=== PATIENT | female | born 1955 | race Asian ===

== ENCOUNTER 2022-02-18 07:48 | Inpatient (IN) | payer MEDICAID, SELFPAY ==
[2022-02-18] VITALS (8 sets, daily range): BP systolic 108–161; BP diastolic 71–90; PULSE 90–109; RESP 16–18; TEMP 37.6–38.9; O2SAT 91–97; BMI 27.3; BMI 30.9
--- NOTE | ~2022-02-18 | CT_ITS ---
EXAMINATION: CT ABDOMEN AND PELVIS WITHOUT CONTRAST CLINICAL INFORMATION: Abdominal pain and tenderness. COMPARISON: None TECHNIQUE: Multidetector volumetric imaging was performed from the superior aspect of the liver through the pubic symphysis. Sagittal and coronal reformatted images were obtained on the technologist's workstation. Lack of intravenous and oral contrast limits visceral evaluation. This CT examination was performed using dose optimization techniques as appropriate, variously including the following: *Automated exposure control *Adjustment of mA and/or kV according to patient size (this includes techniques or standardized protocols for targeted exams where dose is matched to indication/reason for exam; i.e. extremities or head) *Use of iterative reconstruction technique DLP: 468 mGy-cm FINDINGS: LUNG BASES: The visualized lung bases are unremarkable. LIVER, GALLBLADDER, AND BILIARY TREE: Noncalcified, fluid attenuation cyst measuring up to 3.2 cm (image 36, series 7) at the anteroinferior tip of the liver in segment 6. A smaller cyst laterally adjacent to the
--- NOTE | 2022-02-18 08:42 | ED.GENADULT ---
HPI - General Adult General Chief complaint: Abdominal Pain Stated complaint: abd pain Time Seen by Provider: 02/18/22 08:39 Source: patient and family (patient's son-in-law and the patient's daughter) Mode of arrival: ambulatory Limitations: language barrier (mandarin) History of Present Illness HPI narrative: Patient is a 66 year old assigned female at with no reported medical history presenting to the emergency department today with abdominal pain. Patient states that over the last 3 months she has had intermittent right sided abdominal pain and over the last week, her pain has gotten significantly worse. Patient states that she is nauseous. Patient states that the last time she ate was last night (02/17/2022) at 6pm. Patient denies any dizziness, lightheadedness, vomiting, fever, chills, blurry vision, double vision, loss of vision, chest pain, difficulty breathing, shortness of breath, back pain, night sweats, increased urinary frequency, increased urinary urgency, blood in her urine or stool, syncope or a near syncopal episode, recent trauma or falls, bowel incontinence, bladder incontinence, bowel retention, bladder retention, or any other complaints at this time. Onset (ago): week(s) (1) Location: abdomen and right Radiation: non-radiation Severity: moderate Severity scale (1-10): 5 Quality: aching and dull Pain Consistency: constant Relieving factors: none Exacerbating factors: none Associated symptoms: loss of appetite and nausea/vomiting Treatments prior to arrival: none Related Data Home Medications Medication Instructions Recorded Confirmed calcium carbonate 500 mg calcium 500 mg PO TID PRN Indigestion 02/18/22 02/18/22 (1,250 mg) chewable tablet pancreatin 500 mg tablet 1,400 mg PO DAILY 02/18/22 02/18/22 Allergies Allergy/AdvReac Type Severity Reaction Status Date / Time No Known Allergies Allergy Verified 02/18/22 08:07 Review of Systems Constitutional: Constitutional: Reports no additional constitutional complaints, Denies chills, Denies fever(s) and Denies night sweats Eyes: Eyes: Reports no additional eye complaints, Denies blurry vision, Denies change in vision, Denies diplopia, Denies eye discharge, Denies loss of vision and Denies eye pain ENT: Denies dizziness Cardiovascular: Cardiovascular: Reports no additional cardiovascular complaints, Denies chest pain, Denies lightheadedness, Denies Loss of Consciousness and Denies dyspnea Respiratory: Respiratory: Reports no additional respiratory complaints and Denies dyspnea Gastrointestinal: Gastrointestinal: Reports no additional gastrointestinal complaints, Reports abdominal pain, Denies melena, Denies hematochezia, Denies change in bowel habits, Denies change in stool character and Reports nausea Genitourinary: Genitourinary: Denies hematuria, Denies urinary frequency, Reports dysuria, Denies urinary incontinence, Denies urinary hesitancy and Denies urinary urgency Musculoskeletal: Musculoskeletal: Reports no additional musculoskeletal complaints, Denies numbness and Denies tingling Neurologic: Denies dizziness, Denies loss of vision, Denies numbness and Denies tingling Psychiatric: Psychiatric: Reports no additional psychiatric complaints Endocrine: Endocrine: Reports no additional endocrine complaints Hematologic/Lymphatic: Hematologic/Lymphatic: Reports no additional hematologic/lymphatic complaints Allergic/Immunologic: Allergic/Immunologic: Reports no additional allergic/immunologic complaints PMFSH Past Medical History Attestation statement: The following information was validated with the patient. Source: old records reviewed, obtained from family (patient's son) and nursing notes reviewed Medical History (Updated 02/18/22 @ 15:18 by CHELSY Tyler) HTN (hypertension) Social History Social History Advance Directives: No Physical Exam ED Vital Signs: Vital Signs - 24 hr 02/18/22 08:04 02/18/22 10:21 02/18/22 10:25 Temperature 101.7 F H 100.4 F Pulse Rate 109 H 95 Respiratory Rate 16 16 Blood Pressure 161/90 H 119/74 Pulse Oximetry 95 91 L 96 Oxygen Delivery Method Room Air Room Air Nasal Cannula Oxygen Flow Rate 2 02/18/22 10:24 02/18/22 12:00 Temperature 100.4 F 99.7 F Pulse Rate 93 Respiratory Rate 16 Blood Pressure 108/71 Pulse Oximetry 97 Oxygen Delivery Method Nasal Cannula Oxygen Flow Rate 2 BMI result Body Mass Index 27.3 Const General: cooperative, no acute distress, alert and awake Nutritional Appearance: well nourished Orientation/consciousness: patient oriented x3 Limitations: no limitations HENMT Head: Yes normal to inspection and Yes atraumatic Ears: hearing grossly normal bilaterally and external ears normal General nose exam: Normal external nose present, no nasal discharge noted and no epistaxis Face and sinus: Yes normal facial exam, No abrasion and No laceration Mouth: Normal oral and palatal mucosa present, no drooling and no muffled voice Eyes General: appearance normal, both eyes and all related structures Periorbital: periorbital findings normal Eyelids: Yes eyelids normal Conjunctivae: conjunctivae normal Pupils: Equal, round and reactive pupils present EOM: EOMs intact bilaterally Neck Neck: Yes normal visual inspection, Yes full ROM and Yes no lymphadenopathy Chest Breast/axilla palpation: abnormal palpation of the breast left lower outer mass Resp Effort & Inspection: normal respiratory effort and able to speak in complete sentences Auscultation: clear to auscultation bilaterally Cardio Rate: tachycardic Rhythm: regular rhythm GI Inspection: Yes normal to inspection Palpation (GI): Soft to palpation, not firm, Tenderness to palpation present (GI) in the RLQ and with rebound tenderness, no guarding and not rigid Neuro General: patient oriented x3 and moves all extremities Cranial nerves: Yes Equal, round and reactive pupils present Cognition (Neuro): normal cognition Motor exam (neuro): 5/5 motor strength present throughout Sensory Exam: Normal double simultaneous stimulation for sensation Coordination: [id number] test normal Extrem General: Yes normal to inspection, Yes full ROM and Yes capillary refill normal Psych Appearance: grossly normal Mental Status: mental status grossly normal Affect: normal affect Attitude: cooperative Thought process: Normal thought process present Thought content: Normal thought content present Insight: Good insight present (Psych) Medications Administered Generic Name Dose Route Start Last Admin Trade Name Freq PRN Reason Stop Dose Admin Acetaminophen 650 mg 02/18/22 13:04 02/18/22 14:27 Acetaminophen 325 Mg Tablet PO 650 mg Q6H PRN Administration Pain, Mild (Pain Scale 1-3) Discontinued Medications Generic Name Dose Route Start Last Admin Trade Name Freq PRN Reason Stop Dose Admin Acetaminophen 650 mg 02/18/22 08:42 02/18/22 09:11 Acetaminophen 325 Mg Tablet PO 02/18/22 08:43 650 mg ONCE ONE Administration Sodium Chloride 1,000 mls @ 999 mls/hr 02/18/22 08:45 02/18/22 11:01 Ns IV 02/18/22 09:45 Infused .Q1H1M SAMANTHA Infusion Piperacillin Sod/Tazobactam 50 mls @ 100 mls/hr 02/18/22 09:13 02/18/22 11:01 Sod 3.375 gm/ Sodium Chloride IV 02/18/22 09:42 Infused ONCE ONE Infusion Morphine Sulfate 4 mg 02/18/22 08:45 02/18/22 09:11 Morphine Sulfate 4 Mg/Ml Cartridge IVPUSH 02/18/22 08:46 4 mg ONCE ONE Administration Protocol Ondansetron HCl 4 mg 02/18/22 08:45 02/18/22 09:11 Ondansetron Hcl 4 Mg/2 Ml Vial IVPUSH 02/18/22 08:46 4 mg ONCE ONE Administration Medical Decision Making Medical Decision Making MDM Narrative: Patient is a 66 year old assigned female at with no reported medical history presenting to the emergency department today with abdominal pain. Patient's physical exam showed tenderness to palpation of the right lower quadrant with rebound tenderness and a breast mass on the left breast at the 9 o'clock position. Patient tachycardic and febrile. Patient's blood work was unremarkable. Patient's urine showed probable urinary tract infection. Patient's chest x-ray showed no acute process. Patient's abdominal CT showed irregular mural thickening at the level of the terminal ileum extending into the ileocecal valve and cecum with adjacent infiltrative changes and enlarged ileocolic lymph nodes. The radiologist remarked that the findings are nonspecific but significantly abnormal and recommends surgical consultation. I spoke to the general surgeon who recommended getting GI involved as well. I consulted with GI on this patient as well. I spoke to the hospitalist who agreed to admission. Patient was given IV fluids and IV Zosyn. Patient's clinical presentation not consistent with sepsis. I explained my physical exam findings as well as all test results to the patient, the patient's son-in-law, and the patient's daughter. I answered all questions asked by the patient, the patient's son-in-law, and the patient's daughter.Patient, the patient's son-in-law, and the patient's daughter verbalized agreement and understanding with this treatment plan and admission. Differential Diagnosis Differential Diagnoses: The differential diagnosis associated with the presentation includes appendicitis, acute abdomen, cancer Consult Healthcare Provider Management of the patient was discussed with: Hospitalist (agreed to admission) and Tool And Cutter Grinder (consulted both surgery and GI who agreed to consult on this case) Lab Data [facility] Lab Attestation statement: I reviewed the patient's lab results. Result Diagrams: 02/18/22 08:55 02/18/22 08:55 Labs: Lab Results 02/18/22 02/18/22 02/18/22 Range/Units 08:55 08:55 08:55 WBC 9.8 (4.8-10.8) X10*3/uL RBC 4.57 (4.20-5.50) X10*6/uL Hgb 13.3 (12.0-16.0) g/dl Hct 39.0 (37.0-47.0) % MCV 85.3 (80.0-98.0) fL MCH 29.1 (27.0-33.0) pg MCHC 34.1 (31.0-35.0) g/dl RDW 12.2 (11.0-16.0) % Plt Count 259 (160-400) X10*3/uL MPV 8.6 L (9.4-12.3) fL Immature Gran % (Auto) 0.3 (0.0-0.4) % Neut % (Auto) 88.8 H (45-73) % Lymph % (Auto) 6.2 L (20-40) % Hawkins % (Auto) 4.6 (2-11) % Eos % (Auto) 0.0 (0-4) % Baso % (Auto) 0.1 (0-2) % Lymph # (Auto) 0.6 L (1.2-4.9) X10*3/uL Hawkins # (Auto) 0.5 (0.1-1.2) X10*3/uL Eos # (Auto) 0.0 (0.0-0.4) X10*3/uL Baso # (Auto) 0.0 (0.0-0.2) X10*3/uL Abs Immat Gran (auto) 0.03 (0.00-0.03) X10*3/uL Absolute Neuts (auto) 8.7 H (2.0-8.3) x10*3/uL Absolute Nucleated RBC 0.000 (0.0-0.012) X10*3/uL Nucleated RBC % (auto) 0.0 (0.0-0.2) /100WBC Sodium 137 (135-145) mmol/L Potassium 3.6 (3.3-5.1) mmol/L Chloride 101 (96-108) mmol/L Carbon Dioxide 23 (22-29) mmol/L Anion Gap 17 (12-20) BUN 8 L (9-16) mg/dL Creatinine 0.62 (0.5-1.4) mg/dL Estim Creat Clear Calc 72.3 Estimated GFR > 60 Random Glucose 154 H (60-115) mg/dL Estimat Average Glucose mg/dL Hemoglobin A1c % % Lactic Acid (0.5-2.0) mmol/L Calcium 9.2 (8.4-10.2) mg/dL Total Bilirubin 1.3 H (0.0-1.0) mg/dL Direct Bilirubin 0.4 (0.0-0.5) mg/dL AST 15 (5-31) U/L ALT 11 (0-31) U/L Alkaline Phosphatase 89 (39-117) U/L Lactate Dehydrogenase 246 H (122-220) U/L Total Protein 7.2 (6.5-8.0) g/dL Albumin 4.1 (3.5-5.0) g/dL Lipase 11 (8-78) U/L Influenza Type A (PCR) NEGATIVE (Negative) Influenza Type B (PCR) NEGATIVE (Negative) RSV RNA Qual (PCR) NEGATIVE (Negative) SARS-CoV-2 RNA (RT-PCR) NEGATIVE (Negative) 02/18/22 02/18/22 Range/Units 10:19 11:05 WBC (4.8-10.8) X10*3/uL RBC (4.20-5.50) X10*6/uL Hgb (12.0-16.0) g/dl Hct (37.0-47.0) % MCV (80.0-98.0) fL MCH (27.0-33.0) pg MCHC (31.0-35.0) g/dl RDW (11.0-16.0) % Plt Count (160-400) X10*3/uL MPV (9.4-12.3) fL Immature Gran % (Auto) (0.0-0.4) % Neut % (Auto) (45-73) % Lymph % (Auto) (20-40) % Hawkins % (Auto) (2-11) % Eos % (Auto) (0-4) % Baso % (Auto) (0-2) % Lymph # (Auto) (1.2-4.9) X10*3/uL Hawkins # (Auto) (0.1-1.2) X10*3/uL Eos # (Auto) (0.0-0.4) X10*3/uL Baso # (Auto) (0.0-0.2) X10*3/uL Abs Immat Gran (auto) (0.00-0.03) X10*3/uL Absolute Neuts (auto) (2.0-8.3) x10*3/uL Absolute Nucleated RBC (0.0-0.012) X10*3/uL Nucleated RBC % (auto) (0.0-0.2) /100WBC Sodium (135-145) mmol/L Potassium (3.3-5.1) mmol/L Chloride (96-108) mmol/L Carbon Dioxide (22-29) mmol/L Anion Gap (12-20) BUN (9-16) mg/dL Creatinine (0.5-1.4) mg/dL Estim Creat Clear Calc Estimated GFR Random Glucose (60-115) mg/dL Estimat Average Glucose 108 mg/dL Hemoglobin A1c % 5.4 % Lactic Acid 0.8 (0.5-2.0) mmol/L Calcium (8.4-10.2) mg/dL Total Bilirubin (0.0-1.0) mg/dL Direct Bilirubin (0.0-0.5) mg/dL AST (5-31) U/L ALT (0-31) U/L Alkaline Phosphatase (39-117) U/L Lactate Dehydrogenase (122-220) U/L Total Protein (6.5-8.0) g/dL Albumin (3.5-5.0) g/dL Lipase (8-78) U/L Influenza Type A (PCR) (Negative) Influenza Type B (PCR) (Negative) RSV RNA Qual (PCR) (Negative) SARS-CoV-2 RNA (RT-PCR) (Negative) Radiology Impression Discussion of test interpretation with radiology: I have reviewed the radiologist's reading. Radiologist Impression: EXAMINATION: XR CHEST CLINICAL INFORMATION: Fever. Preoperative. COMPARISON: None TECHNIQUE: Frontal view of the chest was obtained. FINDINGS: The lungs are well expanded. There is no focal consolidation, edema, or effusion. No pneumothorax. The cardiomediastinal silhouette is within normal limits. No acute osseous abnormality. XR/XR chest 1V IMPRESSION: No acute pulmonary disease. Dictated By: Humberto Ramirez MD Signed By: Electronically signed by Humberto Ramirez MD 02/18/22 1057 EXAMINATION: CT ABDOMEN AND PELVIS WITHOUT CONTRAST? CLINICAL INFORMATION: Abdominal pain and tenderness.? COMPARISON: None? TECHNIQUE: Multidetector volumetric imaging was performed from the superior aspect of the liver through the pubic symphysis. Sagittal and coronal reformatted images were obtained on the technologist's workstation. Lack of intravenous and oral contrast limits visceral evaluation. This CT examination was performed using dose optimization techniques as appropriate, variously including the following: *Automated exposure control *Adjustment of mA and/or kV according to patient size (this includes techniques or standardized protocols for targeted exams where dose is matched to indication/reason for exam; i.e. extremities or head) *Use of iterative reconstruction technique DLP: 468 mGy-cm FINDINGS: LUNG BASES: The visualized lung bases are unremarkable.? LIVER, GALLBLADDER, AND BILIARY TREE: Noncalcified, fluid attenuation cyst measuring up to 3.2 cm (image 36, series 7) at the anteroinferior tip of the liver in segment 6. A smaller cyst laterally adjacent to the gallbladder is seen measuring 0.8 cm (image 24, series 3). No other significant hepatobiliary abnormality. PANCREAS: Unremarkable.? SPLEEN: Unremarkable.? ADRENAL GLANDS: Unremarkable.? KIDNEYS AND URETERS: The kidneys are normal in size, shape, and attenuation. No hydronephrosis, hydroureter, or calculi seen. No perinephric stranding. ? BLADDER: Unremarkable.? GASTROINTESTINAL TRACT: The stomach and proximal small bowel unremarkable. A regular mural thickening is seen at the level the terminal ileum extending to the ileocecal valve and cecum. Adjacent infiltrative changes are seen along with enlarged ileocolic lymph nodes. One of the largest is seen measuring 2.0 cm (image 43, series 3). Equalization is seen in the adjacent distal ileum. The appendix is dilated with mild mural thickening and internal fluid. A transportation services representative diameter measurement is 1.2 cm (image 50, series 3). ABDOMINAL WALL: No significant hernia is appreciated.? LYMPH NODES: Enlarged ileocolic lymph nodes. The largest was measured above. An additional transportation services representative lymph node more medial measures 0.8 cm in short axis (image 36, series 7). VASCULAR: Unremarkable. PELVIC VISCERA: Unremarkable.? OSSEOUS STRUCTURES: Approximate 30% superior endplate compression deformity of L3 without acute features. Mild lumbar levoscoliosis with apex at L3. Mild multilevel degenerative changes without suspicious abnormality.? CT/CT abdomen pelvis wo IV con IMPRESSION: 1.? Irregular mural thickening at the level the terminal ileum extending to the ileocecal valve and cecum with adjacent infiltrative changes and enlarged ileocolic lymph nodes. These findings are nonspecific, but significantly abnormal. Considerations include chronic infectious/inflammatory terminal ileitis/colitis and chronic appendicitis with acute on chronic features. Malignancy is a consideration as well. Surgical consultation and biopsy are recommended. 2.? Hepatic cysts demonstrate benign features. 3.? L3 superior endplate compression deformity without acute features. Dictated By: Avery Lopez MD Signed By: Electronically signed by Avery Lopez MD 02/18/22 0955 Independent Historian Clinical information obtained from an independent historian. History obtained from or confirmed by: Other (patient's daughter and son-in-law) Critical Care Time Critical Care Time Critical Care Time: Yes Total Critical Care Time: 30 Attestation: I spent 30 minutes of Critical Care Time with this patient. This does not include time spent on separately reported billable procedures. Discharge Plan Discharge Clinical Impression: Abnormal CT of the abdomen, Breast mass Patient Disposition: Admitted As Inpatient
[2022-02-18 09:02] LABS: MANUAL DIFF FLAG NO
[2022-02-18 09:03] LABS: Basophils Percent Auto 0.1 % (0-2); Hemoglobin 13.3 g/dl (12.0-16.0); Imm Gran Abs Auto 0.03 X10*3/uL (0.00-0.03); Imm Gran Pct Auto 0.3 % (0.0-0.4); Lymphocytes Absolute Auto 0.6 X10*3/uL (1.2-4.9); Lymphocytes Percent Auto 6.2 % (20-40); Mean Corpuscular HGB Conc 34.1 g/dl (31.0-35.0); Mean Corpuscular Hemoglobin 29.1 pg (27.0-33.0); Mean Corpuscular Volume 85.3 fL (80.0-98.0); Mean Platelet Volume 8.6 fL (9.4-12.3); Monocytes Absolute Auto 0.5 X10*3/uL (0.1-1.2); Monocytes Percent Auto 4.6 % (2-11); Neutrophils Absolute Auto 8.7 x10*3/uL (2.0-8.3); Neutrophils Percent Auto 88.8 % (45-73); Platelet Count 259 X10*3/uL (160-400); Red Blood Count 4.57 X10*6/uL (4.20-5.50); Red Cell Distribution Width 12.2 % (11.0-16.0); White Blood Count 9.8 X10*3/uL (4.8-10.8)
[2022-02-18] MEDS: Morphine Sulfate 4 MG/ML CARTRIDGE IVPUSH (09:11)
[2022-02-18] MEDS: ondansetron HCL 4 MG/2 ML VIAL IVPUSH (09:11)
[2022-02-18] MEDS: Acetaminophen 325 MG TABLET 650 MG PO ×2 (09:11→14:27)
[2022-02-18] MEDS: 0.9 % Sodium Chloride 1,000 ML 999 ML IV (09:11)
[2022-02-18 09:42] LABS: Alanine Aminotransferase 11 U/L (0-31); Albumin Level 4.1 g/dL (3.5-5.0); Alkaline Phosphatase 89 U/L (39-117); Anion Gap 17 (12-20); Aspartate Amino Transferase 15 U/L (5-31); Bilirubin Direct 0.4 mg/dL (0.0-0.5); Bilirubin Total 1.3 mg/dL (0.0-1.0); Blood Urea Nitrogen 8 mg/dL (9-16); Calcium 9.2 mg/dL (8.4-10.2); Carbon Dioxide 23 mmol/L (22-29); Chloride 101 mmol/L (96-108); Creatinine Clr Calc Pharmacy 72.3; Estimated Glomerular Filt Rate > 60; Glucose Random 154 mg/dL (60-115); Lipase 11 U/L (8-78); Potassium 3.6 mmol/L (3.3-5.1); Sodium 137 mmol/L (135-145); Total Protein 7.2 g/dL (6.5-8.0)
[2022-02-18 09:57] LABS: Influenza A PCR NEGATIVE (Negative); Influenza B PCR NEGATIVE (Negative); Resp Syncy Virus RNA Qual PCR NEGATIVE (Negative); SARS COV2 PCR INHOUSE NEGATIVE (Negative)
[2022-02-18] MEDS: Piperacillin Sodium/Tazobactam 3.375 GM in 0.9 % Sodium Chloride 50 ML IV ×2 (10:00→16:02)
--- NOTE | 2022-02-18 10:29 | PC.NURSE ---
IV established, labs drawn and sent. Family at bedside assisting with interpreting. O2 found to be in low 90's, placed on 2L at 97%.
--- NOTE | 2022-02-18 10:43 | MHC.EDTECH ---
Labs collected and sent to lab. O2 was 90% on room air, let nurse know and placed on 2L NC brought O2 up to 96%.
[2022-02-18 10:47] LABS: Lactic Acid 0.8 mmol/L (0.5-2.0)
--- NOTE | 2022-02-18 10:51 | PM.CNGS ---
History of Present Illness Consult details Consult date: 02/18/22 Reason for consult: abdominal pain Narrative: The patient is a 66-year-old woman who is Mandarin speaking only. Her son-in-law served as band bias machine operator. The patient reports a 3 month history of abdominal symptoms that started as a vague low grade pain that started after falling 3 months ago. When she fell, she landed on her buttocks. The pain has persisted and continued to increase over time, worsening a few weeks ago and then a few days ago. She denies any rectal bleeding or watery bowel movements. When she came to the emergency department, she was noted to have a normal white count with a slight left shift. CT demonstrated findings concerning for possible appendicitis and ileitis so I was asked to evaluate the patient to help coordinate her care. Patient reports a history of hypertension but denies any personal history of inflammatory bowel disease or Crohn's disease. She has never had a colonoscopy in is unaware of any GI malignancy in the immediate family. In addition, there is concern over a LEFT breast mass. The patient is unable to provide any history regarding the mass. [facility] Past Medical History Medical History (Updated 02/18/22 @ 15:18 by CHELSY Tyler) HTN (hypertension) Social History Social History Household Members: Spouse Housing: House Do you presently have visiting nurse or other home services: No Patient Tobacco Use Status: Never used Tobacco Meds Allergies Allergy/AdvReac Type Severity Reaction Status Date / Time No Known Allergies Allergy Verified 02/18/22 08:07 Home Medications Medication Instructions Recorded Confirmed Last Taken Type calcium carbonate 500 mg calcium 500 mg PO TID PRN Indigestion 02/18/22 02/18/22 Unknown History (1,250 mg) chewable tablet pancreatin 500 mg tablet 1,400 mg PO DAILY 02/18/22 02/18/22 Unknown History Physical Exam Vital Signs: Vital Signs: Last Vital Signs Temp 100.4 F 02/18/22 10:24 Pulse 95 02/18/22 10:21 Resp 16 02/18/22 10:21 BP 119/74 02/18/22 10:21 Pulse Ox 96 02/18/22 10:25 O2 Del Method 02/18/22 10:25 O2 Flow Rate 2 02/18/22 10:25 BMI result Body Mass Index 27.3 The patient is non-toxic & in good spirits NC/AT, PERRLA, EOMI Mood, affect & judgment all appear appropriate Sclera anicteric conjunctiva pink and moist Oropharynx is clear with no aphthous ulcers, Mallampati class 4, mucous membranes moist Neck is supple with no masses, adenopathy or bruits Heart is regular, normal S1-S2 no rubs or murmurs In the left breast there is a palpable ridge approximately 2 x 4 cm in the inner breast Lungs are clear and equal anteriorly with no audible wheezing, rubs or dullness to percussion Abdomen is overweight with no demonstrable hernias. There is right lower quadrant tenderness to palpation but no peritoneal irritation to percussion. No HSM, rebound, rigidity, guarding, masses or bruits are present. Rectal exam is deferred Skin has good turgor and is free of rashes Extremities free of cyanosis clubbing edema Results Labs Result diagrams: 02/19/22 05:51 02/19/22 05:51 Labs: Abnormal lab results 02/18/22 02/18/22 Range/Units 08:55 08:55 MPV 8.6 L (9.4-12.3) fL Neut % (Auto) 88.8 H (45-73) % Lymph % (Auto) 6.2 L (20-40) % Lymph # (Auto) 0.6 L (1.2-4.9) X10*3/uL Absolute Neuts (auto) 8.7 H (2.0-8.3) x10*3/uL BUN 8 L (9-16) mg/dL Random Glucose 154 H (60-115) mg/dL Total Bilirubin 1.3 H (0.0-1.0) mg/dL Short CBC 02/18/22 Range/Units 08:55 WBC 9.8 (4.8-10.8) X10*3/uL Hgb 13.3 (12.0-16.0) g/dl Hct 39.0 (37.0-47.0) % Plt Count 259 (160-400) X10*3/uL BMP 02/18/22 08:55 Sodium 137 Potassium 3.6 Chloride 101 Carbon Dioxide 23 BUN 8 L Creatinine 0.62 Calcium 9.2 Liver Function 02/18/22 Range/Units 08:55 Total Bilirubin 1.3 H (0.0-1.0) mg/dL Direct Bilirubin 0.4 (0.0-0.5) mg/dL AST 15 (5-31) U/L ALT 11 (0-31) U/L Alkaline Phosphatase 89 (39-117) U/L Albumin 4.1 (3.5-5.0) g/dL All other labs normal. Imaging Chest x-ray: report reviewed Abdomen CT scan report/results: report reviewed and image reviewed CT scan - chest: report reviewed and image reviewed CT scan - pelvis: report reviewed and image reviewed Assessment and Plan (1) Ileitis: Status: Acute (2) Abnormal CT of the abdomen: Status: Acute (3) HTN (hypertension): Status: Acute Plan Who would be unusual for appendicitis to linger for 3 months. I asked the son-in-law who served as band bias machine operator multiple times to confirm that time frame, and in the patient has been having bandlike lower abdominal pain for 3 months which got worse a few weeks ago and then a few days ago. Given the normal white blood cell count and lack of peritoneal sign on today's exam, I have requested Dr. Ding/GI evaluate the patient since colonoscopy may be in order in planning a definitive surgical procedure, if [address] A/P with contrast pending. Would start Zosyn or other Abx & will follow. Will need one of the breast surgeon to assess left breast mass, but would image if mammo is open over the weekend. Time Spent With Patient Time: Total time managing care of this patient today ____ minutes. Procedures Date of Service Date of Service: 02/18/22
[2022-02-18 11:28] LABS: Estimated Average Glucose 108 mg/dL; Hemoglobin A1c % 5.4 %
--- NOTE | 2022-02-18 12:00 | PHA.MEDREC ---
Pharmacy Consult ? Medication Reconciliation Pharmacy has completed the medication reconciliation.
--- NOTE | 2022-02-18 12:08 | P.HPHOSP_ITS ---
History of Present Illness Date of Service: 02/18/22 Attending physician on admission: Buddy Orlando Chief Complaint: Abdominal Pain Patient is a 66-year-old female with a PMH significant for HTN who presents today with severe lower right-sided abdominal pain. Pt speaks Mandarian only, her son-in-law serves as chief quality officer. Pt states that her abdominal pain began 3 months ago after falling on her buttocks. Pain was diffusely in her lower abdomen, mild. About one week ago the pain increased significantly and became localized in her lower left side. Last night the pain became unbearable and she presented to the ED. Associated [place], but no vomiting. Denies hematochezia, melena. No diarrhea. Pt also complains of left breast pain, which has been ongoing for over 2 years. Pt has not had a mammogram during this time. In the ED labs were mostly unremarkable with no leukocytosis and a mildly elevated bilirubin of 1.3; all other hepatic labs WNL. Chest x-ray was clear. CT of abdomen and pelvis found nonspecific but significantly abnormal findings: irregular mural thickening of the terminal ileum extending to the ileocecal valve and cecum with adjacent infiltrative changes and enlarged ileocolic lymph nodes. Suggestive of either chronic infectious/inflammatory processes including chronic appendicitis, ileitis, or malignancy. Pt will be admitted for further treatment and workup for abdominal pain. Review of Systems Review of Systems: Right-sided lower abdominal pain Nausea Left breast pain No vomiting, diarrhea No hematachezia Yes all other systems are reviewed and are negative PMFSH Social History Advance Directives: No Meds Allergies Allergy/AdvReac Type Severity Reaction Status Date / Time No Known Allergies Allergy Verified 02/18/22 08:07 Active Medications: Current Medications Pharmacy Consult (Consult Rx Perform Med Rec) 1 each MISCELLANE ONCE PRN PRN Reason: patient will be admitted Home Medications Medication Instructions Recorded Confirmed Last Taken Type calcium carbonate 500 mg calcium 500 mg PO TID PRN Indigestion 02/18/22 02/18/22 Unknown History (1,250 mg) chewable tablet pancreatin 500 mg tablet 1,400 mg PO DAILY 02/18/22 02/18/22 Unknown History Physical Exam Vital Signs and Narrative: Vital Signs: Last Vital Signs Temp 100.4 F 02/18/22 10:24 Pulse 95 02/18/22 10:21 Resp 16 02/18/22 10:21 BP 119/74 02/18/22 10:21 Pulse Ox 96 02/18/22 10:25 O2 Del Method 02/18/22 10:25 O2 Flow Rate 2 02/18/22 10:25 BMI result Body Mass Index 27.3 Constitutional: Alert, in no acute distress. Mental Status: Oriented to person, place and time. Eyes: Pupils are equal, round, and reactive to light. Ear, Nose, and Throat: Oropharynx clear, mucous membranes moist. Ears and nose without deformities. Trachea midline. Respiratory: Clear to auscultation bilaterally. No wheezing, rales, or rhonchi. Cardiovascular: S1, S2 regular. No murmurs, rubs, or gallops. Breast: 3-4cm firm, tender, non-mobile breast mass found at the 9 o'clock position. No overlying erythema, induration, or fluctuance Gastrointestinal: Lower right quadrant abdomen tendeness. Non-distended. Normal bowel sounds. Neurologic: Cranial nerves II-XI are grossly intact. No focal neurological deficits. Moves all extremities spontaneously. Skin: No rashes of lesions. Musculoskeletal: No cyanosis or clubbing. Extremities: No edema. Psychiatric: Normal mood and affect. Results Labs CBC and Chem 7: 02/18/22 08:55 02/18/22 08:55 Labs: Laboratory Results - last 24 hr 02/18/22 02/18/22 02/18/22 08:55 08:55 08:55 MCV 85.3 MCH 29.1 MCHC 34.1 RDW 12.2 Plt Count 259 MPV 8.6 L Immature Gran % (Auto) 0.3 Neut % (Auto) 88.8 H Lymph % (Auto) 6.2 L [place] % (Auto) 4.6 Eos % (Auto) 0.0 Baso % (Auto) 0.1 Lymph # (Auto) 0.6 L [place] # (Auto) 0.5 Eos # (Auto) 0.0 Baso # (Auto) 0.0 Abs Immat Gran (auto) 0.03 Absolute Neuts (auto) 8.7 H Absolute Nucleated RBC 0.000 Nucleated RBC % (auto) 0.0 Anion Gap 17 Estim Creat Clear Calc 72.3 Estimated GFR > 60 Random Glucose 154 H Estimat Average Glucose Hemoglobin A1c % Lactic Acid Calcium 9.2 Total Bilirubin 1.3 H Direct Bilirubin 0.4 AST 15 ALT 11 Alkaline Phosphatase 89 Total Protein 7.2 Albumin 4.1 Lipase 11 Influenza Type A (PCR) NEGATIVE Influenza Type B (PCR) NEGATIVE RSV RNA Qual (PCR) NEGATIVE SARS-CoV-2 RNA (RT-PCR) NEGATIVE 02/18/22 02/18/22 10:19 11:05 MCV MCH MCHC RDW Plt Count MPV Immature Gran % (Auto) Neut % (Auto) Lymph % (Auto) [place] % (Auto) Eos % (Auto) Baso % (Auto) Lymph # (Auto) [place] # (Auto) Eos # (Auto) Baso # (Auto) Abs Immat Gran (auto) Absolute Neuts (auto) Absolute Nucleated RBC Nucleated RBC % (auto) Anion Gap Estim Creat Clear Calc Estimated GFR Random Glucose Estimat Average Glucose 108 Hemoglobin A1c % 5.4 Lactic Acid 0.8 Calcium Total Bilirubin Direct Bilirubin AST ALT Alkaline Phosphatase Total Protein Albumin Lipase Influenza Type A (PCR) Influenza Type B (PCR) RSV RNA Qual (PCR) SARS-CoV-2 RNA (RT-PCR) Imaging Radiologist's Impressions: Impressions Abdomen/Pelvis CT 02/18/22 09:20 IMPRESSION: 1. Irregular mural thickening at the level the terminal ileum extending to the ileocecal valve and cecum with adjacent infiltrative changes and enlarged ileocolic lymph nodes. These findings are nonspecific, but significantly abnormal. Considerations include chronic infectious/inflammatory terminal ileitis/colitis and chronic appendicitis with acute on chronic features. Malignancy is a consideration as well. Surgical consultation and biopsy are recommended. 2. Hepatic cysts demonstrate benign features. 3. L3 superior endplate compression deformity without acute features. Chest X-Ray 02/18/22 10:46 IMPRESSION: No acute pulmonary disease. Assessment and Plan (1) Abdominal pain: Status: Acute (2) HTN (hypertension): Status: Acute (3) Breast mass: Status: Acute Plan Patient is a 66-year-old Mandarin-speaking female with a PMH significant for HTN who presents today with severe lower right-sided abdominal pain. CT concerning for possible appendicitis, ileitis, or malignancy. Pt will be admitted for further workup for abdominal pain. # right-sided abdominal pain -- CT shows possible appendicitis, ileitis, or malignancy -- appendicitis unlikely d/t 3-month history of abdominal pain -- General surgery consult -- GI consult' -- morphine for pain -- empiric Zosyn for potential bacterial source -- clear liquid diet, NPO after midnight for possible colonoscopy tomorrow # breast mass -- large, 3-4cm mass in left breast at 9 o'clock -- CT of chest -- f/u outpatient for possible malignancy # HTN -- continue home meds Full code DVT prophylaxis: pneumatic boots given possibility for need for scope/surgical procedures Attending: Dr. Orlando Pt will need at least two nights of hospitalization for treatment and workup for severe abdominal pain. Time Spent With Patient Time: Total time managing care of this patient today ____ minutes. Quality Stroke Does the patient have a stroke diagnosis?: No VTE Prior VTE?: No VTE Risk Level:: Medical - moderate - high VTE Device Contraindication: N/A - Device Ordered VTE Drug Contraindication: Treatment Not Indicated
--- NOTE | 2022-02-18 12:26 | PC.NURSE ---
pt a&ox3, vss - pt afebrile, pt reporting abd pain, provider at bedside. pt pending admission orders.
[2022-02-18 12:34] LABS: Lactate Dehydrogenase 246 U/L (122-220)
--- NOTE | 2022-02-18 13:11 | MHC.EDTECH ---
Urine sent to lab.
[2022-02-18 13:19] LABS: Appearance Urine Cloudy; Color Urine Dark Yellow; Glucose Urine UA Negative (Negative); Leukocyte Esterase Urine Moderate (2+) (Negative); Nitrite Urine Negative (Negative); UMIC TRIGGER UACC YES; Urine Blood Negative (Negative); Urine Ketones 15 mg/dL (Negative); Urine Protein 30 (1+) mg/dL (Neg-Trace)
[2022-02-18 13:21] LABS: Bacteria Urine 3+ (None Seen); Hyaline Casts Urine 0-2 /LPF (0-2); Squamous Epithelial Cell Urine >20 /HPF (0-2); UACC Culture Trigger YES; WBC Urine >50 /HPF (0-5)
--- NOTE | 2022-02-18 13:51 | PM.GICN ---
History of Present Illness Data of Consult Service Date: 02/18/22 Requesting physician: Carolyn El Primary Care Provider: Unknown Physician HPI Reason for consult: Abnormal imaging This is a 66-year-old female with past medical history of hypertension, who presented to the hospital for worsening right lower quadrant pain. History was obtained with the help of her family members, who states that around a week ago, she developed right lower quadrant pain and discomfort, which got worse on lying down. She has been having bandlike abdominal pain which goes to her back for almost 3 months, but states that this right lower quadrant pain was significantly different in character and location. She initially tried to treat it with traditional medicine (cupping therapy). However, last evening, the pain became severe associated with nausea, dry heaving, fevers and chills. She denies any diarrhea, blood in stool. When she presented to the hospital, she was noted to be febrile to 101.7 and tachycardic. Labs were significant for normal white count with neutrophilic shift. Chem [address] abdomen pelvis without contrast was done that shows thickening of the terminal ileum extending up to the IC valve and cecum with enlarged surrounding lymph nodes. Appendix is dilated to 1.2 cm. Of note, she also was noted to have hepatic cyst which appear benign on review. She is also noted to have a non acute L3 compression fracture, that likely was causing her bandlike pain going to her back. Outside of this episode, she denies any baseline gastrointestinal complaints to include abdominal pain, nausea vomiting, changes in appetite, unintentional weight loss, changes in bowel habits. No family history of inflammatory bowel disease or colon cancer. Patient has never had a colonoscopy. Currently, reports significant improvement in pain after getting medicated. Nausea has improved too and in fact she reports return of appetite. Has been passing flatus. Review of Systems Review of Systems: Yes all other systems are reviewed and are negative [facility] Past Medical History Medical History (Updated 02/18/22 @ 13:53 by Faith Ding MD) HTN (hypertension) Social History Social History Advance Directives: No Meds Allergies Allergy/AdvReac Type Severity Reaction Status Date / Time No Known Allergies Allergy Verified 02/18/22 08:07 Active Medications: Current Medications Acetaminophen (Acetaminophen 325 Mg Tablet) 650 mg PO Q6H PRN PRN Reason: Pain, Mild (Pain Scale 1-3) Docusate Sodium (Docusate Sodium 100 Mg Capsule) 100 mg PO DAILY PRN PRN Reason: Constipation Piperacillin Sod/Tazobactam (Sod 3.375 gm/ Sodium Chloride) 50 mls @ 100 mls/hr IV Q8H [facility] Morphine Sulfate (Morphine Sulfate 2 Mg/Ml Cartridge) 2 mg IVPUSH Q4H PRN; Protocol PRN Reason: Pain, Severe (Pain Scale 7-10) Ondansetron HCl (Ondansetron Hcl 4 Mg/2 Ml Vial) 4 mg IVPUSH Q8H PRN PRN Reason: Nausea and Vomiting Pharmacy Consult (Consult Rx Perform Med Rec) 1 each MISCELLANE ONCE PRN PRN Reason: patient will be admitted Sodium Chloride (0.9 % Sodium Chloride Flush 3 Ml Syringe) [facility] Home Medications Medication Instructions Recorded Confirmed Last Taken Type calcium carbonate 500 mg calcium 500 mg PO TID PRN Indigestion 02/18/22 02/18/22 Unknown History (1,250 mg) chewable tablet pancreatin 500 mg tablet 1,400 mg PO DAILY 02/18/22 02/18/22 Unknown History Physical Exam Vital Signs: Vital Signs: Last Vital Signs Temp 99.7 F 02/18/22 12:00 Pulse 93 02/18/22 12:00 Resp 16 02/18/22 12:00 BP 108/71 02/18/22 12:00 Pulse Ox 97 02/18/22 12:00 O2 Del Method 02/18/22 12:00 O2 Flow Rate 2 02/18/22 12:00 BMI result Body Mass Index 27.3 Gen appear: No acute distress, well nourished HEENT: no icterus, no cervical lymphadenopathy Chest: No overt resp distress CVS: S1/S2, regular Abd: soft, tenderness in right lower quadrant, no rebound tenderness, no guarding, bowel sounds normoactive. Psych: Stable affect, answering questions appropriately Neuro: A/Ox3 noted to move all extremities spontaneously Ext: no peripheral edema Results Labs CBC & Chem 7: 02/18/22 08:55 02/18/22 08:55 Labs: Short CBC 02/18/22 Range/Units 08:55 WBC 9.8 (4.8-10.8) X10*3/uL Hgb 13.3 (12.0-16.0) g/dl Hct 39.0 (37.0-47.0) % Plt Count 259 (160-400) X10*3/uL BMP 02/18/22 08:55 Sodium 137 Potassium 3.6 Chloride 101 Carbon Dioxide 23 BUN 8 L Creatinine 0.62 Calcium 9.2 Liver Function 02/18/22 Range/Units 08:55 Total Bilirubin 1.3 H (0.0-1.0) mg/dL Direct Bilirubin 0.4 (0.0-0.5) mg/dL AST 15 (5-31) U/L ALT 11 (0-31) U/L Alkaline Phosphatase 89 (39-117) U/L Albumin 4.1 (3.5-5.0) g/dL Urine 02/18/22 Range/Units 13:09 Urine Color Dark Yellow Urine Appearance Cloudy Urine pH 6.0 (5.0-9.0) Ur Specific [place] 1.020 (1.005-1.025) Urine Protein 30 (1+) H (Neg-Trace) mg/dL Urine Glucose (UA) Negative (Negative) mg/dL Assessment and Plan (1) Abnormal CT of the abdomen: Status: Acute (2) Abdominal pain: Status: Acute Plan Differentials include subacute appendicitis, malignancy specially appendiceal cancer could also mimic appendicitis with atypical features, isolated R sided colon ischemia considered though pts typically much sicker, infectious enterocolitis also on DDx albeit patient does not have any diarrhea. Also does not have any background chronicity to her symptoms and therefore makes inflammatory bowel disease lower down on the differential. Recommendations: -management of sepsis as per primary team -consider interval imaging (contrasted) in 24-48 hours to guide further management surgical vs endoscopic eval This was reviewed with the surgical team as well. Thank you for allowing me to participate in the patient's care. Please do not hesitate to reach out for any questions or concerns. Time Spent With Patient Time: Total time managing care of this patient today ____ minutes. Procedures Date of Service Date of Service: 02/18/22
--- NOTE | 2022-02-18 14:33 | PC.NURSE ---
pt medicated w prn tylenol for fever with slight increase in RLQ pain. provider aware.
[2022-02-18] MEDS: iohexoL 350 MG/ML 100 ML INFUS..BTL 65 ML IV (15:54)
[2022-02-18] MEDS: 0.9 % Sodium Chloride Flush 3 ML SYRINGE IVFLUSH (16:02)
--- NOTE | 2022-02-18 20:42 | PC.NURSE ---
attempted to call RN-RN report, nurse to call back after giving meds.
[2022-02-19] MEDS: 0.9 % Sodium Chloride Flush 3 ML SYRINGE IVFLUSH ×4 (00:13→23:43)
[2022-02-19 00:16] VITALS: BP 133/68; PULSE 100; RESP 20; TEMP 38.8; O2SAT 96
[2022-02-19] MEDS: Acetaminophen 325 MG TABLET 650 MG PO (00:21)
[2022-02-19] MEDS: Piperacillin Sodium/Tazobactam 3.375 GM in 0.9 % Sodium Chloride 50 ML IV ×4 (00:27→23:43)
[2022-02-19 01:05] VITALS: TEMP 37.9
[2022-02-19] MEDS: Morphine Sulfate 2 MG/ML CARTRIDGE IVPUSH ×3 (01:30→15:29)
[2022-02-19] MEDS: ondansetron HCL 4 MG/2 ML VIAL IVPUSH (01:42)
[2022-02-19 03:29] VITALS: BP 105/66; PULSE 84; RESP 16; TEMP 37.1
[2022-02-19 06:53] LABS: Hematocrit 37.9 % (37.0-47.0); Hemoglobin 12.9 g/dl (12.0-16.0); Mean Corpuscular Volume 88.1 fL (80.0-98.0); Mean Platelet Volume 9.2 fL (9.4-12.3); Platelet Count 264 X10*3/uL (160-400); Red Cell Distribution Width 12.4 % (11.0-16.0); White Blood Count 6.4 X10*3/uL (4.8-10.8)
[2022-02-19 07:40] LABS: Anion Gap 15 (12-20); Blood Urea Nitrogen 9 mg/dL (9-16); Calcium 8.8 mg/dL (8.4-10.2); Carbon Dioxide 25 mmol/L (22-29); Chloride 101 mmol/L (96-108); Creatinine Clr Calc Pharmacy 75.5; Estimated Glomerular Filt Rate > 60; Glucose Random 138 mg/dL (60-115); Potassium 3.6 mmol/L (3.3-5.1); Sodium 137 mmol/L (135-145)
[2022-02-19 08:00] VITALS: BP 133/81; PULSE 100; RESP 17; TEMP 37.6; O2SAT 96
--- NOTE | 2022-02-19 09:21 | HO.PM.IMPN ---
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 CT abd/pelvis and chest results discussed with pt and her daughter/son-in-law. Per the patient and family, detailed results from imaging/procedures should not be discussed with patient, only family. She is still in significant right sided and periumbilical abd pain, improved since last night with pain meds. No nausea/vomiting. Febrile overnight, still with mild tachcyardia. Weaned from supplemental O2. Review of Systems General: No fevers, malaise, unintentional weight loss Cardiovascular: No chest pain, palpitations, or leg edema Respiratory: No shortness of breath, wheezing, cough GI: +abdominal pain. No nausea, vomiting, diarrhea : No dysuria, hematuria, increased urinary frequency MSK: No myalgia, back pain Neuro: No headaches, weakness, paresthesias Skin: No rashes or lesions Physical Exam Vital Signs: Vital Signs: Last Vital Signs Temp 99.6 F 02/19/22 08:00 Pulse 100 02/19/22 08:00 Resp 17 02/19/22 08:00 BP 133/81 02/19/22 08:00 Pulse Ox 96 02/19/22 08:00 O2 Del Method 02/19/22 08:00 O2 Flow Rate 2 02/19/22 00:16 BMI result Body Mass Index 30.9 Constitutional - Awake and Alert, No apparent distress Eyes - PERRLA, EOMI Cardiovascular - S1S2, RRR, No edema Respiratory - Normal lung expansion, Normal respiratory effort, No respiratory distress, CTA bilaterally Gastrointestinal - right-sided and periumbilical TTP with guarding, no rebound. ND; +BS Extremities - no calf tenderness bilaterally, no swelling Skin - Warm/Dry Neurological - Alert & oriented x3 Psychological - Appropriate affect Objective Data Active Medications Acetaminophen (Acetaminophen 325 Mg Tablet) 650 mg PO Q6H PRN PRN Reason: Pain, Mild (Pain Scale 1-3) Last Admin: 02/19/22 00:21 Dose: 650 mg Documented By: PABLO Docusate Sodium (Docusate Sodium 100 Mg Capsule) 100 mg PO DAILY PRN PRN Reason: Constipation Piperacillin Sod/Tazobactam (Sod 3.375 gm/ Sodium Chloride) 50 mls @ 100 mls/hr IV Q8H [facility] Last Infusion: 02/19/22 08:24 Dose: 0 mls/hr Documented By: SEBASTIÁN Morphine Sulfate (Morphine Sulfate 2 Mg/Ml Cartridge) 2 mg IVPUSH Q4H PRN; Protocol PRN Reason: Pain, Severe (Pain Scale 7-10) Last Admin: 02/19/22 07:44 Dose: 2 mg Documented By: SEBASTIÁN Non-Formulary Medication (Pancreatin) 1,400 mg PO DAILY [facility] Ondansetron HCl (Ondansetron Hcl 4 Mg/2 Ml Vial) 4 mg IVPUSH Q8H PRN PRN Reason: Nausea and Vomiting Last Admin: 02/19/22 01:42 Dose: 4 mg Documented By: PABLO Pharmacy Consult (Consult Rx Perform Med Rec) 1 each MISCELLANE ONCE PRN PRN Reason: patient will be admitted Sodium Chloride (0.9 % Sodium Chloride Flush 3 Ml Syringe) 3 ml IVFLUSH QSHIFT [facility] Last Admin: 02/19/22 07:45 Dose: 3 ml Documented By: SEBASTIÁN Labs CBC & Chem 7: 02/19/22 05:51 02/19/22 05:51 Labs: Laboratory Results - last 24 hr 02/18/22 02/18/22 02/18/22 08:55 08:55 10:19 MCV MCH MCHC RDW Plt Count MPV Absolute Nucleated RBC Nucleated RBC % (auto) Anion Gap 17 Estim Creat Clear Calc 72.3 Estimated GFR > 60 Random Glucose 154 H Estimat Average Glucose Hemoglobin A1c % Lactic Acid 0.8 Calcium 9.2 Total Bilirubin 1.3 H Direct Bilirubin 0.4 AST 15 ALT 11 Alkaline Phosphatase 89 Lactate Dehydrogenase 246 H Total Protein 7.2 Albumin 4.1 Lipase 11 Urine Color Urine Appearance Urine pH Ur Specific [place] Urine Protein Urine Glucose (UA) Urine Ketones Urine Blood Urine Nitrite Ur Leukocyte Esterase Urine RBC Urine WBC Ur Squamous Epith Cells Urine Bacteria Hyaline Casts Influenza Type A (PCR) NEGATIVE Influenza Type B (PCR) NEGATIVE RSV RNA Qual (PCR) NEGATIVE SARS-CoV-2 RNA (RT-PCR) NEGATIVE 02/18/22 02/18/22 02/19/22 11:05 13:09 05:51 MCV 88.1 MCH 30.0 MCHC 34.0 RDW 12.4 Plt Count 264 MPV 9.2 L Absolute Nucleated RBC 0.000 Nucleated RBC % (auto) 0.0 Anion Gap Estim Creat Clear Calc Estimated GFR Random Glucose Estimat Average Glucose 108 Hemoglobin A1c % 5.4 Lactic Acid Calcium Total Bilirubin Direct Bilirubin AST ALT Alkaline Phosphatase Lactate Dehydrogenase Total Protein Albumin Lipase Urine Color Dark Yellow Urine Appearance Cloudy Urine pH 6.0 Ur Specific [place] 1.020 Urine Protein 30 (1+) H Urine Glucose (UA) Negative Urine Ketones 15 Urine Blood Negative Urine Nitrite Negative Ur Leukocyte Esterase Moderate (2+) H Urine RBC 3-5 H Urine WBC >50 H Ur Squamous Epith Cells >20 Urine Bacteria 3+ Hyaline Casts 0-2 Influenza Type A (PCR) Influenza Type B (PCR) RSV RNA Qual (PCR) SARS-CoV-2 RNA (RT-PCR) 02/19/22 05:51 MCV MCH MCHC RDW Plt Count MPV Absolute Nucleated RBC Nucleated RBC % (auto) Anion Gap 15 Estim Creat Clear Calc 75.5 Estimated GFR > 60 Random Glucose 138 H Estimat Average Glucose Hemoglobin A1c % Lactic Acid Calcium 8.8 Total Bilirubin Direct Bilirubin AST ALT Alkaline Phosphatase Lactate Dehydrogenase Total Protein Albumin Lipase Urine Color Urine Appearance Urine pH Ur Specific [place] Urine Protein Urine Glucose (UA) Urine Ketones Urine Blood Urine Nitrite Ur Leukocyte Esterase Urine RBC Urine WBC Ur Squamous Epith Cells Urine Bacteria Hyaline Casts Influenza Type A (PCR) Influenza Type B (PCR) RSV RNA Qual (PCR) SARS-CoV-2 RNA (RT-PCR) Assessment and Plan (1) Abdominal pain: Status: Acute (2) Ileitis: Status: Acute Plan Patient is a 66-year-old Mandarin-speaking female with a PMH significant for HTN who presents today with severe lower right-sided abdominal pain. CT concerning for possible appendicitis, ileitis, or malignancy. Pt will be admitted for further workup for abdominal pain. # right-sided abdominal pain -- CT abd/pelvis wo contrast shows possible appendicitis, ileitis, or malignancy. Appendicitis less likely d/t 3-month history of abdominal pain -- Appreciate gen surgery and gastroenterology input -- Per surg and gastro, repeat abd/pelvis CT w contrast later today. Keep NPO for now -- morphine for pain -- empiric Zosyn for potential bacterial source -- Tylenol prn fevers # breast mass -- large, 3-4cm mass in left breast at 9 o'clock -- CT of chest -- f/u outpatient for possible malignancy # HTN -- continue home meds Full code DVT prophylaxis: pneumatic boots given possibility for need for scope/surgical procedures Pt requires ongoing inpt stay for treatment and workup for severe abdominal pain and treatment with IV abx for possible infectious source with IV abx and advancement of diet. Quality Stroke Does the patient have a stroke diagnosis?: No VTE Prior VTE?: No VTE Risk Level:: Medical - moderate - high VTE Device Contraindication: N/A - Device Ordered VTE Drug Contraindication: Treatment Not Indicated
--- NOTE | 2022-02-19 09:40 | PM.PNGS ---
Subjective Subjective Date of Service: 02/19/22 Patient reports: still having pain Interval history: The patient is seen with the son-in-law interpreting. She received some pain medicine earlier this morning reports some improvement in the pain since admission but is still having enough pain that she require narcotic pain medicine. She denies any chest pain, difficulty breathing and is unable to comment on the left breast mass. When asked, she is not sure how long it has been there. Physical Exam Vital Signs: Vital Signs: Last Vital Signs Temp 99.6 F 02/19/22 08:00 Pulse 100 02/19/22 08:00 Resp 17 02/19/22 08:00 BP 133/81 02/19/22 08:00 Pulse Ox 96 02/19/22 08:00 O2 Del Method 02/19/22 08:00 O2 Flow Rate 2 02/19/22 00:16 BMI result Body Mass Index 30.9 On exam, she is communicative and nontoxic Low-grade temp continues Right lower quadrant tenderness with mild peritoneal irritation to percussion persists, but it is localized to the right lower quadrant. Her remaining abdomen is soft with no peritoneal sign. Objective Data Active Medications Acetaminophen (Acetaminophen 325 Mg Tablet) 650 mg PO Q6H PRN PRN Reason: Pain, Mild (Pain Scale 1-3) Last Admin: 02/19/22 00:21 Dose: 650 mg Documented By: PABLO Docusate Sodium (Docusate Sodium 100 Mg Capsule) 100 mg PO DAILY PRN PRN Reason: Constipation Piperacillin Sod/Tazobactam (Sod 3.375 gm/ Sodium Chloride) 50 mls @ 100 mls/hr IV Q8H [facility] Last Infusion: 02/19/22 08:24 Dose: 0 mls/hr Documented By: SEBASTIÁN Morphine Sulfate (Morphine Sulfate 2 Mg/Ml Cartridge) 2 mg IVPUSH Q4H PRN; Protocol PRN Reason: Pain, Severe (Pain Scale 7-10) Last Admin: 02/19/22 07:44 Dose: 2 mg Documented By: SEBASTIÁN Non-Formulary Medication (Pancreatin) 1,400 mg PO DAILY [facility] Ondansetron HCl (Ondansetron Hcl 4 Mg/2 Ml Vial) 4 mg IVPUSH Q8H PRN PRN Reason: Nausea and Vomiting Last Admin: 02/19/22 01:42 Dose: 4 mg Documented By: PABLO Pharmacy Consult (Consult Rx Perform Med Rec) 1 each MISCELLANE ONCE PRN PRN Reason: patient will be admitted Sodium Chloride (0.9 % Sodium Chloride Flush 3 Ml Syringe) 3 ml IVFLUSH QSHIFT [facility] Last Admin: 02/19/22 07:45 Dose: 3 ml Documented By: SEBASTIÁN Labs CBC & Chem 7: 02/19/22 05:51 02/19/22 05:51 Labs: Laboratory Results - last 24 hr 02/18/22 02/18/22 02/18/22 08:55 08:55 10:19 MCV MCH MCHC RDW Plt Count MPV Absolute Nucleated RBC Nucleated RBC % (auto) Anion Gap 17 Estim Creat Clear Calc 72.3 Estimated GFR > 60 Random Glucose 154 H Estimat Average Glucose Hemoglobin A1c % Lactic Acid 0.8 Calcium 9.2 Total Bilirubin 1.3 H Direct Bilirubin 0.4 AST 15 ALT 11 Alkaline Phosphatase 89 Lactate Dehydrogenase 246 H Total Protein 7.2 Albumin 4.1 Lipase 11 Urine Color Urine Appearance Urine pH Ur Specific [place] Urine Protein Urine Glucose (UA) Urine Ketones Urine Blood Urine Nitrite Ur Leukocyte Esterase Urine RBC Urine WBC Ur Squamous Epith Cells Urine Bacteria Hyaline Casts Influenza Type A (PCR) NEGATIVE Influenza Type B (PCR) NEGATIVE RSV RNA Qual (PCR) NEGATIVE SARS-CoV-2 RNA (RT-PCR) NEGATIVE 02/18/22 02/18/22 02/19/22 11:05 13:09 05:51 MCV 88.1 MCH 30.0 MCHC 34.0 RDW 12.4 Plt Count 264 MPV 9.2 L Absolute Nucleated RBC 0.000 Nucleated RBC % (auto) 0.0 Anion Gap Estim Creat Clear Calc Estimated GFR Random Glucose Estimat Average Glucose 108 Hemoglobin A1c % 5.4 Lactic Acid Calcium Total Bilirubin Direct Bilirubin AST ALT Alkaline Phosphatase Lactate Dehydrogenase Total Protein Albumin Lipase Urine Color Dark Yellow Urine Appearance Cloudy Urine pH 6.0 Ur Specific [place] 1.020 Urine Protein 30 (1+) H Urine Glucose (UA) Negative Urine Ketones 15 Urine Blood Negative Urine Nitrite Negative Ur Leukocyte Esterase Moderate (2+) H Urine RBC 3-5 H Urine WBC >50 H Ur Squamous Epith Cells >20 Urine Bacteria 3+ Hyaline Casts 0-2 Influenza Type A (PCR) Influenza Type B (PCR) RSV RNA Qual (PCR) SARS-CoV-2 RNA (RT-PCR) 02/19/22 05:51 MCV MCH MCHC RDW Plt Count MPV Absolute Nucleated RBC Nucleated RBC % (auto) Anion Gap 15 Estim Creat Clear Calc 75.5 Estimated GFR > 60 Random Glucose 138 H Estimat Average Glucose Hemoglobin A1c % Lactic Acid Calcium 8.8 Total Bilirubin Direct Bilirubin AST ALT Alkaline Phosphatase Lactate Dehydrogenase Total Protein Albumin Lipase Urine Color Urine Appearance Urine pH Ur Specific [place] Urine Protein Urine Glucose (UA) Urine Ketones Urine Blood Urine Nitrite Ur Leukocyte Esterase Urine RBC Urine WBC Ur Squamous Epith Cells Urine Bacteria Hyaline Casts Influenza Type A (PCR) Influenza Type B (PCR) RSV RNA Qual (PCR) SARS-CoV-2 RNA (RT-PCR) Procedures Date of Service Date of Service: 02/19/22 Progress Note: A&P Assessment and plan (1) Abnormal CT of the abdomen: Status: Acute (2) Abdominal pain: Status: Acute (3) Breast mass: Status: Acute Plan Continue bowel rest, IV fluid and antibiotics. If no improvement in the patient's pain, will repeat CT with oral and IV contrast tomorrow to better delineate the abnormalities seen on the unenhanced study at admission. Time Spent With Patient Time: Total time managing care of this patient today ____ minutes. Quality Stroke Does the patient have a stroke diagnosis?: No VTE Prior VTE?: No VTE Risk Level:: Medical - moderate - high VTE Device Contraindication: N/A - Device Ordered VTE Drug Contraindication: Treatment Not Indicated
[2022-02-19 15:39] VITALS: BP 124/73; PULSE 103; RESP 18; TEMP 37.7; O2SAT 90
[2022-02-19 19:49] VITALS: BP 112/63; PULSE 102; RESP 17; TEMP 37.6; O2SAT 92
[2022-02-20] MEDS: ondansetron HCL 4 MG/2 ML VIAL IVPUSH (00:55)
[2022-02-20 07:52] VITALS: BP 132/89; PULSE 97; RESP 18; TEMP 37.6; O2SAT 92
[2022-02-20] MEDS: 0.9 % Sodium Chloride Flush 3 ML SYRINGE IVFLUSH ×2 (08:33→16:27)
[2022-02-20] MEDS: Piperacillin Sodium/Tazobactam 3.375 GM in 0.9 % Sodium Chloride 50 ML IV ×3 (08:33→23:55)
[2022-02-20 08:58] LABS: MANUAL DIFF FLAG NO
[2022-02-20 09:00] LABS: Basophils Percent Auto 0.1 % (0-2); Hematocrit 37.9 % (37.0-47.0); Hemoglobin 12.9 g/dl (12.0-16.0); Imm Gran Abs Auto 0.03 X10*3/uL (0.00-0.03); Imm Gran Pct Auto 0.3 % (0.0-0.4); Lymphocytes Absolute Auto 0.8 X10*3/uL (1.2-4.9); Lymphocytes Percent Auto 8.8 % (20-40); Mean Corpuscular Hemoglobin 29.3 pg (27.0-33.0); Mean Corpuscular Volume 85.9 fL (80.0-98.0); Monocytes Absolute Auto 0.3 X10*3/uL (0.1-1.2); Monocytes Percent Auto 3.2 % (2-11); Neutrophils Absolute Auto 8.2 x10*3/uL (2.0-8.3); Neutrophils Percent Auto 87.6 % (45-73); Platelet Count 288 X10*3/uL (160-400); Red Blood Count 4.41 X10*6/uL (4.20-5.50); Red Cell Distribution Width 12.3 % (11.0-16.0); White Blood Count 9.3 X10*3/uL (4.8-10.8)
[2022-02-20 11:17] LABS: Anion Gap 11 (12-20); Blood Urea Nitrogen 5 mg/dL (9-16); Calcium 8.7 mg/dL (8.4-10.2); Carbon Dioxide 27 mmol/L (22-29); Chloride 105 mmol/L (96-108); Creatinine Clr Calc Pharmacy 59.4; Estimated Glomerular Filt Rate > 60; Glucose Random 143 mg/dL (60-115); Potassium 3.7 mmol/L (3.3-5.1); Sodium 139 mmol/L (135-145)
--- NOTE | 2022-02-20 11:26 | PM.PNGS ---
Subjective Subjective Date of Service: 02/20/22 Patient reports: still having pain and bowel movement Interval history: The patient is seen with the help of customer service technician [id number] who helped facilitate the visit. The son-in-law and daughter requested that we meet in private before discussion of the most recent CT. Given culture all concerns, understood and spent 76 minutes with them and the patient in combination to review available information. Patient reports that since this morning's repeat CT, she has had 2 bowel movements and feels that the pain medicine is helping with the pain, however that things feel out of balance in her abdomen. She denies any bloating, nausea or vomiting and is understandably reluctant to have the nasogastric tube placed. She otherwise denies chest pain, difficulty breathing or shortness of breath. She reports she is maybe a little better than yesterday and certainly not worse. Physical Exam Vital Signs: Vital Signs: Last Vital Signs Temp 99.6 F 02/20/22 07:52 Pulse 97 02/20/22 07:52 Resp 18 02/20/22 07:52 BP 132/89 02/20/22 07:52 Pulse Ox 92 02/20/22 07:52 O2 Del Method 02/20/22 07:52 O2 Flow Rate 2 02/19/22 00:16 BMI result Body Mass Index 30.9 On exam, the patient is talkative and nontoxic She readily smiles and has anicteric sclera Her abdomen is at its baseline according to the patient and there is still right lower quadrant tenderness to palpation but no peritoneal sign diffusely through the abdomen. Objective Data Active Medications Acetaminophen (Acetaminophen 325 Mg Tablet) 650 mg PO Q6H PRN PRN Reason: Pain, Mild (Pain Scale 1-3) Last Admin: 02/19/22 00:21 Dose: 650 mg Documented By: PABLO Docusate Sodium (Docusate Sodium 100 Mg Capsule) 100 mg PO DAILY PRN PRN Reason: Constipation Piperacillin Sod/Tazobactam (Sod 3.375 gm/ Sodium Chloride) 50 mls @ 100 mls/hr IV Q8H [facility] Last Infusion: 02/20/22 10:39 Dose: 0 mls/hr Documented By: DARLIN Morphine Sulfate (Morphine Sulfate 2 Mg/Ml Cartridge) 2 mg IVPUSH Q4H PRN; Protocol PRN Reason: Pain, Severe (Pain Scale 7-10) Last Admin: 02/19/22 15:29 Dose: 2 mg Documented By: SEBASTIÁN Non-Formulary Medication (Pancreatin) 1,400 mg PO DAILY [facility] Ondansetron HCl (Ondansetron Hcl 4 Mg/2 Ml Vial) 4 mg IVPUSH Q8H PRN PRN Reason: Nausea and Vomiting Last Admin: 02/20/22 00:55 Dose: 4 mg Documented By: PABLO Pharmacy Consult (Consult Rx Perform Med Rec) 1 each MISCELLANE ONCE PRN PRN Reason: patient will be admitted Sodium Chloride (0.9 % Sodium Chloride Flush 3 Ml Syringe) 3 ml IVFLUSH QSHIFT [facility] Last Admin: 02/20/22 08:33 Dose: 3 ml Documented By: DARLIN Labs CBC & Chem 7: 02/20/22 08:44 02/20/22 08:44 Labs: Laboratory Results - last 24 hr 02/20/22 02/20/22 02/20/22 08:44 08:44 10:12 MCV 85.9 MCH 29.3 MCHC 34.0 RDW 12.3 Plt Count 288 MPV 9.0 L Immature Gran % (Auto) 0.3 Neut % (Auto) 87.6 H Lymph % (Auto) 8.8 L [place] % (Auto) 3.2 Eos % (Auto) 0.0 Baso % (Auto) 0.1 Lymph # (Auto) 0.8 L [place] # (Auto) 0.3 Eos # (Auto) 0.0 Baso # (Auto) 0.0 Abs Immat Gran (auto) 0.03 Absolute Neuts (auto) 8.2 Absolute Nucleated RBC 0.000 Nucleated RBC % (auto) 0.0 Anion Gap 11 L Estim Creat Clear Calc 59.4 Estimated GFR > 60 Random Glucose 143 H Calcium 8.7 Prealbumin 7.0 L Carcinoembryonic Ag 2.50 Blood Type Antibody Screen 02/20/22 10:12 MCV MCH MCHC RDW Plt Count MPV Immature Gran % (Auto) Neut % (Auto) Lymph % (Auto) [place] % (Auto) Eos % (Auto) Baso % (Auto) Lymph # (Auto) [place] # (Auto) Eos # (Auto) Baso # (Auto) Abs Immat Gran (auto) Absolute Neuts (auto) Absolute Nucleated RBC Nucleated RBC % (auto) Anion Gap Estim Creat Clear Calc Estimated GFR Random Glucose Calcium Prealbumin Carcinoembryonic Ag Blood Type B Positive Antibody Screen NEGATIVE Microbiology Microbiology Results: Microbiology 02/18/22 10:19 Blood Culture - Preliminary Blood - Venous No growth after 24 hours. 02/18/22 10:19 Blood Culture - Preliminary Blood - Venous No growth after 24 hours. 02/18/22 00:00 Urine Culture - Final Urine clean catch - Urine dennis top No growth. Procedures Date of Service Date of Service: 02/20/22 Progress Note: A&P Assessment and plan (1) Abnormal CT of the abdomen: Status: Acute (2) Breast mass: Status: Acute (3) Abdominal mass, RLQ (right lower quadrant): Status: Acute Plan With customer service technician Tori,#[id number] and using and [facility] and a colonoscopy brochure, I explained the following: The patient has a mass in her proximal colon/ileocecal valve area. This is known is a tumor and any tumor can have cancer. While the son-in-law and daughter were informed of this, they recommended not advising the patient since this may overwhelm her and make her withdrawn in her care. 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 Using the [employer] [place], explained that we will likely need to discuss a right hemicolectomy so that we can remove the tumor and tested for cancer as well as the lymph nodes. I explained in the majority of cases, a primary anastomosis occurs, however due to anatomic or nutritional issues, an ileostomy may be required. I also explained there is a chance that this tumor is from another area of her body, possibly her breast mass, but the treatment would still be the same since it is causing a partial blockage. The inherent risks of a right hemicolectomy including bleeding, infection, anastomotic complications that could require reoperation or an ostomy, the possibility of unexpected complications that could cause pneumonia or were also discussed. The daughter and son-in-law via customer service technician requested allowing them time to process and ask questions and have discussions with the patient and that we would revisit a plan tomorrow. Their questions seemed to be satisfactorily answered. Would recommend holding off on the nasogastric tube since the patient is having diarrhea. While the CT does show no contrast distal to the mass, the patient is obviously moving her bowels. Eight via customer service technician explained to the patient and her family that if she starts to become more bloated and has vomiting, a nasogastric tube will be required for her own safety to try to minimize the risk of aspiration pneumonia and also decompress her intestines. Time Spent With Patient Time: Total time managing care of this patient today ___76_ minutes. Quality Stroke Does the patient have a stroke diagnosis?: No VTE Prior VTE?: No VTE Risk Level:: Medical - moderate - high VTE Device Contraindication: N/A - Device Ordered VTE Drug Contraindication: Treatment Not Indicated
--- NOTE | 2022-02-20 11:45 | PM.GIPN ---
Subjective Subjective Date of Service: 02/20/22 Interval History: CT abdomen and pelvis from last evening reviewed. Documentation noted that family does not want patient to know about the CT findings of cecal mass. Patient was seen and evaluated at bedside. Family not present at this time. Encounter carried out with the help of phone interpretation Patient does not report any abdominal pain, nausea. Passing flatus. Critical Care Time (minutes): 0 Physical Exam Vital Signs: Vital Signs: Last Vital Signs Temp 99.6 F 02/20/22 07:52 Pulse 97 02/20/22 07:52 Resp 18 02/20/22 07:52 BP 132/89 02/20/22 07:52 Pulse Ox 92 02/20/22 07:52 O2 Del Method 02/20/22 07:52 O2 Flow Rate 2 02/19/22 00:16 BMI result Body Mass Index 30.9 general appearance: No acute distress, nontoxic appearing Abdomen: Soft, interval distention noted, nontender Objective Data Labs CBC & Chem 7: 02/20/22 08:44 02/20/22 08:44 Labs: Laboratory Results - last 24 hr 02/20/22 02/20/22 02/20/22 08:44 08:44 10:12 WBC 9.3 RBC 4.41 Hgb 12.9 Hct 37.9 MCV 85.9 MCH 29.3 MCHC 34.0 RDW 12.3 Plt Count 288 MPV 9.0 L Immature Gran % (Auto) 0.3 Neut % (Auto) 87.6 H Lymph % (Auto) 8.8 L [place] % (Auto) 3.2 Eos % (Auto) 0.0 Baso % (Auto) 0.1 Lymph # (Auto) 0.8 L [place] # (Auto) 0.3 Eos # (Auto) 0.0 Baso # (Auto) 0.0 Abs Immat Gran (auto) 0.03 Absolute Neuts (auto) 8.2 Absolute Nucleated RBC 0.000 Nucleated RBC % (auto) 0.0 Sodium 139 Potassium 3.7 Chloride 105 Carbon Dioxide 27 Anion Gap 11 L BUN 5 L Creatinine 0.80 Estim Creat Clear Calc 59.4 Estimated GFR > 60 Random Glucose 143 H Calcium 8.7 Prealbumin 7.0 L Carcinoembryonic Ag 2.50 Blood Type Antibody Screen 02/20/22 10:12 WBC RBC Hgb Hct MCV MCH MCHC RDW Plt Count MPV Immature Gran % (Auto) Neut % (Auto) Lymph % (Auto) [place] % (Auto) Eos % (Auto) Baso % (Auto) Lymph # (Auto) [place] # (Auto) Eos # (Auto) Baso # (Auto) Abs Immat Gran (auto) Absolute Neuts (auto) Absolute Nucleated RBC Nucleated RBC % (auto) Sodium Potassium Chloride Carbon Dioxide Anion Gap BUN Creatinine Estim Creat Clear Calc Estimated GFR Random Glucose Calcium Prealbumin Carcinoembryonic Ag Blood Type B Positive Antibody Screen NEGATIVE Microbiology Microbiology Results: Microbiology 02/18/22 10:19 Blood - Venous Blood Culture - Preliminary No growth after 24 hours. 02/18/22 10:19 Blood - Venous Blood Culture - Preliminary No growth after 24 hours. 02/18/22 00:00 Urine clean catch - Urine dennis top Urine Culture - Final No growth. Procedures Date of Service Date of Service: 02/20/22 Progress Note: A&P Assessment and plan (1) Abdominal mass, RLQ (right lower quadrant): Status: Acute Assessment and Plan: Patient with new finding of cecal mass ? appendiceal involvement/microperforation with likely vijay spread; that has led to bowel obstruction (although clinically does not appear to be complete obstruction). Given location and associated SBO, will not be amenable to endoscopic eval. Surgery team is already on board, and plan is for right-sided hemicolectomy. Cont zosyn. Pt also has finding of L breast mass which will also need evaluation pending overall clinical course. Will sign off. Please do not hesitate to contact for any questions or concerns. Time Spent With Patient Time: Total time managing care of this patient today ____ minutes. Quality Stroke Does the patient have a stroke diagnosis?: No VTE Prior VTE?: No VTE Risk Level:: Medical - moderate - high VTE Device Contraindication: N/A - Device Ordered VTE Drug Contraindication: Treatment Not Indicated
--- NOTE | 2022-02-20 12:59 | HO.PM.IMPN ---
Subjective Subjective Date of Service: 02/20/22 Interval History: Seen in follow up for abdominal pain Interval History: Seen with son and DIL at bedside who assist with translation. Still with right-sided lower abd pain, nausea. No vomiting. BM last night with loose stool, no diarrhea. Now febrile, still with mild tachycardia. Review of Systems General: No fevers, malaise, unintentional weight loss Cardiovascular: No chest pain, palpitations, or leg edema Respiratory: No shortness of breath, wheezing, cough GI: +abdominal pain, +nausea. No vomiting, diarrhea : No dysuria, hematuria, increased urinary frequency MSK: No myalgia, back pain Neuro: No headaches, weakness, paresthesias Skin: No rashes or lesions Physical Exam Vital Signs: Vital Signs: Last Vital Signs Temp 99.6 F 02/20/22 07:52 Pulse 97 02/20/22 07:52 Resp 18 02/20/22 07:52 BP 132/89 02/20/22 07:52 Pulse Ox 92 02/20/22 07:52 O2 Del Method 02/20/22 07:52 O2 Flow Rate 2 02/19/22 00:16 BMI result Body Mass Index 30.9 Constitutional - Awake and Alert, No apparent distress Eyes - PERRLA, EOMI Cardiovascular - S1S2, RRR, No edema Respiratory - Normal lung expansion, Normal respiratory effort, No respiratory distress, CTA bilaterally Gastrointestinal - right-sided and periumbilical TTP with guarding, no rebound. ND; +BS Extremities - no calf tenderness bilaterally, no swelling Skin - Warm/Dry Neurological - Alert & oriented x3 Psychological - Appropriate affect Objective Data Active Medications Acetaminophen (Acetaminophen 325 Mg Tablet) 650 mg PO Q6H PRN PRN Reason: Pain, Mild (Pain Scale 1-3) Last Admin: 02/19/22 00:21 Dose: 650 mg Documented By: PABLO Docusate Sodium (Docusate Sodium 100 Mg Capsule) 100 mg PO DAILY PRN PRN Reason: Constipation Piperacillin Sod/Tazobactam (Sod 3.375 gm/ Sodium Chloride) 50 mls @ 100 mls/hr IV Q[facility]H [facility] Last Infusion: 02/20/22 10:39 Dose: 0 mls/hr Documented By: DARLIN Morphine Sulfate (Morphine Sulfate 2 Mg/Ml Cartridge) 2 mg IVPUSH Q4H PRN; Protocol PRN Reason: Pain, Severe (Pain Scale 7-10) Last Admin: 02/19/22 15:29 Dose: 2 mg Documented By: SEBASTIÁN Non-Formulary Medication (Pancreatin) 1,400 mg PO DAILY [facility] Ondansetron HCl (Ondansetron Hcl 4 Mg/2 Ml Vial) 4 mg IVPUSH Q8H PRN PRN Reason: Nausea and Vomiting Last Admin: 02/20/22 00:55 Dose: 4 mg Documented By: PABLO Pharmacy Consult (Consult Rx Perform Med Rec) 1 each MISCELLANE ONCE PRN PRN Reason: patient will be admitted Sodium Chloride (0.9 % Sodium Chloride Flush 3 Ml Syringe) 3 ml IVFLUSH QSHIFT [facility] Last Admin: 02/20/22 08:33 Dose: 3 ml Documented By: DARLIN Labs CBC & Chem 7: 02/20/22 08:44 02/20/22 08:44 Labs: Laboratory Results - last 24 hr 02/20/22 02/20/22 02/20/22 08:44 08:44 10:12 MCV 85.9 MCH 29.3 MCHC 34.0 RDW 12.3 Plt Count 288 MPV 9.0 L Immature Gran % (Auto) 0.3 Neut % (Auto) 87.6 H Lymph % (Auto) 8.8 L [place] % (Auto) 3.2 Eos % (Auto) 0.0 Baso % (Auto) 0.1 Lymph # (Auto) 0.8 L [place] # (Auto) 0.3 Eos # (Auto) 0.0 Baso # (Auto) 0.0 Abs Immat Gran (auto) 0.03 Absolute Neuts (auto) 8.2 Absolute Nucleated RBC 0.000 Nucleated RBC % (auto) 0.0 Anion Gap 11 L Estim Creat Clear Calc 59.4 Estimated GFR > 60 Random Glucose 143 H Calcium 8.7 Prealbumin 7.0 L Carcinoembryonic Ag 2.50 Blood Type Antibody Screen 02/20/22 10:12 MCV MCH MCHC RDW Plt Count MPV Immature Gran % (Auto) Neut % (Auto) Lymph % (Auto) [place] % (Auto) Eos % (Auto) Baso % (Auto) Lymph # (Auto) [place] # (Auto) Eos # (Auto) Baso # (Auto) Abs Immat Gran (auto) Absolute Neuts (auto) Absolute Nucleated RBC Nucleated RBC % (auto) Anion Gap Estim Creat Clear Calc Estimated GFR Random Glucose Calcium Prealbumin Carcinoembryonic Ag Blood Type B Positive Antibody Screen NEGATIVE Microbiology Microbiology Results: Microbiology 02/18/22 10:19 Blood Culture - Preliminary Blood - Venous No growth after 48 hours. 02/18/22 10:19 Blood Culture - Preliminary Blood - Venous No growth after 48 hours. 02/18/22 00:00 Urine Culture - Final Urine clean catch - Urine dennis top No growth. Assessment and Plan (1) Abdominal pain: Status: Acute (2) Ileitis: Status: Acute Plan Patient is a 66-year-old Mandarin-speaking female with a PMH significant for HTN who presents today with severe lower right-sided abdominal pain. CT concerning for possible appendicitis, ileitis, or malignancy. Pt will be admitted for further workup for abdominal pain. # Cecal mass with malignant SBO -- CT abd/pelvis wo contrast shows possible appendicitis, ileitis, or malignancy. 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 Also with 1cm appendix dilitation with 2.5cm locule fluid tip of appendix -- morphine for pain -- empiric Zosyn for potential bacterial source -- Appreciate gen surgery and gastroenterology input -- Hold on NG tube for now as patient has refused. She is passing BM. Per Gen Surg/GI, NG tube if she starts vomiting -- Plan for righit hemicolectomy per gen surg -- Keep NPO -- Tylenol prn fevers # breast mass -- large, 3-4cm mass in left breast at 9 o'clock -- CT of chest showing 4cm irregularly heterogenous mass left breast -- f/u outpatient for possible malignancy # HTN -- continue home meds Full code DVT prophylaxis: pneumatic boots given possibility for need for scope/surgical procedures Pt requires ongoing inpt stay for treatment and workup for severe abdominal pain and treatment with IV abx for possible infectious source with IV abx and need for right hemicolectomy Quality Stroke Does the patient have a stroke diagnosis?: No VTE Prior VTE?: No VTE Risk Level:: Medical - moderate - high VTE Device Contraindication: N/A - Device Ordered VTE Drug Contraindication: Treatment Not Indicated
--- NOTE | 2022-02-20 14:12 | MHC.CM.PN ---
CM MET WITH PT WHO WAS SLEEPING AND SPEAKS MANDARIN. CALL MADE TO SON AMANDA WHO WAS ABLE TO PROVIDE SOME INFORMATION. PT LIVES ALONE IN A SINGLE FAMILY HOME. NO SERVICES OR DME PRIOR TO THIS. HE IS UNSURE IF SHE HAS A HCP BUT WILL INQUIRE AND LET CM KNOW WHEN RETURNS LATER TODAY TO [facility] [place]. +COVID VAX X4. UNSURE IF PT HAS A PCP BUT WILL ALSO INQUIRE AND LET CM KNOW. DP: HOME, NO SERVICES ANTICIPATED. FAMILY/SON WILL TRANSPORT.
[2022-02-20 15:33] VITALS: BP 141/85; PULSE 99; RESP 16; TEMP 37.1; O2SAT 97
[2022-02-20 20:00] VITALS: BP 151/86; PULSE 86; RESP 18; TEMP 36.7; O2SAT 93
[2022-02-21] MEDS: 0.9 % Sodium Chloride Flush 3 ML SYRINGE IVFLUSH ×2 (00:10→09:00)
[2022-02-21 04:00] VITALS: BP 122/79; PULSE 93; RESP 18; TEMP 36.1; O2SAT 92
[2022-02-21 06:02] LABS: MANUAL DIFF FLAG NO
[2022-02-21 06:29] LABS: Basophils Percent Auto 0.1 % (0-2); Eosinophils Percent Auto 0.1 % (0-4); Imm Gran Abs Auto 0.02 X10*3/uL (0.00-0.03); Imm Gran Pct Auto 0.3 % (0.0-0.4); Lymphocytes Absolute Auto 0.9 X10*3/uL (1.2-4.9); Lymphocytes Percent Auto 10.8 % (20-40); Mean Corpuscular HGB Conc 34.3 g/dl (31.0-35.0); Mean Corpuscular Hemoglobin 29.4 pg (27.0-33.0); Mean Corpuscular Volume 85.8 fL (80.0-98.0); Monocytes Absolute Auto 0.4 X10*3/uL (0.1-1.2); Monocytes Percent Auto 4.9 % (2-11); Neutrophils Absolute Auto 6.6 x10*3/uL (2.0-8.3); Neutrophils Percent Auto 83.8 % (45-73); Platelet Count 301 X10*3/uL (160-400); Red Blood Count 4.08 X10*6/uL (4.20-5.50); Red Cell Distribution Width 12.3 % (11.0-16.0); White Blood Count 7.9 X10*3/uL (4.8-10.8)
[2022-02-21 06:52] LABS: Anion Gap 12 (12-20); Blood Urea Nitrogen 20 mg/dL (9-16); Calcium 8.8 mg/dL (8.4-10.2); Carbon Dioxide 28 mmol/L (22-29); Chloride 98 mmol/L (96-108); Creatinine Clr Calc Pharmacy 76.7; Estimated Glomerular Filt Rate > 60; Glucose Random 116 mg/dL (60-115); Potassium 3.2 mmol/L (3.3-5.1); Sodium 135 mmol/L (135-145)
[2022-02-21 08:00] VITALS: BP 127/85; PULSE 93; RESP 19; TEMP 37.3; O2SAT 91
--- NOTE | 2022-02-21 08:43 | MHC.CM.PN ---
T/W MET WITH PATIENT AND FAMILY (IN ROOM) WITH PERMISSION. SON IS [employer] EXP[employer]. PATIENT HAS NO INSURANCE AND SON STATES THAT SHE IS NOT A RESIDENT SON DOES STATE THAT HE MET WITH [facility] [employer] ON MONDAY OR MONDAY OR LAST WEEK, AND PLANS TO COME BACK IN ON MONDAY.
[2022-02-21] MEDS: Piperacillin Sodium/Tazobactam 3.375 GM in 0.9 % Sodium Chloride 50 ML IV ×3 (08:59→23:56)
--- NOTE | 2022-02-21 10:37 | P.PNGS_ITS ---
Subjective Subjective Date of Service: 02/21/22 Patient reports: no new complaints and still having pain Interval history: The patient is seen with the help of crepe sole wire brusher Ximena [id number]. The patient reports she still is right lower quadrant pain but has no nausea or vomiting. She is still having some bowel movements and passing gas. She is accompanied by her son-in-law, Jeffery and daughter Eliana mariee and has requested I communicate in front of them. We also discussed the idea of whether not a healthcare proxy would be appropriate and she agreed that 1 is in his ask if we can help facilitated with both gerardo and Eliana Mariee being her proxy for healthcare issues. Physical Exam Vital Signs: Vital Signs: Last Vital Signs Temp 99.1 F 02/21/22 08:00 Pulse 93 02/21/22 08:00 Resp 19 02/21/22 08:00 BP 127/85 02/21/22 08:00 Pulse Ox 91 L 02/21/22 08:00 O2 Del Method 02/21/22 08:00 O2 Flow Rate 2 02/19/22 00:16 BMI result Body Mass Index 30.9 The patient is nontoxic and seems in surprisingly good spirits. She is speaking in Mandarin with her son-in-law and daughter and they are joking and smiling. The patient's abdomen is unchanged and has mild right lower quadrant discomfort to exam with no peritoneal sign. Objective Data Active Medications Acetaminophen (Acetaminophen 325 Mg Tablet) 650 mg PO Q6H PRN PRN Reason: Pain, Mild (Pain Scale 1-3) Last Admin: 02/19/22 00:21 Dose: 650 mg Documented By: PABLO Docusate Sodium (Docusate Sodium 100 Mg Capsule) 100 mg PO DAILY PRN PRN Reason: Constipation Piperacillin Sod/Tazobactam (Sod 3.375 gm/ Sodium Chloride) 50 mls @ 100 mls/hr IV Q8H SAMANTHA Last Infusion: 02/21/22 09:35 Dose: 0 mls/hr Documented By: COTEMA Lactated Ringer's (Lr) 1,000 mls @ 100 mls/hr IVCONT .Q10H SAMANTHA Morphine Sulfate (Morphine Sulfate 2 Mg/Ml Cartridge) 2 mg IVPUSH Q4H PRN; Protocol PRN Reason: Pain, Severe (Pain Scale 7-10) Last Admin: 02/19/22 15:29 Dose: 2 mg Documented By: SEBASTIÁN Non-Formulary Medication (Pancreatin) 1,400 mg PO DAILY [facility] Ondansetron HCl (Ondansetron Hcl 4 Mg/2 Ml Vial) 4 mg IVPUSH Q8H PRN PRN Reason: Nausea and Vomiting Last Admin: 02/20/22 00:55 Dose: 4 mg Documented By: PABLO Pharmacy Consult (Consult Rx Perform Med Rec) 1 each MISCELLANE ONCE PRN PRN Reason: patient will be admitted Sodium Chloride (0.9 % Sodium Chloride Flush 3 Ml Syringe) 3 ml IVFLUSH QSHIFT [facility] Last Admin: 02/21/22 09:00 Dose: 3 ml Documented By: NOELLE Labs CBC & Chem 7: 02/21/22 05:24 02/21/22 05:24 Labs: Laboratory Results - last 24 hr 02/20/22 02/20/22 02/20/22 08:44 10:12 10:12 MCV MCH MCHC RDW Plt Count MPV Immature Gran % (Auto) Neut % (Auto) Lymph % (Auto) Wirt % (Auto) Eos % (Auto) Baso % (Auto) Lymph # (Auto) Wirt # (Auto) Eos # (Auto) Baso # (Auto) Abs Immat Gran (auto) Absolute Neuts (auto) Absolute Nucleated RBC Nucleated RBC % (auto) Anion Gap 11 L Estim Creat Clear Calc 59.4 Estimated GFR > 60 Random Glucose 143 H Calcium 8.7 Prealbumin 7.0 L Carcinoembryonic Ag 2.50 Blood Type B Positive Antibody Screen NEGATIVE 02/21/22 02/21/22 05:24 05:24 MCV 85.8 MCH 29.4 MCHC 34.3 RDW 12.3 Plt Count 301 MPV 9.0 L Immature Gran % (Auto) 0.3 Neut % (Auto) 83.8 H Lymph % (Auto) 10.8 L Wirt % (Auto) 4.9 Eos % (Auto) 0.1 Baso % (Auto) 0.1 Lymph # (Auto) 0.9 L Wirt # (Auto) 0.4 Eos # (Auto) 0.0 Baso # (Auto) 0.0 Abs Immat Gran (auto) 0.02 Absolute Neuts (auto) 6.6 Absolute Nucleated RBC 0.000 Nucleated RBC % (auto) 0.0 Anion Gap 12 Estim Creat Clear Calc 76.7 Estimated GFR > 60 Random Glucose 116 H Calcium 8.8 Prealbumin Carcinoembryonic Ag Blood Type Antibody Screen Microbiology Microbiology Results: Microbiology 02/18/22 10:19 Blood Culture - Preliminary Blood - Venous No growth after 48 hours. 02/18/22 10:19 Blood Culture - Preliminary Blood - Venous No growth after 48 hours. Procedures Date of Service Date of Service: 02/21/22 Progress Note: A&P Assessment and plan (1) Abdominal mass, RLQ (right lower quadrant): Status: Acute (2) Breast mass: Status: Acute (3) Abnormal CT of the abdomen: Status: Acute (4) HTN (hypertension): Status: Acute Plan Via crepe sole wire brusher Ximena [id number] I explained to the patient that there is a blockage at the start of her large in test where the small intestine joints to the large intestine. The patient's son-in-law and daughter had previously requested that I not use the word tumor because in [place] interpretation, this always means cancer. They are very worried about her response and given cultural concerns, I have followed their guidance. The patient is also been offered that [facility] [place] [place] help appoint her daughter, Eliana mariee & Jeffery ESTEVES as healthcare proxy. I have recommended that we proceed with a laparoscopic assisted right hemicolectomy, possible ileostomy because of the cecal obstruction and explained the inherent risks of bleeding, infection, the possible need for an ileostomy given her malnutrition. I also explained the inherent risks of bleeding that could require reoperation or blood transfusion, need for another procedure in the event of a complication, the possible need for nasogastric tube, the risks of pneumonia and , the need for a Dexter catheter and I reviewed typical postoperative course. The patient and her family's questions seemed to be satisfactorily answered. The patient has consented and will sign for a laparoscopic-assisted right hemicolectomy and possible ileostomy. I have ordered IV fluid, SCDs, incentive spirometry teaching. Patient can have ice chips and sips of water for comfort. Time Spent With Patient Time: Total time managing care of this patient today 48 minutes. Quality Stroke Does the patient have a stroke diagnosis?: No VTE Prior VTE?: No VTE Risk Level:: Medical - moderate - high VTE Device Contraindication: N/A - Device Ordered VTE Drug Contraindication: Treatment Not Indicated
[2022-02-21] MEDS: KCl 20 mEq in 0.45% Sod 20 MEQ/1,000 ML IV.SOLN 100 MEQ IVCONT ×2 (11:33→21:22)
--- NOTE | 2022-02-21 13:11 | HO.PM.IMPN ---
Subjective Subjective Date of Service: 02/21/22 Interval History: Seen in follow up for abdominal pain Interval History: Seen with LINN and daughter at bedside who assist with translation. Still with right-sided lower abd pain, nausea. No vomiting. Continues with normal BMs. Afbrile. Transient intermittent hypoxia to 91%. No sob, cp. Review of Systems General: No fevers, malaise, unintentional weight loss Cardiovascular: No chest pain, palpitations, or leg edema Respiratory: No shortness of breath, wheezing, cough GI: +abdominal pain, +nausea. No vomiting, diarrhea : No dysuria, hematuria, increased urinary frequency MSK: No myalgia, back pain Neuro: No headaches, weakness, paresthesias Skin: No rashes or lesions Physical Exam Vital Signs: Vital Signs: Last Vital Signs Temp 99.1 F 02/21/22 08:00 Pulse 93 02/21/22 08:00 Resp 19 02/21/22 08:00 BP 127/85 02/21/22 08:00 Pulse Ox 91 L 02/21/22 08:00 O2 Del Method 02/21/22 08:00 O2 Flow Rate 2 02/19/22 00:16 BMI result Body Mass Index 30.9 Constitutional - Awake and Alert, No apparent distress Eyes - PERRLA, EOMI Cardiovascular - S1S2, RRR, No edema Respiratory - Normal lung expansion, Normal respiratory effort, No respiratory distress, CTA bilaterally Gastrointestinal - right-sided TTP with guarding, no rebound. ND; +BS Extremities - no calf tenderness bilaterally, no swelling Skin - Warm/Dry Neurological - Alert & oriented x3 Psychological - Appropriate affect Objective Data Active Medications Acetaminophen (Acetaminophen 325 Mg Tablet) 650 mg PO Q6H PRN PRN Reason: Pain, Mild (Pain Scale 1-3) Last Admin: 02/19/22 00:21 Dose: 650 mg Documented By: PABLO Docusate Sodium (Docusate Sodium 100 Mg Capsule) 100 mg PO DAILY PRN PRN Reason: Constipation Piperacillin Sod/Tazobactam (Sod 3.375 gm/ Sodium Chloride) 50 mls @ 100 mls/hr IV Q8H SAMANTHA Last Infusion: 02/21/22 09:35 Dose: 0 mls/hr Documented By: COTEMA Potassium Chloride/Sodium Chloride (Kcl 20 Meq In 0.45% Sod) 20 meq in 1,000 mls @ 100 mls/hr IVCONT .Q10H [facility] Last Admin: 02/21/22 11:33 Dose: 100 mls/hr Documented By: NOELLE Morphine Sulfate (Morphine Sulfate 2 Mg/Ml Cartridge) 2 mg IVPUSH Q4H PRN; Protocol PRN Reason: Pain, Severe (Pain Scale 7-10) Last Admin: 02/19/22 15:29 Dose: 2 mg Documented By: SEBASTIÁN Non-Formulary Medication (Pancreatin) 1,400 mg PO DAILY [facility] Ondansetron HCl (Ondansetron Hcl 4 Mg/2 Ml Vial) 4 mg IVPUSH Q8H PRN PRN Reason: Nausea and Vomiting Last Admin: 02/20/22 00:55 Dose: 4 mg Documented By: PABLO Pharmacy Consult (Consult Rx Perform Med Rec) 1 each MISCELLANE ONCE PRN PRN Reason: patient will be admitted Sodium Chloride (0.9 % Sodium Chloride Flush 3 Ml Syringe) 3 ml IVFLUSH QSHIFT [facility] Last Admin: 02/21/22 09:00 Dose: 3 ml Documented By: NOELLE Labs CBC & Chem 7: 02/21/22 05:24 02/21/22 05:24 Labs: Laboratory Results - last 24 hr 02/21/22 02/21/22 05:24 05:24 MCV 85.8 MCH 29.4 MCHC 34.3 RDW 12.3 Plt Count 301 MPV 9.0 L Immature Gran % (Auto) 0.3 Neut % (Auto) 83.8 H Lymph % (Auto) 10.8 L [place] % (Auto) 4.9 Eos % (Auto) 0.1 Baso % (Auto) 0.1 Lymph # (Auto) 0.9 L [place] # (Auto) 0.4 Eos # (Auto) 0.0 Baso # (Auto) 0.0 Abs Immat Gran (auto) 0.02 Absolute Neuts (auto) 6.6 Absolute Nucleated RBC 0.000 Nucleated RBC % (auto) 0.0 Anion Gap 12 Estim Creat Clear Calc 76.7 Estimated GFR > 60 Random Glucose 116 H Calcium 8.8 Microbiology Microbiology Results: Microbiology 02/18/22 10:19 Blood Culture - Preliminary Blood - Venous No growth after 48 hours. 02/18/22 10:19 Blood Culture - Preliminary Blood - Venous No growth after 48 hours. Assessment and Plan (1) Abdominal pain: Status: Acute (2) Ileitis: Status: Acute Plan Patient is a 66-year-old Mandarin-speaking female with a PMH significant for HTN who presents today with severe lower right-sided abdominal pain. CT concerning for possible appendicitis, ileitis, or malignancy. Pt will be admitted for further workup for abdominal pain. # Cecal mass with malignant SBO -- CT abd/pelvis wo contrast shows possible appendicitis, ileitis, or malignancy. 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 Also with 1cm appendix dilitation with 2.5cm locule fluid tip of appendix -- morphine for pain -- empiric Zosyn for potential bacterial source -- Appreciate gen surgery and gastroenterology input -- Hold on NG tube for now as patient has refused. She is passing BM. Per Gen Surg/GI, NG tube if she starts vomiting -- Plan for righit hemicolectomy tomorrow am per gen surg. Consent signed -- Keep NPO -- Tylenol prn fevers # breast mass -- large, 3-4cm mass in left breast at 9 o'clock -- CT of chest showing 4cm irregularly heterogenous mass left breast -- f/u outpatient for possible malignancy # HTN -- continue home meds Full code DVT prophylaxis: pneumatic boots given possibility for need for scope/surgical procedures Case management consult for HCP: Per pt and LINN/daughter, decisions and discussion should be held with LINN and daughter. Do not use words like tumor , mass , cancer in front of patient Pt requires ongoing inpt stay for treatment and workup for severe abdominal pain and treatment with IV abx for possible infectious source with IV abx and need for right hemicolectomy Time Spent With Patient Time: Total time managing care of this patient today ____ minutes. Quality Stroke Does the patient have a stroke diagnosis?: No VTE Prior VTE?: No VTE Risk Level:: Medical - moderate - high VTE Device Contraindication: N/A - Device Ordered VTE Drug Contraindication: Treatment Not Indicated
--- NOTE | 2022-02-21 15:49 | MHC.CM.PN ---
HCP COMPLETED AND UPLOADED INTO [employer]. COPY PLACED IN CHART. DAUGHTER PARTH PRADHAN [phone] SON-IN-LAW AMANDA [phone]
[2022-02-21 15:56] VITALS: RESP 19
[2022-02-21] MEDS: ondansetron HCL 4 MG/2 ML VIAL IVPUSH (15:56)
[2022-02-21] MEDS: Morphine Sulfate 2 MG/ML CARTRIDGE IVPUSH ×2 (15:56→20:13)
[2022-02-21 16:19] VITALS: BP 141/89; PULSE 87; RESP 18; TEMP 37.1; O2SAT 93
[2022-02-21 19:51] VITALS: BP 138/92; PULSE 75; RESP 18; TEMP 37.1; O2SAT 92
[2022-02-22] VITALS (12 sets, daily range): BP systolic 119–154; BP diastolic 72–88; PULSE 88–98; RESP 12–18; TEMP 36–37.9; O2SAT 93–99
[2022-02-22 06:05] LABS: MANUAL DIFF FLAG NO
[2022-02-22 06:34] LABS: Basophils Percent Auto 0.2 % (0-2); Hemoglobin 11.6 g/dl (12.0-16.0); Imm Gran Abs Auto 0.02 X10*3/uL (0.00-0.03); Imm Gran Pct Auto 0.3 % (0.0-0.4); Lymphocytes Absolute Auto 0.9 X10*3/uL (1.2-4.9); Lymphocytes Percent Auto 13.2 % (20-40); Mean Corpuscular HGB Conc 33.1 g/dl (31.0-35.0); Mean Corpuscular Hemoglobin 29.2 pg (27.0-33.0); Mean Corpuscular Volume 88.2 fL (80.0-98.0); Mean Platelet Volume 9.1 fL (9.4-12.3); Monocytes Absolute Auto 0.4 X10*3/uL (0.1-1.2); Monocytes Percent Auto 6.5 % (2-11); Neutrophils Absolute Auto 5.1 x10*3/uL (2.0-8.3); Neutrophils Percent Auto 79.8 % (45-73); Platelet Count 307 X10*3/uL (160-400); Red Blood Count 3.97 X10*6/uL (4.20-5.50); Red Cell Distribution Width 12.2 % (11.0-16.0); White Blood Count 6.4 X10*3/uL (4.8-10.8)
[2022-02-22 06:48] LABS: Anion Gap 19 (12-20); Blood Urea Nitrogen 13 mg/dL (9-16); Calcium 8.2 mg/dL (8.4-10.2); Carbon Dioxide 21 mmol/L (22-29); Chloride 100 mmol/L (96-108); Estimated Glomerular Filt Rate > 60; Glucose Random 78 mg/dL (60-115); Potassium 3.5 mmol/L (3.3-5.1); Sodium 136 mmol/L (135-145)
[2022-02-22] MEDS: KCl 20 mEq in 0.45% Sod 20 MEQ/1,000 ML IV.SOLN 100 MEQ IVCONT (07:07)
--- NOTE | 2022-02-22 07:17 | MHC.SHP ---
Pre-Procedural Eval Section A Date of Service: 02/22/22 The patient is an INPATIENT: Yes The History & Physical has been completed within 30 days and I have reviewed it.: Yes Section B Chief Complaint: Abdominal pain Allergies: Allergies Allergy/AdvReac Type Severity Reaction Status Date / Time No Known Allergies Allergy Verified 02/18/22 08:07 Plan I have reviewed the history and physical and performed a pertinent physical examination on my patient. No changes have occurred unless specified. Time Spent With Patient Time: Total time managing care of this patient today ____ minutes.
--- NOTE | 2022-02-22 07:19 | P.OP_ITS ---
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, due to perforated cecal cancer with contained abscess] Procedure: [Right hemicolectomy] Surgeon: Keyon Curz MD Assist: [Erika Hung PA-C] Anesthesia: [GET, Marcaine, 0.5% w/ epi] Estimated blood loss: [150cc] Drain: BREONNA in right pericolic gutter Specimen: [1) intraperitoneal abscess; 2) right hemicolon with mass] Intraoperative findings: [1) perforated right colon mass phlegmon distorting the anatomy and adherent to the anterolateral abdominal wall; 2) perforated cecal cancer in per frozen section, final path pending ] Indications: [The patient is a 66-year-old Khmer woman who has never had a colonoscopy and denies any personalhistory of cancer, but who notes that her father from liver cancer. She denies known family history of GI malignancy. The patient denies any antecedent diarrhea or rectal bleeding. She also has a left breast mass of unclear duration. She presented with 3 months of bandlike lower abdominal pain and on initial CT was noted to have ileitis and an abnormal cecum/appendix. She was admitted, hydrated and placed on Zosyn and when no interval improvement occurred, repeat CT with oral and IV contrast demonstrated a partially obstructing cecal mass noting that the patient was having bowel movements of oral contrast. The option of colonoscopy was limited due to the possibility of a contained colonic micro perforation and, consequently, I recommended a laparoscopic assisted right hemicolectomy with a possible ileostomy. I reviewed the inherent risks of bleeding, infection, need for open surgery, the possible risks of respiratory or infectious complications that could be fatal, the possibility of needing IV nutrition, the possibility of malignancy was discussed with the patient's son-in-law, Jeffery and daughter Eliana Mariee, who requested that I would not disclose the information of possible cancer to the patient. The patient accepted the diagnosis of an intestinal blockage that required an operation. The risk of anastomotic complications was also discussed which would require potential reoperation. The patient and her family seem to understand the options and wanted to proceed. Questions seemed to be satisfactorily answered. ] Procedure: [The patient was identified by myself in the preoperative holding area and again in the operating suite, placed supine on the table. She was induced in general endotracheal anesthesia administered with excellent effect. A Dexter catheter was placed, sequential compression stockings were in place and she has been on Zosyn. Her abdomen was then widely prepped and draped using ChloraPrep. An appropriate time-out was performed with a begin at the supraumbilical midline a in raising a skin wheal with local, making a vertical 5 mm skin incision with in place the Veress needle without incident. An appropriate drop test was performed and a pneumoperitoneum was obtained using carbon dioxide to 15 mmHg. The abdomen was then entered with a 5 mm, 30 degree laparoscoped and Optiview trocar technique. Two additional midline trocars were placed without incident under direct laparoscopic vision in the patient was positioned in Trendelenburg and banked to her left. There is a large phlegmon involving the cecum in the mid ascending colon to the anterior abdominal wall that was taken out carefully using the suction wire drawing machine operator and purulent material that was encountered was sent for Gram stain and culture. The distortion of normal anatomic planes due to the mass made progress slow I given the inability to safely identify tissue planes I opted to open via midline incision. A midline laparotomy incision was carefully made to avoid injury to the bowel. Palpation of the stomach confirmed the nasogastric tube was in position. A Bookwalter was utilized I began at the hepatic flexure and mobilized the hepatic prep flexure since the cecum was curled medially onto the mid ascending colon due to the mass and the phlegmon. The retroperitoneum and mesentery were carefully reflected to midline taking care to avoid the duodenum and the ureter. Once the right colon was mobilized to midline, the terminal ileum and transverse colon were divided using linear VICKY stapler blue loads proximally and distally. At this point it became apparent that a loop of sigmoid was surprisingly densely adherent into the mesentery of the terminal ileum and this was carefully dissected and return to the left lower quadrant. No obvious diverticula were seen but the longitudinal tinea were clearly identified. The LigaSure was used to divide the mesentery of the right colon to the middle transverse colon and after palpating and ensuring good blood supply, a functional end-to-end stapled anastomosis was performed with blue load VICKY stapler and TA 60. The mesenteric defect was carefully closed with a running 2 0 Polysorb suture and the anastomosis reinforced with a crutch suture and inspected for patency and hemostasis, both of which were present. Several liters of sterile saline were used to irrigate the operative field until the irrigant ran clear. A BREONNA was placed so that it laid in the area of the phlegmon and perforation and right pericolic gutter that was brought through the right lower quadrant and secured to the skin with a 2-0 silk suture. A patch of omentum was placed over the ileocolic anastomosis and the posterior sheath/peritoneum closed with a running 0 Maxon suture. The anterior fascia was closed with interrupted 0 Maxon sutures and the skin closed with thad. The abdomen was then washed and dried, sterile dressings applied. Patient tolerated the procedure well was sent to the PACU in stable condition, all sponge instrument counts were correct. The patient previously indicated via translator and interpreter that she wished that I speak with both Jeffery, her son-in-law and her daughter, Eliana Mariee, who was not present. I did speak with Jeffery and he, on behalf of the patient's and daughter requested that the findings of cancer not be discussed with the patient at this time. Jeffery appropriately asked how this impacts the patient's daughter, Eliana Mariee, who is his and their child. Since she is age 42, I have recommended that she disclosed to her PCP that her mother was diagnosed with colorectal cancer that is advanced and she should likely have a colonoscopy within the next 6 months. Recommendations regarding their child pending genetic testing of the patient.]
[2022-02-22] MEDS: Piperacillin Sodium/Tazobactam 3.375 GM in 0.9 % Sodium Chloride 50 ML IV ×3 (07:32→23:52)
--- NOTE | 2022-02-22 07:41 | HO.ANESPROP2 ---
[facility] Active Problems Active Problems: All Active Problems (Updated 02/20/22 @ 11:30 by Keyon Cruz MD) Abdominal mass, RLQ (right lower quadrant) (Acute) Abdominal pain (Acute) Ileitis (Acute) HTN (hypertension) (Acute) Breast mass (Acute) Abnormal CT of the abdomen (Acute) Past Medical History Medical History (Updated 02/20/22 @ 11:30 by Keyon Cruz MD) HTN (hypertension) Family History Family history of problems with anesthesia: No Surgical History History of Problems with Anesthesia: No Social History Social History Household Members: Spouse Housing: House Do you presently have visiting nurse or other home services: No Patient Tobacco Use Status: Never used Tobacco service: No Meds Allergies Allergy/AdvReac Type Severity Reaction Status Date / Time No Known Allergies Allergy Verified 02/18/22 08:07 Active Medications: Current Medications Acetaminophen (Acetaminophen 325 Mg Tablet) 650 mg PO Q6H PRN PRN Reason: Pain, Mild (Pain Scale 1-3) Last Admin: 02/19/22 00:21 Dose: 650 mg Docusate Sodium (Docusate Sodium 100 Mg Capsule) 100 mg PO DAILY PRN PRN Reason: Constipation Piperacillin Sod/Tazobactam (Sod 3.375 gm/ Sodium Chloride) 50 mls @ 100 mls/hr IV Q8H [facility] Last Admin: 02/22/22 07:32 Dose: 100 mls/hr Potassium Chloride/Sodium Chloride (Kcl 20 Meq In 0.45% Sod) 20 meq in 1,000 mls @ 100 mls/hr IVCONT .Q10H [facility] Last Infusion: 02/22/22 07:33 Dose: 0 mls/hr Morphine Sulfate (Morphine Sulfate 2 Mg/Ml Cartridge) 2 mg IVPUSH Q4H PRN; Protocol PRN Reason: Pain, Severe (Pain Scale 7-10) Last Admin: 02/21/22 20:13 Dose: 2 mg Non-Formulary Medication (Pancreatin) 1,400 mg PO DAILY [facility] Ondansetron HCl (Ondansetron Hcl 4 Mg/2 Ml Vial) 4 mg IVPUSH Q8H PRN PRN Reason: Nausea and Vomiting Last Admin: 02/21/22 15:56 Dose: 4 mg Pharmacy Consult (Consult Rx Perform Med Rec) 1 each MISCELLANE ONCE PRN PRN Reason: patient will be admitted Sodium Chloride (0.9 % Sodium Chloride Flush 3 Ml Syringe) 3 ml IVFLUSH QSHIFT [facility] Last Admin: 02/22/22 07:00 Dose: Not Given Home Medications Medication Instructions Recorded Confirmed Last Taken Type calcium carbonate 500 mg calcium 500 mg PO TID PRN Indigestion 02/18/22 02/18/22 Unknown History (1,250 mg) chewable tablet pancreatin 500 mg tablet 1,400 mg PO DAILY 02/18/22 02/18/22 Unknown History Exam Exam Date and Time: February 22, 2022 0741 Height,Weight and Vital Signs: Height 5 ft Weight 71.7 kg Last Vital Signs Temp 98.9 F 02/22/22 07:29 Pulse 89 02/22/22 07:29 Resp 18 02/22/22 07:29 BP 139/88 02/22/22 07:29 Pulse Ox 93 02/22/22 07:29 O2 Del Method 02/22/22 07:29 O2 Flow Rate 2 02/19/22 00:16 Pertinent Lab Results Pertinent Lab Results: Laboratory Tests 02/18/22 02/18/22 02/18/22 08:55 08:55 08:55 WBC 9.8 RBC 4.57 Hgb 13.3 Hct 39.0 MCV 85.3 MCH 29.1 MCHC 34.1 RDW 12.2 Plt Count 259 MPV 8.6 L Immature Gran % (Auto) 0.3 Neut % (Auto) 88.8 H Lymph % (Auto) 6.2 L [place] % (Auto) 4.6 Eos % (Auto) 0.0 Baso % (Auto) 0.1 Lymph # (Auto) 0.6 L [place] # (Auto) 0.5 Eos # (Auto) 0.0 Baso # (Auto) 0.0 Abs Immat Gran (auto) 0.03 Absolute Neuts (auto) 8.7 H Absolute Nucleated RBC 0.000 Nucleated RBC % (auto) 0.0 Sodium 137 Potassium 3.6 Chloride 101 Carbon Dioxide 23 Anion Gap 17 BUN 8 L Creatinine 0.62 Estim Creat Clear Calc 72.3 Estimated GFR > 60 Random Glucose 154 H Estimat Average Glucose Hemoglobin A1c % Lactic Acid Calcium 9.2 Total Bilirubin 1.3 H Direct Bilirubin 0.4 AST 15 ALT 11 Alkaline Phosphatase 89 Lactate Dehydrogenase 246 H Total Protein 7.2 Albumin 4.1 Prealbumin Lipase 11 Carcinoembryonic Ag Urine Color Urine Appearance Urine pH Ur Specific [place] Urine Protein Urine Glucose (UA) Urine Ketones Urine Blood Urine Nitrite Ur Leukocyte Esterase Urine RBC Urine WBC Ur Squamous Epith Cells Urine Bacteria Hyaline Casts Influenza Type A (PCR) NEGATIVE Influenza Type B (PCR) NEGATIVE RSV RNA Qual (PCR) NEGATIVE SARS-CoV-2 RNA (RT-PCR) NEGATIVE Blood Type Antibody Screen 02/18/22 02/18/22 02/18/22 10:19 11:05 13:09 WBC RBC Hgb Hct MCV MCH MCHC RDW Plt Count MPV Immature Gran % (Auto) Neut % (Auto) Lymph % (Auto) [place] % (Auto) Eos % (Auto) Baso % (Auto) Lymph # (Auto) [place] # (Auto) Eos # (Auto) Baso # (Auto) Abs Immat Gran (auto) Absolute Neuts (auto) Absolute Nucleated RBC Nucleated RBC % (auto) Sodium Potassium Chloride Carbon Dioxide Anion Gap BUN Creatinine Estim Creat Clear Calc Estimated GFR Random Glucose Estimat Average Glucose 108 Hemoglobin A1c % 5.4 Lactic Acid 0.8 Calcium Total Bilirubin Direct Bilirubin AST ALT Alkaline Phosphatase Lactate Dehydrogenase Total Protein Albumin Prealbumin Lipase Carcinoembryonic Ag Urine Color Dark Yellow Urine Appearance Cloudy Urine pH 6.0 Ur Specific [place] 1.020 Urine Protein 30 (1+) H Urine Glucose (UA) Negative Urine Ketones 15 Urine Blood Negative Urine Nitrite Negative Ur Leukocyte Esterase Moderate (2+) H Urine RBC 3-5 H Urine WBC >50 H Ur Squamous Epith Cells >20 Urine Bacteria 3+ Hyaline Casts 0-2 Influenza Type A (PCR) Influenza Type B (PCR) RSV RNA Qual (PCR) SARS-CoV-2 RNA (RT-PCR) Blood Type Antibody Screen 02/19/22 02/19/22 02/20/22 05:51 05:51 08:44 WBC 6.4 9.3 RBC 4.30 4.41 Hgb 12.9 12.9 Hct 37.9 37.9 MCV 88.1 85.9 MCH 30.0 29.3 MCHC 34.0 34.0 RDW 12.4 12.3 Plt Count 264 288 MPV 9.2 L 9.0 L Immature Gran % (Auto) 0.3 Neut % (Auto) 87.6 H Lymph % (Auto) 8.8 L [place] % (Auto) 3.2 Eos % (Auto) 0.0 Baso % (Auto) 0.1 Lymph # (Auto) 0.8 L [place] # (Auto) 0.3 Eos # (Auto) 0.0 Baso # (Auto) 0.0 Abs Immat Gran (auto) 0.03 Absolute Neuts (auto) 8.2 Absolute Nucleated RBC 0.000 0.000 Nucleated RBC % (auto) 0.0 0.0 Sodium 137 Potassium 3.6 Chloride 101 Carbon Dioxide 25 Anion Gap 15 BUN 9 Creatinine 0.63 Estim Creat Clear Calc 75.5 Estimated GFR > 60 Random Glucose 138 H Estimat Average Glucose Hemoglobin A1c % Lactic Acid Calcium 8.8 Total Bilirubin Direct Bilirubin AST ALT Alkaline Phosphatase Lactate Dehydrogenase Total Protein Albumin Prealbumin Lipase Carcinoembryonic Ag Urine Color Urine Appearance Urine pH Ur Specific [place] Urine Protein Urine Glucose (UA) Urine Ketones Urine Blood Urine Nitrite Ur Leukocyte Esterase Urine RBC Urine WBC Ur Squamous Epith Cells Urine Bacteria Hyaline Casts Influenza Type A (PCR) Influenza Type B (PCR) RSV RNA Qual (PCR) SARS-CoV-2 RNA (RT-PCR) Blood Type Antibody Screen 02/20/22 02/20/22 02/20/22 08:44 10:12 10:12 WBC RBC Hgb Hct MCV MCH MCHC RDW Plt Count MPV Immature Gran % (Auto) Neut % (Auto) Lymph % (Auto) [place] % (Auto) Eos % (Auto) Baso % (Auto) Lymph # (Auto) [place] # (Auto) Eos # (Auto) Baso # (Auto) Abs Immat Gran (auto) Absolute Neuts (auto) Absolute Nucleated RBC Nucleated RBC % (auto) Sodium 139 Potassium 3.7 Chloride 105 Carbon Dioxide 27 Anion Gap 11 L BUN 5 L Creatinine 0.80 Estim Creat Clear Calc 59.4 Estimated GFR > 60 Random Glucose 143 H Estimat Average Glucose Hemoglobin A1c % Lactic Acid Calcium 8.7 Total Bilirubin Direct Bilirubin AST ALT Alkaline Phosphatase Lactate Dehydrogenase Total Protein Albumin Prealbumin 7.0 L Lipase Carcinoembryonic Ag 2.50 Urine Color Urine Appearance Urine pH Ur Specific [place] Urine Protein Urine Glucose (UA) Urine Ketones Urine Blood Urine Nitrite Ur Leukocyte Esterase Urine RBC Urine WBC Ur Squamous Epith Cells Urine Bacteria Hyaline Casts Influenza Type A (PCR) Influenza Type B (PCR) RSV RNA Qual (PCR) SARS-CoV-2 RNA (RT-PCR) Blood Type B Positive Antibody Screen NEGATIVE 02/21/22 02/21/22 02/22/22 05:24 05:24 05:07 WBC 7.9 6.4 RBC 4.08 L 3.97 L Hgb 12.0 11.6 L Hct 35.0 L 35.0 L MCV 85.8 88.2 MCH 29.4 29.2 MCHC 34.3 33.1 RDW 12.3 12.2 Plt Count 301 307 MPV 9.0 L 9.1 L Immature Gran % (Auto) 0.3 0.3 Neut % (Auto) 83.8 H 79.8 H Lymph % (Auto) 10.8 L 13.2 L [place] % (Auto) 4.9 6.5 Eos % (Auto) 0.1 0.0 Baso % (Auto) 0.1 0.2 Lymph # (Auto) 0.9 L 0.9 L [place] # (Auto) 0.4 0.4 Eos # (Auto) 0.0 0.0 Baso # (Auto) 0.0 0.0 Abs Immat Gran (auto) 0.02 0.02 Absolute Neuts (auto) 6.6 5.1 Absolute Nucleated RBC 0.000 0.000 Nucleated RBC % (auto) 0.0 0.0 Sodium 135 Potassium 3.2 L Chloride 98 Carbon Dioxide 28 Anion Gap 12 BUN 20 H Creatinine 0.62 Estim Creat Clear Calc 76.7 Estimated GFR > 60 Random Glucose 116 H Estimat Average Glucose Hemoglobin A1c % Lactic Acid Calcium 8.8 Total Bilirubin Direct Bilirubin AST ALT Alkaline Phosphatase Lactate Dehydrogenase Total Protein Albumin Prealbumin Lipase Carcinoembryonic Ag Urine Color Urine Appearance Urine pH Ur Specific [place] Urine Protein Urine Glucose (UA) Urine Ketones Urine Blood Urine Nitrite Ur Leukocyte Esterase Urine RBC Urine WBC Ur Squamous Epith Cells Urine Bacteria Hyaline Casts Influenza Type A (PCR) Influenza Type B (PCR) RSV RNA Qual (PCR) SARS-CoV-2 RNA (RT-PCR) Blood Type Antibody Screen 02/22/22 05:07 WBC RBC Hgb Hct MCV MCH MCHC RDW Plt Count MPV Immature Gran % (Auto) Neut % (Auto) Lymph % (Auto) [place] % (Auto) Eos % (Auto) Baso % (Auto) Lymph # (Auto) [place] # (Auto) Eos # (Auto) Baso # (Auto) Abs Immat Gran (auto) Absolute Neuts (auto) Absolute Nucleated RBC Nucleated RBC % (auto) Sodium 136 Potassium 3.5 Chloride 100 Carbon Dioxide 21 L Anion Gap 19 BUN 13 Creatinine 0.58 Estim Creat Clear Calc 82.0 Estimated GFR > 60 Random Glucose 78 Estimat Average Glucose Hemoglobin A1c % Lactic Acid Calcium 8.2 L D Total Bilirubin Direct Bilirubin AST ALT Alkaline Phosphatase Lactate Dehydrogenase Total Protein Albumin Prealbumin Lipase Carcinoembryonic Ag Urine Color Urine Appearance Urine pH Ur Specific [place] Urine Protein Urine Glucose (UA) Urine Ketones Urine Blood Urine Nitrite Ur Leukocyte Esterase Urine RBC Urine WBC Ur Squamous Epith Cells Urine Bacteria Hyaline Casts Influenza Type A (PCR) Influenza Type B (PCR) RSV RNA Qual (PCR) SARS-CoV-2 RNA (RT-PCR) Blood Type Antibody Screen Airway Mallampati Class: II TM Dist: >3cm Neck ROM: Full Assessment and Plan Assessment Anesthesia Assessment: Anesthesia Plan Discussed and Chart Reviewed Final Anesthetic Review Family History of Problems with Anesthesia: No History of Problems with Anesthesia: No NPO: Yes ASA Class: III and Emergency Final Preanesthetic Review: No Changes in Pt Med Stat, Meds/Allgs Chart Reviewed, Consent Obtained/Reviewed and Anes Risks/Benef Reviewed Patient Risk: Intermediate Procedure Risk: Intermediate Anesthetic Plan Anesthetic Plan: GA Disposition: Standard PACU
[2022-02-22] MEDS: Acetaminophen 1,000 MG/100 ML PIGGYBACK 400 MG IV ×2 (14:03→20:32)
[2022-02-22] MEDS: Morphine Sulfate 4 MG/ML CARTRIDGE IVPUSH (14:04)
[2022-02-22] MEDS: ondansetron HCL 4 MG/2 ML VIAL IVPUSH (14:04)
--- NOTE | 2022-02-22 15:12 | HO.PM.IMPN ---
Subjective Subjective Date of Service: 02/22/22 Interval History: Seen in follow up for abdominal pain Interval History: Return from OR s/p right hemicolectomy. She is in significant pain. Now on Tylenol IV and has just received 4 mg IV morphine. NG tube in place draining bilious fluid with specks of black. Seen at bedside with this son-in-law and daughter. Review of Systems General: No fevers, malaise, unintentional weight loss Cardiovascular: No chest pain, palpitations, or leg edema Respiratory: No shortness of breath, wheezing, cough GI: +abdominal pain. No vomiting, diarrhea : No dysuria, hematuria, increased urinary frequency MSK: No myalgia, back pain Neuro: No headaches, weakness, paresthesias Skin: No rashes or lesions Physical Exam Vital Signs: Vital Signs: Last Vital Signs Temp 97.2 F 02/22/22 13:15 Pulse 93 02/22/22 13:15 Resp 18 02/22/22 14:04 BP 125/84 02/22/22 13:15 Pulse Ox 99 02/22/22 13:15 O2 Del Method 02/22/22 13:15 O2 Flow Rate 2 02/22/22 13:15 BMI result Body Mass Index 30.9 Constitutional - Awake and Alert, uncomfortable appearing Eyes - PERRLA, EOMI Cardiovascular - S1S2, RRR, No edema Respiratory - Normal lung expansion, Normal respiratory effort, No respiratory distress, CTA bilaterally Gastrointestinal - NT / ND; +BS; No rebound or guarding. J drain in place with scant serosanguineous fluid. NG tube in place Extremities - no calf tenderness bilaterally, no swelling Skin - Warm/Dry Neurological - Alert & oriented x3 Psychological - Appropriate affect Objective Data Active Medications Heparin Sodium (Porcine) (Heparin Sodium,Porcine 5,000 Unit/Ml Vial) 5,000 unit SUBCUT Q12H [facility] Piperacillin Sod/Tazobactam (Sod 3.375 gm/ Sodium Chloride) 50 mls @ 100 mls/hr IV Q8H [facility] Last Infusion: 02/22/22 08:02 Dose: 0 mls/hr Documented By: COTEMA Potassium Chloride/Sodium Chloride (Kcl 20 Meq In 0.45% Sod) 20 meq in 1,000 mls @ 125 mls/hr IVCONT .Q8H [facility] Last Infusion: 02/22/22 14:16 Dose: 125 mls/hr Documented By: COTEMA Acetaminophen (Ofirmev) 1,000 mg in 100 mls @ 400 mls/hr IV Q6H [facility] Last Infusion: 02/22/22 14:29 Dose: 0 mls/hr Documented By: NOELLE Morphine Sulfate (Morphine Sulfate 4 Mg/Ml Cartridge) 4 mg IVPUSH Q4H PRN; Protocol PRN Reason: Pain, Severe (Pain Scale 7-10) Last Admin: 02/22/22 14:04 Dose: 4 mg Documented By: NOELLE Multi-Ingred Medicated Throat [place] (Throat [place], Medicated 177 Ml Bottle) 1 spray MUCOUS MEM Q2H PRN PRN Reason: Sore Throat Non-Formulary Medication (Pancreatin) 1,400 mg PO DAILY [facility] Ondansetron HCl (Ondansetron Hcl 4 Mg/2 Ml Vial) 4 mg IVPUSH Q8H PRN PRN Reason: Nausea and Vomiting Last Admin: 02/22/22 14:04 Dose: 4 mg Documented By: NOELLE Pharmacy Consult (Consult Rx Perform Med Rec) 1 each MISCELLANE ONCE PRN PRN Reason: patient will be admitted Sodium Chloride (0.9 % Sodium Chloride Flush 3 Ml Syringe) 3 ml IVFLUSH QSHIFT [facility] Last Admin: 02/22/22 14:14 Dose: Not Given Documented By: NOELLE Non-Admin Reason: IV Running Labs CBC & Chem 7: 02/22/22 05:07 02/22/22 05:07 Labs: Laboratory Results - last 24 hr 02/22/22 02/22/22 05:07 05:07 MCV 88.2 MCH 29.2 MCHC 33.1 RDW 12.2 Plt Count 307 MPV 9.1 L Immature Gran % (Auto) 0.3 Neut % (Auto) 79.8 H Lymph % (Auto) 13.2 L [place] % (Auto) 6.5 Eos % (Auto) 0.0 Baso % (Auto) 0.2 Lymph # (Auto) 0.9 L [place] # (Auto) 0.4 Eos # (Auto) 0.0 Baso # (Auto) 0.0 Abs Immat Gran (auto) 0.02 Absolute Neuts (auto) 5.1 Absolute Nucleated RBC 0.000 Nucleated RBC % (auto) 0.0 Anion Gap 19 Estim Creat Clear Calc 82.0 Estimated GFR > 60 Random Glucose 78 Calcium 8.2 L D Microbiology Microbiology Results: Microbiology 02/22/22 Unknown Gram Stain - Final Abscess Intra-abdominal Assessment and Plan (1) Abdominal pain: Status: Acute (2) Ileitis: Status: Acute Plan Patient is a 66-year-old Mandarin-speaking female with a PMH significant for HTN who presents today with severe lower right-sided abdominal pain. CT concerning for possible appendicitis, ileitis, or malignancy. Pt will be admitted for further workup for abdominal pain. 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 Also with 1cm appendix dilitation with 2.5cm locule fluid tip of appendix -- continue morphine for surgery -- continue Zosyn per surgery -- continue NG tube per surgery. Keep NPO # breast mass -- large, 3-4cm mass in left breast at 9 o'clock -- CT of chest showing 4cm irregularly heterogenous mass left breast -- f/u outpatient for possible malignancy # HTN- reasonably controlled -- not on meds Full code DVT prophylaxis: pneumatic boots, heparin Case management consult for HCP: Per pt and LINN/daughter, decisions and discussion should be held with LINN and daughter. Do not use words like tumor , mass , cancer in front of patient Pt requires ongoing inpt stay for treatment and workup for severe abdominal pain and treatment with IV abx for possible infectious source with IV abx and need for right hemicolectomy Quality Stroke Does the patient have a stroke diagnosis?: No VTE Prior VTE?: No VTE Risk Level:: Medical - moderate - high VTE Device Contraindication: N/A - Device Ordered VTE Drug Contraindication: Treatment Not Indicated
--- NOTE | 2022-02-22 17:06 | P.PNGS_ITS ---
Subjective Subjective Date of Service: 02/22/22 Interval history: The patient is resting comfortably Physical Exam Vital Signs: Vital Signs: Last Vital Signs Temp 96.8 F 02/22/22 16:00 Pulse 94 02/22/22 16:00 Resp 18 02/22/22 16:00 BP 130/79 02/22/22 16:00 Pulse Ox 96 02/22/22 16:00 O2 Del Method 02/22/22 16:00 O2 Flow Rate 2.0 02/22/22 16:00 BMI result Body Mass Index 30.9 The patient is rousable but somnolent Objective Data Active Medications Heparin Sodium (Porcine) (Heparin Sodium,Porcine 5,000 Unit/Ml Vial) 5,000 unit SUBCUT Q12H [facility] Piperacillin Sod/Tazobactam (Sod 3.375 gm/ Sodium Chloride) 50 mls @ 100 mls/hr IV Q8H [facility] Last Infusion: 02/22/22 16:48 Dose: 0 mls/hr Documented By: COTEMA Potassium Chloride/Sodium Chloride (Kcl 20 Meq In 0.45% Sod) 20 meq in 1,000 mls @ 125 mls/hr IVCONT .Q8H [facility] Last Admin: 02/22/22 15:18 Dose: Not Given Documented By: COTEMA Non-Admin Reason: IV Running Acetaminophen (Ofirmev) 1,000 mg in 100 mls @ 400 mls/hr IV Q6H [facility] Last Infusion: 02/22/22 14:29 Dose: 0 mls/hr Documented By: COTROBERT Morphine Sulfate (Morphine Sulfate 4 Mg/Ml Cartridge) 4 mg IVPUSH Q2H PRN; Protocol PRN Reason: Pain, Severe (Pain Scale 7-10) Multi-Ingred Medicated Throat [place] (Throat [place], Medicated 177 Ml Bottle) 1 spray MUCOUS MEM Q2H PRN PRN Reason: Sore Throat Non-Formulary Medication (Pancreatin) 1,400 mg PO DAILY [facility] Ondansetron HCl (Ondansetron Hcl 4 Mg/2 Ml Vial) 4 mg IVPUSH Q8H PRN PRN Reason: Nausea and Vomiting Last Admin: 02/22/22 14:04 Dose: 4 mg Documented By: COTEMA Pharmacy Consult (Consult Rx Perform Med Rec) 1 each MISCELLANE ONCE PRN PRN Reason: patient will be admitted Sodium Chloride (0.9 % Sodium Chloride Flush 3 Ml Syringe) 3 ml IVFLUSH QSHIFT [facility] Last Admin: 02/22/22 14:14 Dose: Not Given Documented By: COTEMA Non-Admin Reason: IV Running Labs CBC & Chem 7: 02/22/22 05:07 02/22/22 05:07 Labs: Laboratory Results - last 24 hr 02/22/22 02/22/22 02/22/22 05:07 05:07 15:52 MCV 88.2 MCH 29.2 MCHC 33.1 RDW 12.2 Plt Count 307 MPV 9.1 L Immature Gran % (Auto) 0.3 Neut % (Auto) 79.8 H Lymph % (Auto) 13.2 L [place] % (Auto) 6.5 Eos % (Auto) 0.0 Baso % (Auto) 0.2 Lymph # (Auto) 0.9 L [place] # (Auto) 0.4 Eos # (Auto) 0.0 Baso # (Auto) 0.0 Abs Immat Gran (auto) 0.02 Absolute Neuts (auto) 5.1 Absolute Nucleated RBC 0.000 Nucleated RBC % (auto) 0.0 Anion Gap 19 Estim Creat Clear Calc 82.0 Estimated GFR > 60 Random Glucose 78 Calcium 8.2 L D Carcinoembryonic Ag 2.30 Microbiology Microbiology Results: Microbiology 02/22/22 Unknown Gram Stain - Final Abscess Intra-abdominal Procedures Date of Service Date of Service: 02/22/22 Progress Note: A&P Assessment and plan (1) Abdominal mass, RLQ (right lower quadrant): Status: Acute (2) HTN (hypertension): Status: Acute (3) Cecum mass: Status: Acute Plan I spoke with the son-in-law, Jeffery & and daughter Chester Mariee. Continue pain management, bowel rest, NG and Dexter. Trend labs. Continue Zosyn. Time Spent With Patient Time: Total time managing care of this patient today ____ minutes. Quality Stroke Does the patient have a stroke diagnosis?: No VTE Prior VTE?: No VTE Risk Level:: Medical - moderate - high VTE Device Contraindication: N/A - Device Ordered VTE Drug Contraindication: Treatment Not Indicated
[2022-02-22] MEDS: 0.9 % Sodium Chloride Flush 3 ML SYRINGE IVFLUSH (20:38)
[2022-02-22] MEDS: KCl 20 mEq in 0.45% Sod 20 MEQ/1,000 ML IV.SOLN 125 MEQ IVCONT (21:59)
[2022-02-23] MEDS: Acetaminophen 1,000 MG/100 ML PIGGYBACK 400 MG IV ×4 (01:29→20:51)
[2022-02-23] MEDS: ondansetron HCL 4 MG/2 ML VIAL IVPUSH ×2 (03:36→11:10)
[2022-02-23 04:00] VITALS: BP 158/81; PULSE 86; RESP 17; TEMP 36.5; O2SAT 96
[2022-02-23] MEDS: KCl 20 mEq in 0.45% Sod 20 MEQ/1,000 ML IV.SOLN 125 MEQ IVCONT ×3 (06:17→22:47)
[2022-02-23 08:00] VITALS: BP 167/93; PULSE 90; RESP 19; TEMP 37.1; O2SAT 97
--- NOTE | 2022-02-23 08:15 | PM.PNGS ---
Subjective Subjective Date of Service: 02/23/22 Patient reports: still having pain and no flatus Interval history: The patient is seen with her son-in-law, Jeffery, interpreting. The patient reports 3/10 abdominal pain, states the nurse work with her to use the incentive spirometer and she has not been out of bed yet. We discussed the fact there was a complete blockage and infection and I removed the blockage and reattached continuity of her intestines. I also explained about the need for the nasogastric tube since her small intestines were dilated and tired and will likely need 1-2 or even 3 days to recover. She is not passing any gas nor had any bowel movement. She otherwise denies pain in her chest, trouble breathing or other new complaints. Physical Exam Vital Signs: Vital Signs: Last Vital Signs Temp 98.7 F 02/23/22 08:00 Pulse 90 02/23/22 08:00 Resp 19 02/23/22 08:00 BP 167/93 H 02/23/22 08:00 Pulse Ox 97 02/23/22 08:00 O2 Del Method 02/23/22 08:00 O2 Flow Rate 2 02/23/22 04:00 BMI result Body Mass Index 30.9 On exam, she is comfortable and nontoxic NG has healthy green bile Abdominal dressing is intact with appropriate incisional tenderness in the abdomen BREONNA has bloody/purulence drainage from the abscess/phlegmon Dexter catheter his dark yellow urine Objective Data Active Medications Heparin Sodium (Porcine) (Heparin Sodium,Porcine 5,000 Unit/Ml Vial) 5,000 unit SUBCUT Q12H [facility] Piperacillin Sod/Tazobactam (Sod 3.375 gm/ Sodium Chloride) 50 mls @ 100 mls/hr IV Q8H [facility] Last Infusion: 02/23/22 00:22 Dose: 0 mls/hr Documented By: PABLO Potassium Chloride/Sodium Chloride (Kcl 20 Meq In 0.45% Sod) 20 meq in 1,000 mls @ 125 mls/hr IVCONT .Q8H [facility] Last Admin: 02/23/22 06:17 Dose: 125 mls/hr Documented By: PABLO Acetaminophen (Ofirmev) 1,000 mg in 100 mls @ 400 mls/hr IV Q6H [facility] Last Infusion: 02/23/22 01:56 Dose: 0 mls/hr Documented By: PABLO Morphine Sulfate (Morphine Sulfate 4 Mg/Ml Cartridge) 4 mg IVPUSH Q2H PRN; Protocol PRN Reason: Pain, Severe (Pain Scale 7-10) Multi-Ingred Medicated Throat [place] (Throat [place], Medicated 177 Ml Bottle) 1 spray MUCOUS MEM Q2H PRN PRN Reason: Sore Throat Non-Formulary Medication (Pancreatin) 1,400 mg PO DAILY [facility] Ondansetron HCl (Ondansetron Hcl 4 Mg/2 Ml Vial) 4 mg IVPUSH Q8H PRN PRN Reason: Nausea and Vomiting Last Admin: 02/23/22 03:36 Dose: 4 mg Documented By: PABLO Pharmacy Consult (Consult Rx Perform Med Rec) 1 each MISCELLANE ONCE PRN PRN Reason: patient will be admitted Sodium Chloride (0.9 % Sodium Chloride Flush 3 Ml Syringe) 3 ml IVFLUSH QSHIFT [facility] Last Admin: 02/22/22 20:38 Dose: 3 ml Documented By: PABLO Labs CBC & Chem 7: 02/23/22 10:07 02/23/22 10:07 Labs: Laboratory Results - last 24 hr 02/22/22 15:52 Carcinoembryonic Ag 2.30 Microbiology Microbiology Results: Microbiology 02/22/22 Unknown Gram Stain - Final Abscess Intra-abdominal Routine Culture - Preliminary Gram negative omaira Anaerobic Culture - Preliminary Culture in progress. Procedures Date of Service Date of Service: 02/23/22 Progress Note: A&P Assessment and plan (1) Cecum mass: Status: Acute (2) Abdominal mass, RLQ (right lower quadrant): Status: Acute (3) Abdominal pain: Status: Acute (4) Ileitis: Status: Acute (5) HTN (hypertension): Status: Acute (6) Breast mass: Status: Acute Plan Patient states that were not drawn, so I have reordered them. If hemoglobin stable, will start subQ heparin The importance of out of bed to chair and possible removal of Dexter was discussed via bead forming machine set up operator I also explained that if she is not back to a regular diet and 3 days, I will ask the covering surgeon to order IV TPN which I explained was IV nutrition. Time Spent With Patient Time: Total time managing care of this patient today ____ minutes. Quality Stroke Does the patient have a stroke diagnosis?: No VTE Prior VTE?: No VTE Risk Level:: Medical - moderate - high VTE Device Contraindication: N/A - Device Ordered VTE Drug Contraindication: Treatment Not Indicated
[2022-02-23] MEDS: 0.9 % Sodium Chloride Flush 3 ML SYRINGE IVFLUSH ×3 (08:30→22:48)
[2022-02-23] MEDS: Famotidine/PF 20 MG/2 ML VIAL IVPUSH ×2 (08:30→20:52)
[2022-02-23] MEDS: Piperacillin Sodium/Tazobactam 3.375 GM in 0.9 % Sodium Chloride 50 ML IV ×2 (08:32→15:54)
[2022-02-23 08:58] LABS: MANUAL DIFF FLAG NO
[2022-02-23 09:01] LABS: Basophils Percent Auto 0.1 % (0-2); Imm Gran Abs Auto 0.03 X10*3/uL (0.00-0.03); Imm Gran Pct Auto 0.4 % (0.0-0.4); Lymphocytes Absolute Auto 0.9 X10*3/uL (1.2-4.9); Lymphocytes Percent Auto 12.8 % (20-40); Mean Corpuscular HGB Conc 33.3 g/dl (31.0-35.0); Mean Corpuscular Hemoglobin 29.2 pg (27.0-33.0); Mean Corpuscular Volume 87.5 fL (80.0-98.0); Mean Platelet Volume 9.4 fL (9.4-12.3); Monocytes Absolute Auto 0.4 X10*3/uL (0.1-1.2); Monocytes Percent Auto 5.5 % (2-11); Neutrophils Absolute Auto 5.9 x10*3/uL (2.0-8.3); Neutrophils Percent Auto 81.2 % (45-73); Platelet Count 312 X10*3/uL (160-400); Red Blood Count 3.77 X10*6/uL (4.20-5.50); Red Cell Distribution Width 12.4 % (11.0-16.0); White Blood Count 7.3 X10*3/uL (4.8-10.8)
[2022-02-23 10:17] LABS: MANUAL DIFF FLAG NO
[2022-02-23 10:19] LABS: Basophils Percent Auto 0.1 % (0-2); Hematocrit 33.9 % (37.0-47.0); Hemoglobin 11.5 g/dl (12.0-16.0); Imm Gran Abs Auto 0.04 X10*3/uL (0.00-0.03); Imm Gran Pct Auto 0.5 % (0.0-0.4); Lymphocytes Absolute Auto 1.1 X10*3/uL (1.2-4.9); Lymphocytes Percent Auto 13.8 % (20-40); Mean Corpuscular HGB Conc 33.9 g/dl (31.0-35.0); Mean Corpuscular Hemoglobin 29.5 pg (27.0-33.0); Mean Corpuscular Volume 86.9 fL (80.0-98.0); Mean Platelet Volume 8.8 fL (9.4-12.3); Monocytes Absolute Auto 0.5 X10*3/uL (0.1-1.2); Monocytes Percent Auto 5.5 % (2-11); Neutrophils Absolute Auto 6.6 x10*3/uL (2.0-8.3); Neutrophils Percent Auto 80.1 % (45-73); Platelet Count 341 X10*3/uL (160-400); Red Cell Distribution Width 12.3 % (11.0-16.0); White Blood Count 8.2 X10*3/uL (4.8-10.8)
[2022-02-23 10:42] LABS: Anion Gap 15 (12-20); Blood Urea Nitrogen 8 mg/dL (9-16); Calcium 8.1 mg/dL (8.4-10.2); Carbon Dioxide 22 mmol/L (22-29); Chloride 99 mmol/L (96-108); Creatinine Clr Calc Pharmacy 84.9; Estimated Glomerular Filt Rate > 60; Glucose Random 115 mg/dL (60-115); Potassium 4.1 mmol/L (3.3-5.1); Sodium 132 mmol/L (135-145)
--- NOTE | 2022-02-23 11:08 | HO.POSTANES ---
Post Anesthesia Evaluation Post Anesthesia Evaluation Vital Signs: Vital Signs Temp Pulse Resp BP Pulse Ox O2 Del Method O2 Flow Rate 02/23/22 08:00 98.7 F 90 19 167/93 H 97 Room Air 02/23/22 04:00 97.7 F 86 17 158/81 H 96 Nasal Cannula 2 Anesthesia: General Endotracheal-GETA Mental Status: Awake Pain Control: Satisfactory Nausea/Vomiting: None Hydration: Adequate Anesthesia-Related Issues: No Anes. Related Issues
--- NOTE | 2022-02-23 13:10 | PM.EVENT ---
Event Note Date of Service: 02/23/22 Event Note: Pt with history of hypertension not on antihypertensives at home now admitted to surgical service for cecal mass, ileitis s/p right hemicolectomy POD2 with consult placed to medicine for HTN and medical management. Since admission blood pressures have been largely controlled with SBP <140 and DBP<90. However has had intermittent episodes of hypertension with BP 158/81 and 167/92 today. Pain could also be contributory. Ordered hydralazine 5mg prn for SBP >160. Will follow blood pressures and recommend scheduled therapy if indicated.
[2022-02-23] MEDS: ondansetron HCL 4 MG/2 ML VIAL 8 MG IVPUSH ×2 (13:35→20:51)
[2022-02-23] MEDS: Heparin Sodium,Porcine 5,000 UNIT/ML VIAL 5000 UNIT SUBCUT (13:36)
[2022-02-23] MEDS: Throat Spray, Medicated 177 ML BOTTLE 1 SPRAY MUCOUS MEM (13:36)
[2022-02-23 15:21] VITALS: BP 163/96; PULSE 90; RESP 18; TEMP 36.8; O2SAT 94
[2022-02-23 20:00] VITALS: BP 156/89; PULSE 92; RESP 18; TEMP 37; O2SAT 95
[2022-02-24] MEDS: Piperacillin Sodium/Tazobactam 3.375 GM in 0.9 % Sodium Chloride 50 ML IV ×2 (00:13→08:13)
[2022-02-24] MEDS: Heparin Sodium,Porcine 5,000 UNIT/ML VIAL 5000 UNIT SUBCUT ×2 (00:20→11:35)
[2022-02-24] MEDS: Acetaminophen 1,000 MG/100 ML PIGGYBACK 400 MG IV ×4 (02:10→19:39)
[2022-02-24 03:45] VITALS: BP 152/88; PULSE 90; RESP 18; TEMP 37.1; O2SAT 94
[2022-02-24 05:49] LABS: MANUAL DIFF FLAG NO
[2022-02-24 05:53] LABS: Basophils Percent Auto 0.3 % (0-2); Eosinophils Percent Auto 0.1 % (0-4); Hematocrit 30.5 % (37.0-47.0); Hemoglobin 10.3 g/dl (12.0-16.0); Imm Gran Abs Auto 0.04 X10*3/uL (0.00-0.03); Imm Gran Pct Auto 0.5 % (0.0-0.4); Lymphocytes Absolute Auto 1.3 X10*3/uL (1.2-4.9); Lymphocytes Percent Auto 16.2 % (20-40); Mean Corpuscular HGB Conc 33.8 g/dl (31.0-35.0); Mean Corpuscular Hemoglobin 29.6 pg (27.0-33.0); Mean Corpuscular Volume 87.6 fL (80.0-98.0); Mean Platelet Volume 8.9 fL (9.4-12.3); Monocytes Absolute Auto 0.3 X10*3/uL (0.1-1.2); Monocytes Percent Auto 4.1 % (2-11); Neutrophils Absolute Auto 6.2 x10*3/uL (2.0-8.3); Neutrophils Percent Auto 78.8 % (45-73); Platelet Count 310 X10*3/uL (160-400); Red Blood Count 3.48 X10*6/uL (4.20-5.50); Red Cell Distribution Width 12.4 % (11.0-16.0); White Blood Count 7.9 X10*3/uL (4.8-10.8)
[2022-02-24 06:28] LABS: Anion Gap 15 (12-20); Blood Urea Nitrogen 5 mg/dL (9-16); Carbon Dioxide 23 mmol/L (22-29); Chloride 101 mmol/L (96-108); Creatinine Clr Calc Pharmacy 95.1; Estimated Glomerular Filt Rate > 60; Glucose Random 77 mg/dL (60-115); Potassium 3.9 mmol/L (3.3-5.1); Sodium 135 mmol/L (135-145)
[2022-02-24] MEDS: KCl 20 mEq in 0.45% Sod 20 MEQ/1,000 ML IV.SOLN 125 MEQ IVCONT ×2 (06:34→17:05)
[2022-02-24 07:45] VITALS: BP 140/87; PULSE 89; RESP 19; TEMP 37.1; O2SAT 94
[2022-02-24] MEDS: Famotidine/PF 20 MG/2 ML VIAL IVPUSH ×2 (08:14→19:39)
[2022-02-24] MEDS: 0.9 % Sodium Chloride Flush 3 ML SYRINGE IVFLUSH ×2 (08:14→19:48)
--- NOTE | 2022-02-24 08:57 | P.PNGS_ITS ---
Subjective Subjective Date of Service: 02/24/22 <Kalani Hung PA-C - Last Filed: 02/24/22 11:16> 02/24/22 <Erasmo Greer MD - Last Filed: 02/24/22 16:10> Interval history: Seen with FRANSISCA angular developer in [facility], [place] [id number]. Feeling a little better today, pain is there but she is comfortable and its controlled. She was OOB yesterday and felt dizzy. She got OOB after this and ambulated a little in the room and denied further dizziness. Reports rumbling but denies flatus. Denies nausea. <Kalani Hung PA-C - Last Filed: 02/24/22 11:16> Physical Exam Vital Signs: Vital Signs: Last Vital Signs Temp 98.7 F 02/24/22 07:45 Pulse 89 02/24/22 07:45 Resp 19 02/24/22 07:45 BP 140/87 H 02/24/22 07:45 Pulse Ox 94 02/24/22 07:45 O2 Del Method 02/24/22 07:45 O2 Flow Rate 2 02/23/22 04:00 BMI result Body Mass Index 30.9 <Kalani Hung PA-C - Last Filed: 02/24/22 11:16> Const: General: comfortable, no acute distress and alert <Kalani Hung PA-C - Last Filed: 02/24/22 11:16> Orientation/consciousness: patient oriented x3 <Kalani Hung PA-C - Last Filed: 02/24/22 11:16> HEENT: Other: NGT in place <Kalani Hung PA-C - Last Filed: 02/24/22 11:16> Neck: Other: No palpable cervical or supraclavicular lymphadenopathy. <Erasmo Greer MD - Last Filed: 02/24/22 16:10> Chest: Other: Left breast with a palpable mass measuring approximately 4 cm in diameter in the 8 to 9 o'clock position. Mass is mobile within the breast tissue and nontender. There are no overlying skin changes appreciated. No nipple retraction is appreciated. No nipple discharge in no definite palpable enlarged lymph nodes although some lymphedema is apparent in the left arm. Right breast reveals no skin change, no nipple discharge, no palpable mass, and no enlarged lymph nodes. <Erasmo Greer MD - Last Filed: 02/24/22 16:10> Chest/axillae images: 1. Palpable mass in the left breast at the lower inner quadrant <Kalani Hung PA-C - Last Filed: 02/24/22 11:16> Chest/axillae images: 1. Palpable mass in the left breast at the lower inner quadrant <Erasmo Greer MD - Last Filed: 02/24/22 16:10> Resp: Effort & Inspection: normal respiratory effort <Kalani Hung PA-C - Last Filed: 02/24/22 11:16> Cardio: Rate: regular rate <Kalani Hung PA-C - Last Filed: 02/24/22 11:16> GI: Other: BREONNA drain with serosanguineous drainage <Kalani Hung PA-C Last Filed: 02/24/22 11:16> Inspection: Yes distended and Yes incision (clean) <Kalani Hung PA-C Last Filed: 02/24/22 11:16> Palpation (GI): Soft to palpation, Tenderness to palpation present (GI) (mild, incisional), no guarding and not rigid <Kalani Hung PA-C Last Filed: 02/24/22 11:16> Percussion: Yes tympanic to percussion <Kalani Hung PA-C Last Filed: 02/24/22 11:16> Skin: General skin exam: no rashes or lesions noted <Kalani Hung PA-C Last Filed: 02/24/22 11:16> Neuro: General: patient oriented x3 and moves all extremities <Kalani Hung PA-C - Last Filed: 02/24/22 11:16> Extrem: General: Yes no clubbing, cyanosis or edema <SANDY Lay Last Filed: 02/24/22 11:16> Objective Data Active Medications Famotidine (Famotidine/Pf 20 Mg/2 Ml Vial) 20 mg IVPUSH BID ON LICENSE OF [facility] Last Admin: 02/24/22 08:14 Dose: 20 mg Documented By: MITRA Heparin Sodium (Porcine) (Heparin Sodium,Porcine 5,000 Unit/Ml Vial) 5,000 unit SUBCUT Q12H ON LICENSE OF [facility] Last Admin: 02/24/22 00:20 Dose: 5,000 unit Documented By: NIK Hydralazine HCl (Hydralazine Hcl 20 Mg/Ml Vial) 5 mg IVPUSH Q6H PRN; Protocol PRN Reason: Sbp > 180 Piperacillin Sod/Tazobactam (Sod 3.375 gm/ Sodium Chloride) 50 mls @ 100 mls/hr IV Q8H ON LICENSE OF [facility] Last Infusion: 02/24/22 08:47 Dose: 0 mls/hr Documented By: MITRA Potassium Chloride/Sodium Chloride (Kcl 20 Meq In 0.45% Sod) 20 meq in 1,000 mls @ 125 mls/hr IVCONT .Q8H ON LICENSE OF [facility] Last Admin: 02/24/22 06:34 Dose: 125 mls/hr Documented By: NIK Acetaminophen (Ofirmev) 1,000 mg in 100 mls @ 400 mls/hr IV Q6H ON LICENSE OF [facility] Last Infusion: 02/24/22 08:29 Dose: 0 mls/hr Documented By: MITRA Morphine Sulfate (Morphine Sulfate 4 Mg/Ml Cartridge) 4 mg IVPUSH Q2H PRN; Protocol PRN Reason: Pain, Severe (Pain Scale 7-10) Multi-Ingred Medicated Throat [place] (Throat [place], Medicated 177 Ml Bottle) 1 spray MUCOUS MEM Q2H PRN PRN Reason: Sore Throat Last Admin: 02/23/22 13:36 Dose: 1 spray Documented By: AWILDA Non-Formulary Medication (Pancreatin) 1,400 mg PO DAILY ON LICENSE OF [facility] Ondansetron HCl (Ondansetron Hcl 4 Mg/2 Ml Vial) 8 mg IVPUSH Q6H PRN PRN Reason: Nausea and Vomiting Last Admin: 02/23/22 20:51 Dose: 8 mg Documented By: AWILDA Pharmacy Consult (Consult Rx Perform Med Rec) 1 each MISCELLANE ONCE PRN PRN Reason: patient will be admitted Sodium Chloride (0.9 % Sodium Chloride Flush 3 Ml Syringe) 3 ml IVFLUSH QSHIFT ON LICENSE OF [facility] Last Admin: 02/24/22 08:14 Dose: 3 ml Documented By: MITRA <Kalani Hung PA-C - Last Filed: 02/24/22 11:16> Labs CBC & Chem 7: : 02/24/22 05:13 02/24/22 05:13 <Kalani Hung PA-C - Last Filed: 02/24/22 11:16> Labs: Laboratory Results - last 24 hr 02/23/22 02/23/22 02/23/22 08:36 10:07 10:07 MCV 87.5 86.9 MCH 29.2 29.5 MCHC 33.3 33.9 RDW 12.4 12.3 Plt Count 312 341 MPV 9.4 8.8 L Immature Gran % (Auto) 0.4 0.5 H Neut % (Auto) 81.2 H 80.1 H Lymph % (Auto) 12.8 L 13.8 L [place] % (Auto) 5.5 5.5 Eos % (Auto) 0.0 0.0 Baso % (Auto) 0.1 0.1 Lymph # (Auto) 0.9 L 1.1 L [place] # (Auto) 0.4 0.5 Eos # (Auto) 0.0 0.0 Baso # (Auto) 0.0 0.0 Abs Immat Gran (auto) 0.03 0.04 H Absolute Neuts (auto) 5.9 6.6 Absolute Nucleated RBC 0.000 0.000 Nucleated RBC % (auto) 0.0 0.0 Anion Gap 15 Estim Creat Clear Calc 84.9 Estimated GFR > 60 Random Glucose 115 Calcium 8.1 L 02/24/22 02/24/22 05:13 05:13 MCV 87.6 MCH 29.6 MCHC 33.8 RDW 12.4 Plt Count 310 MPV 8.9 L Immature Gran % (Auto) 0.5 H Neut % (Auto) 78.8 H Lymph % (Auto) 16.2 L [place] % (Auto) 4.1 Eos % (Auto) 0.1 Baso % (Auto) 0.3 Lymph # (Auto) 1.3 [place] # (Auto) 0.3 Eos # (Auto) 0.0 Baso # (Auto) 0.0 Abs Immat Gran (auto) 0.04 H Absolute Neuts (auto) 6.2 Absolute Nucleated RBC 0.000 Nucleated RBC % (auto) 0.0 Anion Gap 15 Estim Creat Clear Calc 95.1 Estimated GFR > 60 Random Glucose 77 Calcium 8.0 L <Kalani Hung PA-C - Last Filed: 02/24/22 11:16> Microbiology Microbiology Results: Microbiology 02/22/22 Unknown Gram Stain - Final Abscess Intra-abdominal Routine Culture - Final Escherichia coli Anaerobic Culture - Preliminary Culture in progress. 02/18/22 10:19 Blood Culture - Final Blood - Venous No growth after 5 days. 02/18/22 10:19 Blood Culture - Final Blood - Venous No growth after 5 days. <Kalani Hung PA-C - Last Filed: 02/24/22 11:16> Procedures Date of Service Date of Service: 02/24/22 <Kalani Hung PA-C - Last Filed: 02/24/22 11:16> Progress Note: A&P Assessment and plan (1) Cecum mass: Status: Acute <Kalani Hung PA-C - Last Filed: 02/24/22 11:16> (2) S/P right hemicolectomy: Status: Acute <Kalani Hung PA-C - Last Filed: 02/24/22 11:16> (3) Breast mass: Status: Acute <Kalani Hung PA-C - Last Filed: 02/24/22 11:16> Assessment and Plan: Patient with a palpable left breast mass noted on examination measuring approximately 4 cm in diameter at the 8-9 o'clock location. She is uncertain how long this is been present and denies any symptoms associated with this. She denies any previous history of breast problems or breast surgery. She is uncertain about family history of breast cancer. Review of the CT abdomen and pelvis performed on admission. This includes several cuts through the breast. A mass is noted in this 8-9 o'clock location corresponding to the palpable lesion measuring approximately 4 x 2 cm. Patient will need further imaging of the breast including mammogram and ultrasound as well as a probable ultrasound- guided core biopsy. This workup can be performed as an outpatient once she has recovered from her current surgery. She will follow-up in my office upon disc harge for further workup. 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 She continues to do fairly well post op but continues without bowel function. VSS. Abd is with appropriate post op tenderness but she is distended and tympanitic. NGT output is minimal. Her incision is clean. BREONNA output is nonpurulent. AM labs reviewed. Intraabdominal abscess growing E coli sensitive to ceftriaxone. Will d/c zosyn and begin. She has had no significant PO intake in about a week and remains without bowel function. Will order midline and nutrition consult for TPN recommendations. Cont NPO status and NGT for now. Strongly encouraged OOB and ambulation a few times a day to promote bowel function. Will keep BREONNA drain in place for now. D/c greco. Patient and family comfortable with plan. 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 She continues to do fairly well post op but continues without bowel function. VSS. Abd is with appropriate post op tenderness but she is distended and tympanitic. NGT output is minimal. Her incision is clean. BREONNA output is nonpurulent. AM labs reviewed. Intraabdominal abscess growing E coli sensitive to ceftriaxone. Will d/c zosyn and begin. She has had no significant PO intake in about a week and remains without bowel function. Will order midline and nutrition consult for TPN recommendations. Cont NPO status and NGT for now. Strongly encouraged OOB and ambulation a few times a day to promote bowel function. Will keep BREONNA drain in place for now. D/c greco. Patient and family comfortable with plan. Agree with the above assessment and plan. She is awaiting a return of bowel function following right colectomy. She is up and ambulating but denies passing any flatus or stool. Agree with PICC line and TPN. <Erasmo Greer MD - Last Filed: 02/24/22 16:10> Time Spent With Patient Time: Total time managing care of this patient today ____ minutes. <Kalani Hung PA-C - Last Filed: 02/24/22 11:16> Quality Stroke Does the patient have a stroke diagnosis?: No <Kalani Hung PA-C - Last Filed: 02/24/22 11:16> VTE Prior VTE?: No <Kalani Hung PA-C - Last Filed: 02/24/22 11:16> VTE Risk Level:: Medical - moderate - high <Kalani Hung PA-C - Last Filed: 02/24/22 11:16> VTE Device Contraindication: N/A - Device Ordered <Kalani Hung PA-C - Last Filed: 02/24/22 11:16> VTE Drug Contraindication: Treatment Not Indicated <Kalani Hung PA-C - Last Filed: 02/24/22 11:16>
[2022-02-24] MEDS: cefTRIAXone sodium 2 GM in 0.9 % Sodium Chloride 50 ML IV (11:35)
[2022-02-24 12:02] LABS: Albumin Level 2.7 g/dL (3.5-5.0); Magnesium 1.9 mg/dL (1.6-2.6); Phosphorus 2.1 mg/dL (2.7-4.5)
[2022-02-24 12:14] VITALS: BMI 30.9
--- NOTE | 2022-02-24 12:17 | MHC.CLN ---
RE: CONSULT PT REQUIRES PPN FOR NUTRITION SUPPORT R/T RECENT SURGERY AND PROLONGED NPO STATUS PT TO HAVE MIDLINE PLACED TODAY PER PA RECOMMEND DAY 1 D10AA4.25 AT 30ML/HR TO PROVIDE 367KCALS, 31G PROTEIN DISCUSSED WITH PHARM AND PA OBTAIN TRIG LEVEL AND REPLETE LYTES NEEDED SEE ALSO FULL CLINICAL NUTRITION ASSESSMENT
--- NOTE | 2022-02-24 13:00 | HO.PM.IMPN ---
Subjective Subjective Date of Service: 02/24/22 Interval History: Seen in follow-up for cecal mass with malignant SBO s/p right hemicolectomy Interval history: Patient reports feeling better with improvement in abdominal pain. She states she can feel her bowels moving but has not passed gas. She is hungry. Review of Systems Review of Systems: Yes all other systems are reviewed and are negative Physical Exam Vital Signs: Vital Signs: Last Vital Signs Temp 98.7 F 02/24/22 07:45 Pulse 89 02/24/22 07:45 Resp 19 02/24/22 07:45 BP 140/87 H 02/24/22 07:45 Pulse Ox 94 02/24/22 07:45 O2 Del Method 02/24/22 07:45 O2 Flow Rate 2 02/23/22 04:00 BMI result Body Mass Index 30.9 Constitutional - Awake and Alert, No apparent distress Eyes - PERRLA, EOMI Cardiovascular - S1S2, RRR, No edema Respiratory - Normal lung expansion, Normal respiratory effort, No respiratory distress, CTA bilaterally Gastrointestinal - NT / ND; +BS; No rebound or guarding. BREONNA drain with scant serosanguinous output Extremities - no calf tenderness bilaterally, no swelling Skin - Warm/Dry Neurological - Alert & oriented x3 Psychological - Appropriate affect Objective Data Active Medications Famotidine (Famotidine/Pf 20 Mg/2 Ml Vial) 20 mg IVPUSH BID [facility] Last Admin: 02/24/22 08:14 Dose: 20 mg Documented By: MITRA Heparin Sodium (Porcine) (Heparin Sodium,Porcine 5,000 Unit/Ml Vial) 5,000 unit SUBCUT Q12H [facility] Last Admin: 02/24/22 11:35 Dose: 5,000 unit Documented By: MITRA Hydralazine HCl (Hydralazine Hcl 20 Mg/Ml Vial) 5 mg IVPUSH Q6H PRN; Protocol PRN Reason: Sbp > 180 Potassium Chloride/Sodium Chloride (Kcl 20 Meq In 0.45% Sod) 20 meq in 1,000 mls @ 125 mls/hr IVCONT .Q8H [facility] Last Infusion: 02/24/22 12:07 Dose: 125 mls/hr Documented By: MITRA Acetaminophen (Ofirmev) 1,000 mg in 100 mls @ 400 mls/hr IV Q6H [facility] Last Infusion: 02/24/22 08:29 Dose: 0 mls/hr Documented By: MITRA Ceftriaxone Sodium 2 gm/ (Sodium Chloride) 50 mls @ 100 mls/hr IV Q24H [facility] Last Infusion: 02/24/22 12:07 Dose: 0 mls/hr Documented By: MITRA Multivitamins 27.7 ml/ Trace Metals 2.7 ml/ Amino Acids/Electrolytes/Dextrose 720 mls @ 30 mls/hr IV DAILY@1800 [facility] Stop: 02/25/22 17:59 Morphine Sulfate (Morphine Sulfate 4 Mg/Ml Cartridge) 4 mg IVPUSH Q2H PRN; Protocol PRN Reason: Pain, Severe (Pain Scale 7-10) Multi-Ingred Medicated Throat [place] (Throat [place], Medicated 177 Ml Bottle) 1 spray MUCOUS MEM Q2H PRN PRN Reason: Sore Throat Last Admin: 02/23/22 13:36 Dose: 1 spray Documented By: AWILDA Non-Formulary Medication (Pancreatin) 1,400 mg PO DAILY [facility] Ondansetron HCl (Ondansetron Hcl 4 Mg/2 Ml Vial) 8 mg IVPUSH Q6H PRN PRN Reason: Nausea and Vomiting Last Admin: 02/23/22 20:51 Dose: 8 mg Documented By: AWILDA Pharmacy Consult (Consult Rx Perform Med Rec) 1 each MISCELLANE ONCE PRN PRN Reason: patient will be admitted Sodium Chloride (0.9 % Sodium Chloride Flush 3 Ml Syringe) 3 ml IVFLUSH QSHIFT [facility] Last Admin: 02/24/22 08:14 Dose: 3 ml Documented By: MITRA Labs CBC & Chem 7: 02/24/22 05:13 02/24/22 05:13 Labs: Laboratory Results - last 24 hr 02/24/22 02/24/22 05:13 05:13 MCV 87.6 MCH 29.6 MCHC 33.8 RDW 12.4 Plt Count 310 MPV 8.9 L Immature Gran % (Auto) 0.5 H Neut % (Auto) 78.8 H Lymph % (Auto) 16.2 L [place] % (Auto) 4.1 Eos % (Auto) 0.1 Baso % (Auto) 0.3 Lymph # (Auto) 1.3 [place] # (Auto) 0.3 Eos # (Auto) 0.0 Baso # (Auto) 0.0 Abs Immat Gran (auto) 0.04 H Absolute Neuts (auto) 6.2 Absolute Nucleated RBC 0.000 Nucleated RBC % (auto) 0.0 Anion Gap 15 Estim Creat Clear Calc 95.1 Estimated GFR > 60 Random Glucose 77 Calcium 8.0 L Phosphorus 2.1 L Magnesium 1.9 Albumin 2.7 L Microbiology Microbiology Results: Microbiology 02/22/22 Unknown Gram Stain - Final Abscess Intra-abdominal Routine Culture - Final Escherichia coli Anaerobic Culture - Preliminary Culture in progress. 02/18/22 10:19 Blood Culture - Final Blood - Venous No growth after 5 days. 02/18/22 10:19 Blood Culture - Final Blood - Venous No growth after 5 days. Assessment and Plan (1) S/P right hemicolectomy: Status: Acute (2) Cecum mass: Status: Acute (3) Abdominal mass, RLQ (right lower quadrant): Status: Acute Plan 66-year-old female with a PMH significant for HTN not on antihypertensives at home admitted to general surgery for cecal mass with malignant SBO with consult placed to medicine for medical management. #Cecal mass with malignant SBO -Plan per general surgery #Hypertension- BPs reasonably controlled -Can consider PO med if needed once NG tube removed -For now hydralazine 5mg prn sbp >180 Quality Stroke Does the patient have a stroke diagnosis?: No VTE Prior VTE?: No VTE Risk Level:: Medical - moderate - high VTE Device Contraindication: N/A - Device Ordered VTE Drug Contraindication: Treatment Not Indicated
[2022-02-24 15:41] VITALS: BP 161/97; PULSE 99; RESP 18; TEMP 36.7; O2SAT 95
[2022-02-24 19:21] VITALS: BP 128/74; PULSE 93; RESP 19; TEMP 36.7; O2SAT 94
[2022-02-24 20:05] VITALS: BP 138/80; PULSE 88; RESP 18; TEMP 36.8; O2SAT 95
[2022-02-25] MEDS: Heparin Sodium,Porcine 5,000 UNIT/ML VIAL 5000 UNIT SUBCUT ×2 (00:44→11:12)
[2022-02-25] MEDS: KCl 20 mEq in 0.45% Sod 20 MEQ/1,000 ML IV.SOLN 125 MEQ IVCONT (00:47)
[2022-02-25] MEDS: Acetaminophen 1,000 MG/100 ML PIGGYBACK 400 MG IV ×4 (02:19→20:10)
[2022-02-25 03:54] VITALS: BP 154/84; PULSE 18; RESP 18; TEMP 37.2; O2SAT 93
[2022-02-25 06:49] LABS: Anion Gap 15 (12-20); Blood Urea Nitrogen 5 mg/dL (9-16); Calcium 8.1 mg/dL (8.4-10.2); Carbon Dioxide 26 mmol/L (22-29); Chloride 99 mmol/L (96-108); Creatinine Clr Calc Pharmacy 91.5; Estimated Glomerular Filt Rate > 60; Glucose Random 131 mg/dL (60-115); Magnesium 1.8 mg/dL (1.6-2.6); Phosphorus 2.4 mg/dL (2.7-4.5); Potassium 3.7 mmol/L (3.3-5.1); Sodium 136 mmol/L (135-145); Triglycerides 198 mg/dL
[2022-02-25] MEDS: Famotidine/PF 20 MG/2 ML VIAL IVPUSH ×2 (08:06→20:10)
--- NOTE | 2022-02-25 08:51 | P.PNGS_ITS ---
Subjective Subjective Date of Service: 02/25/22 <Kalani Hung PA-C - Last Filed: 02/25/22 09:02> 02/25/22 <Erasmo Greer MD - Last Filed: 02/25/22 12:37> Interval history: Complains of discomfort from NGT. Says the throat spray made her dizzy the other day. Was OOB yesterday and walked in the room multiple times. She reports some crampy gas pains but denies flatus. <Kalani Hung PA-C - Last Filed: 02/25/22 09:02> Physical Exam Vital Signs: Vital Signs: Last Vital Signs Temp 98.9 F 02/25/22 03:54 Pulse 18 L 02/25/22 03:54 Resp 18 02/25/22 03:54 BP 154/84 H 02/25/22 03:54 Pulse Ox 93 02/25/22 03:54 O2 Del Method 02/25/22 03:54 O2 Flow Rate 2 02/23/22 04:00 BMI result Body Mass Index 30.9 <Kalani Hung PA-C - Last Filed: 02/25/22 09:02> Const: General: comfortable, no acute distress and alert <SANDY Lay Last Filed: 02/25/22 09:02> Orientation/consciousness: patient oriented x3 <Kalani Hung PA-C - Last Filed: 02/25/22 09:02> HEENT: Other: NGT in place, scanty dark drainage in cannister <Kalani Hung PA-C - Last Filed: 02/25/22 09:02> Resp: Effort & Inspection: normal respiratory effort <Kalani Hung PA-C - Last Filed: 02/25/22 09:02> GI: Other: BREONNA with scanty serous output <SANDY Lay Last Filed: 02/25/22 09:02> Inspection: Yes distended and Yes incision (clean) <SANDY Lay Last Filed: 02/25/22 09:02> Palpation (GI): Soft to palpation, Tenderness to palpation present (GI) (mild, incisional and at drain site), no guarding and not rigid <Kalani carrillo PA-C - Last Filed: 02/25/22 09:02> Percussion: Yes tympanic to percussion <Kalani Hung PA-C - Last Filed: 02/25/22 09:02> Skin: General skin exam: no rashes or lesions noted <SANDY Lay Last Filed: 02/25/22 09:02> Neuro: General: patient oriented x3 <SANDY Lay Last Filed: 02/25/22 09:02> Extrem: General: Yes no clubbing, cyanosis or edema <SANDY Lay Last Filed: 02/25/22 09:02> Objective Data Active Medications Famotidine (Famotidine/Pf 20 Mg/2 Ml Vial) 20 mg IVPUSH BID [facility] Last Admin: 02/25/22 08:06 Dose: 20 mg Documented By: MITRA Heparin Sodium (Porcine) (Heparin Sodium,Porcine 5,000 Unit/Ml Vial) 5,000 unit SUBCUT Q12H [facility] Last Admin: 02/25/22 00:44 Dose: 5,000 unit Documented By: MORRINL Hydralazine HCl (Hydralazine Hcl 20 Mg/Ml Vial) 5 mg IVPUSH Q6H PRN; Protocol PRN Reason: Sbp > 180 Potassium Chloride/Sodium Chloride (Kcl 20 Meq In 0.45% Sod) 20 meq in 1,000 mls @ 125 mls/hr IVCONT .Q8H [facility] Last Admin: 02/25/22 08:27 Dose: Not Given Documented By: MITRA Non-Admin Reason: IV Running Acetaminophen (Ofirmev) 1,000 mg in 100 mls @ 400 mls/hr IV Q6H [facility] Last Infusion: 02/25/22 08:27 Dose: 0 mls/hr Documented By: MITRA Ceftriaxone Sodium 2 gm/ (Sodium Chloride) 50 mls @ 100 mls/hr IV Q24H [facility] Last Infusion: 02/24/22 12:07 Dose: 0 mls/hr Documented By: MITRA Multivitamins 27.7 ml/ Trace Metals 2.7 ml/ Amino Acids/Electrolytes/Dextrose 7 20 mls @ 30 mls/hr IV DAILY@1800 [facility] Stop: 02/25/22 17:59 Last Admin: 02/24/22 17:49 Dose: 30 mls/hr Documented By: MITRA Morphine Sulfate (Morphine Sulfate 4 Mg/Ml Cartridge) 4 mg IVPUSH Q2H PRN; Protocol PRN Reason: Pain, Severe (Pain Scale 7-10) Multi-Ingred Medicated Throat [place] (Throat [place], Medicated 177 Ml Bottle) 1 spray MUCOUS MEM Q2H PRN PRN Reason: Sore Throat Last Admin: 02/23/22 13:36 Dose: 1 spray Documented By: AWILDA Non-Formulary Medication (Pancreatin) 1,400 mg PO DAILY [facility] Ondansetron HCl (Ondansetron Hcl 4 Mg/2 Ml Vial) 8 mg IVPUSH Q6H PRN PRN Reason: Nausea and Vomiting Last Admin: 02/23/22 20:51 Dose: 8 mg Documented By: AWILDA Pharmacy Consult (Consult Rx Perform Med Rec) 1 each MISCELLANE ONCE PRN PRN Reason: patient will be admitted Sodium Chloride (0.9 % Sodium Chloride Flush 3 Ml Syringe) 3 ml IVFLUSH QSHIFT [facility] Last Admin: 02/25/22 08:13 Dose: Not Given Documented By: MITRA Non-Admin Reason: IV Running <Kalani Hung PA-C - Last Filed: 02/25/22 09:02> Labs CBC & Chem 7: : 02/25/22 08:28 02/25/22 08:28 <Kalani Hung PA-C - Last Filed: 02/25/22 09:02> Labs: Laboratory Results - last 24 hr 02/24/22 02/25/22 05:13 05:35 Anion Gap 15 Estim Creat Clear Calc 91.5 Estimated GFR > 60 Random Glucose 131 H Calcium 8.1 L Phosphorus 2.1 L 2.4 L Magnesium 1.9 1.8 Albumin 2.7 L 3.0 L Triglycerides 198 <Kalani Hung PA-C - Last Filed: 02/25/22 09:02> Microbiology Microbiology Results: Microbiology 02/22/22 Unknown Gram Stain - Final Abscess Intra-abdominal Routine Culture - Final Escherichia coli Anaerobic Culture - Preliminary Culture in progress. 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 Doing well post op but continues without bowel function. Her NGT output has had minimal output the last few days. Will clamp NGT and remove after 4 hrs if residual is low and remains asymptomatic. Will keep NPO and on parenteral nutrition until some evidence of bowel function returns. PICC line today, TPN. AM labs drawn. Strongly encouraged OOB/ambulation to promote bowel function. C ont IV rocephin. Pathology pending. Dexter removed yesterday. Daughter & RN report frequent urination of small volumes. Bladder scan, straight cath every 6h PRN if > 350cc. Hospitalists following, SBP remains elevated. On IV hydralazine PRN. 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 Doing well post op but continues without bowel function. Her NGT output has had minimal output the last few days. Will clamp NGT and remove after 4 hrs if residual is low and remains asymptomatic. Will keep NPO and on parenteral nutrition until some evidence of bowel function returns. PICC line today, TPN. AM labs drawn. Strongly encouraged OOB/ambulation to promote bowel function. Cont IV rocephin. Pathology pending. Dexter removed yesterday. Daughter & RN report frequent urination of small volumes. Bladder scan, straight cath every 6h PRN if > 350cc. Hospitalists following, SBP remains elevated. On IV hydralazine PRN. Agree with the above assessment and plan. Start TPN once PICC line in place. Await return of bowel function. <Erasmo Greer MD - Last Filed: 02/25/22 12:37> Time Spent With Patient Time: Total time managing care of this patient today 45 minutes. <Kalani Hung PA-C - Last Filed: 02/25/22 09:02> Quality Stroke Does the patient have a stroke diagnosis?: No <Kalani Hung PA-C - Last Filed: 02/25/22 09:02> VTE Prior VTE?: No <Kalani Hung PA-C - Last Filed: 02/25/22 09:02> VTE Risk Level:: Medical - moderate - high <Kalani Hung PA-C - Last Filed: 02/25/22 09:02> VTE Device Contraindication: N/A - Device Ordered <Kalani Hung PA-C - Last Filed: 02/25/22 09:02> VTE Drug Contraindication: Treatment Not Indicated <Kalani Hung PA-C - Last Filed: 02/25/22 09:02>
[2022-02-25 09:02] LABS: MANUAL DIFF FLAG NO
[2022-02-25 09:06] LABS: Basophils Percent Auto 0.2 % (0-2); Eosinophils Percent Auto 0.2 % (0-4); Hematocrit 34.2 % (37.0-47.0); Hemoglobin 11.6 g/dl (12.0-16.0); Imm Gran Abs Auto 0.02 X10*3/uL (0.00-0.03); Imm Gran Pct Auto 0.3 % (0.0-0.4); Lymphocytes Absolute Auto 1.5 X10*3/uL (1.2-4.9); Lymphocytes Percent Auto 24.4 % (20-40); Mean Corpuscular HGB Conc 33.9 g/dl (31.0-35.0); Mean Corpuscular Hemoglobin 29.6 pg (27.0-33.0); Mean Corpuscular Volume 87.2 fL (80.0-98.0); Mean Platelet Volume 8.9 fL (9.4-12.3); Monocytes Absolute Auto 0.3 X10*3/uL (0.1-1.2); Neutrophils Absolute Auto 4.4 x10*3/uL (2.0-8.3); Neutrophils Percent Auto 69.9 % (45-73); Platelet Count 419 X10*3/uL (160-400); Red Blood Count 3.92 X10*6/uL (4.20-5.50); Red Cell Distribution Width 12.7 % (11.0-16.0); White Blood Count 6.3 X10*3/uL (4.8-10.8)
[2022-02-25 09:11] LABS: INTERNATIONAL NORM RATIO 1.1 (0.9-1.1); Prothrombin Time 12.1 SEC (10.0-13.1)
[2022-02-25 09:23] LABS: Anion Gap 16 (12-20); Blood Urea Nitrogen 5 mg/dL (9-16); Calcium 8.5 mg/dL (8.4-10.2); Carbon Dioxide 26 mmol/L (22-29); Chloride 98 mmol/L (96-108); Creatinine Clr Calc Pharmacy 91.5; Estimated Glomerular Filt Rate > 60; Magnesium 1.9 mg/dL (1.6-2.6); Phosphorus 2.3 mg/dL (2.7-4.5); Potassium 3.9 mmol/L (3.3-5.1); Sodium 136 mmol/L (135-145); Triglycerides 235 mg/dL
--- NOTE | 2022-02-25 10:26 | MHC.CLN ---
F/U PPN FOR NUTRITION SUPPORT MIDLINE PLACED 02/24 PT RECEIVED D10AA4.25 AT 30ML/HR PROVIDED 367KCALS, 31G PROTEIN REVIEWED LABS; TRIGS 235 DISCUSSED WITH PHARM AND PA RECOMMEND DAY 2 (02/25/22) INCREASE D10AA4.25 AT 50ML/HR TO PROVIDE 612KCALS, 51G PROTEIN (.9G/KG) REPLETE LYTES NEEDED DAY 3 (02/26/22) RECOMMEND INCREASING FORMULA D10AA4.25 TO 70ML/HR TO PROVIDE 857KCALS, 71G PROTEIN (1.3G/KG) REPLETE LYTES NEEDED; HOLD LIPIDS PHARMACY AWARE RD CAN BE REACHED VIA TIGER TEXT DURING OFF HOURS IF NEEDED
--- NOTE | 2022-02-25 10:41 | HO.PICC ---
PICC Line Insertion NPICC Diagnosis: POST-OP Indication: TPN needed Pertinent Labs: reviewed Technique: Following informed consent including risks, benefits and alternatives and using sterile technique including cap and mask, sterile gown, glove and drape, the right arm was prepped and draped in the usual sterile fashion of full barrier technique with G. Following completion of [place] Protocol the skin and soft tissues were anesthetized with 1% Lidocaine plain. Using ultrasound guidance, right basilic vein access was obtained on first attempt, but unable to pass guidewire. Right brachial vein access was then obtained on first attempt. Over an 0.018 wire through peel-away sheath, a 5FR triple lumen PASV PICC line was positioned. Catheter length is 40 CM internal length, at 0 CM external length, for a total trimmed length of 40 CM. The procedure was performed in S272. Tip verification was performed by Any Loco with Sherlock 3CG. Tip located in SVC. Ultrasound was used to document vein patency and for needle entry. A formal ultrasound picture and cardiac rhythm strip was recorded. [facility] [employer]rap[employer] has released the line for use and it is currently dressed with a StatLock, Tegaderm, and CHG disc. Verification has been performed for blood return and line patency. Arm Circumference: 31 CM Equipment: [employer] Power PICC Solo Catheter Type: 5FR triple lumen PASV PICC Lot #: [id number]
[2022-02-25] MEDS: cefTRIAXone sodium 2 GM in 0.9 % Sodium Chloride 50 ML IV (11:12)
[2022-02-25] MEDS: Throat Spray, Medicated 177 ML BOTTLE 1 SPRAY MUCOUS MEM (11:13)
[2022-02-25] MEDS: KCl 20 mEq in 0.45% Sod 20 MEQ/1,000 ML IV.SOLN 50 MEQ IVCONT (11:16)
--- NOTE | 2022-02-25 12:57 | PC.NURSE ---
NGT clamped at 0730, reassessed at 1230, no drainage ,nausea or vomiting. Tube dc'd at 1230 per CHELSY Uriarte.
[2022-02-25 13:28] LABS: Glucose, Whole Blood 136 mg/dL (60-115)
--- NOTE | 2022-02-25 13:48 | MHC.CM.PN ---
PER REVIEW OF NOTES, PLAN IS AWAITING RETURN OF BOWEL FUNCTION. PICC IS NOW PLACED FOR TPN
[2022-02-25 14:52] VITALS: BP 155/82; RESP 18; TEMP 36.4; O2SAT 93
[2022-02-25 15:58] VITALS: BP 133/83; PULSE 89; RESP 16; TEMP 36.3; O2SAT 95
[2022-02-25 16:44] LABS: Glucose, Whole Blood 131 mg/dL (60-115)
[2022-02-25 20:00] VITALS: BP 149/83; PULSE 82; RESP 17; TEMP 36.8; O2SAT 94
[2022-02-25] MEDS: 0.9 % Sodium Chloride Flush 10 ML SYRINGE 5 ML IVFLUSH (20:11)
[2022-02-25 21:22] LABS: Glucose, Whole Blood 144 mg/dL (60-115)
[2022-02-26] MEDS: Heparin Sodium,Porcine 5,000 UNIT/ML VIAL 5000 UNIT SUBCUT ×2 (01:32→11:58)
[2022-02-26] MEDS: Acetaminophen 1,000 MG/100 ML PIGGYBACK 400 MG IV ×4 (01:34→19:21)
[2022-02-26 03:42] VITALS: BP 135/74; PULSE 74; RESP 16; TEMP 36.5; O2SAT 94
[2022-02-26 06:18] LABS: Anion Gap 14 (12-20); Blood Urea Nitrogen 6 mg/dL (9-16); Calcium 8.9 mg/dL (8.4-10.2); Carbon Dioxide 29 mmol/L (22-29); Chloride 99 mmol/L (96-108); Creatinine Clr Calc Pharmacy 83.5; Estimated Glomerular Filt Rate > 60; Magnesium 2.1 mg/dL (1.6-2.6); Potassium 3.9 mmol/L (3.3-5.1); Sodium 138 mmol/L (135-145)
[2022-02-26 07:30] VITALS: BP 130/79; PULSE 84; RESP 16; TEMP 36.1; O2SAT 95
[2022-02-26] MEDS: 0.9 % Sodium Chloride Flush 10 ML SYRINGE 5 ML IVFLUSH ×3 (07:36→19:21)
[2022-02-26 07:57] LABS: Glucose, Whole Blood 155 mg/dL (60-115)
[2022-02-26 08:00] VITALS: BMI 32.4
[2022-02-26] MEDS: Famotidine/PF 20 MG/2 ML VIAL IVPUSH ×2 (08:23→19:21)
[2022-02-26 11:30] LABS: Glucose, Whole Blood 154 mg/dL (60-115)
[2022-02-26] MEDS: cefTRIAXone sodium 2 GM in 0.9 % Sodium Chloride 50 ML IV (11:59)
--- NOTE | 2022-02-26 12:38 | HO.PM.IMPN ---
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 Feels much better today Reports feeling hungry, tolerating clear liquids Passing gas but no bowel movement yet Review of Systems Review of Systems: Yes all other systems are reviewed and are negative Physical Exam Vital Signs: Vital Signs: Last Vital Signs Temp 97.0 F 02/26/22 07:30 Pulse 84 02/26/22 07:30 Resp 16 02/26/22 07:30 BP 130/79 02/26/22 07:30 Pulse Ox 95 02/26/22 07:30 O2 Del Method 02/26/22 07:30 O2 Flow Rate 2 02/23/22 04:00 BMI result Body Mass Index 32.4 Const: Other: Constitutional : Awake, interactive, not in distress Neck : Normal inspection, Supple Cardiovascular : RRR, no JVP, no lower extremity edema Respiratory : good bilateral air entry, no crackles, wheezes or rhonchi Gastrointestinal: soft, lax, decreased bowel sounds, Non tender Skin : Warm, Dry Neurological : Alert & oriented x3, No focal deficit Objective Data Active Medications Famotidine (Famotidine/Pf 20 Mg/2 Ml Vial) 20 mg IVPUSH BID [facility] Last Admin: 02/26/22 08:23 Dose: 20 mg Documented By: LAMAR Heparin Sodium (Porcine) (Heparin Sodium,Porcine 5,000 Unit/Ml Vial) 5,000 unit SUBCUT Q12H [facility] Last Admin: 02/26/22 11:58 Dose: 5,000 unit Documented By: LAMAR Hydralazine HCl (Hydralazine Hcl 20 Mg/Ml Vial) 5 mg IVPUSH Q6H PRN; Protocol PRN Reason: Sbp > 180 Acetaminophen (Ofirmev) 1,000 mg in 100 mls @ 400 mls/hr IV Q6H [facility] Last Infusion: 02/26/22 08:45 Dose: 0 mls/hr Documented By: LAMAR Ceftriaxone Sodium 2 gm/ (Sodium Chloride) 50 mls @ 100 mls/hr IV Q24H [facility] Last Admin: 02/26/22 11:59 Dose: 100 mls/hr Documented By: LAMAR Multivitamins 10 ml/ Trace Metals 1.7 ml/ Amino Acids/Electrolytes/Dextrose 1,200 mls @ 50 mls/hr IV DAILY@1800 [facility] Stop: 02/26/22 17:59 Last Admin: 02/25/22 18:31 Dose: 50 mls/hr Documented By: MITRA Amino Acids/Electrolytes/Dextrose (Clinimix E 4.25%-10%) 1,680 mls @ 70 mls/hr IV DAILY@1800 [facility] Stop: 02/27/22 17:59 Morphine Sulfate (Morphine Sulfate 4 Mg/Ml Cartridge) 4 mg IVPUSH Q3H PRN; Protocol PRN Reason: Pain, Severe (Pain Scale 7-10) Multi-Ingred Medicated Throat [place] (Throat [place], Medicated 177 Ml Bottle) 1 spray MUCOUS MEM Q2H PRN PRN Reason: Sore Throat Last Admin: 02/25/22 11:13 Dose: 1 spray Documented By: MITRA Non-Formulary Medication (Pancreatin) 1,400 mg PO DAILY [facility] Ondansetron HCl (Ondansetron Hcl 4 Mg/2 Ml Vial) 8 mg IVPUSH Q6H PRN PRN Reason: Nausea and Vomiting Last Admin: 02/23/22 20:51 Dose: 8 mg Documented By: AWILDA Pharmacy Consult (Consult Rx Perform Med Rec) 1 each MISCELLANE ONCE PRN PRN Reason: patient will be admitted Sodium Chloride (0.9 % Sodium Chloride Flush 3 Ml Syringe) 3 ml IVFLUSH QSHIFT [facility] Last Admin: 02/26/22 07:36 Dose: Not Given Documented By: LAMAR Non-Admin Reason: PICC Sodium Chloride (0.9 % Sodium Chloride Flush 10 Ml Syringe) 5 ml IVFLUSH TID [facility] Last Admin: 02/26/22 07:36 Dose: 5 ml Documented By: LAMAR Labs CBC & Chem 7: 02/25/22 08:28 02/26/22 05:27 Labs: Laboratory Results - last 24 hr 02/25/22 02/25/22 02/25/22 13:24 16:40 21:18 Anion Gap Estim Creat Clear Calc Estimated GFR POC Glucose 136 H 131 H 144 H Calcium Phosphorus Magnesium 02/26/22 02/26/22 02/26/22 05:27 07:34 11:25 Anion Gap 14 Estim Creat Clear Calc 83.5 Estimated GFR > 60 POC Glucose 155 H 154 H Calcium 8.9 Phosphorus 3.0 Magnesium 2.1 Microbiology Microbiology Results: Microbiology 02/22/22 Unknown Gram Stain - Final Abscess Intra-abdominal Routine Culture - Final Escherichia coli Anaerobic Culture - Preliminary Culture in progress. Assessment and Plan (1) S/P right hemicolectomy: Status: Acute (2) HTN (hypertension): Status: Acute Plan 66-year-old female with a PMH significant for HTN not on antihypertensives at home admitted to general surgery for cecal mass with malignant SBO with consult placed to medicine for medical management. #Cecal mass with malignant SBO Doing well postop D4 Passing gas, tolerating liquids Plan per general surgery #Hypertension Fairly controlled consider PO med if needed once NG tube removed Continue hydralazine 5mg prn sbp >180 Thank you for the consult, will continue to monitor the patient with you Time Spent With Patient Time: Total time managing care of this patient today ____ minutes. Quality Stroke Does the patient have a stroke diagnosis?: No VTE Prior VTE?: No VTE Risk Level:: Medical - moderate - high VTE Device Contraindication: N/A - Device Ordered VTE Drug Contraindication: Treatment Not Indicated
[2022-02-26 15:42] VITALS: BP 141/87; PULSE 80; RESP 16; TEMP 37.1; O2SAT 92
--- NOTE | 2022-02-26 15:46 | P.PNGS_ITS ---
Subjective Subjective Date of Service: 02/26/22 Interval history: pt is doing well, hungry wants to eat. passed lots of flatus this morning Physical Exam Vital Signs: Vital Signs: Last Vital Signs Temp 97.0 F 02/26/22 07:30 Pulse 84 02/26/22 07:30 Resp 16 02/26/22 07:30 BP 130/79 02/26/22 07:30 Pulse Ox 95 02/26/22 07:30 O2 Del Method 02/26/22 07:30 O2 Flow Rate 2 02/23/22 04:00 BMI result Body Mass Index 32.4 Const: General: cooperative, healthy appearing, comfortable and no acute distress Orientation/consciousness: oriented to person, oriented to place and oriented to time Resp: Effort & Inspection: normal respiratory effort and able to speak in complete sentences Auscultation: clear to auscultation bilaterally Cardio: Rate: regular rate Rhythm: regular rhythm GI: Other: soft nondistended mild tenerness good active bowel sounds incision looks good Neuro: General: oriented to person, oriented to place and oriented to time Psych: Appearance: grossly normal Objective Data Active Medications Famotidine (Famotidine/Pf 20 Mg/2 Ml Vial) 20 mg IVPUSH BID [facility] Last Admin: 02/26/22 08:23 Dose: 20 mg Documented By: LAMAR Heparin Sodium (Porcine) (Heparin Sodium,Porcine 5,000 Unit/Ml Vial) 5,000 unit SUBCUT Q12H [facility] Last Admin: 02/26/22 11:58 Dose: 5,000 unit Documented By: LAMAR Hydralazine HCl (Hydralazine Hcl 20 Mg/Ml Vial) 5 mg IVPUSH Q6H PRN; Protocol PRN Reason: Sbp > 180 Acetaminophen (Ofirmev) 1,000 mg in 100 mls @ 400 mls/hr IV Q6H [facility] Last Infusion: 02/26/22 13:28 Dose: 0 mls/hr Documented By: LAMAR Ceftriaxone Sodium 2 gm/ (Sodium Chloride) 50 mls @ 100 mls/hr IV Q24H [facility] Last Infusion: 02/26/22 12:29 Dose: 0 mls/hr Documented By: LAMAR Multivitamins 10 ml/ Trace Metals 1.7 ml/ Amino Acids/Electrolytes/Dextrose 1,200 mls @ 50 mls/hr IV DAILY@1800 [facility] Stop: 02/26/22 17:59 Last Admin: 02/25/22 18:31 Dose: 50 mls/hr Documented By: MITRA Amino Acids/Electrolytes/Dextrose (Clinimix E 4.25%-10%) 1,680 mls @ 70 mls/hr IV DAILY@1800 [facility] Stop: 02/27/22 17:59 Morphine Sulfate (Morphine Sulfate 4 Mg/Ml Cartridge) 4 mg IVPUSH Q3H PRN; Protocol PRN Reason: Pain, Severe (Pain Scale 7-10) Multi-Ingred Medicated Throat [place] (Throat [place], Medicated 177 Ml Bottle) 1 spray MUCOUS MEM Q2H PRN PRN Reason: Sore Throat Last Admin: 02/25/22 11:13 Dose: 1 spray Documented By: MITRA Non-Formulary Medication (Pancreatin) 1,400 mg PO DAILY [facility] Ondansetron HCl (Ondansetron Hcl 4 Mg/2 Ml Vial) 8 mg IVPUSH Q6H PRN PRN Reason: Nausea and Vomiting Last Admin: 02/23/22 20:51 Dose: 8 mg Documented By: AWILDA Pharmacy Consult (Consult Rx Perform Med Rec) 1 each MISCELLANE ONCE PRN PRN Reason: patient will be admitted Sodium Chloride (0.9 % Sodium Chloride Flush 3 Ml Syringe) 3 ml IVFLUSH QSHIFT [facility] Last Admin: 02/26/22 07:36 Dose: Not Given Documented By: LAMAR Non-Admin Reason: PICC Sodium Chloride (0.9 % Sodium Chloride Flush 10 Ml Syringe) 5 ml IVFLUSH TID [facility] Last Admin: 02/26/22 13:27 Dose: 5 ml Documented By: LAMAR Labs CBC & Chem 7: 02/25/22 08:28 02/26/22 05:27 Labs: Laboratory Results - last 24 hr 02/25/22 02/25/22 02/26/22 16:40 21:18 05:27 Anion Gap 14 Estim Creat Clear Calc 83.5 Estimated GFR > 60 POC Glucose 131 H 144 H Calcium 8.9 Phosphorus 3.0 Magnesium 2.1 02/26/22 02/26/22 07:34 11:25 Anion Gap Estim Creat Clear Calc Estimated GFR POC Glucose 155 H 154 H Calcium Phosphorus Magnesium Microbiology Microbiology Results: Microbiology 02/22/22 Unknown Gram Stain - Final Abscess Intra-abdominal Routine Culture - Final Escherichia coli Anaerobic Culture - Preliminary Culture in progress. Procedures Date of Service Date of Service: 02/26/22 Progress Note: A&P Assessment and plan (1) S/P right hemicolectomy: Status: Acute Assessment and Plan: pt is 66 year old female 4 days s/p right hemicolectomy doing well - passing gas - plan to trial of clear liquids and advance as tolerated tomorrow. cont with antibx, ambulate, finish tpn for now consider dont renew tomorrow appreciate med team following Time Spent With Patient Time: Total time managing care of this patient today ____ minutes. Quality Stroke Does the patient have a stroke diagnosis?: No VTE Prior VTE?: No VTE Risk Level:: Medical - moderate - high VTE Device Contraindication: N/A - Device Ordered VTE Drug Contraindication: Treatment Not Indicated
[2022-02-26 15:59] LABS: Glucose, Whole Blood 144 mg/dL (60-115)
[2022-02-26] MEDS: 0.9 % Sodium Chloride Flush 3 ML SYRINGE IVFLUSH (19:27)
[2022-02-26 20:40] VITALS: BP 138/84; PULSE 83; RESP 16; TEMP 36.2; O2SAT 93
[2022-02-26 20:52] LABS: Glucose, Whole Blood 149 mg/dL (60-115)
[2022-02-27] MEDS: Acetaminophen 1,000 MG/100 ML PIGGYBACK 400 MG IV ×3 (01:53→19:58)
[2022-02-27] MEDS: Heparin Sodium,Porcine 5,000 UNIT/ML VIAL 5000 UNIT SUBCUT ×2 (01:54→12:16)
[2022-02-27 04:00] VITALS: BP 127/81; PULSE 84; RESP 18; TEMP 36.8; O2SAT 94
[2022-02-27 07:46] VITALS: BP 142/87; PULSE 89; RESP 18; TEMP 36.4; O2SAT 94
[2022-02-27] MEDS: Famotidine/PF 20 MG/2 ML VIAL IVPUSH ×2 (07:53→19:58)
[2022-02-27] MEDS: 0.9 % Sodium Chloride Flush 3 ML SYRINGE IVFLUSH (07:54)
[2022-02-27] MEDS: 0.9 % Sodium Chloride Flush 10 ML SYRINGE 5 ML IVFLUSH ×2 (07:54→19:58)
[2022-02-27 08:09] LABS: Glucose, Whole Blood 158 mg/dL (60-115)
[2022-02-27 08:50] LABS: Anion Gap 15 (12-20); Blood Urea Nitrogen 9 mg/dL (9-16); Calcium 8.6 mg/dL (8.4-10.2); Carbon Dioxide 26 mmol/L (22-29); Chloride 100 mmol/L (96-108); Creatinine Clr Calc Pharmacy 90.4; Estimated Glomerular Filt Rate > 60; Glucose Random 150 mg/dL (60-115); Magnesium 2.1 mg/dL (1.6-2.6); Phosphorus 3.8 mg/dL (2.7-4.5); Potassium 3.7 mmol/L (3.3-5.1); Sodium 137 mmol/L (135-145)
[2022-02-27] MEDS: cefTRIAXone sodium 2 GM in 0.9 % Sodium Chloride 50 ML IV (12:16)
--- NOTE | 2022-02-27 14:05 | P.PNGS_ITS ---
Subjective Subjective Date of Service: 02/27/22 Interval history: feeling well, not much pain hungry tolerating po liquids well. passing gas no stool Physical Exam Vital Signs: Vital Signs: Last Vital Signs Temp 97.6 F 02/27/22 07:46 Pulse 89 02/27/22 07:46 Resp 18 02/27/22 07:46 BP 142/87 H 02/27/22 07:46 Pulse Ox 94 02/27/22 07:46 O2 Del Method 02/27/22 07:46 O2 Flow Rate 2 02/23/22 04:00 BMI result Body Mass Index 32.4 Const: General: cooperative, healthy appearing, comfortable and no acute distress HEENT: Head: Yes normal to inspection Resp: Effort & Inspection: normal respiratory effort Auscultation: clear to auscultation bilaterally Cardio: Rate: regular rate Rhythm: regular rhythm GI: Other: soft nontender nondistended - good bowel sounds incision looks great, serous drainage from radha Extrem: General: Yes normal to inspection Objective Data Active Medications Famotidine (Famotidine/Pf 20 Mg/2 Ml Vial) 20 mg IVPUSH BID [facility] Last Admin: 02/27/22 07:53 Dose: 20 mg Documented By: MITRA Heparin Sodium (Porcine) (Heparin Sodium,Porcine 5,000 Unit/Ml Vial) 5,000 unit SUBCUT Q12H [facility] Last Admin: 02/27/22 12:16 Dose: 5,000 unit Documented By: MITRA Hydralazine HCl (Hydralazine Hcl 20 Mg/Ml Vial) 5 mg IVPUSH Q6H PRN; Protocol PRN Reason: Sbp > 180 Acetaminophen (Ofirmev) 1,000 mg in 100 mls @ 400 mls/hr IV Q6H [facility] Last Infusion: 02/27/22 08:08 Dose: 0 mls/hr Documented By: MITRA Ceftriaxone Sodium 2 gm/ (Sodium Chloride) 50 mls @ 100 mls/hr IV Q24H [facility] Last Infusion: 02/27/22 12:59 Dose: 100 mls/hr Documented By: VIOLET Amino Acids/Electrolytes/Dextrose (Clinimix E 4.25%-10%) 1,680 mls @ 70 mls/hr IV DAILY@1800 [facility] Stop: 02/27/22 17:59 Last Admin: 02/26/22 19:20 Dose: 70 mls/hr Documented By: ROBERTH Morphine Sulfate (Morphine Sulfate 4 Mg/Ml Cartridge) 4 mg IVPUSH Q3H PRN; Protocol PRN Reason: Pain, Severe (Pain Scale 7-10) Multi-Ingred Medicated Throat [place] (Throat [place], Medicated 177 Ml Bottle) 1 spray MUCOUS MEM Q2H PRN PRN Reason: Sore Throat Last Admin: 02/25/22 11:13 Dose: 1 spray Documented By: MITRA Non-Formulary Medication (Pancreatin) 1,400 mg PO DAILY [facility] Ondansetron HCl (Ondansetron Hcl 4 Mg/2 Ml Vial) 8 mg IVPUSH Q6H PRN PRN Reason: Nausea and Vomiting Last Admin: 02/23/22 20:51 Dose: 8 mg Documented By: LOVE-CORINNA Pharmacy Consult (Consult Rx Perform Med Rec) 1 each MISCELLANE ONCE PRN PRN Reason: patient will be admitted Sodium Chloride (0.9 % Sodium Chloride Flush 3 Ml Syringe) 3 ml IVFLUSH QSHIFT [facility] Last Admin: 02/27/22 07:54 Dose: 3 ml Documented By: MITRA Sodium Chloride (0.9 % Sodium Chloride Flush 10 Ml Syringe) 5 ml IVFLUSH TID [facility] Last Admin: 02/27/22 07:54 Dose: 5 ml Documented By: MITRA Labs CBC & Chem 7: 02/25/22 08:28 02/27/22 08:28 Labs: Laboratory Results - last 24 hr 02/26/22 02/26/22 02/27/22 15:45 20:44 07:45 Anion Gap Estim Creat Clear Calc Estimated GFR POC Glucose 144 H 149 H 158 H Random Glucose Calcium Phosphorus Magnesium 02/27/22 08:28 Anion Gap 15 Estim Creat Clear Calc 90.4 Estimated GFR > 60 POC Glucose Random Glucose 150 H Calcium 8.6 Phosphorus 3.8 Magnesium 2.1 Microbiology Microbiology Results: Microbiology 02/22/22 Unknown Gram Stain - Final Abscess Intra-abdominal Routine Culture - Final Escherichia coli Anaerobic Culture - Preliminary Culture in progress. Procedures Date of Service Date of Service: 02/27/22 Progress Note: A&P Assessment and plan (1) S/P right hemicolectomy: Status: Acute Assessment and Plan: pod#5 sp right hemicolectomy doing well- vitals good, tolerating po liquids lytes good and walking no bowel movement yet but passing gas plan - advance diet slowly ambulate dc tpn cont with radha drain for now - po pain meds etc. Time Spent With Patient Time: Total time managing care of this patient today ____ minutes. Quality Stroke Does the patient have a stroke diagnosis?: No VTE Prior VTE?: No VTE Risk Level:: Medical - moderate - high VTE Device Contraindication: N/A - Device Ordered VTE Drug Contraindication: Treatment Not Indicated
[2022-02-27 15:57] VITALS: BP 139/89; PULSE 83; RESP 18; TEMP 36.4; O2SAT 94
[2022-02-27 16:03] LABS: Glucose, Whole Blood 130 mg/dL (60-115)
[2022-02-27 20:00] VITALS: BP 160/88; PULSE 78; RESP 18; TEMP 37; O2SAT 95
[2022-02-27 20:33] LABS: Glucose, Whole Blood 125 mg/dL (60-115)
[2022-02-28] MEDS: Acetaminophen 1,000 MG/100 ML PIGGYBACK 400 MG IV (01:52)
[2022-02-28] MEDS: Heparin Sodium,Porcine 5,000 UNIT/ML VIAL 5000 UNIT SUBCUT ×2 (01:52→11:24)
[2022-02-28 03:26] VITALS: BP 116/66; PULSE 62; RESP 18; TEMP 36.8; O2SAT 94
[2022-02-28 06:58] LABS: Anion Gap 12 (12-20); Blood Urea Nitrogen 8 mg/dL (9-16); Calcium 8.5 mg/dL (8.4-10.2); Carbon Dioxide 27 mmol/L (22-29); Chloride 103 mmol/L (96-108); Creatinine Clr Calc Pharmacy 93.8; Estimated Glomerular Filt Rate > 60; Glucose Random 108 mg/dL (60-115); Magnesium 2.1 mg/dL (1.6-2.6); Phosphorus 3.8 mg/dL (2.7-4.5); Potassium 3.9 mmol/L (3.3-5.1); Sodium 138 mmol/L (135-145)
[2022-02-28 07:32] LABS: Glucose, Whole Blood 117 mg/dL (60-115)
[2022-02-28 08:00] VITALS: BP 128/87; PULSE 85; RESP 18; TEMP 36.4; O2SAT 92
[2022-02-28] MEDS: Famotidine/PF 20 MG/2 ML VIAL IVPUSH ×2 (08:16→20:18)
[2022-02-28] MEDS: 0.9 % Sodium Chloride Flush 10 ML SYRINGE 5 ML IVFLUSH ×3 (08:16→20:19)
[2022-02-28] MEDS: cefTRIAXone sodium 2 GM in 0.9 % Sodium Chloride 50 ML IV (11:24)
[2022-02-28 11:31] LABS: Glucose, Whole Blood 127 mg/dL (60-115)
--- NOTE | 2022-02-28 11:46 | P.PNIM_ITS ---
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 Feels much better today Reports feeling hungry, tolerating clear liquids Passing gas but no bowel movement yet Review of Systems Review of Systems: Yes all other systems are reviewed and are negative Physical Exam Vital Signs: Vital Signs: Last Vital Signs Temp 97.6 F 02/28/22 08:00 Pulse 85 02/28/22 08:00 Resp 18 02/28/22 08:00 BP 128/87 02/28/22 08:00 Pulse Ox 92 02/28/22 08:00 O2 Del Method 02/28/22 08:00 O2 Flow Rate 2 02/23/22 04:00 BMI result Body Mass Index 32.4 Const: Other: Constitutional : Awake, interactive, not in distress Neck : Normal inspection, Supple Cardiovascular : RRR, no JVP, no lower extremity edema Respiratory : good bilateral air entry, no crackles, wheezes or rhonchi Gastrointestinal: soft, lax, decreased bowel sounds, Non tender Skin : Warm, Dry Neurological : Alert & oriented x3, No focal deficit Objective Data Active Medications Famotidine (Famotidine/Pf 20 Mg/2 Ml Vial) 20 mg IVPUSH BID [facility] Last Admin: 02/28/22 08:16 Dose: 20 mg Documented By: MITRA Heparin Sodium (Porcine) (Heparin Sodium,Porcine 5,000 Unit/Ml Vial) 5,000 unit SUBCUT Q12H [facility] Last Admin: 02/28/22 11:24 Dose: 5,000 unit Documented By: MITRA Hydralazine HCl (Hydralazine Hcl 20 Mg/Ml Vial) 5 mg IVPUSH Q6H PRN; Protocol PRN Reason: Sbp > 180 Ceftriaxone Sodium 2 gm/ (Sodium Chloride) 50 mls @ 100 mls/hr IV Q24H [facility] Last Admin: 02/28/22 11:24 Dose: 100 mls/hr Documented By: MITRA Morphine Sulfate (Morphine Sulfate 4 Mg/Ml Cartridge) 4 mg IVPUSH Q3H PRN; Protocol PRN Reason: Pain, Severe (Pain Scale 7-10) Multi-Ingred Medicated Throat [place] (Throat [place], Medicated 177 Ml Bottle) 1 spray MUCOUS MEM Q2H PRN PRN Reason: Sore Throat Last Admin: 02/25/22 11:13 Dose: 1 spray Documented By: MITRA Ondansetron HCl (Ondansetron Hcl 4 Mg/2 Ml Vial) 8 mg IVPUSH Q6H PRN PRN Reason: Nausea and Vomiting Last Admin: 02/23/22 20:51 Dose: 8 mg Documented By: LOVE-RIVLA Oxycodone HCl (Oxycodone Hcl Immed Release 5 Mg Tablet) 5 mg PO Q4H PRN PRN Reason: Pain, Severe (Pain Scale 7-10) Pharmacy Consult (Consult Rx Perform Med Rec) 1 each MISCELLANE ONCE PRN PRN Reason: patient will be admitted Sodium Chloride (0.9 % Sodium Chloride Flush 3 Ml Syringe) 3 ml IVFLUSH QSHIFT [facility] Last Admin: 02/28/22 08:12 Dose: Not Given Documented By: MITRA Non-Admin Reason: flushed picc line with 5 ml Sodium Chloride (0.9 % Sodium Chloride Flush 10 Ml Syringe) 5 ml IVFLUSH TID [facility] Last Admin: 02/28/22 08:16 Dose: 5 ml Documented By: MITRA Labs CBC & Chem 7: 02/25/22 08:28 02/28/22 05:57 Labs: Laboratory Results - last 24 hr 02/27/22 02/27/22 02/28/22 15:59 20:29 05:57 Anion Gap 12 Estim Creat Clear Calc 93.8 Estimated GFR > 60 POC Glucose 130 H 125 H Random Glucose 108 Calcium 8.5 Phosphorus 3.8 Magnesium 2.1 02/28/22 02/28/22 07:24 11:17 Anion Gap Estim Creat Clear Calc Estimated GFR POC Glucose 117 H 127 H Random Glucose Calcium Phosphorus Magnesium Microbiology Microbiology Results: Microbiology 02/22/22 Unknown Gram Stain - Final Abscess Intra-abdominal Routine Culture - Final Escherichia coli Anaerobic Culture - Preliminary Culture in progress. Assessment and Plan (1) S/P right hemicolectomy: Status: Acute (2) HTN (hypertension): Status: Acute Plan 66-year-old female with a PMH significant for HTN not on antihypertensives at home admitted to general surgery for cecal mass with malignant SBO with consult placed to medicine for medical management. #Cecal mass with malignant SBO Doing well postop D4 Passing gas, tolerating liquids to try toast today Plan per general surgery #Hypertension Fairly controlled I do not think the patient needs any BP meds at this stage, she can be disc harged home and monitor BP readings for 1 week and report it to PCP to decide if meds needed explained to her son who agrees Thank you for the consult, plz contact hospitalist team for any further qu estions Time Spent With Patient Time: Total time managing care of this patient today ____ minutes. Quality Stroke Does the patient have a stroke diagnosis?: No VTE Prior VTE?: No VTE Risk Level:: Medical - moderate - high VTE Device Contraindication: N/A - Device Ordered VTE Drug Contraindication: Treatment Not Indicated
--- NOTE | 2022-02-28 11:58 | P.PNGS_ITS ---
Subjective Subjective Date of Service: 02/28/22 Interval history: feeling hungry wants to eat , no bowel movement but passing gas and tolerated po liquid and toast well, no nausea has been walking in [place] Physical Exam Vital Signs: Vital Signs: Last Vital Signs Temp 97.6 F 02/28/22 08:00 Pulse 85 02/28/22 08:00 Resp 18 02/28/22 08:00 BP 128/87 02/28/22 08:00 Pulse Ox 92 02/28/22 08:00 O2 Del Method 02/28/22 08:00 O2 Flow Rate 2 02/23/22 04:00 BMI result Body Mass Index 32.4 Const: General: cooperative, healthy appearing, comfortable, no acute distress, alert, awake and Physically active Resp: Effort & Inspection: normal respiratory effort Auscultation: clear to auscultation bilaterally Cardio: Rate: regular rate Rhythm: regular rhythm GI: Other: soft nondistended mild tenderness rlq no guarding bowel sounds active but with some slower high pitch sounds radha -serous min drainage Psych: Appearance: grossly normal and well kempt Mental Status: mental status grossly normal Objective Data Active Medications Famotidine (Famotidine/Pf 20 Mg/2 Ml Vial) 20 mg IVPUSH BID [facility] Last Admin: 02/28/22 08:16 Dose: 20 mg Documented By: MITRA Heparin Sodium (Porcine) (Heparin Sodium,Porcine 5,000 Unit/Ml Vial) 5,000 unit SUBCUT Q12H [facility] Last Admin: 02/28/22 11:24 Dose: 5,000 unit Documented By: MITRA Ceftriaxone Sodium 2 gm/ (Sodium Chloride) 50 mls @ 100 mls/hr IV Q24H [facility] Last Infusion: 02/28/22 11:56 Dose: 0 mls/hr Documented By: MITRA Morphine Sulfate (Morphine Sulfate 4 Mg/Ml Cartridge) 4 mg IVPUSH Q3H PRN; Protocol PRN Reason: Pain, Severe (Pain Scale 7-10) Multi-Ingred Medicated Throat [place] (Throat [place], Medicated 177 Ml Bottle) 1 spray MUCOUS MEM Q2H PRN PRN Reason: Sore Throat Last Admin: 02/25/22 11:13 Dose: 1 spray Documented By: MITRA Ondansetron HCl (Ondansetron Hcl 4 Mg/2 Ml Vial) 8 mg IVPUSH Q6H PRN PRN Reason: Nausea and Vomiting Last Admin: 02/23/22 20:51 Dose: 8 mg Documented By: AWILDA Oxycodone HCl (Oxycodone Hcl Immed Release 5 Mg Tablet) 5 mg PO Q4H PRN PRN Reason: Pain, Severe (Pain Scale 7-10) Pharmacy Consult (Consult Rx Perform Med Rec) 1 each MISCELLANE ONCE PRN PRN Reason: patient will be admitted Sodium Chloride (0.9 % Sodium Chloride Flush 3 Ml Syringe) 3 ml IVFLUSH QSHIFT [facility] Last Admin: 02/28/22 08:12 Dose: Not Given Documented By: MITRA Non-Admin Reason: flushed picc line with 5 ml Sodium Chloride (0.9 % Sodium Chloride Flush 10 Ml Syringe) 5 ml IVFLUSH TID [facility] Last Admin: 02/28/22 08:16 Dose: 5 ml Documented By: MITRA Labs CBC & Chem 7: 02/25/22 08:28 02/28/22 05:57 Labs: Laboratory Results - last 24 hr 02/27/22 02/27/22 02/28/22 15:59 20:29 05:57 Anion Gap 12 Estim Creat Clear Calc 93.8 Estimated GFR > 60 POC Glucose 130 H 125 H Random Glucose 108 Calcium 8.5 Phosphorus 3.8 Magnesium 2.1 02/28/22 02/28/22 07:24 11:17 Anion Gap Estim Creat Clear Calc Estimated GFR POC Glucose 117 H 127 H Random Glucose Calcium Phosphorus Magnesium Microbiology Microbiology Results: Microbiology 02/22/22 Unknown Gram Stain - Final Abscess Intra-abdominal Routine Culture - Final Escherichia coli Anaerobic Culture - Preliminary Culture in progress. Procedures Date of Service Date of Service: 02/28/22 Progress Note: A&P Assessment and plan (1) S/P right hemicolectomy: Status: Acute Assessment and Plan: pt pod#6 overall doing well - tolerating po liquids not much pain meds and ambulating but no bowel movement yet, passing gas - consider suppository and once some bowel movement advance to regular diet cont with antibx cont with drain extensive discussion with son and he explains to mother. they are in agreement with plan and happy will ambulate in [place] a lot to try to improve bowel motility Time Spent With Patient Time: Total time managing care of this patient today ____ minutes. Quality Stroke Does the patient have a stroke diagnosis?: No VTE Prior VTE?: No VTE Risk Level:: Medical - moderate - high VTE Device Contraindication: N/A - Device Ordered VTE Drug Contraindication: Treatment Not Indicated
[2022-02-28 15:23] VITALS: BP 132/84; PULSE 106; RESP 17; TEMP 36.4; O2SAT 96
--- NOTE | 2022-02-28 15:29 | MHC.CLN ---
F/U PT'S DIET ADVANCED TO C/L 100% X 2 MEALS MD TO ADVANCE TO REGULAR RECOMMEND ADDING ENSURE SUPPLEMENT T INCREASE KCALS CONTINUE TO MONITOR PO INTAKE CLOSELY
[2022-02-28 16:22] LABS: Glucose, Whole Blood 130 mg/dL (60-115)
[2022-02-28 19:12] VITALS: BP 130/71; PULSE 82; RESP 17; TEMP 36.4; O2SAT 95
[2022-02-28 19:32] LABS: Glucose, Whole Blood 109 mg/dL (60-115)
[2022-02-28] MEDS: 0.9 % Sodium Chloride Flush 3 ML SYRINGE IVFLUSH (23:21)
[2022-03-01] MEDS: Heparin Sodium,Porcine 5,000 UNIT/ML VIAL 5000 UNIT SUBCUT ×2 (00:54→12:06)
[2022-03-01 03:49] VITALS: BP 133/84; PULSE 86; RESP 18; TEMP 36.4; O2SAT 94
[2022-03-01 06:52] LABS: Anion Gap 13 (12-20); Blood Urea Nitrogen 6 mg/dL (9-16); Calcium 8.8 mg/dL (8.4-10.2); Carbon Dioxide 27 mmol/L (22-29); Chloride 104 mmol/L (96-108); Creatinine Clr Calc Pharmacy 95.6; Estimated Glomerular Filt Rate > 60; Glucose Random 108 mg/dL (60-115); Magnesium 2.2 mg/dL (1.6-2.6); Phosphorus 3.5 mg/dL (2.7-4.5); Potassium 4.1 mmol/L (3.3-5.1); Sodium 140 mmol/L (135-145)
[2022-03-01 07:37] VITALS: BP 124/84; PULSE 77; RESP 18; TEMP 36.4; O2SAT 96
--- NOTE | 2022-03-01 08:22 | PM.PNGS ---
Subjective Subjective Date of Service: 03/01/22 Patient reports: no new complaints, feels better, tolerating liquids well and flatus Interval history: Patient is seen in follow-up from a right hemicolectomy for obstructing cecal mass. The patient's chart is reviewed. NG has been removed and the patient is on a clear liquid diet. She reports continued flatus but no bowel movement yet. She denies any bloating, nausea, vomiting, chest pain, difficulty breathing or shortness of breath. She otherwise denies any new complaints. Jeffery, her LINN, is serving as asl interpreter at her request. Physical Exam Vital Signs: Vital Signs: Last Vital Signs Temp 97.5 F 03/01/22 07:37 Pulse 77 03/01/22 07:37 Resp 18 03/01/22 07:37 BP 124/84 03/01/22 07:37 Pulse Ox 96 03/01/22 07:37 O2 Del Method 03/01/22 07:37 O2 Flow Rate 2 02/23/22 04:00 BMI result Body Mass Index 32.4 On exam, the patient is nontoxic, readily smiling and in good spirits Sclera are anicteric, conjunctiva pink and moist Abdomen is overweight with a well-healed midline incision Serosanguineous drainage is present in the BREONNA No lower extremity cord, tenderness or swelling is noted Objective Data Active Medications Famotidine (Famotidine/Pf 20 Mg/2 Ml Vial) 20 mg IVPUSH BID [facility] Last Admin: 02/28/22 20:18 Dose: 20 mg Documented By: CELENA Heparin Sodium (Porcine) (Heparin Sodium,Porcine 5,000 Unit/Ml Vial) 5,000 unit SUBCUT Q12H [facility] Last Admin: 03/01/22 00:54 Dose: 5,000 unit Documented By: CELENA Ceftriaxone Sodium 2 gm/ (Sodium Chloride) 50 mls @ 100 mls/hr IV Q24H [facility] Last Infusion: 02/28/22 11:56 Dose: 0 mls/hr Documented By: MITRA Morphine Sulfate (Morphine Sulfate 4 Mg/Ml Cartridge) 4 mg IVPUSH Q3H PRN; Protocol PRN Reason: Pain, Severe (Pain Scale 7-10) Multi-Ingred Medicated Throat [place] (Throat [place], Medicated 177 Ml Bottle) 1 spray MUCOUS MEM Q2H PRN PRN Reason: Sore Throat Last Admin: 02/25/22 11:13 Dose: 1 spray Documented By: MITRA Ondansetron HCl (Ondansetron Hcl 4 Mg/2 Ml Vial) 8 mg IVPUSH Q6H PRN PRN Reason: Nausea and Vomiting Last Admin: 02/23/22 20:51 Dose: 8 mg Documented By: LOVE-RIVLA Oxycodone HCl (Oxycodone Hcl Immed Release 5 Mg Tablet) 5 mg PO Q4H PRN PRN Reason: Pain, Severe (Pain Scale 7-10) Pharmacy Consult (Consult Rx Perform Med Rec) 1 each MISCELLANE ONCE PRN PRN Reason: patient will be admitted Sodium Chloride (0.9 % Sodium Chloride Flush 3 Ml Syringe) 3 ml IVFLUSH QSHIFT [facility] Last Admin: 02/28/22 23:21 Dose: 3 ml Documented By: CELENA Sodium Chloride (0.9 % Sodium Chloride Flush 10 Ml Syringe) 5 ml IVFLUSH TID [facility] Last Admin: 02/28/22 20:19 Dose: 5 ml Documented By: CELENA Labs CBC & Chem 7: 02/25/22 08:28 03/01/22 05:44 Labs: Laboratory Results - last 24 hr 02/28/22 02/28/22 02/28/22 11:17 16:18 19:28 Anion Gap Estim Creat Clear Calc Estimated GFR POC Glucose 127 H 130 H 109 Random Glucose Calcium Phosphorus Magnesium 03/01/22 05:44 Anion Gap 13 Estim Creat Clear Calc 95.6 Estimated GFR > 60 POC Glucose Random Glucose 108 Calcium 8.8 Phosphorus 3.5 Magnesium 2.2 Microbiology Microbiology Results: Microbiology 02/22/22 Unknown Gram Stain - Final Abscess Intra-abdominal Routine Culture - Final Escherichia coli Anaerobic Culture - Final Prevotella species Streptococcus viridans group Procedures Date of Service Date of Service: 03/01/22 Progress Note: A&P Assessment and plan (1) S/P right hemicolectomy: Status: Acute (2) Cecum mass: Status: Acute (3) HTN (hypertension): Status: Acute (4) Breast mass: Status: Acute Plan Via her son-in-law, I explained that we will advance her to a regular diet. I will return to assess BREONNA output and likely will premedicate prior to removing the drain later today. Nutrition consult to advise the patient on a high-protein diet is ordered. Await path. Daughter and son-in-law still do not wish the patient to be advised of cancer diagnosis. Time Spent With Patient Time: Total time managing care of this patient today ____ minutes. Quality Stroke Does the patient have a stroke diagnosis?: No VTE Prior VTE?: No VTE Risk Level:: Medical - moderate - high VTE Device Contraindication: N/A - Device Ordered VTE Drug Contraindication: Treatment Not Indicated
[2022-03-01] MEDS: 0.9 % Sodium Chloride Flush 10 ML SYRINGE 5 ML IVFLUSH ×3 (08:34→19:52)
[2022-03-01] MEDS: Famotidine/PF 20 MG/2 ML VIAL IVPUSH ×2 (08:34→19:48)
[2022-03-01] MEDS: Docusate Sodium 100 MG CAPSULE 200 MG PO ×2 (08:40→19:48)
[2022-03-01] MEDS: 0.9 % Sodium Chloride Flush 3 ML SYRINGE IVFLUSH ×3 (08:41→19:48)
[2022-03-01 09:03] LABS: Glucose, Whole Blood 127 mg/dL (60-115)
[2022-03-01] MEDS: Morphine Sulfate 4 MG/ML CARTRIDGE 3 MG IVPUSH (11:00)
[2022-03-01] MEDS: cefTRIAXone sodium 2 GM in 0.9 % Sodium Chloride 50 ML IV (12:05)
--- NOTE | 2022-03-01 12:20 | MHC.CLN ---
RE: CONSULT DIET ADVANCED TO REGULAR HIGH PROTEIN DISCUSSED WITH [employer] HIGH IN PROTEIN KITCHEN AWARE RECOMMEND ADDING ENSURE MAX BID TO INCREASE PO PROTEIN SUPP TO PROVIDE 300KCALS, 60G PROTEIN WITH 100% ACCEPTANCE MONITOR PO INTAKE CLOSELY
[2022-03-01] MEDS: bisacodyL 10 MG SUPP.RECT PR (13:00)
[2022-03-01 15:50] VITALS: BP 129/81; PULSE 91; RESP 20; TEMP 36.6; O2SAT 95
[2022-03-01 19:30] VITALS: BP 121/79; PULSE 80; RESP 20; TEMP 36.6; O2SAT 95
[2022-03-01 20:00] VITALS: RESP 18
[2022-03-01 20:18] LABS: Glucose, Whole Blood 146 mg/dL (60-115)
[2022-03-02] MEDS: Heparin Sodium,Porcine 5,000 UNIT/ML VIAL 5000 UNIT SUBCUT (00:10)
[2022-03-02 03:12] VITALS: BP 112/64; PULSE 86; RESP 18; TEMP 36.1; O2SAT 94
[2022-03-02 05:53] LABS: MANUAL DIFF FLAG NO
[2022-03-02 05:57] LABS: Basophils Percent Auto 0.4 % (0-2); Eosinophils Percent Auto 0.7 % (0-4); Hemoglobin 9.1 g/dl (12.0-16.0); Imm Gran Abs Auto 0.05 X10*3/uL (0.00-0.03); Imm Gran Pct Auto 0.9 % (0.0-0.4); Lymphocytes Absolute Auto 1.7 X10*3/uL (1.2-4.9); Lymphocytes Percent Auto 32.1 % (20-40); Mean Corpuscular HGB Conc 32.5 g/dl (31.0-35.0); Mean Corpuscular Hemoglobin 29.3 pg (27.0-33.0); Monocytes Absolute Auto 0.3 X10*3/uL (0.1-1.2); Monocytes Percent Auto 5.4 % (2-11); Neutrophils Absolute Auto 3.2 x10*3/uL (2.0-8.3); Neutrophils Percent Auto 60.5 % (45-73); Platelet Count 371 X10*3/uL (160-400); Red Blood Count 3.11 X10*6/uL (4.20-5.50); Red Cell Distribution Width 13.6 % (11.0-16.0); White Blood Count 5.4 X10*3/uL (4.8-10.8)
[2022-03-02 06:18] LABS: Alanine Aminotransferase 49 U/L (0-31); Albumin Level 3.1 g/dL (3.5-5.0); Alkaline Phosphatase 105 U/L (39-117); Anion Gap 12 (12-20); Aspartate Amino Transferase 47 U/L (5-31); Bilirubin Total 0.3 mg/dL (0.0-1.0); Blood Urea Nitrogen 8 mg/dL (9-16); Calcium 8.7 mg/dL (8.4-10.2); Carbon Dioxide 27 mmol/L (22-29); Chloride 103 mmol/L (96-108); Creatinine Clr Calc Pharmacy 90.4; Estimated Glomerular Filt Rate > 60; Glucose Random 109 mg/dL (60-115); Magnesium 2.2 mg/dL (1.6-2.6); Phosphorus 4.1 mg/dL (2.7-4.5); Potassium 4.2 mmol/L (3.3-5.1); Sodium 138 mmol/L (135-145); Total Protein 5.7 g/dL (6.5-8.0)
[2022-03-02 07:39] VITALS: BP 123/75; PULSE 83; RESP 18; TEMP 36.4; O2SAT 96
--- NOTE | 2022-03-02 08:43 | PM.PNGS ---
Subjective Subjective Date of Service: 03/02/22 Patient reports: no new complaints, feels better, flatus and bowel movement Interval history: The patient's son-in-law, Jeffery, helped facilitate today's visit. The patient's daughter is also present. Patient reports that she has been passing gas and having a bowel movement. She is unhappy with the feeling from morphine and is avoiding any pain medicine or narcotics and reports she is not having significant pain. She otherwise denies difficulty breathing, pain in her chest or other complaints. She is tolerating her diet and hopeful to be discharged. Physical Exam Vital Signs: Vital Signs: Last Vital Signs Temp 97.5 F 03/02/22 07:39 Pulse 83 03/02/22 07:39 Resp 18 03/02/22 07:39 BP 123/75 03/02/22 07:39 Pulse Ox 96 03/02/22 07:39 O2 Del Method 03/02/22 07:39 O2 Flow Rate 2 02/23/22 04:00 BMI result Body Mass Index 32.4 On exam, she is smiling and in good spirits Abdomen is soft with no peritoneal sign Her abdominal incision is well healed with no erythema Objective Data Active Medications Docusate Sodium (Docusate Sodium 100 Mg Capsule) 200 mg PO BID [facility] Last Admin: 03/01/22 19:48 Dose: 200 mg Documented By: CELENA Famotidine (Famotidine/Pf 20 Mg/2 Ml Vial) 20 mg IVPUSH BID [facility] Last Admin: 03/01/22 19:48 Dose: 20 mg Documented By: CELENA Heparin Sodium (Porcine) (Heparin Sodium,Porcine 5,000 Unit/Ml Vial) 5,000 unit SUBCUT Q12H [facility] Last Admin: 03/02/22 00:10 Dose: 5,000 unit Documented By: CELENA Ceftriaxone Sodium 2 gm/ (Sodium Chloride) 50 mls @ 100 mls/hr IV Q24H [facility] Last Infusion: 03/01/22 12:52 Dose: 100 mls/hr Documented By: LINSEY Morphine Sulfate (Morphine Sulfate 4 Mg/Ml Cartridge) 4 mg IVPUSH Q3H PRN; Protocol PRN Reason: Pain, Severe (Pain Scale 7-10) Multi-Ingred Medicated Throat [place] (Throat [place], Medicated 177 Ml Bottle) 1 spray MUCOUS MEM Q2H PRN PRN Reason: Sore Throat Last Admin: 02/25/22 11:13 Dose: 1 spray Documented By: MITRA Ondansetron HCl (Ondansetron Hcl 4 Mg/2 Ml Vial) 8 mg IVPUSH Q6H PRN PRN Reason: Nausea and Vomiting Last Admin: 02/23/22 20:51 Dose: 8 mg Documented By: LOVE-RIVLAURO Oxycodone HCl (Oxycodone Hcl Immed Release 5 Mg Tablet) 5 mg PO Q4H PRN PRN Reason: Pain, Severe (Pain Scale 7-10) Pharmacy Consult (Consult Rx Perform Med Rec) 1 each MISCELLANE ONCE PRN PRN Reason: patient will be admitted Sodium Chloride (0.9 % Sodium Chloride Flush 3 Ml Syringe) 3 ml IVFLUSH QSHIFT [facility]PLACED [facility] Last Admin: 03/01/22 19:48 Dose: 3 ml Documented By: CELENA Sodium Chloride (0.9 % Sodium Chloride Flush 10 Ml Syringe) 5 ml IVFLUSH TID [facility] Last Admin: 03/01/22 19:52 Dose: 5 ml Documented By: CELENA Labs CBC & Chem 7: 03/02/22 05:14 03/02/22 05:14 Labs: Laboratory Results - last 24 hr 03/01/22 03/01/22 03/02/22 07:35 20:15 05:14 MCV MCH MCHC RDW Plt Count MPV Immature Gran % (Auto) Neut % (Auto) Lymph % (Auto) [place] % (Auto) Eos % (Auto) Baso % (Auto) Lymph # (Auto) [place] # (Auto) Eos # (Auto) Baso # (Auto) Abs Immat Gran (auto) Absolute Neuts (auto) Absolute Nucleated RBC Nucleated RBC % (auto) Anion Gap 12 Estim Creat Clear Calc 90.4 Estimated GFR > 60 POC Glucose 127 H 146 H Random Glucose 109 Calcium 8.7 Phosphorus 4.1 Magnesium 2.2 Total Bilirubin 0.3 AST 47 H ALT 49 H Alkaline Phosphatase 105 Total Protein 5.7 L Albumin 3.1 L 03/02/22 05:14 MCV 90.0 MCH 29.3 MCHC 32.5 RDW 13.6 Plt Count 371 MPV 9.0 L Immature Gran % (Auto) 0.9 H Neut % (Auto) 60.5 Lymph % (Auto) 32.1 [place] % (Auto) 5.4 Eos % (Auto) 0.7 Baso % (Auto) 0.4 Lymph # (Auto) 1.7 [place] # (Auto) 0.3 Eos # (Auto) 0.0 Baso # (Auto) 0.0 Abs Immat Gran (auto) 0.05 H Absolute Neuts (auto) 3.2 Absolute Nucleated RBC 0.000 Nucleated RBC % (auto) 0.0 Anion Gap Estim Creat Clear Calc Estimated GFR POC Glucose Random Glucose Calcium Phosphorus Magnesium Total Bilirubin AST ALT Alkaline Phosphatase Total Protein Albumin Procedures Date of Service Date of Service: 03/02/22 Progress Note: A&P Assessment and plan (1) S/P right hemicolectomy: Status: Acute (2) Cecum mass: Status: Acute (3) HTN (hypertension): Status: Acute (4) Breast mass: Status: Acute Plan Instructions regarding diet and activity reviewed and apparently understood. D/C PICC (ordered) and plan for discharge home Dietary information and protein supplements apples were provided to the patient along with additional information regarding protein and iron supplements. Time Spent With Patient Time: Total time managing care of this patient today ____ minutes. Quality Stroke Does the patient have a stroke diagnosis?: No VTE Prior VTE?: No VTE Risk Level:: Medical - moderate - high VTE Device Contraindication: N/A - Device Ordered VTE Drug Contraindication: Treatment Not Indicated
[2022-03-02] MEDS: 0.9 % Sodium Chloride Flush 10 ML SYRINGE 5 ML IVFLUSH (08:55)
[2022-03-02] MEDS: 0.9 % Sodium Chloride Flush 3 ML SYRINGE IVFLUSH (08:55)
[2022-03-02] MEDS: Famotidine/PF 20 MG/2 ML VIAL IVPUSH (08:58)
[2022-03-02] MEDS: Docusate Sodium 100 MG CAPSULE 200 MG PO (08:58)
--- NOTE | 2022-03-02 11:02 | P.DS_ITS ---
DS: Providers Provider Date of Service: 03/02/22 Date of admission: 02/18/22 13:05 Primary care physician: Unknown Physician Consults: 02/18/22 10:13 Consult to General Surgery Stat Consulting Provider: Keyon Cruz Reason for consultation: poss appendicitis 02/18/22 10:47 Consult to Gastroenterology Stat Consulting Provider: Faith Ding Reason for consultation: abd pain, abnormal CT 02/18/22 19:28 Consult to Hematology / Oncology Routine Consulting Provider: Mayuri Allan Reason for consultation: Left breast mass Has provider been notified: No 02/23/22 12:46 Consult to Hospitalist Routine Consulting Provider: Hospitalist Reason For Exam: HTN & medical management DS: Diagnosis Discharge Diagnosis (1) S/P right hemicolectomy: Status: Acute (2) Cecum mass: Status: Acute (3) HTN (hypertension): Status: Acute (4) Breast mass: Status: Acute DS: Summary Hospital Course Hospital Course: See general surgery consultation from admission for full details. Briefly, this 66-year-old [place] woman presented acutely to the emergency department with 3 months of right lower quadrant abdominal pain and had a CT demonstrating ileitis, cecal anomaly and possible appendicitis. The patient normally resides in [place] and was here visiting family. The patient is also noted to have a possible left breast mass. She was admitted by the hospitalist service and GI was consulted. Medical management with IV antibiotics and bowel rest was begun and after no interval improvement in 48 hours, repeat CT with oral and IV contrast demonstrating a near obstructing cecal mass was found. The patient was consented for laparoscopic assisted right hemicolectomy in underwent surgery on 02/22/2022 with a primary ileocolic anastomosis. An intraoperative perforation and cultures demonstrated E coli, Viridin strep and provotella. The patient was kept on IV Zosyn postoperatively. Long discussion with the patient's daughter and son-in-law via [employer] per diem registered nurse is documented. Due to concerns with cultural and patient behavior/mental status concerns, they requested that I do not disclose the possibility of malignancy. Their request was followed. Postoperatively, the patient had gradual return of bowel function, tolerated a clear liquid diet and then regular diet. Her labs demonstrated expected anemia to hemoglobin of 9.1, her white blood cell count was normal as was her platelet count. Electrolytes were within normal parameters. CEA is 2.3. At the time of discharge, the patient was advised to follow up with me next week for staple removal. The need for interval colonoscopy and breast exam/mammographies was reviewed. Overall condition at the time of discharge is improved. Given the anemia and protein malnutrition, dietary supplements were provided to the patient along with Education on the importance of healthy diet/supplementation. Time spent discussing smoking cessation with patient: more than 10 minutes Time Spent with Patient Time attestation: Total time managing care of this patient today ____ minutes. Discharge coordination time: Greater than 30 minutes Quality: Safe Use of Opioids Does Pt have an Active Cancer Diagnosis on the Problem List?: Yes Opioid Measure Date for [facility] Report: 01/31/22 Opioid Measure Time for [facility] Report: 11:11 Quality: Stroke Does the patient have a stroke diagnosis?: No Reason for No Anti-thrombotic at DC: Not indicated Physical Exam Vital Signs: Vital Signs: Last Vital Signs Temp 97.5 F 03/02/22 07:39 Pulse 83 03/02/22 07:39 Resp 18 03/02/22 07:39 BP 123/75 03/02/22 07:39 Pulse Ox 96 03/02/22 07:39 O2 Del Method 03/02/22 07:39 O2 Flow Rate 2 02/23/22 04:00 BMI result Body Mass Index 32.4 DS: Data Data Completed and Pending Pending studies at discharge: Pending at discharge 02/22/22 11:12 Surgical [PTH] Routine Labs on day of discharge: Laboratory Results - last 24 hr 03/01/22 03/02/22 03/02/22 20:15 05:14 05:14 WBC 5.4 RBC 3.11 L D Hgb 9.1 L D Hct 28.0 L MCV 90.0 MCH 29.3 MCHC 32.5 RDW 13.6 Plt Count 371 MPV 9.0 L Immature Gran % (Auto) 0.9 H Neut % (Auto) 60.5 Lymph % (Auto) 32.1 [place] % (Auto) 5.4 Eos % (Auto) 0.7 Baso % (Auto) 0.4 Lymph # (Auto) 1.7 [place] # (Auto) 0.3 Eos # (Auto) 0.0 Baso # (Auto) 0.0 Abs Immat Gran (auto) 0.05 H Absolute Neuts (auto) 3.2 Absolute Nucleated RBC 0.000 Nucleated RBC % (auto) 0.0 Sodium 138 Potassium 4.2 Chloride 103 Carbon Dioxide 27 Anion Gap 12 BUN 8 L Creatinine 0.54 Estim Creat Clear Calc 90.4 Estimated GFR > 60 POC Glucose 146 H Random Glucose 109 Calcium 8.7 Phosphorus 4.1 Magnesium 2.2 Total Bilirubin 0.3 AST 47 H ALT 49 H Alkaline Phosphatase 105 Total Protein 5.7 L Albumin 3.1 L Discharge Plan Discharge Anticipated Discharge Date/Time: 03/02/22 09:58 Patient Disposition: Home, Self-Care Discharge Diagnosis: Colon obstruction, status post right hemicolectomy Referrals: Physician,Omar Beasley [Primary Care Provider] - 1 Week Keyon Cruz MD [Physician] - 1 Week Discharge Medications: Continued calcium carbonate 500 mg calcium (1,250 mg) Tablet,Chewable 500 mg PO TID PRN (Reason: Indigestion) pancreatin 500 mg Tablet 1,400 mg PO DAILY Discharge Orders: Discharge Order (Routine); Ordered 03/02/22 Ordered By: Keyon Cruz Diet: Regular diet Activity on Discharge: No heavy lifting Stand Alone Forms: Patient Portal Discharge page Activity Restrictions/Additional Instructions: You had a right hemicolectomy for a colon blockage by Dr. Cruz at [facility] on February 22, 2022. You have a follow-up appointment with Dr. Cruz scheduled for March 09, 2022 at 10:00am. If you cannot make this appointment or need to change it, please call [phone]. In order for your body to heal properly, you must eat protein with every meal and must take a multivitamin with iron every day. Good protein sources typically come from fish, poultry, meats, eggs and other dairy products. If you do not routinely protein with every meal, you should purchase a protein supplement, . It is important that you not lift more than 20 lb for the next 6 weeks to minimize a hernia occurring in your abdominal incision. You should also eat foods that are high in iron such as beef, pork and spinach. If you do not care for these foods, you can take an dbmc-fsz-stodgda iron supplement, however these tend to be very constipating it may require you to continue the iytu-lpd-xwwzgen stool softener, docusate, 100 mg, 2 tablets daily. It is okay to shower, walk up and down stairs, walk around the house or be driven in a car. Do not soak in a tub. Do not drive until you see Dr. Cruz in the office next week. Your thad will be removed at the office visit next week. If you develop severe abdominal pain, chest pain, difficulty breathing, shortness of breath, call 911 or report to the nearest emergency department. If you start to develop abdominal pain, abdominal bloating and vomiting or have other questions, please contact Dr. Cruz's office at [phone] with any questions. If you develop leg pain or leg swelling, please contact Dr. Cruz. Unless otherwise directed, you should resume taking any regular medications. You can take Tylenol/acetaminophen, 650mg-1,000 mg every 6 hours as needed for pain. This dose is 2 bugd-kcc-uorggto tablets. If you are having constipation, purchase prdi-whs-nlwlzrs Colace/docusate, 100 mg and take 2 tablets daily until your bowels returned to normal. It is advisable to obtain a local, primary care provider, to help direct your long-term care. Because of your age, you need to have a mammogram which is a special x-ray to look for breast masses. In addition, you should have a colonoscopy to assess the remaining colon in the next 3-6 months. Care Plan Goals: Healthy, proper nutrition and adequate postoperative healing Health Concerns: Healthy, proper nutrition and adequate postoperative healing Plan of Treatment: Allow adequate postoperative healing and follow nutrition guidelines Assessment: Colon obstruction, status post right hemicolectomy
--- NOTE | 2022-03-02 12:12 | MHC.CM.PN ---
HOME - SELF CARE FAMILY TO TRANSPORT PATIENT HOME
--- NOTE | 2022-03-02 12:21 | HO.REMOVAL ---
Removal of PICC/Midline Removal of PICC/Midline: Removal of PICC 1. Date: [03/02/22 ] 2. Reason removed: [no longer needed] 3. Inserted length: [40cm triple lumen picc line ] 4. Removed length: [40cm triple lumen picc line intact ] 5. A dressing was placed over the site upon removal. No edema or bleeding at the site. Pt simon procedure well. Removal was done by Denisa DE LA GARZA
== END 2022-03-02 12:44 | disposition home or self-care (01) | DRG 329 ==
LOC: HO.ED 12:25 → HO.EDOVER 13:24 → HO.S3 20:08
PROVIDERS: Physician Assistant; Physician Assistant Medical; Physician Assistant Surgical; Admitting Provider Student in an Organized Health Care Education/Training Program; Emergency Provider Student in an Organized Health Care Education/Training Program; Visit Provider Surgery
PROC: 0DTF0ZZ Resection of Right Large Intestine, Open Approach (ICD-10-PCS; principal; 2022-02-22 09:00)
PROC: 02HV33Z Insertion of Infusion Device into Superior Vena Cava, Percutaneous Approach (ICD-10-PCS; principal; 2022-02-25 09:00)
DX: C18.0 Malignant neoplasm of cecum (principal); K63.1 Perforation of intestine (nontraumatic); K65.1 Peritoneal abscess; N39.0 Urinary tract infection, site not specified; I10 Essential (primary) hypertension; N63.21 Unspecified lump in the left breast, upper outer quadrant; Z20.822 Contact with and (suspected) exposure to COVID-19; Z79.899 Other long term (current) drug therapy
CPT/HCPCS: 0241U; 36415; 36573; 71045; 71260; 74176; 74177; 80048; 80051; 80053; 80076; 81001; 82040; 82310; 82378; 82565; 82947; 83036; 83605; 83615; 83690; 83735; 84100; 84134; 84478; 84520; 85025; 85027; 85610; 86850; 86900; 86901; 87040; 87070; 87073; 87076; 87077; 87086; 87185; 87186; 87205; 88309; 88329; 88341; 88342; 96361; 96374; 96375; 99285; C1751; C1758; J0131; J0696; J1100; J1170; J2250; J2270; J2405; J2543; J2795; J3010; Q9967

== ENCOUNTER → 2022-03-03 14:18 | Outpatient (BNVA) | payer MEDICAID, SELFPAY | PROVIDERS: Visit Provider Surgery | DX: D3A.8 Other benign neuroendocrine tumors (principal); I10 Essential (primary) hypertension; N63.20 Unspecified lump in the left breast, unspecified quadrant; Z90.49 Acquired absence of other specified parts of digestive tract | CPT/HCPCS: 99212 ==

== ENCOUNTER → 2022-03-09 09:41 | Outpatient (BNVA) | payer MEDICAID, SELFPAY | PROVIDERS: Visit Provider Surgery | DX: Z13.89 Encounter for screening for other disorder (principal) ==

== ENCOUNTER 2022-03-10 14:15 | Outpatient (REF) | payer MEDICAID, SELFPAY ==
--- NOTE | ~2022-03-10 | MM_ITS ---
EXAMINATION: MM DIAGNOSTIC DIGITAL BREAST TOMOSYNTHESIS, BILATERAL US DIAGNOSTIC ULTRASOUND BREAST, LEFT CLINICAL INFORMATION: 66-year-old with heterogeneous mass medial left breast on CT chest. No prior breast imaging. No known family history breast cancer. The lifetime risk of breast cancer based on the Tyrer-Cuzick Model is 5%. COMPARISON: CT chest 02/18/2022. TECHNIQUE: Digital breast tomosynthesis is performed in both the craniocaudal and mediolateral oblique views along with computer-aided detection (CAD). Synthesized 2D images are generated from the tomosynthesis. Additional left MLO, S left spot CC, left spot MLO views are obtained. Ultrasound left breast is targeted to the medial breast using grayscale imaging and color Doppler without and with harmonics. FINDINGS: There are scattered areas of fibroglandular density (ACR BI-RADS breast composition Category b). The right breast is unremarkable and shows no mass or architectural abnormality or abnormal calcifications. The bilateral axilla are unremarkable. The left breast has grouped nodularity mid 8:00 position, largest focus 1.4 cm with some increased stromal markings and some scattered punctate round regional calcification. Overall area of involvement measures approximately 3 cm from posterior to anterior and 2 cm from superior to inferior. Ultrasound demonstrates grouped complicated fibrocystic changes with cysts with some geographic internal echogenicity mid 9:00 position 4 cm from nipple. Overall size is approximately 2.8 cm posterior to anterior and 1.5 cm in depth. There is increased color flow in the stroma between the cysts and some color flow extending into the cysts. There is no isolated solid mass or focal shadowing. Results are discussed with the patient and family at time of visit. The findings may represent fibrocystic changes with apocrine metaplasia or possibly PASH. Given the absence of prior imaging and the increased vascularity on color Doppler, ultrasound-guided core biopsy is recommended to further characterize. Results and recommendation called to certified medical technician assistant (Adrienne) for Dr. Curz on 03/10/2022. MM/MM tomosynthesis diagnostic BI IMPRESSION: Left: -Grouped complicated cystic lesions medial left breast with associated increased stromal and some internal vascularity. Right: -No mammographic evidence of malignancy. ASSESSMENT: BI-RADS 4: Suspicious RECOMMENDATION: Ultrasound-guided core biopsy left breast. This patient's information was entered into a reminder system with a target due date for their next mammogram.
== END 2022-03-10 14:16 | disposition home or self-care (01) ==
LOC: HO.MAMMO 14:15
PROVIDERS: Visit Provider Surgery
DX: N63.22 Unspecified lump in the left breast, upper inner quadrant (principal)
CPT/HCPCS: 76642; 77062; 77066

== ENCOUNTER 2022-03-14 09:55 | Outpatient (REF) | payer MEDICAID, SELFPAY ==
--- NOTE | ~2022-03-14 | MM_ITS ---
EXAMINATION: ULTRASOUND GUIDED CORE BIOPSY BREAST, LEFT POST PROCEDURE DIGITAL MAMMOGRAM, LEFT CLINICAL INFORMATION: Grouped complicated cystic lesions medial left breast with increased stromal vascularity for tissue sampling. TC score 5%. COMPARISON: Mammography and left breast ultrasound 03/10/2022. FINDINGS: Proper informed consent is obtained from the patient after discussion of the procedure, potential risks and complications, and alternatives. Patient was given an opportunity for questions. The patient appeared to understand. The patient consented to the procedure and signed the consent form. GUIDANCE: Ultrasound-guided; aseptic technique. LESION: Grouped complicated fibrocystic changes with some geographic internal echogenicity mid medial left breast. Differential considerations include fibrocystic changes, apocrine metaplasia, PASH, other. APPROACH: Oblique mediolateral. ANESTHESIA: 10 mL carbonated 1% lidocaine. DERMATOTOMY: Single skin ginette dermatotomy performed. NEEDLE: 14-gauge Achieve core biopsy device with 13.5-gauge co-axial guide needle. CORES: 5. CLIP: HydroMARK; shape: open coil. POST PROCEDURE UNILATERAL DIGITAL MAMMOGRAM: The post biopsy mammogram is performed in separate room using separate digital mammography equipment from the biopsy procedure. CC and MLO views are obtained. There is increased attenuation medial breast corresponding to the recent mammography. The background fibrocystic oval and round foci are decreased in size and number. The clip marker is in position. No gross hematoma. The patient tolerated the procedure well. No immediate complications. Home instructions reviewed with the patient. Final pathology results are pending. MM/MM diagnostic mammo unilat LT IMPRESSION: 1. Status post ultrasound-guided core biopsy left breast. 2. Clip placed: HydroMARK; shape: open coil. 3. Pathology pending. An addendum report will be issued.
== END 2022-03-14 09:56 | disposition home or self-care (01) ==
LOC: HO.MAMMO 09:55
PROVIDERS: Visit Provider Surgery
DX: C50.812 Malignant neoplasm of overlapping sites of left female breast (principal); D3A.8 Other benign neuroendocrine tumors
CPT/HCPCS: 19083; 77062; 77065; 88305; 88341; 88342; 88360; A4648

== ENCOUNTER → 2022-03-21 09:10 | Outpatient (BNV) | payer MEDICAID, SELFPAY | PROVIDERS: Visit Provider Internal Medicine | DX: C7A.029 Malignant carcinoid tumor of the large intestine, unspecified portion (principal); C7B.02 Secondary carcinoid tumors of liver; Z90.49 Acquired absence of other specified parts of digestive tract; C50.912 Malignant neoplasm of unspecified site of left female breast | CPT/HCPCS: 99205; 99213; 99214; 99215 ==

== ENCOUNTER → 2022-03-21 09:55 | Outpatient (BNVA) | payer MEDICAID, SELFPAY | PROVIDERS: Visit Provider Surgery | DX: D3A.8 Other benign neuroendocrine tumors (principal); C50.912 Malignant neoplasm of unspecified site of left female breast; I10 Essential (primary) hypertension; Z90.49 Acquired absence of other specified parts of digestive tract | CPT/HCPCS: 99212 ==

== ENCOUNTER → 2022-03-25 08:32 | Outpatient (BNVA) | payer MEDICAID, SELFPAY | PROVIDERS: Referring Provider Surgery; Visit Provider Surgery | DX: C50.312 Malignant neoplasm of lower-inner quadrant of left female breast (principal) | CPT/HCPCS: 99202 ==

== ENCOUNTER 2022-03-28 08:11 | Day surgery (SDC) | payer MEDICAID, SELFPAY ==
[2022-03-28] VITALS (10 sets, daily range): BP systolic 133–164; BP diastolic 61–88; PULSE 72–87; RESP 10–22; TEMP 36.5–37.1; O2SAT 92–99; BMI 29.7
--- NOTE | ~2022-03-28 | NM_ITS ---
EXAMINATION: NM LYMPH SCINTIGRAPHY CLINICAL INFORMATION: Left breast cancer. COMPARISON: None TECHNIQUE: Following explaining left breast lymphoscintigraphy procedure, benefits and risks by surgeon Erasmo Del Castillo, the 4% lidocaine applied around the left breast areola was removed. The area was cleaned in aseptic manner with alcohol. 0.125 uCi of 99-Technetium Lymphoseek each was injected in 4 quadrants around the left breast areola and imaging obtained 30 minutes later. Patient tolerated procedure extremely well. FINDINGS: There is isotope activity in 4 quadrants around the left breast areola. There is a solitary left anterior axillary sentinel node seen. NM/NM sentinel node w imaging IMPRESSION: Left breast lymphoscintigraphy with a solitary sentinel node in left anterior axilla.
--- NOTE | ~2022-03-28 | MM_ITS ---
EXAMINATION: MM SPECIMEN X-RAY BREAST, LEFT BREAST CLINICAL INDICATION: Recent diagnosis IDC and DCIS left breast. COMPARISON: Mammography 03/10/2022, 03/14/2022, ultrasound left breast 03/10/2022, ultrasound guided biopsy 03/14/2022. TECHNIQUE: Single radiograph of the excised breast tissue is performed using digital mammography. FINDINGS: The HydroMARK open coil biopsy clip marker is identified in the specimen. There was no previous localization procedure, and therefore, no localization needle wire is in the specimen. Results were called to Dr. Erasmo Greer in the operating room at the time of imaging.
--- NOTE | 2022-03-28 11:19 | MHC.SHP ---
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 No changes have occurred unless specified. Time Spent With Patient Time: Total time managing care of this patient today ____ minutes.
--- NOTE | 2022-03-28 11:46 | HO.ANESPROP2 ---
Documented by User: Shaista Brar MD 03/28/22 11:58 HPI - Anesthesia Eval Consult details Narrative: 66 yo female patient for Left breast lumpectomy and Left axillary sentinel node biopsy PMFSH Active Problems Active Problems: All Active Problems (Updated 03/25/22 @ 10:46 by Erasmo Greer MD) Ductal carcinoma in situ of left breast (Acute) Invasive ductal carcinoma of left breast (Acute) Left breast mass (Acute) Neuroendocrine neoplasm of colon (Acute) S/P right hemicolectomy (Acute) HTN (hypertension) (Acute) Breast mass (Acute) Past Medical History Medical History HTN (hypertension) Invasive ductal carcinoma of left breast Family History Family History Father Liver cancer Family history of problems with anesthesia: No Surgical History History of Problems with Anesthesia: No Social History Social History Household Members: Spouse Housing: House Do you presently have visiting nurse or other home services: No Patient Tobacco Use Status: Never used Tobacco Second Hand Smoke Exposure: No Use of substances other than those prescribed or required for medical reasons: No Advance Directives: No Advance Directives Information Provided: Yes service: No Current occupational status: unemployed Meds Allergies Allergy/AdvReac Type Severity Reaction Status Date / Time No Known Allergies Allergy Verified 03/25/22 08:51 Active Medications: Current Medications Lactated Ringer's (Lr) 1,000 mls @ 100 mls/hr IVCONT .Q10H [facility] Home Medications Medication Instructions Recorded Confirmed Last Taken Type calcium carbonate 500 mg calcium 500 mg PO TID PRN Indigestion 02/18/22 03/25/22 Unknown History (1,250 mg) chewable tablet pancreatin 500 mg tablet 1,400 mg PO DAILY 02/18/22 03/25/22 Unknown History Exam Exam Date and Time: March 28, 2022 1146 Height,Weight and Vital Signs: Height 4 ft 11.06 in Weight 67 kg Last Vital Signs Temp 97.7 F 03/28/22 09:26 Pulse 72 03/28/22 09:26 Resp 16 03/28/22 09:26 BP 133/84 03/28/22 09:26 Pulse Ox 96 03/28/22 09:26 O2 Del Method 03/28/22 09:26 Assessment and Plan Final Anesthetic Review Family History of Problems with Anesthesia: No History of Problems with Anesthesia: No Documented by User: Janie Wood MD 03/28/22 12:50 PMFSH Past Medical History Medical History HTN (hypertension) Invasive ductal carcinoma of left breast Family History Family History Father Liver cancer Social History Social History Household Members: Spouse Housing: House Do you presently have visiting nurse or other home services: No Patient Tobacco Use Status: Never used Tobacco Second Hand Smoke Exposure: No Use of substances other than those prescribed or required for medical reasons: No Advance Directives: No Advance Directives Information Provided: Yes service: No Current occupational status: unemployed Meds Allergies Allergy/AdvReac Type Severity Reaction Status Date / Time No Known Allergies Allergy Verified 03/25/22 08:51 Home Medications Medication Instructions Recorded Confirmed Last Taken Type calcium carbonate 500 mg calcium 500 mg PO TID PRN Indigestion 02/18/22 03/25/22 Unknown History (1,250 mg) chewable tablet pancreatin 500 mg tablet 1,400 mg PO DAILY 02/18/22 03/25/22 Unknown History Exam Airway Mallampati Class: II TM Dist: >3cm Loose/Missing/Broken Teeth: No Heart: RRR Lungs: CTA Assessment and Plan Assessment Anesthesia Assessment: Anesthesia Plan Discussed and Chart Reviewed Final Anesthetic Review NPO: Yes ASA Class: II Final Preanesthetic Review: Meds/Allgs Chart Reviewed, Consent Obtained/Reviewed and Anes Risks/Benef Reviewed Patient Risk: Low Procedure Risk: Low Anesthetic Plan Anesthetic Plan: GA Disposition: Standard PACU
--- NOTE | 2022-03-28 14:05 | W.PM.OPN ---
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 She presents today for definitive lumpectomy with sentinel node biopsy. Operative findings: Palpable mass located lower inner quadrant approximately 3 cm diameter. Specimen x-ray confirms marking clip within the specimen. [place] node excise, single node. No other palpable nodes or hot nodes noted Specimen: 1. left breast lumpectomy, 2. left axillary sentinel node ( 660 ), 3. margin from the medial/ inferior and posterior margin Estimated blood loss: 10 mL Complications: none Procedure details: patient was brought to the OR placed in a supine position. After administering general anesthesia the patient's left breast was prepped with ChloraPrep and draped in a sterile fashion. A surgical time-out was called the consent confirmed. Patient received preoperative antibiotics and Venodyne boots were in place. Local anesthesia consisting of 0.5% Sensorcaine with epinephrine was then infiltrated in the left breast at approximately the 9 o'clock position transversely. Incision was then made and carried out through subcutaneous tissue. Superior inferior skin flaps were then created using electrocautery. A core tissue surrounding the palpable mass was then obtained essentially performing a quadrantectomy involving the medial left breast from the 7 to 9 o'clock position. Specimen was sent to x-ray for specimen x-ray followed by gross pathology. Margins along the medial inferior and posterior margins appeared close therefore additional tissue was taken from these margins and sent as a separate specimen. Attention was then directed to the axilla. The gamma probe was used to find the area increased Radioactivity. Incision was made along the inferior hairline of the left axilla. Incision was carried out through subcutaneous tissue past clavipectoral fascia into the axillary compartment. Guided by the gamma probe a area of increased activity was identified grasped with an Allis clamp. Blunt dissection was used identified the hot node. This was then removed using electrocautery. A total of 660 Was noted on the specimen. This was sent as sentinel node 1. Additional examination revealed no additional palpable nodes or hot nodes in the axilla. Wounds were irrigated with saline solution and suctioned dry. Deep clavipectoral fascia was then closed using interrupted 3-0 Polysorb sutures. Superficial tissue and dermis reapproximated using interrupted 3-0 Polysorb sutures. Skin was closed using a subcuticular 4-0 Polysorb suture. In a similar fashion deep breast tissue was closed using interrupted 3-0 Polysorb sutures. Superficial breast tissue and dermis reapproximated using interrupted 3-0 Polysorb sutures. Skin was then closed using a running subcuticular 4-0 Polysorb suture. Steri-Strips, 2 x 2 gauze and Tegaderm were then applied. The patient tolerated the procedure well. Sponge, instrument, needle counts reported as correct. Patient was transferred to PACU in stable condition. Breast [place] Node Biopsy Substrate(s) used for sentinel node biopsy in the non-neoadjuvant setting: Radiotracer Substrate(s) used for sentinel node biopsy in the neoadjuvant setting: N/A All colored nodes or non-colored nodes present at the end of a dye filled lymphatic channel were removed, if dye was used as the substrate for localization: N/A All significantly radioactive nodes were removed, if radionuclide was used as the substrate for localization: Yes All palpably suspicious nodes were removed, if present: Yes If clips were placed in pathology-involved nodes, those nodes were identified and removed: N/A General Surg. - Synoptic Notes Breast [place] Node Biopsy Substrate(s) used for sentinel node biopsy in the non-neoadjuvant setting: Radiotracer Substrate(s) used for sentinel node biopsy in the neoadjuvant setting: N/A All colored nodes or non-colored nodes present at the end of a dye filled lymphatic channel were removed, if dye was used as the substrate for localization: N/A All significantly radioactive nodes were removed, if radionuclide was used as the substrate for localization: Yes All palpably suspicious nodes were removed, if present: Yes If clips were placed in pathology-involved nodes, those nodes were identified and removed: N/A
[2022-03-28] MEDS: Acetaminophen 325 MG TABLET 650 MG PO (14:50)
[2022-03-28] MEDS: oxyCODONE HCl Immed Release 5 MG TABLET PO (15:03)
[2022-03-28] MEDS: fentaNYL citrate/PF 100 MCG/2 ML VIAL 25 MCG IVPUSH (15:08)
== END 2022-03-28 16:58 | disposition home or self-care (01) ==
PROVIDERS: Visit Provider Surgery
PROC: (CPT 19301; principal; 2022-03-28 12:00)
PROC: (CPT 19301; 2022-03-28 12:00)
DX: C50.912 Malignant neoplasm of unspecified site of left female breast (principal); D05.12 Intraductal carcinoma in situ of left breast
CPT/HCPCS: 19301; 38505; 78195; 88307; 88329; 88341; 88342; A9520; J0690; J3010

== ENCOUNTER → 2022-04-05 14:33 | Outpatient (BNVA) | payer MEDICAID, SELFPAY | PROVIDERS: Visit Provider Surgery | DX: Z13.89 Encounter for screening for other disorder (principal) ==

== ENCOUNTER 2022-04-12 13:53 | Outpatient (REF) | payer MEDICAID, SELFPAY ==
--- NOTE | ~2022-04-12 | PE_ITS ---
EXAMINATION: Fluorine-18 FDG PET/CT Scan CLINICAL INDICATION: Initial treatment management. Advanced colorectal cancer and left breast ca. PROCEDURE: 63 minutes following the intravenous administration of 15.8 mCi of fluorine 18 FDG, images from the base of the skull to the mid thighs were obtained using a combined PET/CT scanner with CT scan based attenuation correction. No oral contrast was administered. No intravenous contrast was administered. Transverse, coronal, sagittal, and volume reconstruction projections were obtained. The patient's blood glucose as determined by a finger stick, was 94 mg/dl immediately prior to injection. Total CT exam dose-length product 391.42 mGy-cm * These CT images were obtained using dose optimization techniques as appropriate, variously including the following: Automated exposure control * Adjustment of mA and/or kV according to patient size (this includes techniques or standardized protocols for targeted exams where dose is matched to indication/reason for exam; i.e. extremities or head) * Use of iterative reconstruction technique COMPARISON: No previous PET/CT scan is available for comparison. CT scans of the abdomen and pelvis dated 02/19/2022 and of the chest dated 02/18/2022 are available for comparison. FINDINGS: (Slice numbers described in this report are numbered superiorly to inferiorly with slice #1 in the head) NECK AND VISUALIZED HEAD: No foci of abnormal FDG activity are noted. The distribution of FDG activity is physiological. There is no cervical lymphadenopathy. THORAX: There are no foci of abnormal FDG activity. No pulmonary nodules are visualized. There is no pleural or pericardial fluid or pneumothorax. There is no mediastinal, supraclavicular, or axillary lymphadenopathy. There is mildly increased FDG activity associated with soft tissue density in the medial aspect of the left breast. There are multiple metallic surgical clips in this region and there is also now some associated skin thickening which is FDG avid. This shows SUVmax 2.9, slice 91/223. As previously noted there is no left axillary lymphadenopathy. ABDOMEN AND PELVIS: Multiple moderately to markedly intense foci of abnormal FDG activity are present throughout the liver. The most intense of these is in the medial aspect of liver Couinaud segment 7 showing SUVmax 14.0, slice 102/233 an corresponding to a hypodensity on the CT images measuring 2.8 x 1.6 cm in largest transverse dimensions, and approximately 2.9 cm cephalocaudad. Although multiple FDG avid lesions are present throughout the remainder the liver, the next most intensely FDG avid focus is in liver Couinaud segment a showing SUVmax 9.0, slice 112/223. There is only a subtle hypodensity visible at this site on these nondiagnostic CT images and this is not well enough delineated to measure. Innumerable additional FDG avid foci throughout both lobes of the liver are present and most of these are associated with subtle hypodensities on these nondiagnostic CT images performed without intravenous contrast. None of these lesions were present, even on retrospective review on the diagnostic IV contrast enhanced CT scan of the abdomen and pelvis dated 02/19/2022. There are multiple metallic suture lines in the right colon with no associated suspicious FDG activity. There is also a metallic suture abutting the posterior wall of the gallbladder, and the gallbladder appears much smaller in size than on the 02/19/2022 CT scan. No gallbladder abnormalities are present. This also shows no abnormal FDG activity. These sutures are all new since the 02/19/2022 CT scan. There is mild FDG activity present throughout the remainder the gastrointestinal tract that is likely physiological, but a discrete focus of more prominently increased FDG activity is present in the right lower quadrant, probably in a loop of distal ileum that shows SUVmax 5.7, slice 165/223 and may be associated with some soft tissue density on the CT images at this site. The spleen, kidneys, adrenal glands and pancreas are unremarkable.. There is no retroperitoneal, mesenteric, pelvic or inguinal lymphadenopathy. Postsurgical changes in the midline periumbilical anterior abdominal wall including several metallic surgical clips or sutures with mild associated FDG activity are noted. The FDG activity likely represents mild postsurgical inflammatory changes. The pelvic organs are unremarkable. MUSCULOSKELETAL: There are no foci of abnormal FDG activity in the osseous structures. There is a mild thoracolumbar scoliosis with lumbar convexity to the left. An L3 compression deformity is unchanged from the 02/19/2022 study and shows no abnormal FDG activity and is likely chronic. There are degenerative changes in the spine. There are no suspicious sclerotic or lytic lesions present. VASCULAR: Vascular calcifications including coronary are noted. PET/PET CT fusion skull to thigh IMPRESSION: 1. Extensive FDG avid metastases to the liver are present as described above. Even in retrospect, none of these were present on the 02/19/2022 CT scan. On the current study performed without intravenous contrast almost all of these are associated with CT hypodensities, and even in retrospect none were present on the prior diagnostic 02/19/2022 CT scan performed with intravenous contrast. 2. Mild FDG activity in the left breast is noted as described above. While active malignancy cannot be ruled out, this mild diffuse activity may represent postsurgical inflammatory changes. 3. A discrete focus of FDG activity possibly associated with soft tissue density in the right lower quadrant, probably in the distal ileum, is noted as described above. This may represent an additional malignant focus at this site. 4. No additional abnormalities strongly suspicious for other metastatic or malignant lesions are noted. 5. Vascular calcifications including coronary.
== END 2022-04-12 13:54 | disposition home or self-care (01) ==
LOC: HO.PET 13:53
PROVIDERS: Visit Provider Internal Medicine
DX: Z13.89 Encounter for screening for other disorder (principal)

== ENCOUNTER 2022-04-26 11:43 | Day surgery (SDC) | payer MEDICAID, SELFPAY ==
[2022-04-26] VITALS (7 sets, daily range): BP systolic 122–143; BP diastolic 76–93; PULSE 72–81; RESP 16–18; TEMP 36.3–36.5; O2SAT 94–97; BMI 29.7
--- NOTE | ~2022-04-26 | CT_ITS ---
PROCEDURE: CT GUIDED BIOPSY, LIVER CLINICAL INFORMATION: Breast cancer. Multiple liver lesions, question metastatic. COMPARISON: PET/CT 04/12/2022. TECHNIQUE: Following explaining ultrasound-guided CT fluoroscopy-guided right hepatic lobe core biopsy procedure, benefits and risks, a written consent was obtained through a [employer] beef lugger system. Patient was then placed supine on CT fluoroscopy table and preliminary CT imaging was obtained through the upper abdomen. An optimal site was selected along the right lateral abdomen and marked. The marked site was cleaned and draped in usual sterile manner. 1% lidocaine was injected at puncture site. Through a small skin incision an 18-gauge guide needle was advanced approximately 6 cm deep in the right hepatic lobe. Coaxially a 2 pass core biopsy was performed. Postprocedure there was no bleeding observed. The guide needle was removed and complete hemostasis achieved at puncture site. Patient tolerated procedure extremely well. Simple Band-Aid applied at puncture site. Conscious sedation was utilized during the exam and patient monitored for [address] examination was performed using dose optimization techniques as appropriate, variously including the following: *Automated exposure control *Adjustment of mA and/or kV according to patient size (this includes techniques or standardized protocols for targeted exams where dose is matched to indication/reason for exam; i.e. extremities or head) *Use of iterative reconstruction technique DLP: 234 mGy-cm FINDINGS: On non-contrast preliminary CT imaging there are multiple hypodense liver lesions throughout right and left hepatic lobe. An optimal lesion along the right hepatic lobe was selected and marked on the skin, followed by 2 core biopsies. Patient had no complaints postbiopsy. CT/CT biopsy liver IMPRESSION: Successful CT fluoroscopy-guided right hepatic lobe mass core biopsy performed with 18-gauge needle. Preliminary CT revealed multiple hypodense liver lesions seen corresponding to earlier CT/PET study from 04/12/2022.
[2022-04-26 12:53] LABS: COVID-19 Test Negative (Negative); IDNOW Serial# 16C4AD1C
== END 2022-04-26 16:55 | disposition home or self-care (01) ==
PROVIDERS: Anesthesiology; Radiology Diagnostic Radiology; Visit Provider Internal Medicine
DX: C50.912 Malignant neoplasm of unspecified site of left female breast (principal); Z17.0 Estrogen receptor positive status [ER+]; C7A.1 Malignant poorly differentiated neuroendocrine tumors; C77.9 Secondary and unspecified malignant neoplasm of lymph node, unspecified; Z80.0 Family history of malignant neoplasm of digestive organs; I10 Essential (primary) hypertension; Z90.49 Acquired absence of other specified parts of digestive tract; Z20.822 Contact with and (suspected) exposure to COVID-19
CPT/HCPCS: 47000; 77012; 87635; 88307; 88333; 88341; 88342; 88360; 99152; J2250; J3010

== ENCOUNTER → 2022-04-29 13:10 | Outpatient (BNVA) | payer MEDICAID, SELFPAY | PROVIDERS: Visit Provider Surgery | DX: Z13.89 Encounter for screening for other disorder (principal) ==

== ENCOUNTER 2022-05-10 13:26 | Outpatient (REF) | payer MEDICAID, SELFPAY ==
[2022-05-11 04:21] LABS: HBS Num1 239.39 mIU/mL (0-7.99); HBsAGNum1 0.29 S/CO (0.00-0.99); HIV AB/AG Nonreactive (Nonreactive); HIV Num 1 0.06 S/CO (0.00-0.99); Hepatitis B Surface Antigen Negative (Negative); ~Hepatitis B Surface Antibody REACTIVE (Nonreactive)
[2022-05-11 04:59] LABS: HBc Num2 6.59 S/CO; HBc Num3 6.45 S/CO; Hepatitis B Core Antibody Reactive (Nonreactive)
[2022-05-12 11:48] LABS: Hepatitis B Viral DNA Qn - cp <1.00 NOT DETECTED Log IU/mL (NOT DETECTED); Hepatitis B Viral DNA Qn-IU/mL <10 NOT DETECTED IU/mL (NOT DETECTED)
[2022-05-12 22:03] LABS: Hepatitis BE Antibody NON-REACTIVE (NON-REACTIVE)
[2022-05-12 22:39] LABS: Hepatitis BE Antigen NON-REACTIVE (NON-REACTIVE)
[2022-05-22 10:54] LABS: Hepatitis Delta Antibody NEGATIVE
== END 2022-05-10 13:27 | disposition home or self-care (01) ==
LOC: HO.LAB 13:26
PROVIDERS: Visit Provider Internal Medicine
DX: R76.8 Other specified abnormal immunological findings in serum (principal); R79.89 Other specified abnormal findings of blood chemistry; C7A.1 Malignant poorly differentiated neuroendocrine tumors; C50.912 Malignant neoplasm of unspecified site of left female breast; C78.7 Secondary malignant neoplasm of liver and intrahepatic bile duct
CPT/HCPCS: 36415; 86692; 86704; 86706; 86707; 87340; 87350; 87389; 87517; 99212

== ENCOUNTER 2022-05-12 07:00 | Day surgery (SDC) | payer MEDICAID, SELFPAY ==
--- NOTE | ~2022-05-12 | IR_ITS ---
PROCEDURE: IR INSERTION OF TUNNEL CATHETER CLINICAL INFORMATION: Patient needs venous access for chemotherapy. COMPARISON: None available. TECHNIQUE: Port catheter placement with fluoroscopic and ultrasound guidance. All elements of maximal sterile barrier technique followed including use of cap, mask, sterile gown, sterile gloves, a sterile full body drape and hand hygiene. Also followed skin preparation with 2% chlorhexidine for cutaneous antisepsis, and sterile ultrasound preparation with sterile gel and probe cover when applicable. FINDINGS: Informed consent was obtained from the patient prior to the procedure. During this process, the procedure and potential alternatives were explained, along with the intended outcome and benefits. The risks of the procedure, as well as the risk of not doing the procedure, were discussed. The patient was given the opportunity to ask questions regarding the procedure and appeared competent to make medical decisions. A signed consent form which documents this discussion was placed in the medical record. The patient was brought to the interventional radiology suite and a final Timeout procedure was performed. IV moderate sedation was induced under my direction and supervision. The patient was continuously monitored by a registered nurse. At no time was there evidence of instability. Sedation time was 65 minutes. A sonographic survey was performed of the right neck for determination of venous access. The right internal jugular vein was confirmed to be patent. A sonographic image was sent to PACS for documentation. Using sterile technique and ultrasound guidance the right internal jugular vein was punctured with guidewire and catheter directed into the superior vena cava. The inner portion of the catheter was then removed and a 0.035 guidewire was placed with its tip in the inferior vena cava. Attention was now turned to creating a port pocket in the anterior chest wall. After lidocaine administration a scalpel incision was made and the port pocket blunt dissected out. The 6.6 Arabic port catheter was then tunneled from the port pocket to the internal jugular access site and placed through a peel-away sheath with its tip lying within the superior right atrium. The catheter was then cut to size and attached to the port reservoir which was then sutured into the port pocket with 2-0 Prolene sutures. The port reservoir was then accessed and flushed and then heparinized with Hep-Lock solution. The port pocket was closed with a running 4-0 subcuticular stitch with absorbable suture. The internal jugular puncture site and port site were then closed with tissue adhesive. The patient tolerated the procedure without difficulty. IR/IR cvc insert tunnel w prt/rn mental health IMPRESSION: Placement of right internal jugular port catheter as described. Catheter length is 23 cm. FLUOROSCOPY TIME: 0.9 minutes DAP: 245 cGy-cm2
[2022-05-12 07:30] LABS: MANUAL DIFF FLAG NO
[2022-05-12 07:33] LABS: Basophils Percent Auto 0.6 % (0-2); Eosinophils Absolute Auto 0.1 X10*3/uL (0.0-0.4); Eosinophils Percent Auto 0.8 % (0-4); Hematocrit 37.1 % (37.0-47.0); Hemoglobin 12.1 g/dl (12.0-16.0); Imm Gran Abs Auto 0.05 X10*3/uL (0.00-0.03); Imm Gran Pct Auto 0.7 % (0.0-0.4); Lymphocytes Percent Auto 28.2 % (20-40); Mean Corpuscular HGB Conc 32.6 g/dl (31.0-35.0); Mean Corpuscular Hemoglobin 27.9 pg (27.0-33.0); Mean Corpuscular Volume 85.5 fL (80.0-98.0); Mean Platelet Volume 8.7 fL (9.4-12.3); Monocytes Absolute Auto 0.4 X10*3/uL (0.1-1.2); Monocytes Percent Auto 5.9 % (2-11); Neutrophils Absolute Auto 4.5 x10*3/uL (2.0-8.3); Neutrophils Percent Auto 63.8 % (45-73); Platelet Count 181 X10*3/uL (160-400); Red Blood Count 4.34 X10*6/uL (4.20-5.50); Red Cell Distribution Width 13.9 % (11.0-16.0); White Blood Count 7.1 X10*3/uL (4.8-10.8)
[2022-05-12 07:41] LABS: INTERNATIONAL NORM RATIO 0.9 (0.9-1.1); Prothrombin Time 10.2 SEC (10.0-13.1)
[2022-05-12 07:43] LABS: Partial Thromboplastin Time 29.7 SEC (26.0-36.4)
[2022-05-12 07:44] VITALS: BMI 29.7
[2022-05-12 07:45] VITALS: BP 120/78; PULSE 84; RESP 18; TEMP 36.1; O2SAT 97
[2022-05-12 07:49] LABS: Anion Gap 16 (12-20); Blood Urea Nitrogen 15 mg/dL (9-16); Carbon Dioxide 23 mmol/L (22-29); Chloride 106 mmol/L (96-108); Creatinine Clr Calc Pharmacy 71.8; Estimated Glomerular Filt Rate > 60; Potassium 3.9 mmol/L (3.3-5.1); Sodium 141 mmol/L (135-145)
[2022-05-12 10:55] VITALS: BP 128/79; PULSE 85; RESP 16; TEMP 36.9; O2SAT 95
[2022-05-12 11:10] VITALS: BP 111/79; PULSE 86; RESP 16; O2SAT 95
[2022-05-12 11:25] VITALS: BP 118/70; PULSE 83; RESP 16; O2SAT 96
[2022-05-12 11:40] VITALS: BP 115/64; PULSE 88; RESP 16; O2SAT 95
[2022-05-12 11:55] VITALS: BP 121/69; PULSE 87; RESP 16; TEMP 37.3; O2SAT 96
== END 2022-05-12 12:12 | disposition home or self-care (01) ==
PROVIDERS: Radiology Diagnostic Radiology; Visit Provider Internal Medicine
DX: Z45.2 Encounter for adjustment and management of vascular access device (principal); C50.912 Malignant neoplasm of unspecified site of left female breast; Z17.0 Estrogen receptor positive status [ER+]; Z80.0 Family history of malignant neoplasm of digestive organs; I10 Essential (primary) hypertension; Z90.49 Acquired absence of other specified parts of digestive tract
CPT/HCPCS: 36415; 36561; 80051; 82565; 84520; 85025; 85610; 85730; 99152; 99153; C1769; C1788; J0690; J1642; J2250; J3010

== ENCOUNTER 2022-05-17 09:33 | Outpatient (REF) | payer MEDICAID, SELFPAY ==
--- NOTE | ~2022-05-17 | XR_ITS ---
EXAMINATION: XR HAND, LEFT CLINICAL INFORMATION: Pain COMPARISON: None available at the time of this dictation. TECHNIQUE: 4 views of the hand were obtained. FINDINGS: There is no fracture or dislocation. Mild degenerative osteoarthritic changes involving interphalangeal joints of all fingers. Radiocarpal, intercarpal, carpometacarpal, metacarpophalangeal and interphalangeal joints are intact. There are no osteolytic or osteoblastic lesions. There are no bone erosions. Surrounding soft tissue unremarkable. XR/XR hand LT min 3V IMPRESSION: * Mild degenerative osteoarthritis. * No radiographic evidence of bone erosions.
== END 2022-05-17 09:34 | disposition home or self-care (01) ==
LOC: HO.HOSX 09:33
PROVIDERS: Visit Provider Orthopaedic Surgery
DX: M79.642 Pain in left hand (principal); M79.89 Other specified soft tissue disorders
CPT/HCPCS: 73130; 99202

== ENCOUNTER 2022-06-07 16:54 | Outpatient (REF) | payer MEDICAID, SELFPAY ==
--- NOTE | ~2022-06-07 | MR_ITS ---
EXAMINATION: MR HAND WITHOUT AND WITH CONTRAST, LEFT CLINICAL INFORMATION: Left thumb soft tissue mass. Slowly enlarging over time. COMPARISON: Left hand radiographs dated 05/17/2022. TECHNIQUE: Multisequence MR imaging of the left hand was obtained before and after the IV administration of 7.5 mL Gadavist contrast on a high-field strength scanner. FINDINGS: BONE: No abnormal marrow signal. No acute fracture or dislocation. Intact articular cartilage. No concerning lytic or blastic osseous lesion. No postcontrast marrow enhancement. MUSCLES/TENDONS: No muscle or tendon tear. Trace fluid within the 2nd, 3rd, and 4th flexor digitorum tendon sheaths, which may represent normal variation versus minimal tenosynovitis. LIGAMENTS: Intact collateral ligaments. SOFT TISSUES: Along the medial aspect of the 1st proximal phalanx, there is an encapsulated fat signal focus measuring up to 2.9 x 2.1 x 2.6 cm (AP by ML by CC). This appears superficial to the flexor tendon and within the subcutaneous tissues. There is no soft tissue component or septation. No significant postcontrast enhancement. 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 MR/MR hand LT wo/w con IMPRESSION: 1. Encapsulated fat signal focus along the medial aspect of the first proximal phalanx measuring up to 2.9 cm. No soft tissue component, septation, or postcontrast enhancement. 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 2. Trace fluid within the 2nd, 3rd and 4th flexor digitorum tendon sheaths, which may represent normal variation versus minimal tenosynovitis.
== END 2022-06-07 16:55 | disposition home or self-care (01) ==
LOC: HO.MRI 16:54
PROVIDERS: Visit Provider Orthopaedic Surgery
DX: M79.89 Other specified soft tissue disorders (principal)
CPT/HCPCS: 73220; A9585

== ENCOUNTER 2022-06-21 10:23 | Outpatient (REF) | payer MEDICAID, SELFPAY ==
--- NOTE | ~2022-06-21 | PE_ITS ---
EXAMINATION: Fluorine-18 FDG PET/CT Scan CLINICAL INDICATION: Subsequent treatment management. Advanced colorectal cancer with left breast cancer, evaluate response to therapy. PROCEDURE: 60 minutes following the intravenous administration of 16 mCi of fluorine 18 FDG, images from the base of the skull to the mid thighs were obtained using a combined PET/CT scanner with CT scan based attenuation correction. No oral contrast was administered. No intravenous contrast was administered. Transverse, coronal, sagittal, and volume reconstruction projections were obtained. The patient's blood glucose as determined by a finger stick, was 107 mg/dl immediately prior to injection. Total CT exam dose-length product 391.42 mGy-cm * These CT images were obtained using dose optimization techniques as appropriate, variously including the following: Automated exposure control * Adjustment of mA and/or kV according to patient size (this includes techniques or standardized protocols for targeted exams where dose is matched to indication/reason for exam; i.e. extremities or head) * Use of iterative reconstruction technique COMPARISON: The previous PET CT scan dated 04/12/2022 is available for comparison. MRI of the left hand dated 06/07/2022 is available for comparison. FINDINGS: (Slice numbers described in this report are numbered superiorly to inferiorly with slice #1 in the head) NECK AND VISUALIZED HEAD: There are few bilateral subcentimeter weakly FDG avid cervical lymph nodes now present in this weak FDG activity is new since 04/12/2022. [employer] is a right cervical level 5B (supraclavicular lymph node showing SUV Max 2.3, slice 52/267 corresponding to a lymph node that measures 1.1 x 0.[address]. A few additional subcentimeter cervical level IIa and IIb lymph nodes are not enlarged and are too small to be characterized on the FDG PET images. THORAX: New FDG avid foci are present at several sites, the largest and most intensely FDG avid is a cluster of right lower paratracheal lymph nodes the most intense showing SUVmax 4.8, slice 71/267 and the confluent soft tissue densities at this site measuring approximately 2.8 x 1.5 cm in largest transverse dimensions. There is a right subclavian lymph node that shows SUVmax 3.8, slice 83/267 measuring approximately 1.4 x 0.7 cm in largest transverse dimensions. An additional subcentimeter FDG avid lymph node is present in the AP window showing SUVmax 3.4, slice 70/267. None of these were present on the prior 04/12/[address] scan. There is weak FDG activity in the region of multiple surgical clips in the medial aspect of the left breast showing SUVmax 2.0, slice 99/267. This is less intense than on the previous study when this showed SUVmax 2.9. There are no foci of abnormal FDG activity in the lung parenchyma. No suspicious pulmonary nodules are visualized. There is no pleural or pericardial fluid, or pneumothorax. A right-sided chest port with internal jugular catheter terminating in the superior vena cava is noted and this is new since the prior 04/12/[address] scan. ABDOMEN AND PELVIS: Multiple FDG avid hypodensities are present in the liver with a changing pattern since 04/12/2022. Many of the previously FDG avid lesions have markedly diminished an FDG avidity or resolved. [employer] of improvement is a focus in liver Couinaud segment 5 which shows SUVmax 4.1, slice 127/267, previously showing SUVmax 9.0, and a focus in liver Couinaud segment 6 now showing SUVmax 3.0 versus SUVmax 7.7 previously. While multiple additional FDG avid foci previously present have also improved, the most intense focus present on the previous study, in the medial aspect of liver Couinaud segment 7 has enlarged with stable FDG intensity, now showing SUVmax 13.9, versus SUVmax 14.0 previously. This now measures 4.8 x 2.4 cm in largest transverse dimensions and approximately 4.1 cm cephalocaudad versus 2.8 x 1.6 cm transverse and 2.9 cm cephalocaudad. There is an additional more intensely FDG avid focus in liver Couinaud segment 3 no showing SUVmax 7.1 versus SUVmax 2.5, measured in retrospect on the prior study. In the right lower quadrant there are FDG avid foci associated with the distal ileum just proximal to the ileocecal valve and inferior to a suture line in the cecal region which are more intense than FDG activity present in this region on the prior study, now showing SUVmax 8.3, slice 169/267 versus SUVmax 5.7 in this region previously. There is no definite abnormal FDG activity associated with the cecal suture line, with mild FDG activity in this region similar to diffuse FDG activity throughout the gastrointestinal tract which is probably physiological. There is a new FDG avid subcentimeter retroperitoneal lymph node at the L2 level showing SUVmax 3.5 an additional new FDG avid left para-aortic retroperitoneal lymph node shows SUVmax 3.9, slice 137/267 at the level of the L1-L2 disc space.. There is a mildly FDG avid soft tissue density abutting the posterior aspect of the uterus, slice 189/267, not previously present. No additional retroperitoneal, mesenteric, pelvic or inguinal lymphadenopathy is present. The gallbladder, spleen, kidneys, adrenal glands and pancreas appear unremarkable. Metallic periumbilical clips in the anterior muscular abdominal wall show no associated abnormal FDG activity and weak FDG activity associated with the adjacent subcutaneous surgical incision is no longer present. MUSCULOSKELETAL: There are no foci of abnormal FDG activity in the osseous structures. There is a minimal thoracolumbar scoliosis with lumbar convexity to the left. L3 compression deformity is unchanged from the prior study and shows no abnormal FDG activity. There are degenerative changes diffusely in the spine but no suspicious sclerotic or lytic lesions are present. A lipoma in the first digit of the left hand visualized on the recent 06/07/2022 MRI is visualized as a hypodensity on the CT images and shows no abnormal FDG activity. VASCULAR: Scattered vascular calcifications including some coronary are noted. PET/PET CT fusion skull to thigh IMPRESSION: 1. There is a changing pattern of FDG avid hepatic metastases, with many showing significant improvement since the prior 04/12/[address] scan, but with a few showing enlargement or increasing FDG avidity. The findings are consistent with a mixed response to therapy. 2. New FDG avid mediastinal lymphadenopathy is present and is likely evidence of progressive metastatic disease. 3. A few subcentimeter FDG avid cervical lymph nodes and several retroperitoneal and pelvic FDG avid lymph nodes are present, all new since the prior study and additional evidence suggesting progressive metastatic disease. 4. There has been a significant increase in the intensity of FDG avid foci in the distal ileum, with minimal CT findings but which also are suspicious for progressive malignant disease. 5. There has been an improvement in FDG avidity of previously described FDG avid uptake in the left breast most consistent with a partial metabolic response to therapy of these foci. 6. Scattered vascular calcifications including coronary.
== END 2022-06-21 10:24 | disposition home or self-care (01) ==
LOC: HO.PET 10:23
PROVIDERS: Visit Provider Internal Medicine
DX: Z13.89 Encounter for screening for other disorder (principal)

== ENCOUNTER → 2022-07-12 14:09 | Outpatient (BNVA) | payer MEDICAID, SELFPAY | PROVIDERS: Visit Provider Orthopaedic Surgery | DX: M79.89 Other specified soft tissue disorders (principal) | CPT/HCPCS: 99212 ==

== ENCOUNTER 2022-08-02 09:24 | Emergency (ER) | payer MEDICAID, SELFPAY ==
--- NOTE | ~2022-08-02 | US_ITS ---
EXAMINATION: US VENOUS ULTRASOUND WITH DOPPLER LOWER EXTREMITY, LEFT CLINICAL INFORMATION: Left lower extremity pain and swelling. COMPARISON: None available. TECHNIQUE: Ultrasound of the deep veins is performed from the hip to the calf with compression sonography and color and pulse Doppler assessment. Spectral analysis with color-flow imaging is performed. FINDINGS: Positive deep venous thrombosis is seen in the left common femoral, profunda femoral, femoral and popliteal veins. The left posterior tibial vein was partially visualized and appears patent. The left peroneal vein was suboptimally evaluated. Positive superficial thrombus is seen in the left greater saphenous vein. No left popliteal cyst. The subcutaneous soft tissues are unremarkable. US/US venous duplex LE IMPRESSION: 1. Positive deep venous thrombosis in the left lower extremity as detailed above. 2. Positive superficial thrombus in the left greater saphenous vein.
--- NOTE | ~2022-08-02 | CT_ITS ---
EXAMINATION: CT HEAD WITHOUT CONTRAST CLINICAL INFORMATION: Syncope, possible metastases to brain. History of advanced colorectal and left breast cancer. COMPARISON: None available. TECHNIQUE: Contiguous axial imaging was performed from the skull base to vertex without intravenous administration of contrast. This CT examination was performed using dose optimization techniques as appropriate, variously including the following: *Automated exposure control *Adjustment of mA and/or kV according to patient size (this includes techniques or standardized protocols for targeted exams where dose is matched to indication/reason for exam; i.e. extremities or head) *Use of iterative reconstruction technique DLP: 674.22 mGy-cm FINDINGS: The cortical sulci are normal. The lateral ventricles are symmetrical. The third and fourth ventricles are in their normal midline position. The basilar and prepontine cisterns are unremarkable. There is no acute intra or extracerebral abnormality. There is no mass effect or midline shift. Sections through the bony calvarium are unremarkable. The paranasal sinuses are clear. The bony orbits and orbital contents are unremarkable. Incidental asymmetric hypoaeration of the right mastoid process without abnormality. CT/CT head/brain wo IV con IMPRESSION: No acute intracranial pathology. No overt evidence for metastatic disease.
--- NOTE | ~2022-08-02 | CT_ITS ---
EXAMINATION: CT ANGIOGRAM OF THE CHEST WITH AND WITHOUT CONTRAST (CT PULMONARY ANGIOGRAM FOR PE) CLINICAL INFORMATION: Syncope, concern for VTE -history of advanced colorectal cancer and left breast cancer. COMPARISON: PET/CT scan dated 06/21/2022. TECHNIQUE: Prior to contrast administration, noncontrast localization images were obtained. Subsequently, multidetector volumetric imaging was performed from the thoracic inlet to below the diaphragms following the administration of 65 mL Omnipaque 350 intravenous contrast. No contrast reaction reported Sagittal, coronal, and MIP oblique sagittal reformatted images were obtained on the CT workstation, uploaded to PACS, and reviewed. This CT examination was performed using dose optimization techniques as appropriate, variously including the following: *Automated exposure control *Adjustment of mA and/or kV according to patient size (this includes techniques or standardized protocols for targeted exams where dose is matched to indication/reason for exam; i.e. extremities or head) *Use of iterative reconstruction technique Total exam dose-length product 328 mGy-cm FINDINGS: QUALITY OF STUDY/CONTRAST BOLUS: Satisfactory. Mild motion artifact limits evaluation. PULMONARY ARTERIES: No pulmonary emboli. THORACIC AORTA: No aneurysm. LUNGS/PLEURA/AIRWAYS: No focal consolidation, nodules or masses. MEDIASTINUM: Normal heart size. No pericardial effusion. No evidence of septal bowing or right heart strain. Mildly enlarged right hilar and mediastinal lymph nodes are seen. A branch customer service representative right precarinal lymph node measures 1.4 cm in short axis (image 18, series 16). A branch customer service representative right hilar lymph node measures 1.0 cm in short axis (image 11, series 18). CORONARY ARTERY CALCIFICATION: Mild. CHEST WALL/AXILLA: No axillary or internal mammary lymphadenopathy. Left breast with surgical changes. OSSEOUS STRUCTURES: No acute or suspicious osseous abnormality. UPPER ABDOMEN: Multiple low-attenuation areas most pronounced medially in the right lobe. No reflux of contrast into the hepatic veins to suggest elevated right heart pressures. CT/CT angio chest PE protocol IMPRESSION: 1. No evidence for pulmonary embolism. 2. No acute cardiopulmonary process. No significant/suspicious pulmonary nodules. 3. Known mediastinal/hilar lymph nodes and hepatic lesions better characterized on the previous PET CT scan. VTE: Negative.
[2022-08-02 09:28] VITALS: BP 111/78; PULSE 88; RESP 18; TEMP 37; O2SAT 95; BMI 34.9
--- NOTE | 2022-08-02 09:28 | ECG_ITS ---
Test Reason : syncope Blood Pressure : / mmHG Vent. Rate : 082 BPM Atrial Rate : 082 BPM P-R Int : 144 ms QRS Dur : 074 ms QT Int : 374 ms P-R-T Axes : 035 012 022 degrees QTc Int : 436 ms Normal sinus rhythm Normal ECG When compared with ECG of 13-APR-2022 13:34, No significant change was found Referred By: Chrissy Allison Electronically Signed By:Ishaan Rich
--- NOTE | 2022-08-02 09:33 | ED.SYNCOPE ---
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 Currently still undergoing treatment looks like last session was 07/27. her daughter notes L leg swelling and pain starting Monday that has gotten worse she is not on thinners and then on the way to her oncology appointment today had syncopal event with bout of n/v after that woke up and patient returned to baseline, no seizure activity and the patient denies CP/SOB. MD complaint: loss of consciousness Onset (ago): minute(s) (prior to arrival ) -: second(s) Description of event: incontinence Prodromal symptoms: nausea/vomiting Witnessed: Yes - by Bystander (daughter) Context: at rest Injuries sustained associated with event: none Current symptoms: back to baseline History: other (recent L leg swelling and pain starting this ) Treatments prior to arrival: none Related Data Home Medications Medication Instructions Recorded Confirmed oxycodone 5 mg tablet 5 mg PO Q6H PRN pain 04/21/22 07/27/22 ondansetron 8 mg disintegrating 8 mg PO Q8H PRN nausea 07/27/22 07/27/22 tablet Previous Rx's Medication Instructions Recorded amlodipine 5 mg tablet 5 mg PO DAILY #60 tabs 04/28/22 tenofovir alafenamide 25 mg tablet 25 mg PO DAILY #90 tabs 05/10/22 letrozole 2.5 mg tablet 2.5 mg PO DAILY #30 tabs 05/20/22 sennosides 8.6 mg-docusate sodium 1 tab-cap PO BEDTIME #30 tabs 06/10/22 50 mg tablet (Senna with Docusate Sodium) apixaban 5 mg (74 tabs) tablets in 5 mg PO BID #74 ea 08/02/22 a dose pack (Eliquis DVT-PE Treat 30D Start) Allergies Allergy/AdvReac Type Severity Reaction Status Date / Time No Known Allergies Allergy Verified 07/12/22 14:49 Review of Systems Review of Systems: Constitutional : No Fever, No Chills, No Fatigue ENT/Mouth : No sore throat, No Rhinorrhea Eyes: No Eye Pain, No Swelling, No Redness Cardiovascular : No Chest Pain, No SOB, No Dyspnea on Exertion, pos leg pain pos edema Respiratory : No Cough, No Sputum Gastrointestinal : No Nausea, No Vomiting, No Diarrhea, No abdominal Pain Genitourinary : No Dysuria, No Urinary Frequency, No Hematuria, Musculoskeletal : No joint pain, No Myalgias, No Joint Swelling Skin : No Skin Lesions, No rash Neuro : No Weakness, No Numbness, No Dizziness, no Headache Psych : No Anxiety/Panic, No Depression Heme/Lymph: No Bruising, No Bleeding,No Lymphadenopathy Endocrine : No Polyuria, No Polydipsia All other systems reviewed and are negative PMFSH Past Medical History Attestation statement: The following information was validated with the patient. Source: old records reviewed Medical History (Updated 08/02/22 @ 15:04 by Chrissy Allison DO) HTN (hypertension) Invasive ductal carcinoma of left breast Liver metastases Neuroendocrine neoplasm of colon Surgical History (Updated 08/02/22 @ 09:41 by Chrissy Allison DO) History of lumpectomy of left breast (03/28/22) History of right hemicolectomy S/P right hemicolectomy Family History Family History Father Liver cancer Social History Social History Household Members: Spouse Household Members Other:: Friend Housing: House Are you a primary medicare nurse to a significant other at home: No Do you presently have visiting nurse or other home services: No Alcohol intake: never Patient Tobacco Use Status: Never used Tobacco Smoked in Last 30 Days: No Second Hand Smoke Exposure: No Use of substances other than those prescribed or required for medical reasons: No Advance Directives: Yes Advance Directives on File: Yes Advance Directives Date on File: 03/03/22 service: No Current occupational status: unemployed Current occupation: right handed Physical Exam Vital Signs: Vital Signs: Last Vital Signs Temp 98.6 F 08/02/22 09:28 Pulse 94 08/02/22 14:39 Resp 19 08/02/22 14:39 BP 131/86 08/02/22 14:39 Pulse Ox 95 08/02/22 14:39 O2 Del Method Room Air 08/02/22 14:39 BMI result Body Mass Index 34.9 Appearance: Alert. Oriented X3. No acute distress. Eyes: Pupils equal, round and reactive to light. ENT: Pharynx normal. Neck: Normal inspection. Neck supple. CVS: Normal heart rate and rhythm. Pulses normal. Respiratory: No respiratory distress. Breath sounds normal. Abdomen: Soft and nontender. Skin: Skin warm and dry. Normal skin color. Normal skin turgor. Extremities: L leg no pitting edema but 2x larger than R with normal pulse has calf pain and pos homans sign no redness warmth to suggest edema - swelling goes from ankle to thigh Neuro: Oriented X 3. No motor deficit. No sensory deficit. Course Course Course Narrative: lactic acid due to dehydration and not infection or severe sepsis. I do not see saddle embolus I do not see CT ICH or lesions lovenox ordered I have asked that radiology read CT head 1215pm no PE reported, no signs of limb ischemia at this time. no contraindications to anticoagulation will start on eliquis I do not believe based off exam she needs catheter directed thrombus therapy lactic decreased no signs of infection, wants to eat, no seizure reported, has not been eating well possibly cause, no PE, trop flat x 2, no CP/SOB to suggest ACS. will ambulate and reassess. up and walking feels better normal VS, does have pain in leg but no severe pain, pulses inact sensation intact Medications Administered Discontinued Medications Generic Name Dose Route Start Last Admin Trade Name Freq PRN Reason Stop Dose Admin Apixaban 10 mg 08/02/22 13:04 08/02/22 13:36 Apixaban 5 Mg Tablet PO 08/02/22 13:05 10 mg ONCE ONE Administration Sodium Chloride 500 mls @ 500 mls/hr 08/02/22 11:00 08/02/22 13:00 Ns IV 08/02/22 11:59 Infused .Q1H SAMANTHA Infusion Ondansetron HCl 4 mg 08/02/22 13:15 08/02/22 13:36 Ondansetron Hcl 4 Mg/2 Ml Vial IVPUSH 08/02/22 13:16 4 mg ONCE ONE Administration Medical Decision Making Medical Decision Making [facility] Narrative: 66 yo female with PMH of 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 Currently still undergoing treatment looks like last session was 07/27 now here with L leg edema and swelling with syncopal episode concerning for PE. Daughter denies any issues with anticoagulation but both patient and daughter are terrible historians. I have ordered EKG, left leg US, PE study and CT head for mets - anticipate admission for anticoagulation in setting of VTE with syncope Differential Diagnosis Differential Diagnoses: The differential diagnosis associated with the presentation includes PE, ACS, DVT, dehydration, brain mets Admission/Observation Consideration of admission/observation: Escalation of care including admission/observation considered Consult Healthcare Provider Management of the patient was discussed with: Cath Lab Tech (discussed with oncology prior to arrival ) Lab Data [facility] Lab Attestation statement: I reviewed the patient's lab results. 08/02/22 10:24 08/02/22 10:24 Labs: Lab Results 08/02/22 08/02/22 08/02/22 Range/Units 10:24 10:24 10:24 WBC 3.3 L (4.8-10.8) X10*3/uL RBC 3.58 L (4.20-5.50) X10*6/uL Hgb 11.0 L (12.0-16.0) g/dl Hct 33.0 L (37.0-47.0) % MCV 92.2 (80.0-98.0) fL MCH 30.7 (27.0-33.0) pg MCHC 33.3 (31.0-35.0) g/dl RDW 15.9 (11.0-16.0) % Plt Count 180 D (160-400) X10*3/uL MPV 8.7 L (9.4-12.3) fL Immature Gran % (Auto) 0.9 H (0.0-0.4) % Neut % (Auto) 65.9 (45-73) % Lymph % (Auto) 25.8 (20-40) % Nicholas % (Auto) 6.5 (2-11) % Eos % (Auto) 0.3 (0-4) % Baso % (Auto) 0.6 (0-2) % Lymph # (Auto) 0.8 L (1.2-4.9) X10*3/uL Nicholas # (Auto) 0.2 (0.1-1.2) X10*3/uL Eos # (Auto) 0.0 (0.0-0.4) X10*3/uL Baso # (Auto) 0.0 (0.0-0.2) X10*3/uL Abs Immat Gran (auto) 0.03 (0.00-0.03) X10*3/uL Absolute Neuts (auto) 2.1 (2.0-8.3) x10*3/uL Absolute Nucleated RBC 0.000 (0.0-0.012) X10*3/uL Nucleated RBC % (auto) 0.0 (0.0-0.2) /100WBC PT (10.0-13.1) SEC INR (0.9-1.1) Sodium 139 (135-145) mmol/L Potassium 3.4 (3.3-5.1) mmol/L Chloride 105 (96-108) mmol/L Carbon Dioxide 25 (22-29) mmol/L Anion Gap 12 (12-20) BUN 16 (9-16) mg/dL Creatinine 0.68 (0.5-1.4) mg/dL Estim Creat Clear Calc 71.7 Estimated GFR > 60 Random Glucose 111 (60-115) mg/dL Lactic Acid (0.5-2.0) mmol/L Lactic Acid F/U @ 2Hr (0.5-2.0) mmol/L Calcium 7.9 L D (8.4-10.2) mg/dL Magnesium 2.1 (1.6-2.6) mg/dL Total Bilirubin 0.6 (0.0-1.0) mg/dL Direct Bilirubin 0.2 (0.0-0.5) mg/dL AST 58 H (5-31) U/L ALT 78 H (0-31) U/L Alkaline Phosphatase 181 H (39-117) U/L Troponin I High Sens (<3.5-17.0) ng/L B-Natriuretic Peptide 11 (<100) pg/mL Total Protein 6.8 (6.5-8.0) g/dL Albumin 3.9 (3.5-5.0) g/dL Lipase 33 (8-78) U/L Urine Color Urine Appearance Urine pH (5.0-9.0) Ur Specific [place] (1.005-1.025) Urine Protein (Neg-Trace) mg/dL Urine Glucose (UA) (Negative) mg/dL Urine Ketones (Negative) mg/dL Urine Blood (Negative) Urine Nitrite (Negative) Ur Leukocyte Esterase (Negative) 08/02/22 08/02/22 08/02/22 Range/Units 10:24 10:24 10:24 WBC (4.8-10.8) X10*3/uL RBC (4.20-5.50) X10*6/uL Hgb (12.0-16.0) g/dl Hct (37.0-47.0) % MCV (80.0-98.0) fL MCH (27.0-33.0) pg MCHC (31.0-35.0) g/dl RDW (11.0-16.0) % Plt Count (160-400) X10*3/uL MPV (9.4-12.3) fL Immature Gran % (Auto) (0.0-0.4) % Neut % (Auto) (45-73) % Lymph % (Auto) (20-40) % Nicholas % (Auto) (2-11) % Eos % (Auto) (0-4) % Baso % (Auto) (0-2) % Lymph # (Auto) (1.2-4.9) X10*3/uL Nicholas # (Auto) (0.1-1.2) X10*3/uL Eos # (Auto) (0.0-0.4) X10*3/uL Baso # (Auto) (0.0-0.2) X10*3/uL Abs Immat Gran (auto) (0.00-0.03) X10*3/uL Absolute Neuts (auto) (2.0-8.3) x10*3/uL Absolute Nucleated RBC (0.0-0.012) X10*3/uL Nucleated RBC % (auto) (0.0-0.2) /100WBC PT 11.7 (10.0-13.1) SEC INR 1.0 (0.9-1.1) Sodium (135-145) mmol/L Potassium (3.3-5.1) mmol/L Chloride (96-108) mmol/L Carbon Dioxide (22-29) mmol/L Anion Gap (12-20) BUN (9-16) mg/dL Creatinine (0.5-1.4) mg/dL Estim Creat Clear Calc Estimated GFR Random Glucose (60-115) mg/dL Lactic Acid 2.3 H* (0.5-2.0) mmol/L Lactic Acid F/U @ 2Hr (0.5-2.0) mmol/L Calcium (8.4-10.2) mg/dL Magnesium (1.6-2.6) mg/dL Total Bilirubin (0.0-1.0) mg/dL Direct Bilirubin (0.0-0.5) mg/dL AST (5-31) U/L ALT (0-31) U/L Alkaline Phosphatase (39-117) U/L Troponin I High Sens 8.0 (<3.5-17.0) ng/L B-Natriuretic Peptide (<100) pg/mL Total Protein (6.5-8.0) g/dL Albumin (3.5-5.0) g/dL Lipase (8-78) U/L Urine Color Urine Appearance Urine pH (5.0-9.0) Ur Specific [place] (1.005-1.025) Urine Protein (Neg-Trace) mg/dL Urine Glucose (UA) (Negative) mg/dL Urine Ketones (Negative) mg/dL Urine Blood (Negative) Urine Nitrite (Negative) Ur Leukocyte Esterase (Negative) 08/02/22 08/02/22 08/02/22 Range/Units 13:25 13:32 14:38 WBC (4.8-10.8) X10*3/uL RBC (4.20-5.50) X10*6/uL Hgb (12.0-16.0) g/dl Hct (37.0-47.0) % MCV (80.0-98.0) fL MCH (27.0-33.0) pg MCHC (31.0-35.0) g/dl RDW (11.0-16.0) % Plt Count (160-400) X10*3/uL MPV (9.4-12.3) fL Immature Gran % (Auto) (0.0-0.4) % Neut % (Auto) (45-73) % Lymph % (Auto) (20-40) % Nicholas % (Auto) (2-11) % Eos % (Auto) (0-4) % Baso % (Auto) (0-2) % Lymph # (Auto) (1.2-4.9) X10*3/uL Nicholas # (Auto) (0.1-1.2) X10*3/uL Eos # (Auto) (0.0-0.4) X10*3/uL Baso # (Auto) (0.0-0.2) X10*3/uL Abs Immat Gran (auto) (0.00-0.03) X10*3/uL Absolute Neuts (auto) (2.0-8.3) x10*3/uL Absolute Nucleated RBC (0.0-0.012) X10*3/uL Nucleated RBC % (auto) (0.0-0.2) /100WBC PT (10.0-13.1) SEC INR (0.9-1.1) Sodium (135-145) mmol/L Potassium (3.3-5.1) mmol/L Chloride (96-108) mmol/L Carbon Dioxide (22-29) mmol/L Anion Gap (12-20) BUN (9-16) mg/dL Creatinine (0.5-1.4) mg/dL Estim Creat Clear Calc Estimated GFR Random Glucose (60-115) mg/dL Lactic Acid (0.5-2.0) mmol/L Lactic Acid F/U @ 2Hr 2.1 H* (0.5-2.0) mmol/L Calcium (8.4-10.2) mg/dL Magnesium (1.6-2.6) mg/dL Total Bilirubin (0.0-1.0) mg/dL Direct Bilirubin (0.0-0.5) mg/dL AST (5-31) U/L ALT (0-31) U/L Alkaline Phosphatase (39-117) U/L Troponin I High Sens 3.5 D (<3.5-17.0) ng/L B-Natriuretic Peptide (<100) pg/mL Total Protein (6.5-8.0) g/dL Albumin (3.5-5.0) g/dL Lipase (8-78) U/L Urine Color Yellow Urine Appearance Clear Urine pH 6.0 (5.0-9.0) Ur Specific [place] 1.010 (1.005-1.025) Urine Protein Trace (Neg-Trace) mg/dL Urine Glucose (UA) Negative (Negative) mg/dL Urine Ketones Negative (Negative) mg/dL Urine Blood Negative (Negative) Urine Nitrite Negative (Negative) Ur Leukocyte Esterase Negative (Negative) Independent Interpretation I performed an independent interpretation of an: EKG, Ultrasound and CT Scan Interpretation: Rate: 82 Rhythm: NSR [place]: normal Normal P waves. Normal JOVANNY. Normal QRS complex. ST T wave : no ANSON, inverted t wave III qTC: normal prior studies: no acute ischemia The study has been interpreted contemporaneously by me. . Radiology Impression Discussion of test interpretation with radiology: I have reviewed the radiologist's reading. Independent Historian Clinical information obtained from an independent historian. History obtained from or confirmed by: Other (daughter) External Record Review External record reviewed: Inpatient record and Office record Discharge Plan Discharge Clinical Impression: Near syncope DVT (deep venous thrombosis) Qualifiers: DVT location: lower extremity Affected thrombotic vein of extremity: femoral Chronicity: acute Laterality: left Qualified Code(s): I82.412 - Acute embolism and thrombosis of left femoral vein Patient Disposition: Home, Self-Care Instructions: Deep Vein Thrombosis (ED), Near Syncope (ED), Blood Thinners (ED) Additional Instructions: return to ED for any worsening symptoms or concerns return for black bloody stools purple leg severe pain increased swelling chest pain or trouble breathing take eliquis at 9pm tonight if you hit your head have a bloody nose that wont stop or worrisome bleeding please seek help F?zaria? ED y? li?oji? r?nh? ?hu? de zh?ngzhu?ng hu? y?l? f?zaria? h?is? navarro?bi?n z?s? tu? j?li? t?ngt?ng zh?ngzh?ng ji?j? xi?ngt?ng hu? h?x? k?nn?n j?n w?n 9 di?n f?y?ng eliquis r?gu? n?n sandoval?ng d?o t?u, b? z? li?navarro? b?zh? hu? li?navarro? l?ng r?n d?ny?u, q?ng x?nqi? b?ngzh? Prescriptions: New Eliquis DVT-PE Treat 30D Start 5 mg (74 tabs) tablets,dose pack 5 mg PO BID Qty: 74 0RF No Action oxycodone 5 mg tablet 5 mg PO Q6H PRN (Reason: pain) amlodipine 5 mg Tablet 5 mg PO DAILY Qty: 60 3RF letrozole 2.5 mg Tablet 2.5 mg PO DAILY Qty: 30 3RF sennosides-docusate sodium [Senna with Docusate Sodium] 8.6-50 mg Tablet 1 tab-cap PO BEDTIME Qty: 30 3RF ondansetron 8 mg tablet,disintegrating 8 mg PO Q8H PRN (Reason: nausea) tenofovir alafenamide 25 mg tablet 25 mg PO DAILY Qty: 90 2RF Rx Instructions: must administer with a meal/food
--- NOTE | 2022-08-02 09:45 | PC.NURSE ---
PT SEEN BY DR. BALL, DAUGHTER AT BEDSIDE. ORESTES (MANDARIN) IS ACTIVATED SO THAT DR. BALL COULD SPEAK TO PATIENT AND DAUGHTER.
--- NOTE | 2022-08-02 09:47 | PC.NURSE ---
BEDSIDE ULTRASOUND IS BEING DONE AT THIS TIME.
[2022-08-02 10:30] LABS: MANUAL DIFF FLAG NO
[2022-08-02 10:36] LABS: Basophils Percent Auto 0.6 % (0-2); Eosinophils Percent Auto 0.3 % (0-4); Imm Gran Abs Auto 0.03 X10*3/uL (0.00-0.03); Imm Gran Pct Auto 0.9 % (0.0-0.4); Lymphocytes Absolute Auto 0.8 X10*3/uL (1.2-4.9); Lymphocytes Percent Auto 25.8 % (20-40); Mean Corpuscular HGB Conc 33.3 g/dl (31.0-35.0); Mean Corpuscular Hemoglobin 30.7 pg (27.0-33.0); Mean Corpuscular Volume 92.2 fL (80.0-98.0); Mean Platelet Volume 8.7 fL (9.4-12.3); Monocytes Absolute Auto 0.2 X10*3/uL (0.1-1.2); Monocytes Percent Auto 6.5 % (2-11); Neutrophils Absolute Auto 2.1 x10*3/uL (2.0-8.3); Neutrophils Percent Auto 65.9 % (45-73); Platelet Count 180 X10*3/uL (160-400); Red Blood Count 3.58 X10*6/uL (4.20-5.50); Red Cell Distribution Width 15.9 % (11.0-16.0); White Blood Count 3.3 X10*3/uL (4.8-10.8)
[2022-08-02 10:37] LABS: Prothrombin Time 11.7 SEC (10.0-13.1)
[2022-08-02 10:47] LABS: Alanine Aminotransferase 78 U/L (0-31); Albumin Level 3.9 g/dL (3.5-5.0); Alkaline Phosphatase 181 U/L (39-117); Anion Gap 12 (12-20); Aspartate Amino Transferase 58 U/L (5-31); Bilirubin Direct 0.2 mg/dL (0.0-0.5); Bilirubin Total 0.6 mg/dL (0.0-1.0); Blood Urea Nitrogen 16 mg/dL (9-16); Calcium 7.9 mg/dL (8.4-10.2); Carbon Dioxide 25 mmol/L (22-29); Chloride 105 mmol/L (96-108); Creatinine Clr Calc Pharmacy 71.7; Estimated Glomerular Filt Rate > 60; Glucose Random 111 mg/dL (60-115); Lipase 33 U/L (8-78); Magnesium 2.1 mg/dL (1.6-2.6); Potassium 3.4 mmol/L (3.3-5.1); Sodium 139 mmol/L (135-145); Total Protein 6.8 g/dL (6.5-8.0)
[2022-08-02 10:51] LABS: B Type Natriuretic Peptide 11 pg/mL (<100)
[2022-08-02 10:52] LABS: Lactic Acid 2.3 mmol/L (0.5-2.0)
[2022-08-02] MEDS: 0.9 % Sodium Chloride 500 ML IV (11:58)
[2022-08-02 12:30] LABS: Reflex Lactate? Lactic Acid Added
[2022-08-02] MEDS: Apixaban 5 MG TABLET 10 MG PO (13:36)
[2022-08-02] MEDS: ondansetron HCL 4 MG/2 ML VIAL IVPUSH (13:36)
[2022-08-02 13:55] LABS: ~Lactic Acid-LAB USE ONLY 2.1 mmol/L (0.5-2.0)
[2022-08-02 14:01] LABS: Troponin-I High Sensitivity 3.5 ng/L (<3.5-17.0)
[2022-08-02 14:39] VITALS: BP 131/86; PULSE 94; RESP 19; O2SAT 95
[2022-08-02 14:50] LABS: Appearance Urine Clear; Color Urine Yellow; Glucose Urine UA Negative (Negative); Leukocyte Esterase Urine Negative (Negative); Nitrite Urine Negative (Negative); Urine Blood Negative (Negative); Urine Ketones Negative (Negative); Urine Protein Trace mg/dL (Neg-Trace)
[2022-08-02 15:33] LABS: Reflex Lactate? 2 Y
== END 2022-08-02 15:39 | disposition home or self-care (01) ==
PROVIDERS: Emergency Provider Emergency Medicine
DX: R55 Syncope and collapse (principal); I82.412 Acute embolism and thrombosis of left femoral vein; R60.0 Localized edema; M79.605 Pain in left leg; Z79.899 Other long term (current) drug therapy
CPT/HCPCS: 36415; 70450; 71275; 80048; 80076; 81003; 83605; 83690; 83735; 83880; 84484; 85025; 85610; 93005; 93971; 96361; 96374; 99284; J2405

== ENCOUNTER 2022-08-07 06:57 | Inpatient (IN) | payer MEDICAID, SELFPAY ==
[2022-08-07] VITALS (7 sets, daily range): BP systolic 119–143; BP diastolic 63–87; PULSE 73–97; RESP 14–20; TEMP 36–37.2; O2SAT 92–96; BMI 29.2; BMI 31.9
--- NOTE | 2022-08-07 | ECG_ITS ---
Test Reason : chest pain Blood Pressure : / mmHG Vent. Rate : 081 BPM Atrial Rate : 081 BPM P-R Int : 146 ms QRS Dur : 086 ms QT Int : 392 ms P-R-T Axes : 036 015 022 degrees QTc Int : 455 ms Normal sinus rhythm Normal ECG When compared with ECG of 02-AUG-2022 10:07, No significant change was found Referred By: Beatriz Rogers Electronically Signed By:Ishaan Rich
--- NOTE | ~2022-08-07 | CT_ITS ---
EXAMINATION: CT HEAD WITHOUT CONTRAST CLINICAL INFORMATION: Blurry vision COMPARISON: 08/02/2022 TECHNIQUE: Contiguous axial imaging was performed from the skull base to vertex without intravenous contrast. This CT examination was performed using dose optimization techniques as appropriate, variously including the following: * Automated exposure control * Adjustment of mA and/or kV according to patient size (this includes techniques or standardized protocols for targeted exams where dose is matched to indication/reason for exam; i.e. extremities or head) Use of iterative reconstruction technique DLP: 670 mGy-cm. FINDINGS: There is no evidence of acute intracranial hemorrhage or territorial infarction. No abnormal mass effect or midline shift is seen. [place] to white matter differentiation is well preserved. No extra-axial fluid collections are identified. No hydrocephalus. No significant volume loss. There is no abnormal attenuation within the brain parenchyma. The osseous structures and soft tissues are normal. Partially opacified right sphenoid sinus. The mastoid air cells and visualized portions of the paranasal sinuses are otherwise well aerated. CT/CT head/brain wo IV con IMPRESSION: No acute intracranial pathology.
--- NOTE | ~2022-08-07 | US_ITS ---
EXAMINATION: Ultrasound duplex arterial and venous CLINICAL INFORMATION: Abdominal pain. Evaluate portal vein patency. COMPARISON: CT from earlier the same day TECHNIQUE: Doppler, color and grayscale evaluation of the portal veins including waveform spectral analysis FINDINGS: The extrahepatic, main and right portal veins are patent with appropriate hepatopedal flow. The left portal vein is difficult to visualize but appears patent. The splenic vein and portal splenic confluence are patent with appropriate hepatopedal flow. Hepatic veins and IVC not evaluated. US/US duplex arterial venous comp IMPRESSION: Patent portal and splenic veins with appropriate hepatopedal flow. Left portal vein difficult to visualize.
--- NOTE | ~2022-08-07 | MR_ITS ---
EXAMINATION: MR ABDOMEN WITHOUT CONTRAST CLINICAL INFORMATION: Question gallstone pancreatitis. COMPARISON: Previous CT and ultrasound of the abdomen from yesterday. TECHNIQUE: MR abdomen is performed without gadolinium contrast. MRCP sequences were also performed. FINDINGS: LUNG BASES: The visualized lung bases are unremarkable. LIVER, GALLBLADDER, AND BILIARY TREE: The liver is normal in size and shape. No appreciable fatty infiltration. Multiple dark T1 and bright T2 liver lesions suggestive of metastatic disease. Largest measures 2.6 x 3.3 cm in the posterior segment of the right lobe of the liver near the caudate lobe. 2 cm probable cyst in the inferior posterior segment of the right lobe. The gallbladder is upper normal in size. There are small gallstones in the gallbladder. The gallbladder wall is minimally thickened and may be edematous. Gallbladder wall measures up to 5 to 6 mm. Intrahepatic bile ducts are normal in caliber. The common bile duct is minimally dilated measuring 8 mm. There is question of linear low-signal filling defects seen in the common bile duct questionable for debris or sludge. No definite stone seen. PANCREAS: The pancreas is normal in signal. No pancreatic mass is seen. The main pancreatic duct does not appear dilated. There is question of some thickening of the tail of the pancreas measuring up to 1.4 cm. There is fluid in the left anterior pararenal fascia and left paracolic gutter that can be seen with pancreatitis. SPLEEN: Unremarkable. ADRENAL GLANDS: Unremarkable. KIDNEYS AND URETERS: The kidneys are normal in size and shape. No hydronephrosis. No perinephric stranding. Small cysts in the lower pole of the right kidney. No imaging followup recommended. GASTROINTESTINAL TRACT: No bowel obstruction. No ascites or fluid collection. ABDOMINAL WALL: No significant hernia is appreciated. LYMPH NODES: Small retroperitoneal lymph nodes. VASCULAR: Unremarkable. OSSEOUS STRUCTURES: Mild scoliosis. L3 vertebral body compression fracture. MR/MR MRCP IMPRESSION: Metastatic disease to the liver. Small gallstones, upper normal-size gallbladder and slightly thickened edematous gallbladder wall. Findings are questionable for cholecystitis. Slightly dilated common bile duct measuring 8 mm and question low signal linear filling defects questionable for sludge or debris. No definite common bile duct stone. Slight thickening of the tail the pancreas and fluid in the left pararenal fascia and paracolic gutter questionable for mild pancreatitis.
--- NOTE | ~2022-08-07 | CT_ITS ---
EXAMINATION: CT ABDOMEN AND PELVIS WITH CONTRAST CLINICAL INFORMATION: Right upper quadrant pain. History of colorectal and breast cancer COMPARISON: Previous PET/CT May 2022 and abdomen and pelvis CT January 2022 TECHNIQUE: Multidetector volumetric images were obtained from the superior aspect of the liver through the pubic symphysis following administration 85 mL of Omnipaque 350 intravenous contrast. Sagittal and coronal reformatted images were obtained on the technologist's workstation. Oral contrast: No This CT examination was performed using dose optimization techniques as appropriate, variously including the following: *Automated exposure control *Adjustment of mA and/or kV according to patient size (this includes techniques or standardized protocols for targeted exams where dose is matched to indication/reason for exam; i.e. extremities or head) *Use of iterative reconstruction technique DLP: mGy-cm FINDINGS: LUNG BASES: The visualized lung bases are unremarkable. LIVER, GALLBLADDER, AND BILIARY TREE: There are multiple low-attenuation liver lesions suggestive of metastatic disease. These are increased in size and number compared to January 2022 CT. Comparison with PET/CT scans difficult due to different modality differences (. Decreased in size and number from May [address] scan as well. Largest lesion measures 3 x 4.8 cm in the posterior segment of the right lobe of the liver near the right hepatic vein/hepatopedal venous confluence. Stable 2 x 2.6 cm cyst in the posterior segment of the right lobe of the liver near the gallbladder. The gallbladder is slightly enlarged. Question mild gallbladder wall thickening and inflammatory changes in the pericholecystic fat. Probable small gallstone. Mild dilatation of the common bile duct measuring 1 cm. No common bile duct stone seen. PANCREAS: The pancreas is normal in size and enhances normally. The main pancreatic duct does not appear dilated. There is fluid in the bilateral anterior pararenal fascia and paracolic gutters, left greater than right. SPLEEN: Unremarkable. ADRENAL GLANDS: Unremarkable. KIDNEYS AND URETERS: The kidneys are normal in size, shape, and attenuation. No hydronephrosis, hydroureter, or calculi seen. No perinephric stranding. 1 cm cyst in the lower pole of the right kidney. No imaging follow-up recommended. BLADDER: Unremarkable. GASTROINTESTINAL TRACT: Postsurgical changes following right hemicolectomy. There is some stranding of the fat wall thickening and increased soft tissue seen adjacent to the surgical anastomosis suggestive of residual or recurrent tumor. This is similar to PET CT May 2022 ABDOMINAL WALL: No significant hernia is appreciated. Postsurgical changes to the anterior abdominal wall LYMPH NODES: Retroperitoneal lymph nodes largest upper normal in size in the periaortic region for example axial image 32 series 2. These appear new or increased compared to May 2022 exam. Small, small bowel mesentery lymph nodes. VASCULAR: There is asymmetric enlargement and slight decreased attenuation in the left common femoral and iliac veins. There is filling defect in the lower IVC. Findings are suggestive of thrombus. PELVIC VISCERA: Question small peritoneal implants posterior to the fundus and body of the uterus. OSSEOUS STRUCTURES: Mild L3 vertebral body compression fracture. Degenerative changes of the spine. CT/CT abdomen pelvis w IV con IMPRESSION: Interval increase in size and number of liver lesions. Interval increase in retroperitoneal lymph nodes. Stable postsurgical changes following right colectomy. Residual wall thickening adjacent to surgical anastomosis, increased soft tissue and peritoneal nodules suggestive of residual or recurrent disease. Question peritoneal disease in the pelvis adjacent to the uterus. Slightly enlarged gallbladder and question mild inflammatory changes of the gallbladder wall. Small gallstone in the gallbladder. Mild common bile duct dilatation measuring 1 cm. No common bile duct stone seen by CT. Follow-up gallbladder ultrasound or HIDA scan should be considered if there is clinical concern of cholecystitis. Normal-appearing pancreas. Small amount of fluid in the bilateral anterior pararenal fascia and paracolic gutters. This is a characteristic location for pancreatitis. Correlation with amylase and lipase recommended. Left leg DVT extending into the iliac veins and infrarenal IVC. Fleischner guidelines were followed. Findings will be communicated by the [place] work flow slip tender
--- NOTE | ~2022-08-07 | XR_ITS ---
EXAMINATION: XR CHEST CLINICAL INFORMATION: Chest pain. COMPARISON: Chest x-ray 02/18/2022. TECHNIQUE: Frontal view of the chest was obtained. FINDINGS: Right IJ CT compatible chest port with catheter tip at the cavoatrial junction. The cardiomediastinal silhouette is within normal limits. No vascular congestion or edema. The lungs are mildly hypoexpanded. No consolidation or pneumothorax. Trace left effusion. XR/XR chest 1V IMPRESSION: New trace left effusion. No edema or focal pneumonia.
--- NOTE | ~2022-08-07 | NM_ITS ---
NM/NM pul perfusion IMPRESSION: Based on perfusion only modified PIOPED 2 criteria, pulmonary thromboembolism is considered absent. Follow-up left lower extremity DVT study may be considered for comparison with prior positive DVT study of left lower extremity done on 08/02/2022, if clinically appropriate. PULMONARY PERFUSION ONLY STUDY: CLINICAL INDICATION: 66-year-old female presented with chest pain. History of recent DVT. Suspected PE. PROCEDURE: Following the intravenous administration of 4.0 millicuries technetium 99m MAA, images of the chest were obtained in multiple projections using a gamma scintiphotographic camera. COMPARISON: Chest radiograph done yesterday. CTA of the chest done on 08/02/2022. Chest radiograph done on 08/07/2022 shows bilateral clear lung muniz. PERFUSION IMAGES: No large segmental perfusion defects or other suspicious perfusion abnormalities are noted.
--- NOTE | ~2022-08-07 | US_ITS ---
EXAMINATION: US ABDOMEN LIMITED CLINICAL INFORMATION: Upper quadrant pain and common bile duct dilatation on previous CT scan. COMPARISON: CT scan of the abdomen and pelvis from earlier today. TECHNIQUE: Real-time imaging of the right upper quadrant abdominal viscera. FINDINGS: PANCREAS: Visualized portions unremarkable. LIVER: Known liver lesions. A environmental marketing representative echogenic lesion in the right lobe measures 1.4 cm. GALLBLADDER: Small echogenic gallstones and mild dependent sludge without mural thickening or pericholecystic fluid. COMMON BILE DUCT: 0.9 cm without overt intraluminal abnormality. RIGHT KIDNEY: 9.2 cm unremarkable. FREE FLUID: None. US/US abdomen limited IMPRESSION: 1. Mild dilatation of the common bile duct correlating with the CT findings. No intraluminal abnormality seen in the visualized portions however the distal portions are not well-visualized on this study. 2. Known multiple liver lesions better evaluated on the CT scan. 3. Small gallstones and sludge without evidence for acute cholecystitis.
[2022-08-07 07:25] LABS: MANUAL DIFF FLAG NO
[2022-08-07 07:26] LABS: Basophils Percent Auto 0.2 % (0-2); Hematocrit 33.2 % (37.0-47.0); Hemoglobin 11.1 g/dl (12.0-16.0); Imm Gran Abs Auto 0.02 X10*3/uL (0.00-0.03); Imm Gran Pct Auto 0.4 % (0.0-0.4); Lymphocytes Percent Auto 18.7 % (20-40); Mean Corpuscular HGB Conc 33.4 g/dl (31.0-35.0); Mean Corpuscular Hemoglobin 30.2 pg (27.0-33.0); Mean Corpuscular Volume 90.2 fL (80.0-98.0); Mean Platelet Volume 8.2 fL (9.4-12.3); Monocytes Absolute Auto 0.4 X10*3/uL (0.1-1.2); Monocytes Percent Auto 7.4 % (2-11); Neutrophils Absolute Auto 3.8 x10*3/uL (2.0-8.3); Neutrophils Percent Auto 73.3 % (45-73); Platelet Count 247 X10*3/uL (160-400); Red Blood Count 3.68 X10*6/uL (4.20-5.50); Red Cell Distribution Width 15.9 % (11.0-16.0); White Blood Count 5.1 X10*3/uL (4.8-10.8)
[2022-08-07 07:48] LABS: Alanine Aminotransferase 310 U/L (0-31); Albumin Level 4.2 g/dL (3.5-5.0); Alkaline Phosphatase 396 U/L (39-117); Anion Gap 15 (12-20); Aspartate Amino Transferase 401 U/L (5-31); Bilirubin Total 3.3 mg/dL (0.0-1.0); Blood Urea Nitrogen 12 mg/dL (9-16); Calcium 9.6 mg/dL (8.4-10.2); Carbon Dioxide 28 mmol/L (22-29); Chloride 102 mmol/L (96-108); Creatinine Clr Calc Pharmacy 59.9; Estimated Glomerular Filt Rate > 60; Glucose Random 164 mg/dL (60-115); Potassium 3.9 mmol/L (3.3-5.1); Sodium 141 mmol/L (135-145); Total Protein 7.1 g/dL (6.5-8.0)
--- NOTE | 2022-08-07 07:56 | ED_ITS ---
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 Currently still undergoing treatment looks like last session was 07/27. Presenting to the emergency department for evaluation of fatigue, malaise, nausea, vomiting and abdominal discomfort since yesterday, abdominal pain is worsened by eating and after patient eats she ate immediately vomits per family. Family also reports global weakness. Denies fevers, chills, chest pain, shortness of breath, headache, vision changes, dizziness, weakness, hematemesis, hematochezia. No urinary symptoms Related Data Home Medications Medication Instructions Recorded Confirmed oxycodone 5 mg tablet 5 mg PO Q6H PRN pain 04/21/22 07/27/22 ondansetron 8 mg disintegrating 8 mg PO Q8H PRN nausea 07/27/22 07/27/22 tablet Previous Rx's Medication Instructions Recorded amlodipine 5 mg tablet 5 mg PO DAILY #60 tabs 04/28/22 tenofovir alafenamide 25 mg tablet 25 mg PO DAILY #90 tabs 05/10/22 letrozole 2.5 mg tablet 2.5 mg PO DAILY #30 tabs 05/20/22 sennosides 8.6 mg-docusate sodium 1 tab-cap PO BEDTIME #30 tabs 06/10/22 50 mg tablet (Senna with Docusate Sodium) apixaban 5 mg (74 tabs) tablets in 5 mg PO BID #74 ea 08/02/22 a dose pack (EliquFarseer DVT-PE Treat 30D Start) Allergies Allergy/AdvReac Type Severity Reaction Status Date / Time No Known Allergies Allergy Verified 07/12/22 14:49 Review of Systems Review of Systems: Constitutional : No Weight loss, No Fever, No Chills, + Fatigue, + Malaise ENT/Mouth : No sore throat, No Rhinorrhea Eyes: No Eye Pain, No Swelling, No Redness Cardiovascular : No Chest Pain, No SOB, No Dyspnea on Exertion, No Orthopnea, No Edema, No Palpitations Respiratory : No Cough, No Sputum, No Wheezing Gastrointestinal : + Nausea, + Vomiting, No Diarrhea, No Constipation, + abdominal Pain, No Hematochezia, No Melena Genitourinary : No Dysuria, No Urinary Frequency, No Hematuria, Musculoskeletal : No joint pain, No Myalgias, No Joint Swelling Skin : No Skin Lesions, No rash Neuro : No Weakness, No Numbness, No Dizziness, No Headache Psych : No Anxiety/Panic, No Depression All other systems reviewed and are negative Yes all other systems are reviewed and are negative [facility] Past Medical History Attestation statement: The following information was validated with the patient. Source: old records reviewed and nursing notes reviewed Medical History HTN (hypertension) Invasive ductal carcinoma of left breast Liver metastases Neuroendocrine neoplasm of colon Surgical History History of lumpectomy of left breast (03/28/22) History of right hemicolectomy S/P right hemicolectomy Family History Family History Father Liver cancer Social History Social History Household Members: Spouse Household Members Other:: Friend Housing: House Are you a primary healthcare corporate account director to a significant other at home: No Do you presently have visiting nurse or other home services: No Alcohol intake: never Patient Tobacco Use Status: Never used Tobacco Smoked in Last 30 Days: No Second Hand Smoke Exposure: No Use of substances other than those prescribed or required for medical reasons: No Advance Directives: Yes Advance Directives on File: Yes Advance Directives Date on File: 03/03/22 service: No Current occupational status: unemployed Current occupation: right handed Physical Exam ED Vital Signs: Vital Signs - 24 hr 08/07/22 07:06 08/07/22 10:46 Temperature 98.4 F 99.0 F Pulse Rate 97 87 Respiratory Rate 18 14 Blood Pressure 143/87 H 119/79 Pulse Oximetry 95 96 Oxygen Delivery Method Room Air Room Air BMI result Body Mass Index 29.2 vss Appearance: Alert.? Oriented X3.? No acute distress.? Head: Normocephalic, atraumatic, no step-offs or deformities Eyes: Pupils equal, round and reactive to light.? Neck: Normal inspection.? Neck supple.? CVS: Normal heart rate and rhythm.? Pulses normal.? Respiratory: No respiratory distress.? Breath sounds normal.? Abdomen: Soft and mild diffuse tenderness to abdomen on palpation with normoactive bowel sounds. Negative Leonardo's, McBurney's point, Rovsing..? Skin: Skin warm and dry.? Normal skin color.? Normal skin turgor.? Extremities: No lower extremity edema.? No calf ttp. 5/5 strength to bilateral upper and lower extremities Neuro: Oriented X 3.? No motor deficit.? No sensory deficit. CN 2-12 intact Course Reevaluation(s) Reevaluation #1: CBC with a normocytic anemia that appears to be around patient's baseline. Chemistry without acute electrolyte abnormalities requiring intervention. Patient's total bilirubin 3.3, transaminases markedly elevated AST 401, ALT 310, alk last 396 concerning for malignancy and possible stone. Lipase is pending at this time. UA without infection. Ultrasound of right upper quadrant with mild dilation of the common bile duct no intraluminal abnormality, multiple liver lesions, small gallstones and sludge without evidence for acute cholecystitis negative Leonardo's on exam low suspicion for acute cholecystitis. CT of the abdomen pelvis showing increased interval in size and number of liver lesions, interval increase in retroperitoneal lymph nodes concerning for worsening malignancy or spread of malignancy. Postsurgical changes status post right colectomy. Residual wall thickening adjacent surgical anastomoses and soft tissue and peritoneal nodules suggestive of residual or recurrent disease. Question peritoneal disease in the pelvis adjacent to the uterus. Slightly enlarged gallbladder but again I do not suspect acute cholecystitis. Patient is also noted to have small amount of fluid and bilateral anterior pararenal fascia and para colonic gutters concerning for possible pancreatitis however abdominal exam with mild tenderness throughout low suspicion for acute pancreatitis lipase pending. Left leg DVT extending into the iliac veins and infrarenal IVC, patient is already on Eliquis. I will reach out to Oncology. In the meantime well as a GGT, ammonia level and at LDH. Will also obtain a exam of portal vein system to ensure this is not portal vein thrombosis. Time: 11:04 Reevaluation #2: Patient unable to tolerate p.o. lipase markedly elevated, CT findings concerning for pancreatitis, will hydrate with IV fluids, admit patient. I did speak to Hematology Oncology Dr. Finch who recommends adding a CEA, hospital admission Hematology will follow. Pending triglycerides, GGT, LDH, ammonia. Patient to be admitted to the hospitalist team. Time: 11:41 Medications Administered Discontinued Medications Generic Name Dose Route Start Last Admin Trade Name Reginald PRN Reason Stop Dose Admin Iohexol 100 ml 08/07/22 09:32 08/07/22 09:32 Iohexol 350 Mg/Ml 100 Ml Infus..Btl IV 08/07/22 09:33 85 ml ONCE ONE Administration Ondansetron HCl 4 mg 08/07/22 08:23 08/07/22 09:15 Ondansetron Hcl 4 Mg/2 Ml Vial IVPUSH 08/07/22 08:24 4 mg ONCE ONE Administration Medical Decision Making Medical Decision Making [facility] Narrative: [id number] 58-year-old female presents with fatigue, malaise, nausea, vomiting, weakness for the past few days as well as abdominal discomfort. Physical exam mild diffuse tenderness to abdomen on palpation with normoactive bowel sounds. Negative Leonardo's, McBurney's point, Rovsing. Concerns for electrolyte abnormalities, dehydration. Will rule out intra- abdominal etiologies such as pancreatitis, cholecystitis, diverticulitis and appendicitis although unlikely. No signs of acute abdomen. Will also rule out obstructing stone, UTI. Plan labs, imaging, urine. Differential Diagnosis Differential Diagnoses: The differential diagnosis associated with the presentation includes Concerns for electrolyte abnormalities, dehydration. Will rule out intra- abdominal etiologies such as pancreatitis, cholecystitis, diverticulitis and appendicitis although unlikely. No signs of acute abdomen. Will also rule out obstructing stone, UTI. Admission/Observation Consideration of admission/observation: Escalation of care including admission/observation considered Lab Data [facility] Lab Attestation statement: I reviewed the patient's lab results. 08/07/22 07:21 08/07/22 07:21 Labs: Lab Results 08/07/22 08/07/22 08/07/22 Range/Units 07:21 07:21 09:49 WBC 5.1 (4.8-10.8) X10*3/uL RBC 3.68 L (4.20-5.50) X10*6/uL Hgb 11.1 L (12.0-16.0) g/dl Hct 33.2 L (37.0-47.0) % MCV 90.2 (80.0-98.0) fL MCH 30.2 (27.0-33.0) pg MCHC 33.4 (31.0-35.0) g/dl RDW 15.9 (11.0-16.0) % Plt Count 247 D (160-400) X10*3/uL MPV 8.2 L (9.4-12.3) fL Immature Gran % (Auto) 0.4 (0.0-0.4) % Neut % (Auto) 73.3 H (45-73) % Lymph % (Auto) 18.7 L (20-40) % Lucas % (Auto) 7.4 (2-11) % Eos % (Auto) 0.0 (0-4) % Baso % (Auto) 0.2 (0-2) % Lymph # (Auto) 1.0 L (1.2-4.9) X10*3/uL Lucas # (Auto) 0.4 (0.1-1.2) X10*3/uL Eos # (Auto) 0.0 (0.0-0.4) X10*3/uL Baso # (Auto) 0.0 (0.0-0.2) X10*3/uL Abs Immat Gran (auto) 0.02 (0.00-0.03) X10*3/uL Absolute Neuts (auto) 3.8 (2.0-8.3) x10*3/uL Absolute Nucleated RBC 0.000 (0.0-0.012) X10*3/uL Nucleated RBC % (auto) 0.0 (0.0-0.2) /100WBC Sodium 141 (135-145) mmol/L Potassium 3.9 (3.3-5.1) mmol/L Chloride 102 (96-108) mmol/L Carbon Dioxide 28 (22-29) mmol/L Anion Gap 15 (12-20) BUN 12 (9-16) mg/dL Creatinine 0.74 (0.5-1.4) mg/dL Estim Creat Clear Calc 59.9 Estimated GFR > 60 Random Glucose 164 H (60-115) mg/dL Calcium 9.6 D (8.4-10.2) mg/dL Total Bilirubin 3.3 H (0.0-1.0) mg/dL AST 401 H (5-31) U/L ALT 310 H (0-31) U/L Alkaline Phosphatase 396 H (39-117) U/L Total Protein 7.1 (6.5-8.0) g/dL Albumin 4.2 (3.5-5.0) g/dL Lipase 1710 H (8-78) U/L Urine Color Dark Yellow Urine Appearance Clear Urine pH 7.0 (5.0-9.0) Ur Specific [place] >= 1.030 H (1.005-1.025) Urine Protein Trace (Neg-Trace) mg/dL Urine Glucose (UA) Negative (Negative) mg/dL Urine Ketones Negative (Negative) mg/dL Urine Blood Negative (Negative) Urine Nitrite Negative (Negative) Ur Leukocyte Esterase Trace H (Negative) Urine RBC 0-2 (0-2) /HPF Urine WBC 0-5 (0-5) /HPF Ur Squamous Epith Cells 0-2 (0-2) /HPF Urine Bacteria None Seen (None Seen) Hyaline Casts 0-2 (0-2) /LPF Independent Interpretation I performed an independent interpretation of an: Ultrasound and CT Scan Radiology Impression Discussion of test interpretation with radiology: I have reviewed the radiologist's reading. Core Measures AMI core measures followed: Yes Measure exclusions: not indicated Critical Care Time Critical Care Time Critical Care Time: Yes Total Critical Care Time: 60 Attestation: I attest to this time spent taking care of the patient, obtaining history, physical, reviewing labs, imaging, speaking to my attending, speaking to specialist. Discharge Plan Discharge Clinical Impression: Nausea & vomiting, Metastasis, Transaminitis, DVT (deep venous thrombosis) Patient Disposition: Still a Patient Prescriptions: No Action oxycodone 5 mg tablet 5 mg PO Q6H PRN (Reason: pain) amlodipine 5 mg Tablet 5 mg PO DAILY Qty: 60 3RF letrozole 2.5 mg Tablet 2.5 mg PO DAILY Qty: 30 3RF sennosides-docusate sodium [Senna with Docusate Sodium] 8.6-50 mg Tablet 1 tab-cap PO BEDTIME Qty: 30 3RF ondansetron 8 mg tablet,disintegrating 8 mg PO Q8H PRN (Reason: nausea) Eliquis DVT-PE Treat 30D Start 5 mg (74 tabs) tablets,dose pack 5 mg PO BID Qty: 74 0RF tenofovir alafenamide 25 mg tablet 25 mg PO DAILY Qty: 90 2RF Rx Instructions: must administer with a meal/food
[2022-08-07] MEDS: ondansetron HCL 4 MG/2 ML VIAL IVPUSH ×2 (09:15→20:22)
[2022-08-07] MEDS: iohexoL 350 MG/ML 100 ML INFUS..BTL IV (09:32)
[2022-08-07 10:40] LABS: Appearance Urine Clear; Color Urine Dark Yellow; Glucose Urine UA Negative (Negative); Leukocyte Esterase Urine Trace (Negative); Nitrite Urine Negative (Negative); Specific Gravity - Urine >= 1.030 (1.005-1.025); UMIC TRIGGER UACC YES; Urine Blood Negative (Negative); Urine Ketones Negative (Negative); Urine Protein Trace mg/dL (Neg-Trace)
[2022-08-07 10:46] LABS: Bacteria Urine None Seen (None Seen); Hyaline Casts Urine 0-2 /LPF (0-2); RBC Urine 0-2 /HPF (0-2); Squamous Epithelial Cell Urine 0-2 /HPF (0-2); WBC Urine 0-5 /HPF (0-5)
[2022-08-07 11:22] LABS: Lipase 1710 U/L (8-78)
[2022-08-07] MEDS: 0.9 % Sodium Chloride 1,000 ML 999 ML IV ×2 (11:46→11:47)
[2022-08-07] MEDS: Morphine Sulfate 4 MG/ML CARTRIDGE IVPUSH (11:46)
[2022-08-07 11:53] LABS: Ammonia 41 umol/L (13-55)
[2022-08-07 12:02] LABS: Gamma Glutamyl Transpeptidase 2104 U/L (7-33); Lactate Dehydrogenase 652 U/L (122-220); Triglycerides 165 mg/dL
--- NOTE | 2022-08-07 13:05 | PHA.MEDREC ---
Pharmacy Consult ? Medication Reconciliation Pharmacy has completed the medication reconciliation. spoke with patients family. They were able to confirm meds.
--- NOTE | 2022-08-07 13:32 | P.HPHOSP_ITS ---
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 Decribes pain as a cramping, tightness with some throbbing. There is associated nausea and vomiting. Unable to tolerate PO. She was recently seeni n the ED 08/02 and started on eliquis for DVT LLE which she has been compliant with though morning dose missed as she was coming to the hospital. No cigarette smoking, etoh use, or illicit drug use. On arrival VSS. No leukocytosis. Stable normocytic anemia with H/H 11.1/33.2%. Renal function normal, electrolyte levels normal. Total bilirubin 3.3, direct bilirubin 2.0, AST 401, ALT 310, alkaline phosphatase 396. LDH 652. GGT 2104. Lipase 1700. CT abdomen/pelvis shows interval increase in size and number of liver lesions with interval increase in retroperitoneal lymph nodes. There is also residual wall thickening adjacent to the surgical anastomosis with increased soft tissue in peritoneal nodules suggestive of residual or recurrent disease as well as question of peritoneal disease in the pelvis adjacent to the uterus. Gallbladder is enlarged with question of mild inflammatory changes of the gallbladder wall and a small gallstone noted. There is mild CBD dilatation around 1 cm but no CBD stone per CT scan. Pancreas appears normal with a small amount of fluid in the bilateral anterior pararenal fascia and paracolic gutters characteristic location for pancreatitis. Also noted is left leg DVT extending into the iliac veins and infrarenal IVC. Follow-up abdominal ultrasound shows previously noted dilatation of the CBD as well as previously mentioned liver lesions and small gallstones and sludge without evidence of acute cholecystitis. US duplex arterial venous study showing patent portal and splenic veins with appropriate flow though left portal vein is difficult to visualize. In the ED, treated with IVF, ondansetron, and 2 L IVF. Madelin interpretor Nan Zamora888 used Review of Systems Review of Systems: General: No fevers, malaise, unintentional weight loss. +fatigue HEENT: No blurred vision, diplopia. No sore throat, nasal congestion, rhinorrhea, sinus pain, ear pain Cardiovascular: +chest pain. No palpitations, or leg edema Respiratory: No shortness of breath, wheezing, cough GI: +abd pain, +n/v. No diarrhea, constipation, melena, hematochezia : No dysuria, hematuria, increased urinary frequency, decreased urinary output MSK: No myalgia, back pain Neuro: No headaches, weakness, paresthesias Skin: No rashes or lesions [facility] Medical History (Updated 08/07/22 @ 14:09 by CHELSY Foote) HTN (hypertension) Invasive ductal carcinoma of left breast Left leg DVT Liver metastases Neuroendocrine neoplasm of colon Family History Father Liver cancer Surgical History History of lumpectomy of left breast (03/28/22) History of right hemicolectomy S/P right hemicolectomy Social History Household Members: Spouse Household Members Other:: Friend Housing: House Are you a primary progressive care unit registered nurse to a significant other at home: No Do you presently have visiting nurse or other home services: No Alcohol intake: never Patient Tobacco Use Status: Never used Tobacco Second Hand Smoke Exposure: No Advance Directives Date on File: 03/03/22 service: No Current occupational status: unemployed Current occupation: right handed Meds Allergies Allergy/AdvReac Type Severity Reaction Status Date / Time No Known Allergies Allergy Verified 07/12/22 14:49 Active Medications: Current Medications Docusate Sodium (Docusate Sodium 100 Mg Capsule) 100 mg PO DAILY PRN PRN Reason: Constipation Morphine Sulfate (Morphine Sulfate 4 Mg/Ml Cartridge) 2 mg IVPUSH Q4H PRN; Protocol PRN Reason: Pain, Severe (Pain Scale 7-10) Ondansetron HCl (Ondansetron Hcl 4 Mg/2 Ml Vial) 4 mg IVPUSH Q8H PRN PRN Reason: Nausea and Vomiting Oxycodone HCl (Oxycodone Hcl Immed Release 5 Mg Tablet) 5 mg PO Q6H PRN PRN Reason: Pain, Moderate(Pain Scale 4-6) Sodium Chloride (0.9 % Sodium Chloride Flush 3 Ml Syringe) 3 ml IVFLUSH QSHIFT [facility] Home Medications Medication Instructions Recorded Confirmed Last Taken Type ondansetron 8 mg disintegrating 8 mg PO Q8H PRN nausea 07/27/22 08/07/22 Unknown History tablet acetaminophen 500 mg tablet 500 mg PO Q6H PRN Pain 08/07/22 08/07/22 Unknown History sennosides 8.6 mg-docusate sodium 1 tab-cap PO BEDTIME PRN 08/07/22 08/07/22 Unknown History 50 mg tablet (Senna with Docusate Constipation Sodium) Physical Exam Vital Signs and Narrative: Vital Signs: Last Vital Signs Temp 99.0 F 08/07/22 10:46 Pulse 89 08/07/22 12:02 Resp 14 08/07/22 12:02 BP 129/74 08/07/22 12:02 Pulse Ox 93 08/07/22 12:02 O2 Del Method Room Air 08/07/22 12:02 BMI result Body Mass Index 29.2 Constitutional - Awake and Alert, No apparent distress Eyes - PERRLA, EOMI Cardiovascular - S1S2, RRR, No edema Chest- reproducible ttp across bilateral chest Respiratory - Normal lung expansion, Normal respiratory effort, No respiratory distress, CTA bilaterally Gastrointestinal - moderate epigastric ttp without guarding or rebound. +BS - No CVA tenderness Extremities - Swelling LLE compared to right with ttp, no erythema or palpable cords Skin - Warm/Dry Neurological - Alert & oriented x3 Psychological - Appropriate affect Results Labs 08/07/22 07:21 08/07/22 07:21 Labs: Laboratory Results - last 24 hr 08/07/22 08/07/22 08/07/22 07:21 07:21 09:49 MCV 90.2 MCH 30.2 MCHC 33.4 RDW 15.9 Plt Count 247 D MPV 8.2 L Immature Gran % (Auto) 0.4 Neut % (Auto) 73.3 H Lymph % (Auto) 18.7 L [place] % (Auto) 7.4 Eos % (Auto) 0.0 Baso % (Auto) 0.2 Lymph # (Auto) 1.0 L [place] # (Auto) 0.4 Eos # (Auto) 0.0 Baso # (Auto) 0.0 Abs Immat Gran (auto) 0.02 Absolute Neuts (auto) 3.8 Absolute Nucleated RBC 0.000 Nucleated RBC % (auto) 0.0 Anion Gap 15 Estim Creat Clear Calc 59.9 Estimated GFR > 60 Random Glucose 164 H Calcium 9.6 D Total Bilirubin 3.3 H Direct Bilirubin 2.0 H GGT 2104 H AST 401 H ALT 310 H Alkaline Phosphatase 396 H Ammonia Lactate Dehydrogenase 652 H Total Protein 7.1 Albumin 4.2 Triglycerides 165 Lipase 1710 H Carcinoembryonic Ag 5.20 Urine Color Dark Yellow Urine Appearance Clear Urine pH 7.0 Ur Specific [place] >= 1.030 H Urine Protein Trace Urine Glucose (UA) Negative Urine Ketones Negative Urine Blood Negative Urine Nitrite Negative Ur Leukocyte Esterase Trace H Urine RBC 0-2 Urine WBC 0-5 Ur Squamous Epith Cells 0-2 Urine Bacteria None Seen Hyaline Casts 0-2 08/07/22 11:43 MCV MCH MCHC RDW Plt Count MPV Immature Gran % (Auto) Neut % (Auto) Lymph % (Auto) [place] % (Auto) Eos % (Auto) Baso % (Auto) Lymph # (Auto) [place] # (Auto) Eos # (Auto) Baso # (Auto) Abs Immat Gran (auto) Absolute Neuts (auto) Absolute Nucleated RBC Nucleated RBC % (auto) Anion Gap Estim Creat Clear Calc Estimated GFR Random Glucose Calcium Total Bilirubin Direct Bilirubin GGT AST ALT Alkaline Phosphatase Ammonia 41 Lactate Dehydrogenase Total Protein Albumin Triglycerides Lipase Carcinoembryonic Ag Urine Color Urine Appearance Urine pH Ur Specific [place] Urine Protein Urine Glucose (UA) Urine Ketones Urine Blood Urine Nitrite Ur Leukocyte Esterase Urine RBC Urine WBC Ur Squamous Epith Cells Urine Bacteria Hyaline Casts Imaging Radiologist's Impressions: Impressions Abdomen/Pelvis CT 08/07/22 09:33 IMPRESSION: Interval increase in size and number of liver lesions. Interval increase in retroperitoneal lymph nodes. Stable postsurgical changes following right colectomy. Residual wall thickening adjacent to surgical anastomosis, increased soft tissue and peritoneal nodules suggestive of residual or recurrent disease. Question peritoneal disease in the pelvis adjacent to the uterus. Slightly enlarged gallbladder and question mild inflammatory changes of the gallbladder wall. Small gallstone in the gallbladder. Mild common bile duct dilatation measuring 1 cm. No common bile duct stone seen by CT. Follow-up gallbladder ultrasound or HIDA scan should be considered if there is clinical concern of cholecystitis. Normal-appearing pancreas. Small amount of fluid in the bilateral anterior pararenal fascia and paracolic gutters. This is a characteristic location for pancreatitis. Correlation with amylase and lipase recommended. Left leg DVT extending into the iliac veins and infrarenal IVC. Fleischner guidelines were followed. Findings will be communicated by the [facility]gins work flow wrecking supervisor Abdomen Ultrasound 08/07/22 09:59 IMPRESSION: 1. Mild dilatation of the common bile duct correlating with the CT findings. No intraluminal abnormality seen in the visualized portions however the distal portions are not well-visualized on this study. 2. Known multiple liver lesions better evaluated on the CT scan. 3. Small gallstones and sludge without evidence for acute cholecystitis. 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 #Acute pancreatitis -?r/t gallstone with CBD ductal dilitation though obstructed stone seen on CT -Elevated LFTs: Total bilirubin 3.3, direct bilirubin 2.0, AST 401, ALT 310, alkaline phosphatase 396, LDH 652, GGT 2104 -MRCP ordered -Aggressive IVF with LR -ondansetron prn -Pain management -NPO diet, advance as tolerated -GI consult #Extensive LLE DVT- 2/2 malignancy -CT abd/pelvis showing DVT extending to infrarenal IVC and iliac veins -Initially dx 08/02 and started on eliquis -Hold eliquis, initiate heparin drip per protocol -V/Q scan ordered to evaluate for PE give prescence of CP, though low suspicion given stable VS and reprodicibility of CP) -Given extensive nature of DVT, vascular surgery consult placed #Atypical chest pain -pleuritic in nature, reproducible to palpation -EKG and trop pending -VSS, low suspicion for PE, but will check VQ scan given extensive DVT and patient started on heparin as above #High grade metastatic neuroendocrine carcinoma colon with liver mets -Elevated LFTs as above likely in part related to liver mets but significantly increased sine 08/02 supporting diagnosis of gallstone pancreatitis. -On carboplatin. Outpt follow up with Dr. Allan #Infiltrative ductal carcinoma Left breast -continue letrozole -outpt follow up #Hep B core antibody positive -continue tenofovir DVT prophylaxis-heparin drip Full code Patient requires inpatient stay at least 2 midnights for management of acute pancreatitis with unclear etiology at this time the suspected gallstone requiring further investigation with MRCP, aggressive IV hydration, NPO status with diet advancement as tolerated and IV analgesia as well as expert consulation. Also requiring management of extensive DVT requiring parental anticoagulation and expert consultation. Time Spent With Patient Time: Total time managing care of this patient today ____ minutes. Quality Stroke Does the patient have a stroke diagnosis?: No VTE Prior VTE?: Yes VTE Risk Level:: Medical - moderate - high VTE Device Contraindication: Treatment Not Indicated VTE Drug Contraindication: Treatment Not Indicated
[2022-08-07 14:20] LABS: INTERNATIONAL NORM RATIO 1.2 (0.9-1.1); Prothrombin Time 13.3 SEC (10.0-13.1)
[2022-08-07 14:23] LABS: PTT Heparin Drip 34.4 SEC (53-77.9)
[2022-08-07 14:35] LABS: Troponin-I High Sensitivity 4.7 ng/L (<3.5-17.0)
--- NOTE | 2022-08-07 15:17 | PC.NURSE ---
[employer] services used Mandarin dialect for admission assessment.
[2022-08-07 15:32] LABS: Hematocrit 28.8 % (37.0-47.0); Hemoglobin 9.5 g/dl (12.0-16.0); Mean Corpuscular Volume 90.9 fL (80.0-98.0); Mean Platelet Volume 8.8 fL (9.4-12.3); Platelet Count 233 X10*3/uL (160-400); Red Blood Count 3.17 X10*6/uL (4.20-5.50); Red Cell Distribution Width 16.1 % (11.0-16.0)
[2022-08-07] MEDS: Lactated Ringers 1,000 ML 125 ML IVCONT ×2 (15:34→23:45)
[2022-08-07 15:41] LABS: INTERNATIONAL NORM RATIO 1.1 (0.9-1.1); Prothrombin Time 12.7 SEC (10.0-13.1)
[2022-08-07 15:44] LABS: PTT Heparin Drip 32.8 SEC (53-77.9)
[2022-08-07] MEDS: Heparin Sodium,Porcine 5,000 UNIT/ML VIAL 5300 UNIT IVPUSH (15:57)
[2022-08-07] MEDS: Heparin Sodium,Porcine/1/2NS 25,000 UNIT/250 ML IV.SOLN 10.04 UNIT IVCONT (16:04)
--- NOTE | 2022-08-07 16:51 | PC.NURSE ---
Pt admitted to Medical Surgical Unit from the ED. Kinyarwanda Speaking with a Mandarin Dialect. Nut Cracker services used, [place], Number [id number]. Pt is A&Ox3, c/o ABD pain when pressure is applied to abd. Lungs clear, no resp distress. DVT noted on LLE, +PP. Heparin Drip started, PTT to be drawn at 2200. Tolerated well second IV site placed right wrist. LR running in Left AC as ordered. C/O ringing in her ears, something she states is new. No n/v at this time r/t medications given in the ED. Educated about speaking with oncologist about Hospice Care related to diagnosis, Metastatic Cancer. Pt wishes to be a full code at this time. Daughter at bedside speaks broken Nauruan, grandson at bedside also, speaks Nauruan. Steady on feet, stand by assist, Mod fall risk r/t IV poles. Call diaz within reach, will continue to monitor for needs.
--- NOTE | 2022-08-07 18:05 | PM.HEMONCCN ---
Subjective - Subjective Chief complaint: Consult for: 1. Metastatic colon cancer. 2. Breast cancer. Patient: known to practice within the last 3 years Consult date: 08/07/22 Requesting Physician: Beatriz Rogers. Primary Care Provider: Unknown Physician Medical Summary: DIAGNOSIS: 1. NAUSEA VOMITING. 2. ACUTE PANCREATITIS. 3. COLON CARCINOMA WITH LIVER AND PERITONEAL METASTASES. 4. BREAST CANCER. CURRENT THERAPY: STARTED ON FOLFIRI, 07/13. RECEIVED 2ND DOSE ON 07/27. HPI - Consult Narrative Reason for consult: Consult for: Nausea vomiting. 2. Colon cancer. 3. Breast cancer. Narrative: Kellee Flores is a 66 year old lady, presented to the ER for with daughter with whom she lives, for evaluation of abd pain radiation into chest, worse with food and inspiration, and radiation into the back. Pain is cramping, tightness with some throbbing. There is associated nausea and vomiting. Unable to tolerate PO. She was recently seen in the ED 08/02 and started on eliquis for DVT LLE which she has been compliant with though morning dose missed as she was coming to the hospital. No cigarette smoking, etoh use, or illicit drug use. On arrival VSS. No leukocytosis. Stable normocytic anemia with H/H 11.1/33.2%. Renal function normal, electrolyte levels normal. Total bilirubin 3.3, direct bilirubin 2.0, AST 401, ALT 310, alkaline phosphatase 396. LDH 652. GGT 2104. Lipase 1700. CT abdomen/pelvis shows interval increase in size and number of liver lesions with interval increase in retroperitoneal lymph nodes. There is also residual wall thickening adjacent to the surgical anastomosis with increased soft tissue in peritoneal nodules suggestive of residual or recurrent disease as well as question of peritoneal disease in the pelvis adjacent to the uterus. Gallbladder is enlarged with question of mild inflammatory changes of the gallbladder wall and a small gallstone noted. There is mild CBD dilatation around 1 cm but no CBD stone per CT scan. Pancreas appears normal with a small amount of fluid in the bilateral anterior pararenal fascia and paracolic gutters characteristic location for pancreatitis. Also noted is left leg DVT extending into the iliac veins and infrarenal IVC. Follow-up abdominal ultrasound shows previously noted dilatation of the CBD as well as previously mentioned liver lesions and small gallstones and sludge without evidence of acute cholecystitis. US duplex arterial venous study showing patent portal and splenic veins with appropriate flow though left portal vein is difficult to visualize. In the ED, treated with IVF, ondansetron, and 2 L IVF. 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 Switched over to FOLFIRI on 07/13. Second dose on 07/27 Left breast invasive ductal carcinoma ER/NE pos, HER2 neg - taking letrozole daily starting 05/28/2022 Review of Systems Review of Systems: General: No fevers, malaise, unintentional weight loss. +fatigue HEENT: No blurred vision, diplopia. No sore throat, nasal congestion, rhinorrhea, sinus pain, ear pain Cardiovascular: +chest pain. No palpitations, or leg edema Respiratory: No shortness of breath, wheezing, cough GI: +abd pain, +n/v. No diarrhea, constipation, melena, hematochezia : No dysuria, hematuria, increased urinary frequency, decreased urinary output MSK: No myalgia, back pain Neuro: No headaches, weakness, paresthesias Skin: No rashes or lesions [facility] Medical History: HTN (hypertension) Invasive ductal carcinoma of left breast Left leg DVT Liver metastases Neuroendocrine neoplasm of colon Family History: Father Liver cancer Review of Systems - Constitutional Reports system reviewed and no additional complaints, except as documented, Reports anorexia, Reports fatigue, Reports lack of energy, Reports malaise, Reports poor appetite, Reports weight loss, Denies fever(s) - Eyes Reports system reviewed and no additional complaints, except as documented - ENT Reports system reviewed and no additional complaints, except as documented - Cardiovascular Reports system reviewed and no additional complaints, except as documented - Respiratory Reports no additional respiratory complaints - Gastrointestinal Reports system reviewed and no additional complaints, except as documented, Reports abdominal pain, Reports dyspepsia, Reports nausea, Reports vomiting - Genitourinary Reports no additional female genitourinary complaints - Musculoskeletal Reports system reviewed and no additional complaints, except as documented - Integumentary/Breasts Skin/Breast: Reports no additional skin complaints - Neurologic Reports system reviewed and no additional complaints, except as documented - Psychiatric Reports system reviewed and no additional complaints, except as documented - Endocrine Reports no additional endocrine complaints - Hematologic/Lymphatic Reports system reviewed and no additional complaints, except as documented - Allergic/Immunologic Reports system reviewed and no additional complaints, except as documented Oncology Screenings - ECOG Performance Status ECOG Performance Status: 2 [facility] Medical History: Medical History (Last Updated 08/08/22 @ 15:51 by Keyon Cruz MD) HTN (hypertension) Invasive ductal carcinoma of left breast Left leg DVT Liver metastases Neuroendocrine neoplasm of colon Functional capacity: uses cane/walker Patient : No Family History: Family History (Last Reviewed 08/07/22 @ 14:06 by CHELSY Foote) Father Liver cancer Surgical History: Surgical History (Last Reviewed 08/07/22 @ 14:06 by CHELSY Foote) History of lumpectomy of left breast Onset Date: 03/28/22 History of right hemicolectomy S/P right hemicolectomy Social History: Social History (Last Reviewed 08/07/22 @ 14:06 by CHELSY Foote) Living Situation History: Household Members: Family Household Members Other:: Friend Housing: House Are you a primary manager urgent care to a significant other at home: No Do you presently have visiting nurse or other home services: No Tobacco History: Patient Tobacco Use Status: Never used Tobacco Second Hand Smoke Exposure: No Advance Directives: Advance Directives Date on File: 03/03/22 Occupation Assessmet: service: No Current occupational status: unemployed Current occupation: right handed Home Medications and Allergies Current Medications: Current Medications Amlodipine Besylate (Amlodipine Besylate 5 Mg Tablet) 5 mg PO DAILY SAMANTHA; Protocol Docusate Sodium (Docusate Sodium 100 Mg Capsule) 100 mg PO DAILY PRN PRN Reason: Constipation Heparin Sodium (Porcine) (Heparin Sodium,Porcine 5,000 Unit/Ml Vial) 2,900 unit 40 unit/kg (2900 unit) IVPUSH PROTOCOL BOLUS PRN; Protocol PRN Reason: 40 unit/kg - Heparin Protocol Heparin Sodium (Porcine) (Heparin Sodium,Porcine 5,000 Unit/Ml Vial) 5,700 unit 80 unit/kg (5700 unit) IVPUSH PROTOCOL BOLUS PRN; Protocol PRN Reason: 80 unit/kg - Heparin Protocol Lactated Ringer's (Lr) 1,000 mls @ 125 mls/hr IVCONT .Q8H SAMANTHA Last Admin: 08/07/22 15:34 Dose: 125 mls/hr Heparin Sodium/Sodium Chloride (Heparin Sodium,Porcine/1/2ns) 25,000 unit in 250 mls @ 0 mls/hr IVCONT .Q0M [facility]; Protocol Last Admin: 08/07/22 16:04 Dose: 14 units/kg/hr, 10.04 mls/hr Letrozole (Letrozole 2.5 Mg Tablet) 2.5 mg PO DAILY [facility] Morphine Sulfate (Morphine Sulfate 4 Mg/Ml Cartridge) 2 mg IVPUSH Q4H PRN; Protocol PRN Reason: Pain, Severe (Pain Scale 7-10) Pt Own (Tenofovir Alafenamide 25 Mg Tablet) 25 mg PO DAILY [facility] Ondansetron HCl (Ondansetron Hcl 4 Mg/2 Ml Vial) 4 mg IVPUSH Q8H PRN PRN Reason: Nausea and Vomiting Oxycodone HCl (Oxycodone Hcl Immed Release 5 Mg Tablet) 5 mg PO Q6H PRN PRN Reason: Pain, Moderate(Pain Scale 4-6) Senna/Docusate Sodium (Sennosides/Docusate Sodium Tablet) 1 tab PO BEDTIME PRN PRN Reason: Constipation Sodium Chloride (0.9 % Sodium Chloride Flush 3 Ml Syringe) 3 ml IVFLUSH QSHIFT [facility] Last Admin: 08/07/22 15:39 Dose: Not Given Home Medications Medication Instructions Recorded Confirmed Type ondansetron 8 mg disintegrating 8 mg PO Q8H PRN nausea 07/27/22 08/07/22 History tablet acetaminophen 500 mg tablet 500 mg PO Q6H PRN Pain 08/07/22 08/07/22 History sennosides 8.6 mg-docusate sodium 1 tab-cap PO BEDTIME PRN 08/07/22 08/07/22 History 50 mg tablet (Senna with Docusate Constipation Sodium) Allergies Allergy/AdvReac Type Severity Reaction Status Date / Time No Known Allergies Allergy Verified 07/12/22 14:49 Physical Exam Vital signs: Vital Signs Temp 98.5 F 08/07/22 16:00 Pulse 85 08/07/22 16:00 Resp 20 08/07/22 16:00 BP 138/85 08/07/22 16:00 Pulse Ox 95 08/07/22 16:00 O2 Del Method Room Air 08/07/22 16:00 Intake & Output 08/06/22 08/07/22 08/07/22 18:59 06:59 18:59 Intake Total 1999 Balance 1999 Intake: Intake, IV Amount 1999 0.9 % Sodium Chloride 1,000 ml 1999 @ 999 mls/hr IV .Q1H1M [facility] Rx#: [id number] Other: Last Bowel Movement 08/06/22 Weight 71.7 kg Weight in Grams [id number] Weight 71.7 kg - Constitutional Present: moderate distress - Routine HEENT Exam Head: Present: normal inspection, normocephalic ENT: Present: mucous membranes dry. Absent: mucous membranes moist - Routine Neck Exam Present: supple - Routine Respiratory Exam Present: CTAB - Routine Cardiovascular Exam Cardiovascular: Present: RRR, S1, S2 - Routine Abdominal Exam Present: hypoactive bowel sounds, tenderness - Routine Skin Exam Present: intact, dry - Routine Neurological Exam Present: alert, oriented X3, vision grossly intact - Detailed Neurological Exam: Coma Scale Eye Opening: Spontaneous (4) Verbal Response: Oriented (5) Motor Response: Obeys commands (6) Inez Coma Scale Total: 15 Hem/Onc Consult Result - Labs CBC & Chem 7: 08/09/22 05:01 08/09/22 05:01 Labs: Short CBC 08/07/22 08/07/22 Range/Units 07:21 15:06 WBC 5.1 6.0 (4.8-10.8) X10*3/uL Hgb 11.1 L 9.5 L (12.0-16.0) g/dl Hct 33.2 L 28.8 L (37.0-47.0) % Plt Count 247 D 233 (160-400) X10*3/uL BMP 08/07/22 07:21 Sodium 141 Potassium 3.9 Chloride 102 Carbon Dioxide 28 BUN 12 Creatinine 0.74 Calcium 9.6 D Liver Function 08/07/22 Range/Units 07:21 Total Bilirubin 3.3 H (0.0-1.0) mg/dL Direct Bilirubin 2.0 H (0.0-0.5) mg/dL GGT 2104 H (7-33) U/L AST 401 H (5-31) U/L ALT 310 H (0-31) U/L Alkaline Phosphatase 396 H (39-117) U/L Albumin 4.2 (3.5-5.0) g/dL Urine 06/11/23 Range/Units 09:49 Urine Color Dark Yellow Urine Appearance Clear Urine pH 7.0 (5.0-9.0) Ur Specific [place] >= 1.030 H (1.005-1.025) Urine Protein Trace (Neg-Trace) mg/dL Urine Glucose (UA) Negative (Negative) mg/dL Assessment and Plan Patient Active problem list reviewed?: Yes (1) Acute pancreatitis Status: Acute Assessment and plan: This is a 66-year-old woman with high-grade metastatic neuroendocrine carcinoma of the colon diagnosed in January 2022. She underwent right hemicolectomy on 02/22/2022 which revealed high-grade neuroendocrine carcinoma invasive to serosal surface and involving vermiform appendix, margins negative. Metastatic carcinoma present in [place] of 21 lymph nodes. Numerous tumor deposits present. Pathological stage pT4a N2b. Tumor size 6 cm, lymphovascular invasion present. CEA in not elevated, 2.50 NG/mL preoperatively. MMR stable or proficient. PET-CT unfortunately showed multiple extensive liver metastasis. She underwent biopsy of liver lesion which showed high-grade neuroendocrine carcinoma consistent with metastasis. She was started on palliative chemotherapy with carboplatin and etoposide 4-6 cycles in March 2022. PET-CT after 3 cycles showed improvement in liver lesions however progression in lymphadenopathy in chest and abdomen. Breast lesion had decreased in size. She was switched to second-line chemotherapy, to FOLFIRI regimen based on NCCN guidelines. Possible side effects were discussed such as diarrhea, cytopenia. Switched over to FOLFIRI on 07/13. Second dose on 07/27. She now presents with abdominal pain, nausea and vomiting. -Elevated LFTs: Total bilirubin 3.3, direct bilirubin 2.0, AST 401, ALT 310, alkaline phosphatase 396, LDH 652, GGT 2104 LIPASE: 1710. CT scan of the abdomen revealed: IMPRESSION: Interval increase in size and number of liver lesions. Interval increase in retroperitoneal lymph nodes. Stable postsurgical changes following right colectomy. Residual wall thickening adjacent to surgical anastomosis, increased soft tissue and peritoneal nodules suggestive of residual or recurrent disease. Question peritoneal disease in the pelvis adjacent to the uterus. Slightly enlarged gallbladder and question mild inflammatory changes of the gallbladder wall. Small gallstone in the gallbladder. Mild common bile duct dilatation measuring 1 cm. No common bile duct stone seen by CT. Follow-up gallbladder ultrasound or HIDA scan should be considered if there is clinical concern of cholecystitis. Normal-appearing pancreas. Small amount of fluid in the bilateral anterior pararenal fascia and paracolic gutters. This is a characteristic location for pancreatitis. Correlation with amylase and lipase recommended. Left leg DVT extending into the iliac veins and infrarenal IVC. Ultrasound of the abdomen: 1. Mild dilatation of the common bile duct correlating with the CT findings. No intraluminal abnormality seen in the visualized portions however the distal portions are not well-visualized on this study. 2. Known multiple liver lesions better evaluated on the CT scan. 3. Small gallstones and sludge without evidence for acute cholecystitis. Patient most likely has had disease progression, in view of the above CT findings. IMPRESSION: Acute pancreatitis -secondary to gallstones with CBD ductal dilitation though obstructed stone seen on CT PLAN: -Aggressive IVF with LR -ondansetron prn -Pain management -NPO diet, advance as tolerated -GI consult -MRCP. Thank you for the consult, CC: MRCP revealed: Metastatic disease to the liver. Small gallstones, upper normal-size gallbladder and slightly thickened edematous gallbladder wall. Findings are questionable for cholecystitis. Slightly dilated common bile duct measuring 8 mm and question low signal linear filling defects questionable for sludge or debris. No definite common bile duct stone. Slight thickening of the tail the pancreas and fluid in the left pararenal fascia and paracolic gutter questionable for mild pancreatitis. Patient was seen by surgery however was not considered a surgical candidate on account of the metastatic disease. (2) Breast cancer Status: Acute Assessment and plan: 66-year-old lady with, Left breast invasive ductal carcinoma: She underwent left breast lumpectomy and sentinel node biopsy on 03/28/2022 which revealed invasive solid papillary carcinoma, grade 2, 2.1 cm in size with positive margins (medial, posterior and inferior close bracket. DCIS nuclear grade 2 also with positive margins. Stage pT2 N0, ER/NE positive HER2 negative. Margins positive, overall size of tumor 3.7 cm. She was unable to undergo re-excision or radiation therapy because of diagnosis of metastatic colon cancer. PLAN: She started on letrozole 2.5 mg daily from 05/28/2022. (3) DVT (deep venous thrombosis) Status: Acute Assessment and plan: 66-year-old lady with recent Extensive LLE DVT: Initially dx 08/02 and started on eliquis. Most likely secondary to the underlying malignancy. -CT abd/pelvis showing DVT extending to infrarenal IVC and iliac veins The Eliquis, was held and a heparin drip was initiated,per protocol. -V/Q scan ordered to evaluate for PE give prescence of CP, though low suspicion given stable VS and reprodicibility of CP) -Given extensive nature of DVT, vascular surgery consult placed. - patient can be switched over to Lovenox for convenience. Thank you for the consult, I will follow along with you, - Time Spent With Patient Time Spent with Patient (in minutes): 30
[2022-08-07] MEDS: 0.9 % Sodium Chloride Flush 3 ML SYRINGE IVFLUSH (20:22)
--- NOTE | 2022-08-07 20:55 | P.EN_ITS ---
Event Note Date of Service: 08/07/22 Event Note: Was called by the nurse as patient started having blurring of vision. Talked to the patient using parachute panel joiner services. Patient stated that she had new onset blurring of vision which has been constant. Also associated headache. No nystagmus. Obtain blood pressure and POC glucose. Will also obtain CT of the head to rule out acute intracranial bleed as patient is on IV heparin. Time Spent With Patient Time: Total time managing care of this patient today ____ minutes.
[2022-08-07 21:00] LABS: Glucose, Whole Blood 116 mg/dL (60-115)
--- NOTE | 2022-08-07 21:46 | PC.NURSE ---
pt speaking Mandarin called for the Ipad supervisor quilting for assessment, pt says that new onset of blurry vision during the daytime. notified the doctor Kassie. came assess the pt. VSs and POC taken, new order for the head CT scan. immediately went down with bed for the CT. pt says thank you, smiling, no significant issues to see. pt stay in the bed comfortably. heparin drip and LR continuously running. will monitor closely during the night.
[2022-08-07 22:17] LABS: PTT Heparin Drip 90.9 SEC (53-77.9)
[2022-08-08 00:29] VITALS: BP 150/74; PULSE 72; RESP 16; TEMP 36.6; O2SAT 96
[2022-08-08 02:55] VITALS: BP 134/83; PULSE 84; RESP 16; TEMP 37.1; O2SAT 93
[2022-08-08 04:50] LABS: MANUAL DIFF FLAG NO
[2022-08-08 04:54] LABS: Basophils Percent Auto 0.2 % (0-2); Eosinophils Percent Auto 0.1 % (0-4); Hematocrit 30.1 % (37.0-47.0); Hemoglobin 10.2 g/dl (12.0-16.0); Imm Gran Abs Auto 0.02 X10*3/uL (0.00-0.03); Imm Gran Pct Auto 0.2 % (0.0-0.4); Lymphocytes Absolute Auto 1.4 X10*3/uL (1.2-4.9); Lymphocytes Percent Auto 16.2 % (20-40); Mean Corpuscular HGB Conc 33.9 g/dl (31.0-35.0); Mean Corpuscular Hemoglobin 30.6 pg (27.0-33.0); Mean Corpuscular Volume 90.4 fL (80.0-98.0); Mean Platelet Volume 8.9 fL (9.4-12.3); Monocytes Absolute Auto 0.5 X10*3/uL (0.1-1.2); Monocytes Percent Auto 6.1 % (2-11); Neutrophils Absolute Auto 6.6 x10*3/uL (2.0-8.3); Neutrophils Percent Auto 77.2 % (45-73); Platelet Count 229 X10*3/uL (160-400); Red Blood Count 3.33 X10*6/uL (4.20-5.50); White Blood Count 8.5 X10*3/uL (4.8-10.8)
[2022-08-08 04:58] LABS: INTERNATIONAL NORM RATIO 1.1 (0.9-1.1); Prothrombin Time 12.8 SEC (10.0-13.1)
[2022-08-08 05:01] LABS: PTT Heparin Drip 50.4 SEC (53-77.9)
[2022-08-08 05:11] LABS: Alanine Aminotransferase 212 U/L (0-31); Albumin Level 3.9 g/dL (3.5-5.0); Alkaline Phosphatase 352 U/L (39-117); Anion Gap 17 (12-20); Aspartate Amino Transferase 133 U/L (5-31); Bilirubin Direct 0.6 mg/dL (0.0-0.5); Bilirubin Total 1.5 mg/dL (0.0-1.0); Blood Urea Nitrogen 6 mg/dL (9-16); Calcium 9.1 mg/dL (8.4-10.2); Carbon Dioxide 23 mmol/L (22-29); Chloride 101 mmol/L (96-108); Creatinine Clr Calc Pharmacy 72.5; Estimated Glomerular Filt Rate > 60; Glucose Random 106 mg/dL (60-115); Potassium 3.5 mmol/L (3.3-5.1); Sodium 137 mmol/L (135-145); Total Protein 6.5 g/dL (6.5-8.0)
[2022-08-08] MEDS: Heparin Sodium,Porcine 5,000 UNIT/ML VIAL 2900 UNIT IVPUSH (05:12)
[2022-08-08 07:45] VITALS: BP 118/58; PULSE 75; RESP 18; TEMP 36.8; O2SAT 95
[2022-08-08] MEDS: Lactated Ringers 1,000 ML 125 ML IVCONT ×2 (07:46→15:31)
[2022-08-08] MEDS: amLODIPine Besylate 5 MG TABLET PO (08:10)
[2022-08-08] MEDS: Letrozole 2.5 MG TABLET PO (08:10)
--- NOTE | 2022-08-08 10:55 | P.PNIM_ITS ---
Subjective Subjective Date of Service: 08/08/22 Interval History: per family member [as audio and video interpreters unavailable], pt with abd pain at surgical site but N/V improved and actually hungry now Review of Systems Review of Systems: Yes all other systems are reviewed and are negative Physical Exam Vital Signs: Vital Signs: Last Vital Signs Temp 98.3 F 08/08/22 07:45 Pulse 75 08/08/22 07:45 Resp 18 08/08/22 07:45 BP 118/58 L 08/08/22 07:45 Pulse Ox 95 08/08/22 07:45 O2 Del Method Room Air 08/08/22 07:45 BMI result Body Mass Index 31.9 Gen: in no acute distress HEENT: sclera anicteric, moist mucus membranes Neck: supple Lungs: clear to auscultation bilaterally Heart: regular rate and rhythm, no murmurs Abd: soft, tender epigastrically without rebound or guarding, normal bowel sounds Ext: LLE markedly swollen without erythema Skin: warm/well-perfused Neuro: alert and oriented x3, no focal findings Psych: appropriate affect Objective Data Active Medications Amlodipine Besylate (Amlodipine Besylate 5 Mg Tablet) 5 mg PO DAILY SAMANTHA; Protocol Last Admin: 08/08/22 08:10 Dose: 5 mg Documented By: RANDY Docusate Sodium (Docusate Sodium 100 Mg Capsule) 100 mg PO DAILY PRN PRN Reason: Constipation Heparin Sodium (Porcine) (Heparin Sodium,Porcine 5,000 Unit/Ml Vial) 2,900 unit 40 unit/kg (2900 unit) IVPUSH PROTOCOL BOLUS PRN; Protocol PRN Reason: 40 unit/kg - Heparin Protocol Last Admin: 08/08/22 05:12 Dose: 2,900 unit Documented By: JACKELYN Heparin Sodium (Porcine) (Heparin Sodium,Porcine 5,000 Unit/Ml Vial) 5,700 unit 80 unit/kg (5700 unit) IVPUSH PROTOCOL BOLUS PRN; Protocol PRN Reason: 80 unit/kg - Heparin Protocol Lactated Ringer's (Lr) 1,000 mls @ 125 mls/hr IVCONT .Q8H SAMANTHA Last Admin: 08/08/22 07:46 Dose: 125 mls/hr Documented By: RANDY Heparin Sodium/Sodium Chloride (Heparin Sodium,Porcine/1/2ns) 25,000 unit in 250 mls @ 0 mls/hr IVCONT .Q0M [facility]; Protocol Last Titration: 08/08/22 05:15 Dose: 14 units/kg/hr, 10.04 mls/hr Documented By: JACKELYN Co-signed By: MITRA Letrozole (Letrozole 2.5 Mg Tablet) 2.5 mg PO DAILY [facility] Last Admin: 08/08/22 08:10 Dose: 2.5 mg Documented By: RANDY Morphine Sulfate (Morphine Sulfate 4 Mg/Ml Cartridge) 2 mg IVPUSH Q4H PRN; Protocol PRN Reason: Pain, Severe (Pain Scale 7-10) Pt Own (Tenofovir Alafenamide 25 Mg Tablet) 25 mg PO DAILY [facility] Last Admin: 08/08/22 08:10 Dose: 25 mg Documented By: RANDY Ondansetron HCl (Ondansetron Hcl 4 Mg/2 Ml Vial) 4 mg IVPUSH Q8H PRN PRN Reason: Nausea and Vomiting Last Admin: 08/07/22 20:22 Dose: 4 mg Documented By: JACKELYN Oxycodone HCl (Oxycodone Hcl Immed Release 5 Mg Tablet) 5 mg PO Q6H PRN PRN Reason: Pain, Moderate(Pain Scale 4-6) Senna/Docusate Sodium (Sennosides/Docusate Sodium Tablet) 1 tab PO BEDTIME PRN PRN Reason: Constipation Sodium Chloride (0.9 % Sodium Chloride Flush 3 Ml Syringe) 3 ml IVFLUSH QSHIFT [facility] Last Admin: 08/08/22 07:30 Dose: Not Given Documented By: RANDY Non-Admin Reason: IV Running Labs 08/08/22 04:44 08/08/22 04:44 Labs: Laboratory Results - last 24 hr 08/07/22 08/07/22 08/07/22 07:21 11:43 14:11 MCV MCH MCHC RDW Plt Count MPV Immature Gran % (Auto) Neut % (Auto) Lymph % (Auto) [place] % (Auto) Eos % (Auto) Baso % (Auto) Lymph # (Auto) [place] # (Auto) Eos # (Auto) Baso # (Auto) Abs Immat Gran (auto) Absolute Neuts (auto) Absolute Nucleated RBC Nucleated RBC % (auto) PT 13.3 H INR 1.2 H aPTT Heparin Protocol 34.4 L Anion Gap Estim Creat Clear Calc Estimated GFR POC Glucose Random Glucose Calcium Total Bilirubin Direct Bilirubin 2.0 H GGT 2104 H AST ALT Alkaline Phosphatase Ammonia 41 Lactate Dehydrogenase 652 H Troponin I High Sens Total Protein Albumin Triglycerides 165 Lipase 1710 H Carcinoembryonic Ag 5.20 08/07/22 08/07/22 08/07/22 14:11 15:06 15:06 MCV 90.9 MCH 30.0 MCHC 33.0 RDW 16.1 H Plt Count 233 MPV 8.8 L Immature Gran % (Auto) Neut % (Auto) Lymph % (Auto) [place] % (Auto) Eos % (Auto) Baso % (Auto) Lymph # (Auto) [place] # (Auto) Eos # (Auto) Baso # (Auto) Abs Immat Gran (auto) Absolute Neuts (auto) Absolute Nucleated RBC 0.000 Nucleated RBC % (auto) 0.0 PT 12.7 INR 1.1 aPTT Heparin Protocol 32.8 L Anion Gap Estim Creat Clear Calc Estimated GFR POC Glucose Random Glucose Calcium Total Bilirubin Direct Bilirubin GGT AST ALT Alkaline Phosphatase Ammonia Lactate Dehydrogenase Troponin I High Sens 4.7 Total Protein Albumin Triglycerides Lipase Carcinoembryonic Ag 08/07/22 08/07/22 08/08/22 20:57 22:00 04:44 MCV MCH MCHC RDW Plt Count MPV Immature Gran % (Auto) Neut % (Auto) Lymph % (Auto) [place] % (Auto) Eos % (Auto) Baso % (Auto) Lymph # (Auto) [place] # (Auto) Eos # (Auto) Baso # (Auto) Abs Immat Gran (auto) Absolute Neuts (auto) Absolute Nucleated RBC Nucleated RBC % (auto) PT INR aPTT Heparin Protocol 90.9 H D 50.4 L D Anion Gap Estim Creat Clear Calc Estimated GFR POC Glucose 116 H Random Glucose Calcium Total Bilirubin Direct Bilirubin GGT AST ALT Alkaline Phosphatase Ammonia Lactate Dehydrogenase Troponin I High Sens Total Protein Albumin Triglycerides Lipase Carcinoembryonic Ag 08/08/22 08/08/22 08/08/22 04:44 04:44 04:45 MCV 90.4 MCH 30.6 MCHC 33.9 RDW 16.0 Plt Count 229 MPV 8.9 L Immature Gran % (Auto) 0.2 Neut % (Auto) 77.2 H Lymph % (Auto) 16.2 L [place] % (Auto) 6.1 Eos % (Auto) 0.1 Baso % (Auto) 0.2 Lymph # (Auto) 1.4 [place] # (Auto) 0.5 Eos # (Auto) 0.0 Baso # (Auto) 0.0 Abs Immat Gran (auto) 0.02 Absolute Neuts (auto) 6.6 Absolute Nucleated RBC 0.000 Nucleated RBC % (auto) 0.0 PT 12.8 INR 1.1 aPTT Heparin Protocol Anion Gap 17 Estim Creat Clear Calc 72.5 Estimated GFR > 60 POC Glucose Random Glucose 106 Calcium 9.1 Total Bilirubin 1.5 H Direct Bilirubin 0.6 H GGT AST 133 H ALT 212 H Alkaline Phosphatase 352 H Ammonia Lactate Dehydrogenase Troponin I High Sens Total Protein 6.5 Albumin 3.9 Triglycerides Lipase Carcinoembryonic Ag Impressions Doppler Study Ultrasound 08/07/22 12:24 IMPRESSION: Patent portal and splenic veins with appropriate hepatopedal flow. Left portal vein difficult to visualize. Chest X-Ray 08/07/22 17:20 IMPRESSION: New trace left effusion. No edema or focal pneumonia. Pulmonary Perfusion Imaging 08/07/22 19:15 IMPRESSION: Based on perfusion only modified PIOPED 2 criteria, pulmonary thromboembolism is considered absent. Follow-up left lower extremity DVT study may be considered for comparison with prior positive DVT study of left lower extremity done on 08/02/2022, if clinically appropriate. Head CT 08/07/22 21:15 IMPRESSION: No acute intracranial pathology. 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, s/p R hemicolectomy 02/22/22] metastatic to lymph nodes, chest, and liver, s/p 3 cycles of palliative carboplatin + etoposide, switched to FOLFIRI 07/13/22 admitted with abd pain, nausea, vomiting found to have worsening residual and metastatic disease, pericholecystic inflammatory changes with gallstone, peripancreatic fluid, mild CBD dilation, elevated LFTs concerning for gallstone pancreatitis; also worsening LLE DVT extending to infrarenal IVC + iliac veins despite starting apixaban 08/02/22 # pancreatitis - NPO, IV fluid hydration, MRCP today - GI consulted - oxycodone + morphine for pain # malignancy-associated DVT - discussed with Vasc Surg + Heme/Onc, not an interventional candidate, will switch to therapeutic enoxaparin given failure of apixaban - V/Q negative for PE # metastatic neuroendocrine CA - Heme/Onc consulted, unfortunately has disease progression # inactive HBV - continue tenofovir suppression # infiltrative ductal carcinoma of left breast - continue letrozole # VTE ppx: LMWH # dispo: TBD In my clinical judgment, the patient requires continued inpatient hospitalization for the following reasons: IV fluids, NPO, MRCP DVT prophylaxis-heparin Time Spent With Patient Time: Total time managing care of this patient today __55__ minutes. Quality Stroke Does the patient have a stroke diagnosis?: No VTE Prior VTE?: Yes VTE Risk Level:: Medical - moderate - high VTE Device Contraindication: Treatment Not Indicated VTE Drug Contraindication: Treatment Not Indicated
--- NOTE | 2022-08-08 11:31 | MHC.CM.PN ---
CM MET WITH PT AND DAUGHTER AT BEDSIDE PT LIVES WITH HER AND IS INDEPENDENT AT BASELINE SHE HAS NO SERVICES AND NO DME PT DOES NOT HAVE A PCP SHE IS ACTIVE [facility] DR SULLIVAN IN [facility] SHE HAS A HCP ON FILE DCP: HOME WITH NO SERVICES FAMILY TO TRANSPORT *PT SPEAKS [facility], DAUGHTER INTERPRETED WITH PT CONSENT
[2022-08-08] MEDS: Enoxaparin Sodium 80 MG/0.8 ML SYRINGE 70 MG SUBCUT (11:32)
[2022-08-08 12:08] LABS: INTERNATIONAL NORM RATIO 1.1 (0.9-1.1); Prothrombin Time 12.9 SEC (10.0-13.1)
--- NOTE | 2022-08-08 12:17 | P.CONGS_ITS ---
History of Present Illness Consult details Consult date: 08/08/22 Reason for consult: other (DVT) Narrative: Complex 58-year-old German female presents for evaluation regarding DVT. She was actually diagnosed with DVT about 5 days ago. She subsequently re-presented to the hospital with complaints of abdominal pain. She has a prior history neuroendocrine carcinoma of the colon in addition to breast cancer. She has metastatic disease that goes to the liver. Upon workup she was noted to have a prior history of DVT. At that time she was on Eliquis. She has been transition to IV heparin. Review of Systems Review of Systems: Yes all other systems are reviewed and are negative Constitutional: Constitutional: Reports no additional constitutional complaints ENT: Reports Normal hearing present Cardiovascular: Cardiovascular: Denies chest pain, Denies chest pain at rest, Denies chest pain with activity and Denies pedal edema Respiratory: Respiratory: Denies cough Gastrointestinal: Gastrointestinal: Denies abdominal pain Musculoskeletal: Musculoskeletal: Denies abnormal gait, Denies muscle cramps and Denies radiating pain into limb Integumentary/Breasts: Skin/Breast: Denies skin ulcer and Denies wounds Neurologic: Reports Normal hearing present and Denies abnormal gait Psychiatric: Psychiatric: Reports no additional psychiatric complaints PMF Past Medical History Medical History (Updated 08/07/22 @ 18:23 by Nuvia Finch MD) HTN (hypertension) Invasive ductal carcinoma of left breast Left leg DVT Liver metastases Neuroendocrine neoplasm of colon Functional capacity: uses cane/walker Family History Family History Father Liver cancer Surgical History Surgical History History of lumpectomy of left breast (03/28/22) History of right hemicolectomy S/P right hemicolectomy Social History Social History Household Members: Family Household Members Other:: Friend Housing: House Are you a primary field care advocate to a significant other at home: No Do you presently have visiting nurse or other home services: No Alcohol intake: never Patient Tobacco Use Status: Never used Tobacco Smoked in Last 30 Days: No Second Hand Smoke Exposure: No Use of substances other than those prescribed or required for medical reasons: No Currently Displaying Signs/Symptoms of Drug Intoxication Withdrawal: No Have you been hit, kicked, punched, or otherwise hurt by someone within the past year? If so, by whom?: No Do you feel safe in your current relationship?: No Is there a partner from a previous relationship who is making you feel unsafe now?: No Advance Directives: Yes Advance Directives on File: Yes Advance Directives Date on File: 03/03/22 Do you have thoughts of harming others: None Do you have a plan to hurt others: No Plan Recently lost weight without trying: No Nutrition Risks: No Nutritional Risk Patient : No : No Poor oral hygiene: No service: No Current occupational status: unemployed Current occupation: right handed Meds Allergies Allergy/AdvReac Type Severity Reaction Status Date / Time No Known Allergies Allergy Verified 07/12/22 14:49 Active Medications: Current Medications Amlodipine Besylate (Amlodipine Besylate 5 Mg Tablet) 5 mg PO DAILY [facility]; Protocol Last Admin: 08/08/22 08:10 Dose: 5 mg Docusate Sodium (Docusate Sodium 100 Mg Capsule) 100 mg PO DAILY PRN PRN Reason: Constipation Enoxaparin Sodium (Enoxaparin Sodium 80 Mg/0.8 Ml Syringe) 70 mg 1 mg/kg (70 mg) SUBCUT Q12H [facility] Last Admin: 08/08/22 11:32 Dose: 70 mg Lactated Ringer's (Lr) 1,000 mls @ 125 mls/hr IVCONT .Q8H [facility] Last Admin: 08/08/22 07:46 Dose: 125 mls/hr Letrozole (Letrozole 2.5 Mg Tablet) 2.5 mg PO DAILY [facility] Last Admin: 08/08/22 08:10 Dose: 2.5 mg Morphine Sulfate (Morphine Sulfate 4 Mg/Ml Cartridge) 2 mg IVPUSH Q4H PRN; Protocol PRN Reason: Pain, Severe (Pain Scale 7-10) Pt Own (Tenofovir Alafenamide 25 Mg Tablet) 25 mg PO DAILY [facility] Last Admin: 08/08/22 08:10 Dose: 25 mg Ondansetron HCl (Ondansetron Hcl 4 Mg/2 Ml Vial) 4 mg IVPUSH Q8H PRN PRN Reason: Nausea and Vomiting Last Admin: 08/07/22 20:22 Dose: 4 mg Oxycodone HCl (Oxycodone Hcl Immed Release 5 Mg Tablet) 5 mg PO Q6H PRN PRN Reason: Pain, Moderate(Pain Scale 4-6) Senna/Docusate Sodium (Sennosides/Docusate Sodium Tablet) 1 tab PO BEDTIME PRN PRN Reason: Constipation Sodium Chloride (0.9 % Sodium Chloride Flush 3 Ml Syringe) 3 ml IVFLUSH QSHIFT [facility] Last Admin: 08/08/22 07:30 Dose: Not Given Home Medications Medication Instructions Recorded Confirmed Last Taken Type ondansetron 8 mg disintegrating 8 mg PO Q8H PRN nausea 07/27/22 08/07/22 Unknown History tablet acetaminophen 500 mg tablet 500 mg PO Q6H PRN Pain 08/07/22 08/07/22 Unknown History sennosides 8.6 mg-docusate sodium 1 tab-cap PO BEDTIME PRN 08/07/22 08/07/22 Unknown History 50 mg tablet (Senna with Docusate Constipation Sodium) Physical Exam Vital Signs: Vital Signs: Last Vital Signs Temp 98.3 F 08/08/22 07:45 Pulse 75 08/08/22 07:45 Resp 18 08/08/22 07:45 BP 118/58 L 08/08/22 07:45 Pulse Ox 95 08/08/22 07:45 O2 Del Method Room Air 08/08/22 07:45 BMI result Body Mass Index 31.9 Const: General: cooperative, healthy appearing and comfortable Orientation/consciousness: oriented to person, oriented to place and oriented to time HEENT: Head: Yes normal to inspection Neck: Neck: Yes normal visual inspection Carotids: no bruits Chest: Chest palpation & inspection: normal inspection of the chest Resp: Effort & Inspection: normal respiratory effort and able to speak in complete sentences Auscultation: clear to auscultation bilaterally, no crackles, no rales, no rhonchi and no wheezes Cardio: Rate: regular rate Rhythm: regular rhythm Heart sounds: S1 normal heart sound present and S2 normal heart sound present Bruits: no carotid bruits Peripheral pulses: Peripheral pulses 2+ throughout GI: Inspection: Yes normal to inspection Skin: Wounds: no wounds Hair: normal Neuro: General: oriented to person, oriented to place and oriented to time Cranial nerves: Yes CN's II-XII intact bilaterally and Yes Normal hearing present Cognition (Neuro): normal cognition Motor exam (neuro): 5/5 motor strength present throughout Extrem: Other: venous exam: +1 edema left leg General: No clubbing, No cyanosis and Yes edema Psych: Appearance: grossly normal Mental Status: mental status grossly normal Speech and movement: Normal speech and movement present Results Labs 08/08/22 04:44 08/08/22 04:44 Labs: Abnormal lab results 08/07/22 08/07/22 08/07/22 Range/Units 07:21 14:11 15:06 RBC 3.17 L (4.20-5.50) X10*6/uL Hgb 9.5 L (12.0-16.0) g/dl Hct 28.8 L (37.0-47.0) % RDW 16.1 H (11.0-16.0) % MPV 8.8 L (9.4-12.3) fL Neut % (Auto) (45-73) % Lymph % (Auto) (20-40) % PT 13.3 H (10.0-13.1) SEC INR 1.2 H (0.9-1.1) aPTT Heparin Protocol 34.4 L (53-77.9) SEC BUN (9-16) mg/dL POC Glucose (60-115) mg/dL Total Bilirubin (0.0-1.0) mg/dL Direct Bilirubin 2.0 H (0.0-0.5) mg/dL AST (5-31) U/L ALT (0-31) U/L Alkaline Phosphatase (39-117) U/L 08/07/22 08/07/22 08/07/22 Range/Units 15:06 20:57 22:00 RBC (4.20-5.50) X10*6/uL Hgb (12.0-16.0) g/dl Hct (37.0-47.0) % RDW (11.0-16.0) % MPV (9.4-12.3) fL Neut % (Auto) (45-73) % Lymph % (Auto) (20-40) % PT (10.0-13.1) SEC INR (0.9-1.1) aPTT Heparin Protocol 32.8 L 90.9 H D (53-77.9) SEC BUN (9-16) mg/dL POC Glucose 116 H (60-115) mg/dL Total Bilirubin (0.0-1.0) mg/dL Direct Bilirubin (0.0-0.5) mg/dL AST (5-31) U/L ALT (0-31) U/L Alkaline Phosphatase (39-117) U/L 08/08/22 08/08/22 08/08/22 Range/Units 04:44 04:44 04:44 RBC 3.33 L (4.20-5.50) X10*6/uL Hgb 10.2 L (12.0-16.0) g/dl Hct 30.1 L (37.0-47.0) % RDW (11.0-16.0) % MPV 8.9 L (9.4-12.3) fL Neut % (Auto) 77.2 H (45-73) % Lymph % (Auto) 16.2 L (20-40) % PT (10.0-13.1) SEC INR (0.9-1.1) aPTT Heparin Protocol 50.4 L D (53-77.9) SEC BUN 6 L (9-16) mg/dL POC Glucose (60-115) mg/dL Total Bilirubin 1.5 H (0.0-1.0) mg/dL Direct Bilirubin 0.6 H (0.0-0.5) mg/dL AST 133 H (5-31) U/L ALT 212 H (0-31) U/L Alkaline Phosphatase 352 H (39-117) U/L 08/08/22 Range/Units 11:15 RBC (4.20-5.50) X10*6/uL Hgb (12.0-16.0) g/dl Hct (37.0-47.0) % RDW (11.0-16.0) % MPV (9.4-12.3) fL Neut % (Auto) (45-73) % Lymph % (Auto) (20-40) % PT (10.0-13.1) SEC INR (0.9-1.1) aPTT Heparin Protocol 80.0 H D (53-77.9) SEC BUN (9-16) mg/dL POC Glucose (60-115) mg/dL Total Bilirubin (0.0-1.0) mg/dL Direct Bilirubin (0.0-0.5) mg/dL AST (5-31) U/L ALT (0-31) U/L Alkaline Phosphatase (39-117) U/L Short CBC 08/07/22 08/08/22 Range/Units 15:06 04:44 WBC 6.0 8.5 (4.8-10.8) X10*3/uL Hgb 9.5 L 10.2 L (12.0-16.0) g/dl Hct 28.8 L 30.1 L (37.0-47.0) % Plt Count 233 229 (160-400) X10*3/uL BMP 08/08/22 04:44 Sodium 137 Potassium 3.5 Chloride 101 Carbon Dioxide 23 BUN 6 L Creatinine 0.64 Calcium 9.1 Liver Function 08/07/22 08/08/22 Range/Units 07:21 04:44 Total Bilirubin 1.5 H (0.0-1.0) mg/dL Direct Bilirubin 2.0 H 0.6 H (0.0-0.5) mg/dL AST 133 H (5-31) U/L ALT 212 H (0-31) U/L Alkaline Phosphatase 352 H (39-117) U/L Albumin 3.9 (3.5-5.0) g/dL Urine 08/07/22 Range/Units 09:49 Urine Color Dark Yellow Urine Appearance Clear Urine pH 7.0 (5.0-9.0) Ur Specific [place] >= 1.030 H (1.005-1.025) Urine Protein Trace (Neg-Trace) mg/dL Urine Glucose (UA) Negative (Negative) mg/dL All other labs normal. Assessment and Plan (1) DVT (deep venous thrombosis): Status: Acute Plan In short patient has left lower extremity DVT. At the current time she is minimally asymptomatic. Due to her extensive metastatic cancer and overall status of the leg I do think conservative measures would be best for this patient. Would continue with anticoagulation long-term Eliquis versus Lovenox. Would recommend routine conservative measures including compression elevation and exercise. She will follow up with us on an as-needed basis. Thank you for allowing us to assist in her care. If there are any questions or concerns please do not hesitate to contact us. Time Spent With Patient Time: Total time managing care of this patient today ____ minutes. Procedures Date of Service Date of Service: 08/08/22
[2022-08-08 13:09] VITALS: BMI 31.9
[2022-08-08 13:15] LABS: Hematocrit 29.3 % (37.0-47.0); Hemoglobin 9.8 g/dl (12.0-16.0); Mean Corpuscular HGB Conc 33.4 g/dl (31.0-35.0); Mean Corpuscular Hemoglobin 30.1 pg (27.0-33.0); Mean Corpuscular Volume 89.9 fL (80.0-98.0); Mean Platelet Volume 8.6 fL (9.4-12.3); Platelet Count 221 X10*3/uL (160-400); Red Blood Count 3.26 X10*6/uL (4.20-5.50); Red Cell Distribution Width 15.9 % (11.0-16.0); White Blood Count 8.4 X10*3/uL (4.8-10.8)
--- NOTE | 2022-08-08 13:25 | P.CNGI_ITS ---
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 Patient was admitted with cramping upper abdominal pain, severe radiating into the chest and worse with food and on inspiration and with radiation into the back. There some nausea and non bloody emesis and she had difficulty with PO diet. Today she is feeling better and minimal pain and nausea. She is passing gas, normal stools. She has been compliant with tenofovir for inactive hep b and also been taking eliquis for LLE DVT. No cigarette smoking, etoh use, or illicit drug use. LABS: Normocytic anemia with H/H 11.1/33.2%.? Renal function normal, electrolyte levels normal.? Total bilirubin 3.3, direct bilirubin 2.0, AST 401, ALT 310, alkaline phosphatase 396.? LDH 652.? GGT 2104.? Lipase 1700. LFT are trending down today Imaging: CT abdomen/pelvis:interval increase in size and number of liver lesions with interval increase in retroperitoneal lymph nodes.? There is also residual wall thickening adjacent to the surgical anastomosis with increased soft tissue in peritoneal nodules suggestive of residual or recurrent disease as well as question of peritoneal disease in the pelvis adjacent to the uterus.? Gallbladder is enlarged with question of mild inflammatory changes of the gallbladder wall and a small gallstone noted Review of Systems 2 Review of Systems: Constitutional : + Weight loss, No Fever, No Chills ENT/Mouth : No sore throat, No Rhinorrhea Eyes: No Swelling, No Redness Cardiovascular : No Chest Pain, No SOB, No Edema Respiratory : No Cough, No Sputum, No Wheezing Gastrointestinal : see HPI Genitourinary : NO Dysuria, No Urinary Frequency, No Hematuria, No Urgency Musculoskeletal : No joint pain, No Myalgias, No Joint Swelling Skin : No Skin Lesions, No rash Neuro : No Weakness, No Numbness, No Dizziness, No Headache Psych : No Anxiety/Panic, No Depression Heme/Lymph: No Bruising, No Lymphadenopathy Endocrine : No Polyuria, No Polydipsia All other systems reviewed and are negative. [facility] Past Medical History Medical History (Updated 08/07/22 @ 18:23 by Nuvia Finch MD) HTN (hypertension) Invasive ductal carcinoma of left breast Left leg DVT Liver metastases Neuroendocrine neoplasm of colon Functional capacity: uses cane/walker Family History Family History Father Liver cancer Surgical History Surgical History History of lumpectomy of left breast (03/28/22) History of right hemicolectomy S/P right hemicolectomy Social History Social History Household Members: Family Household Members Other:: Friend Housing: House Are you a primary respiratory care program director to a significant other at home: No Do you presently have visiting nurse or other home services: No Alcohol intake: never Patient Tobacco Use Status: Never used Tobacco Smoked in Last 30 Days: No Second Hand Smoke Exposure: No Use of substances other than those prescribed or required for medical reasons: No Currently Displaying Signs/Symptoms of Drug Intoxication Withdrawal: No Have you been hit, kicked, punched, or otherwise hurt by someone within the past year? If so, by whom?: No Do you feel safe in your current relationship?: No Is there a partner from a previous relationship who is making you feel unsafe now?: No Advance Directives: Yes Advance Directives on File: Yes Advance Directives Date on File: 03/03/22 Do you have thoughts of harming others: None Do you have a plan to hurt others: No Plan Recently lost weight without trying: No Nutrition Risks: No Nutritional Risk Patient : No : No Poor oral hygiene: No service: No Current occupational status: unemployed Current occupation: right handed Meds Allergies Allergy/AdvReac Type Severity Reaction Status Date / Time No Known Allergies Allergy Verified 07/12/22 14:49 Active Medications: Current Medications Amlodipine Besylate (Amlodipine Besylate 5 Mg Tablet) 5 mg PO DAILY [facility]; Protocol Last Admin: 08/08/22 08:10 Dose: 5 mg Docusate Sodium (Docusate Sodium 100 Mg Capsule) 100 mg PO DAILY PRN PRN Reason: Constipation Enoxaparin Sodium (Enoxaparin Sodium 80 Mg/0.8 Ml Syringe) 70 mg 1 mg/kg (70 mg) SUBCUT Q12H [facility] Last Admin: 08/08/22 11:32 Dose: 70 mg Lactated Ringer's (Lr) 1,000 mls @ 125 mls/hr IVCONT .Q8H [facility] Last Admin: 08/08/22 07:46 Dose: 125 mls/hr Letrozole (Letrozole 2.5 Mg Tablet) 2.5 mg PO DAILY [facility] Last Admin: 08/08/22 08:10 Dose: 2.5 mg Morphine Sulfate (Morphine Sulfate 4 Mg/Ml Cartridge) 2 mg IVPUSH Q4H PRN; Protocol PRN Reason: Pain, Severe (Pain Scale 7-10) Pt Own (Tenofovir Alafenamide 25 Mg Tablet) 25 mg PO DAILY [facility] Last Admin: 08/08/22 08:10 Dose: 25 mg Ondansetron HCl (Ondansetron Hcl 4 Mg/2 Ml Vial) 4 mg IVPUSH Q8H PRN PRN Reason: Nausea and Vomiting Last Admin: 08/07/22 20:22 Dose: 4 mg Oxycodone HCl (Oxycodone Hcl Immed Release 5 Mg Tablet) 5 mg PO Q6H PRN PRN Reason: Pain, Moderate(Pain Scale 4-6) Senna/Docusate Sodium (Sennosides/Docusate Sodium Tablet) 1 tab PO BEDTIME PRN PRN Reason: Constipation Sodium Chloride (0.9 % Sodium Chloride Flush 3 Ml Syringe) 3 ml IVFLUSH QSHIFT [facility] Last Admin: 08/08/22 07:30 Dose: Not Given Home Medications Medication Instructions Recorded Confirmed Last Taken Type ondansetron 8 mg disintegrating 8 mg PO Q8H PRN nausea 07/27/22 08/07/22 Unknown History tablet acetaminophen 500 mg tablet 500 mg PO Q6H PRN Pain 08/07/22 08/07/22 Unknown History sennosides 8.6 mg-docusate sodium 1 tab-cap PO BEDTIME PRN 08/07/22 08/07/22 Unknown History 50 mg tablet (Senna with Docusate Constipation Sodium) Physical Exam Vital Signs: Vital Signs: Last Vital Signs Temp 98.3 F 08/08/22 07:45 Pulse 75 08/08/22 07:45 Resp 18 08/08/22 07:45 BP 118/58 L 08/08/22 07:45 Pulse Ox 95 08/08/22 07:45 O2 Del Method Room Air 08/08/22 07:45 BMI result Body Mass Index 31.9 EXAM: GENERAL: The patient is well developed and nontoxic. VITAL SIGNS:see workflow HEENT: Nonicteric sclerae, PERRLA, EOMI. Oropharynx clear. Moist mucous membranes. Conjunctivae appear well perfused. No thyroid mass. CHEST: Chest wall is nontender. HEART: Regular rate and rhythm without murmurs. LUNGS: Clear to auscultation bilaterally. ABDOMEN: Soft, positive bowel sounds, nontender, no organomegaly.no flank tenderness SKIN: No rash, no excessive bruising, petechiae, or purpura. NEUROLOGIC: Cranial nerves II-XII intact without motor/sensory deficit. Psych: Appearance: grossly normal Results Labs 08/08/22 13:10 08/08/22 04:44 Labs: Short CBC 08/07/22 08/08/22 08/08/22 Range/Units 15:06 04:44 13:10 WBC 6.0 8.5 8.4 (4.8-10.8) X10*3/uL Hgb 9.5 L 10.2 L 9.8 L (12.0-16.0) g/dl Hct 28.8 L 30.1 L 29.3 L (37.0-47.0) % Plt Count 233 229 221 (160-400) X10*3/uL BMP 08/08/22 04:44 Sodium 137 Potassium 3.5 Chloride 101 Carbon Dioxide 23 BUN 6 L Creatinine 0.64 Calcium 9.1 Liver Function 08/08/22 Range/Units 04:44 Total Bilirubin 1.5 H (0.0-1.0) mg/dL Direct Bilirubin 0.6 H (0.0-0.5) mg/dL AST 133 H (5-31) U/L ALT 212 H (0-31) U/L Alkaline Phosphatase 352 H (39-117) U/L Albumin 3.9 (3.5-5.0) g/dL Imaging CT scan - abdomen: My impression: liver lesions noted, distended GB, thickeing around duodenum and stomach -fluid around spleen and tail of pancreas MRI - abdomen: My impression: small filling defect GB, CBD looks normal and undilated, no stensois noted Assessment and Plan (1) Acute pancreatitis: Status: Acute (2) Transaminitis: Status: Acute Plan 1/ Acute pancreatitis, probably from gallstone, LFT are improving so probably passed. No evidence of CBD or PD compression by imaging. she has been compliant with tenofovir so not convinced this is hep b reactivation, plus as noted LFT are improving. PLAN: 1/ Advance diet as tolerated 2/ Cont with fluid resus with LR 3/ analgesia as needed 4/ Can try pentoxifyline 400 mg TID might help with acute pancreatitis. Time Spent With Patient Time: Total time managing care of this patient today ____ minutes. Procedures Date of Service Date of Service: 08/08/22
[2022-08-08 15:19] VITALS: BP 130/66; PULSE 82; RESP 18; TEMP 36.2; O2SAT 94
--- NOTE | 2022-08-08 15:50 | P.CONGS_ITS ---
History of Present Illness Consult details Consult date: 08/08/22 Reason for consult: gallstones Narrative: The patient is a 66-year-old woman known to me for poorly differentiated neuroendocrine tumor causing an obstruction and requiring a right hemicolectomy. She is seen with the help of interpretive services Ismael [id number] and his been admitted to the hospitalist service with pancreatitis and gallstones. Patient's daughter is at the bedside. The patient states she has no abdominal pain at this time and believes the saline infusion is helping her. She notes that the abdominal pain that she had started shortly after getting chemotherapy. Review of Systems Review of Systems: Yes all other systems are reviewed and are negative Constitutional: Constitutional: Reports as per [facility] Past Medical History Medical History (Updated 08/08/22 @ 15:51 by Keyon Cruz MD) HTN (hypertension) Invasive ductal carcinoma of left breast Left leg DVT Liver metastases Neuroendocrine neoplasm of colon Functional capacity: uses cane/walker Family History Family History Father Liver cancer Surgical History Surgical History History of lumpectomy of left breast (03/28/22) History of right hemicolectomy S/P right hemicolectomy Social History Social History Household Members: Family Household Members Other:: Friend Housing: House Are you a primary child care education coordinator to a significant other at home: No Do you presently have visiting nurse or other home services: No Alcohol intake: never Patient Tobacco Use Status: Never used Tobacco Second Hand Smoke Exposure: No Advance Directives Date on File: 03/03/22 service: No Current occupational status: unemployed Current occupation: right handed Meds Allergies Allergy/AdvReac Type Severity Reaction Status Date / Time No Known Allergies Allergy Verified 07/12/22 14:49 Active Medications: Current Medications Amlodipine Besylate (Amlodipine Besylate 5 Mg Tablet) 5 mg PO DAILY [facility]; Protocol Last Admin: 08/08/22 08:10 Dose: 5 mg Docusate Sodium (Docusate Sodium 100 Mg Capsule) 100 mg PO DAILY PRN PRN Reason: Constipation Enoxaparin Sodium (Enoxaparin Sodium 80 Mg/0.8 Ml Syringe) 70 mg 1 mg/kg (70 mg) SUBCUT Q12H ON LICENSE OF [facility] Last Admin: 08/08/22 11:32 Dose: 70 mg Lactated Ringer's (Lr) 1,000 mls @ 125 mls/hr IVCONT .Q8H ON LICENSE OF [facility] Last Admin: 08/08/22 15:31 Dose: 125 mls/hr Letrozole (Letrozole 2.5 Mg Tablet) 2.5 mg PO DAILY ON LICENSE OF [facility] Last Admin: 08/08/22 08:10 Dose: 2.5 mg Morphine Sulfate (Morphine Sulfate 4 Mg/Ml Cartridge) 2 mg IVPUSH Q4H PRN; Protocol PRN Reason: Pain, Severe (Pain Scale 7-10) Pt Own (Tenofovir Alafenamide 25 Mg Tablet) 25 mg PO DAILY ON LICENSE OF [facility] Last Admin: 08/08/22 08:10 Dose: 25 mg Ondansetron HCl (Ondansetron Hcl 4 Mg/2 Ml Vial) 4 mg IVPUSH Q8H PRN PRN Reason: Nausea and Vomiting Last Admin: 08/07/22 20:22 Dose: 4 mg Oxycodone HCl (Oxycodone Hcl Immed Release 5 Mg Tablet) 5 mg PO Q6H PRN PRN Reason: Pain, Moderate(Pain Scale 4-6) Senna/Docusate Sodium (Sennosides/Docusate Sodium Tablet) 1 tab PO BEDTIME PRN PRN Reason: Constipation Sodium Chloride (0.9 % Sodium Chloride Flush 3 Ml Syringe) 3 ml IVFLUSH QSHIFT ON LICENSE OF [facility] Last Admin: 08/08/22 15:32 Dose: Not Given Home Medications Medication Instructions Recorded Confirmed Last Taken Type ondansetron 8 mg disintegrating 8 mg PO Q8H PRN nausea 07/27/22 08/07/22 Unknown History tablet acetaminophen 500 mg tablet 500 mg PO Q6H PRN Pain 08/07/22 08/07/22 Unknown History sennosides 8.6 mg-docusate sodium 1 tab-cap PO BEDTIME PRN 08/07/22 08/07/22 Unknown History 50 mg tablet (Senna with Docusate Constipation Sodium) Physical Exam Vital Signs: Vital Signs: Last Vital Signs Temp 97.2 F 08/08/22 15:19 Pulse 82 08/08/22 15:19 Resp 18 06/12/23 15:19 BP 130/66 08/08/22 15:19 Pulse Ox 94 08/08/22 15:19 O2 Del Method Room Air 08/08/22 15:19 BMI result Body Mass Index 31.9 On exam she is anicteric She is in surprisingly good spirits and nontoxic She is in no acute respiratory distress Her abdomen is overweight but soft. There is some epigastric discomfort but in deep palpation under the ribcage on the right, I am not able to express any significant right upper quadrant pain. No incisional hernias are noted. Results Labs 08/08/22 13:10 08/08/22 04:44 Labs: Abnormal lab results 08/07/22 08/07/22 08/08/22 Range/Units 20:57 22:00 04:44 RBC (4.20-5.50) X10*6/uL Hgb (12.0-16.0) g/dl Hct (37.0-47.0) % MPV (9.4-12.3) fL Neut % (Auto) (45-73) % Lymph % (Auto) (20-40) % aPTT Heparin Protocol 90.9 H D 50.4 L D (53-77.9) SEC BUN (9-16) mg/dL POC Glucose 116 H (60-115) mg/dL Total Bilirubin (0.0-1.0) mg/dL Direct Bilirubin (0.0-0.5) mg/dL AST (5-31) U/L ALT (0-31) U/L Alkaline Phosphatase (39-117) U/L 08/08/22 08/08/22 08/08/22 Range/Units 04:44 04:44 11:15 RBC 3.33 L (4.20-5.50) X10*6/uL Hgb 10.2 L (12.0-16.0) g/dl Hct 30.1 L (37.0-47.0) % MPV 8.9 L (9.4-12.3) fL Neut % (Auto) 77.2 H (45-73) % Lymph % (Auto) 16.2 L (20-40) % aPTT Heparin Protocol 80.0 H D (53-77.9) SEC BUN 6 L (9-16) mg/dL POC Glucose (60-115) mg/dL Total Bilirubin 1.5 H (0.0-1.0) mg/dL Direct Bilirubin 0.6 H (0.0-0.5) mg/dL AST 133 H (5-31) U/L ALT 212 H (0-31) U/L Alkaline Phosphatase 352 H (39-117) U/L 08/08/22 Range/Units 13:10 RBC 3.26 L (4.20-5.50) X10*6/uL Hgb 9.8 L (12.0-16.0) g/dl Hct 29.3 L (37.0-47.0) % MPV 8.6 L (9.4-12.3) fL Neut % (Auto) (45-73) % Lymph % (Auto) (20-40) % aPTT Heparin Protocol (53-77.9) SEC BUN (9-16) mg/dL POC Glucose (60-115) mg/dL Total Bilirubin (0.0-1.0) mg/dL Direct Bilirubin (0.0-0.5) mg/dL AST (5-31) U/L ALT (0-31) U/L Alkaline Phosphatase (39-117) U/L Short CBC 08/08/22 08/08/22 Range/Units 04:44 13:10 WBC 8.5 8.4 (4.8-10.8) X10*3/uL Hgb 10.2 L 9.8 L (12.0-16.0) g/dl Hct 30.1 L 29.3 L (37.0-47.0) % Plt Count 229 221 (160-400) X10*3/uL BMP 08/08/22 04:44 Sodium 137 Potassium 3.5 Chloride 101 Carbon Dioxide 23 BUN 6 L Creatinine 0.64 Calcium 9.1 Liver Function 08/08/22 Range/Units 04:44 Total Bilirubin 1.5 H (0.0-1.0) mg/dL Direct Bilirubin 0.6 H (0.0-0.5) mg/dL AST 133 H (5-31) U/L ALT 212 H (0-31) U/L Alkaline Phosphatase 352 H (39-117) U/L Albumin 3.9 (3.5-5.0) g/dL Urine 06/11/23 Range/Units 09:49 Urine Color Dark Yellow Urine Appearance Clear Urine pH 7.0 (5.0-9.0) Ur Specific [place] >= 1.030 H (1.005-1.025) Urine Protein Trace (Neg-Trace) mg/dL Urine Glucose (UA) Negative (Negative) mg/dL All other labs normal. Imaging Abdomen CT scan report/results: report reviewed and image reviewed CT scan - pelvis: report reviewed and image reviewed Abdominal ultrasound report/results: report reviewed and image reviewed Additional studies: PET CT reviewed Assessment and Plan (1) Acute pancreatitis: Status: Acute (2) DVT (deep venous thrombosis): Status: Acute (3) Metastasis: Status: Acute (4) Transaminitis: Status: Acute (5) Neuroendocrine neoplasm of colon: Status: Acute (6) Left leg DVT: Status: Acute (7) Breast cancer: Status: Acute (8) Liver metastases: Status: Acute Plan Via hospice clinical marketer, I have recommended that we trend her labs and physical exam. Based on this current examination, I do not believe the patient has acute calculous cholecystitis, but I cannot rule out the possibility of gallstone induced pancreatitis. However, the patient has metastatic disease in her liver, DVT means she is a significant if not prohibitive operative risk. Agree with bowel rest, trending labs and physical exam. Will reassess for possible HIDA scan, but based on today's exam, I expect this will be a low yield. Please call me directly if there are any questions. Will follow. Time Spent With Patient Time: Total time managing care of this patient today ____ minutes. Procedures Date of Service Date of Service: 08/08/22
--- NOTE | 2022-08-08 16:28 | PM.HEMONCPN ---
Medical Summary - Medical Summary Date of Service: 08/08/22 Chief complaint: Abdominal pain Primary Care Provider: Unknown Physician Medical Summary: DIAGNOSIS: 1. NAUSEA VOMITING. 2. ACUTE PANCREATITIS. 3. COLON CARCINOMA WITH LIVER AND PERITONEAL METASTASES. 4. BREAST CANCER. CURRENT THERAPY: STARTED ON FOLFIRI, 07/13. RECEIVED 2ND DOSE ON 07/27. Interval History Interval history: She feels better this morning. She denies abdominal pain, nausea or emesis. No fever or chills. Her left leg is still a bit swollen. Review of Systems - Constitutional Reports as per HPI, Denies fatigue, Denies night sweats - Cardiovascular Reports no additional cardiovascular complaints - Respiratory Reports no additional respiratory complaints - Neurologic Reports no additional neurologic complaints, Reports hearing normal, Denies abnormal gait [facility] Medical History: Medical History (Last Updated 08/08/22 @ 15:51 by Keyon Cruz MD) HTN (hypertension) Invasive ductal carcinoma of left breast Left leg DVT Liver metastases Neuroendocrine neoplasm of colon Functional capacity: uses cane/walker Family History: Family History (Last Reviewed 08/07/22 @ 14:06 by CHELSY Foote) Father Liver cancer Surgical History: Surgical History (Last Reviewed 08/07/22 @ 14:06 by CHELSY Foote) History of lumpectomy of left breast Onset Date: 03/28/22 History of right hemicolectomy S/P right hemicolectomy Social History: Social History (Last Reviewed 08/07/22 @ 14:06 by CHELSY Foote) Living Situation History: Household Members: Family Household Members Other:: Friend Housing: House Are you a primary child caregiver to a significant other at home: No Do you presently have visiting nurse or other home services: No Alcohol History Details: 1. How often do you have a drink containing alcohol?: a. Never AUDIT-C Alcohol total score: 0 Currently Displaying Signs/Symptoms of Alcohol Withdrawal: No Tobacco History: Patient Tobacco Use Status: Never used Tobacco Smoked in Last 30 Days: No Second Hand Smoke Exposure: No Substance Use History: Use of substances other than those prescribed or required for medical reasons: No Currently Displaying Signs/Symptoms of Drug Intoxication Withdrawal: No Domestic Abuse History: Have you been hit, kicked, punched, or otherwise hurt by someone within the past year? If so, by whom?: No Do you feel safe in your current relationship?: No Is there a partner from a previous relationship who is making you feel unsafe now?: No Advance Directives: Advance Directives: Yes Advance Directives on File: Yes Advance Directives Date on File: 03/03/22 Homicidal Assessment: Do you have thoughts of harming others: None Do you have a plan to hurt others: No Plan Nutrition Assessment: Recently lost weight without trying: No Nutrition Risks: No Nutritional Risk Patient : No : No Poor oral hygiene: No Occupation Assessmet: service: No Current occupational status: unemployed Current occupation: right handed Home Medications and Allergies Current Medications: Current Medications Amlodipine Besylate (Amlodipine Besylate 5 Mg Tablet) 5 mg PO DAILY [facility]; Protocol Last Admin: 08/08/22 08:10 Dose: 5 mg Docusate Sodium (Docusate Sodium 100 Mg Capsule) 100 mg PO DAILY PRN PRN Reason: Constipation Enoxaparin Sodium (Enoxaparin Sodium 80 Mg/0.8 Ml Syringe) 70 mg 1 mg/kg (70 mg) SUBCUT Q12H [facility] Last Admin: 08/08/22 11:32 Dose: 70 mg Lactated Ringer's (Lr) 1,000 mls @ 125 mls/hr IVCONT .Q8H [facility] Last Admin: 08/08/22 15:31 Dose: 125 mls/hr Letrozole (Letrozole 2.5 Mg Tablet) 2.5 mg PO DAILY [facility] Last Admin: 08/08/22 08:10 Dose: 2.5 mg Morphine Sulfate (Morphine Sulfate 4 Mg/Ml Cartridge) 2 mg IVPUSH Q4H PRN; Protocol PRN Reason: Pain, Severe (Pain Scale 7-10) Pt Own (Tenofovir Alafenamide 25 Mg Tablet) 25 mg PO DAILY [facility] Last Admin: 08/08/22 08:10 Dose: 25 mg Ondansetron HCl (Ondansetron Hcl 4 Mg/2 Ml Vial) 4 mg IVPUSH Q8H PRN PRN Reason: Nausea and Vomiting Last Admin: 08/07/22 20:22 Dose: 4 mg Oxycodone HCl (Oxycodone Hcl Immed Release 5 Mg Tablet) 5 mg PO Q6H PRN PRN Reason: Pain, Moderate(Pain Scale 4-6) Senna/Docusate Sodium (Sennosides/Docusate Sodium Tablet) 1 tab PO BEDTIME PRN PRN Reason: Constipation Sodium Chloride (0.9 % Sodium Chloride Flush 3 Ml Syringe) 3 ml IVFLUSH QSHIFT [facility] Last Admin: 08/08/22 15:32 Dose: Not Given Home Medications Medication Instructions Recorded Confirmed Type ondansetron 8 mg disintegrating 8 mg PO Q8H PRN nausea 07/27/22 08/07/22 History tablet acetaminophen 500 mg tablet 500 mg PO Q6H PRN Pain 08/07/22 08/07/22 History sennosides 8.6 mg-docusate sodium 1 tab-cap PO BEDTIME PRN 08/07/22 08/07/22 History 50 mg tablet (Senna with Docusate Constipation Sodium) Allergies Allergy/AdvReac Type Severity Reaction Status Date / Time No Known Allergies Allergy Verified 07/12/22 14:49 Exam Vital signs: Vital Signs Temp 97.2 F 08/08/22 15:19 Pulse 82 08/08/22 15:19 Resp 18 08/08/22 15:19 BP 130/66 08/08/22 15:19 Pulse Ox 94 08/08/22 15:19 O2 Del Method Room Air 08/08/22 15:19 Intake & Output 08/07/22 08/08/22 08/08/22 18:59 06:59 18:59 Intake Total 1999 / 3922.377 1922.377 / 3922.377 2032.839 / 2032.839 Balance 1999 3922.377 1922.377 / 3922.377 2032.839 / 2032.839 Intake: Intake, Oral Amount 800 / 800 0 / 0 Intake, IV Amount 1999 3122.377 1122.377 / 3122.377 2032.839 / 2032.839 0.9 % Sodium Chloride 1,000 ml 1999 @ 999 mls/hr IV .Q1H1M [facility] Rx#: [id number] Heparin Sodium,Porcine/1/2NS 25 122.377 / 122.377 64.089 / 64.089 ,000 unit In 250 ml @ Per Protocol IVCONT .Q0M [facility] Rx#: [id number] Lactated Ringers 1,000 ml @ 125 1000 / 1000 1968.75 / 1968.75 mls/hr IVCONT .Q8H [facility] Rx#: [id number] Other: Meal Refused No No NPO Yes Yes Breakfast % Eaten npo Lunch % Eaten 0% Dinner % Eaten 75% npo Number of Unmeasured Voids 2 2 Urine Bathroom Bathroom Urine Color Yellow Pale Yellow Last Bowel Movement 08/06/22 Weight 71.7 kg 71.7 kg Weight in Grams 55302 Weight 71.7 kg BMI result Body Mass Index 31.9 - Constitutional Present: moderate distress - Routine HEENT Exam Head: Present: normal inspection, normocephalic - Routine Respiratory Exam Present: CTAB - Routine Cardiovascular Exam Cardiovascular: Present: RRR, S1, S2 - Routine Abdominal Exam Present: hypoactive bowel sounds, tenderness - Routine Skin Exam Present: intact, dry - Routine Neurological Exam Present: alert, oriented X3, vision grossly intact - Detailed Neurological Exam: Coma Scale Eye Opening: Spontaneous (4) Data - Labs CBC & Chem 7: 08/08/22 13:10 08/08/22 04:44 Labs: 08/07/22 ECG [address] head/brain wo IV con Stat CXR [XR chest 1V] Stat 08/07/22 07:21 Add Laboratory Test Stat Add Laboratory Test Stat Bilirubin Direct Stat Carcinoembryonic Antigen Stat Complete Blood Count Auto Diff Stat Comprehensive Met. Panel Stat Gamma Glutamyl Transpeptidase Stat Lactate Dehydrogenase Stat Lipase Stat Triglycerides Stat 08/07/22 07:30 Add Laboratory Test Stat Add Laboratory Test Stat 08/07/22 08:06 CT abdomen pelvis w IV con Stat US abdomen limited Stat 08/07/22 08:23 ondansetron HCL [Zofran] 4 mg IVPUSH ONCE ONE 08/07/22 09:32 iohexoL 350 MG/ML [Omnipaque 350 MG/ML] 100 ml IV ONCE ONE 08/07/22 09:49 UA ClnCatch+Micro w/rflx Cult Stat 08/07/22 11:04 Morphine Sulfate 4 mg IVPUSH ONCE ONE 08/07/22 11:17 US duplex arterial venous comp Stat 08/07/22 11:36 Add Laboratory Test Stat 08/07/22 11:43 Ammonia Stat 08/07/22 11:45 0.9 % Sodium Chloride [Ns] 1,000 ml IV 999 mls/hr 0.9 % Sodium Chloride [Ns] 1,000 ml IV 999 mls/hr 08/07/22 13:19 Admission Assessment - Modified NOW 08/07/22 13:24 NPO Diet 08/07/22 13:47 NM pul perfusion Stat 08/07/22 13:48 Heparin Sodium,Porcine 5,300 unit IVPUSH ONCE ONE 08/07/22 13:55 EKG Documentation DIRECTED 08/07/22 14:11 PTT Heparin Drip Stat Prothrombin Time INR Stat Troponin-I High Sensitivity Stat 08/07/22 14:51 Heparin Sodium,Porcine 2,900 unit IVPUSH PROTOCOL BOLUS PRN 08/07/22 15:00 Heparin Sodium,Porcine/1/2NS 25,000 unit in 250 ml IVCONT Per Protocol units/kg/hr 08/07/22 15:06 Complete Blood Count no Diff Stat PTT Heparin Drip Stat Prothrombin Time INR Stat 08/07/22 20:57 Glucose, Whole Blood Routine 08/07/22 22:00 PTT Heparin Drip Stat 08/08/22 MR MRCP Stat 08/08/22 04:44 Basic Metabolic Panel DAILY@0600 Complete Blood Count Auto Diff DAILY@0600 Liver Panel DAILY@0600 PTT Heparin Drip Stat 08/08/22 04:45 Prothrombin Time INR Routine 08/08/22 11:15 PTT Heparin Drip Stat Prothrombin Time INR Stat 08/08/22 13:10 Complete Blood Count no Diff Stat Laboratory Last Values WBC 8.4 X10*3/uL (4.8-10.8) 08/08/22 13:10 RBC 3.26 X10*6/uL (4.20-5.50) L 08/08/22 13:10 Hgb 9.8 g/dl (12.0-16.0) L 08/08/22 13:10 Hct 29.3 % (37.0-47.0) L 08/08/22 13:10 MCV 89.9 fL (80.0-98.0) 08/08/22 13:10 MCH 30.1 pg (27.0-33.0) 08/08/22 13:10 MCHC 33.4 g/dl (31.0-35.0) 08/08/22 13:10 RDW 15.9 % (11.0-16.0) 08/08/22 13:10 Plt Count 221 X10*3/uL (160-400) 08/08/22 13:10 MPV 8.6 fL (9.4-12.3) L 08/08/22 13:10 Immature Gran % (Auto) 0.2 % (0.0-0.4) 08/08/22 04:44 Neut % (Auto) 77.2 % (45-73) H 08/08/22 04:44 Lymph % (Auto) 16.2 % (20-40) L 08/08/22 04:44 [place] % (Auto) 6.1 % (2-11) 08/08/22 04:44 Eos % (Auto) 0.1 % (0-4) 08/08/22 04:44 Baso % (Auto) 0.2 % (0-2) 08/08/22 04:44 Lymph # (Auto) 1.4 X10*3/uL (1.2-4.9) 08/08/22 04:44 [place] # (Auto) 0.5 X10*3/uL (0.1-1.2) 08/08/22 04:44 Eos # (Auto) 0.0 X10*3/uL (0.0-0.4) 08/08/22 04:44 Baso # (Auto) 0.0 X10*3/uL (0.0-0.2) 08/08/22 04:44 Abs Immat Gran (auto) 0.02 X10*3/uL (0.00-0.03) 08/08/22 04:44 Absolute Neuts (auto) 6.6 x10*3/uL (2.0-8.3) 08/08/22 04:44 Absolute Nucleated RBC 0.000 X10*3/uL (0.0-0.012) 08/08/22 13:10 Nucleated RBC % (auto) 0.0 /100WBC (0.0-0.2) 08/08/22 13:10 PT 12.9 SEC (10.0-13.1) 08/08/22 11:15 INR 1.1 (0.9-1.1) 08/08/22 11:15 aPTT Heparin Protocol 80.0 SEC (53-77.9) H D 08/08/22 11:15 Sodium 137 mmol/L (135-145) 08/08/22 04:44 Potassium 3.5 mmol/L (3.3-5.1) 08/08/22 04:44 Chloride 101 mmol/L (96-108) 08/08/22 04:44 Carbon Dioxide 23 mmol/L (22-29) 08/08/22 04:44 Anion Gap 17 (12-20) 08/08/22 04:44 BUN 6 mg/dL (9-16) L 08/08/22 04:44 Creatinine 0.64 mg/dL (0.5-1.4) 08/08/22 04:44 Estim Creat Clear Calc 72.5 08/08/22 04:44 Estimated GFR > 60 08/08/22 04:44 POC Glucose 116 mg/dL (60-115) H 08/07/22 20:57 Random Glucose 106 mg/dL (60-115) 08/08/22 04:44 Calcium 9.1 mg/dL (8.4-10.2) 08/08/22 04:44 Total Bilirubin 1.5 mg/dL (0.0-1.0) H 08/08/22 04:44 Direct Bilirubin 0.6 mg/dL (0.0-0.5) H 08/08/22 04:44 GGT 2104 U/L (7-33) H 08/07/22 07:21 AST 133 U/L (5-31) H 08/08/22 04:44 ALT 212 U/L (0-31) H 08/08/22 04:44 Alkaline Phosphatase 352 U/L (39-117) H 08/08/22 04:44 Ammonia 41 umol/L (13-55) 08/07/22 11:43 Lactate Dehydrogenase 652 U/L (122-220) H 08/07/22 07:21 Troponin I High Sens 4.7 ng/L (<3.5-17.0) 08/07/22 14:11 Total Protein 6.5 g/dL (6.5-8.0) 08/08/22 04:44 Albumin 3.9 g/dL (3.5-5.0) 08/08/22 04:44 Triglycerides 165 mg/dL 08/07/22 07:21 Lipase 1710 U/L (8-78) H 08/07/22 07:21 Carcinoembryonic Ag 5.20 ng/mL 08/07/22 07:21 Urine Color Dark Yellow 08/07/22 09:49 Urine Appearance Clear 08/07/22 09:49 Urine pH 7.0 (5.0-9.0) 08/07/22 09:49 Ur Specific [place] >= 1.030 (1.005-1.025) H 08/07/22 09:49 Urine Protein Trace mg/dL (Neg-Trace) 08/07/22 09:49 Urine Glucose (UA) Negative mg/dL (Negative) 08/07/22 09:49 Urine Ketones Negative mg/dL (Negative) 08/07/22 09:49 Urine Blood Negative (Negative) 08/07/22 09:49 Urine Nitrite Negative (Negative) 08/07/22 09:49 Ur Leukocyte Esterase Trace (Negative) H 08/07/22 09:49 Urine RBC 0-2 /HPF (0-2) 08/07/22 09:49 Urine WBC 0-5 /HPF (0-5) 08/07/22 09:49 Ur Squamous Epith Cells 0-2 /HPF (0-2) 08/07/22 09:49 Urine Bacteria None Seen (None Seen) 08/07/22 09:49 Hyaline Casts 0-2 /LPF (0-2) 08/07/22 09:49 - Imaging Radiologist's impression: ITS Impressions Abdomen/Pelvis CT 08/07/22 09:33 IMPRESSION: Interval increase in size and number of liver lesions. Interval increase in retroperitoneal lymph nodes. Stable postsurgical changes following right colectomy. Residual wall thickening adjacent to surgical anastomosis, increased soft tissue and peritoneal nodules suggestive of residual or recurrent disease. Question peritoneal disease in the pelvis adjacent to the uterus. Slightly enlarged gallbladder and question mild inflammatory changes of the gallbladder wall. Small gallstone in the gallbladder. Mild common bile duct dilatation measuring 1 cm. No common bile duct stone seen by CT. Follow-up gallbladder ultrasound or HIDA scan should be considered if there is clinical concern of cholecystitis. Normal-appearing pancreas. Small amount of fluid in the bilateral anterior pararenal fascia and paracolic gutters. This is a characteristic location for pancreatitis. Correlation with amylase and lipase recommended. Left leg DVT extending into the iliac veins and infrarenal IVC. Fleischner guidelines were followed. Findings will be communicated by the [place] work flow staff air defense officer Abdomen Ultrasound 08/07/22 09:59 IMPRESSION: 1. Mild dilatation of the common bile duct correlating with the CT findings. No intraluminal abnormality seen in the visualized portions however the distal portions are not well-visualized on this study. 2. Known multiple liver lesions better evaluated on the CT scan. 3. Small gallstones and sludge without evidence for acute cholecystitis. Doppler Study Ultrasound 08/07/22 12:24 IMPRESSION: Patent portal and splenic veins with appropriate hepatopedal flow. Left portal vein difficult to visualize. Chest X-Ray 08/07/22 17:20 IMPRESSION: New trace left effusion. No edema or focal pneumonia. Pulmonary Perfusion Imaging 08/07/22 19:15 IMPRESSION: Based on perfusion only modified PIOPED 2 criteria, pulmonary thromboembolism is considered absent. Follow-up left lower extremity DVT study may be considered for comparison with prior positive DVT study of left lower extremity done on 08/02/2022, if clinically appropriate. Head CT 08/07/22 21:15 IMPRESSION: No acute intracranial pathology. Cholangiopancreatography MRI 08/08/22 12:20 IMPRESSION: Metastatic disease to the liver. Small gallstones, upper normal-size gallbladder and slightly thickened edematous gallbladder wall. Findings are questionable for cholecystitis. Slightly dilated common bile duct measuring 8 mm and question low signal linear filling defects questionable for sludge or debris. No definite common bile duct stone. Slight thickening of the tail the pancreas and fluid in the left pararenal fascia and paracolic gutter questionable for mild pancreatitis. 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 She is now receiving 2nd line chemotherapy with FOLFIRI regimen. She is currently admitted for gallstone pancreatitis. She seems to be improving with conservative management. Her LFTs are improving. 2. Left lower extremity DVT. She is on Lovenox 1 milligram/kilos b.i.d.. She can be switched to Eliquis or Xarelto at the time of discharge. - Time Spent With Patient Time Spent with Patient (in minutes): 10
[2022-08-08 19:31] VITALS: BP 131/76; PULSE 90; RESP 17; TEMP 36.2; O2SAT 95
[2022-08-09] MEDS: Lactated Ringers 1,000 ML 125 ML IVCONT (01:06)
[2022-08-09] MEDS: Enoxaparin Sodium 80 MG/0.8 ML SYRINGE 70 MG SUBCUT (01:06)
[2022-08-09 03:56] VITALS: BP 124/72; PULSE 86; RESP 17; TEMP 36.4; O2SAT 95
[2022-08-09 05:35] LABS: Hematocrit 29.8 % (37.0-47.0); Hemoglobin 9.9 g/dl (12.0-16.0); Mean Corpuscular HGB Conc 33.2 g/dl (31.0-35.0); Mean Corpuscular Hemoglobin 30.7 pg (27.0-33.0); Mean Corpuscular Volume 92.5 fL (80.0-98.0); Mean Platelet Volume 9.1 fL (9.4-12.3); Platelet Count 245 X10*3/uL (160-400); Red Blood Count 3.22 X10*6/uL (4.20-5.50); Red Cell Distribution Width 15.5 % (11.0-16.0); White Blood Count 8.5 X10*3/uL (4.8-10.8)
[2022-08-09 06:07] LABS: Alanine Aminotransferase 130 U/L (0-31); Albumin Level 3.6 g/dL (3.5-5.0); Alkaline Phosphatase 265 U/L (39-117); Anion Gap 16 (12-20); Aspartate Amino Transferase 52 U/L (5-31); Bilirubin Total 1.5 mg/dL (0.0-1.0); Blood Urea Nitrogen 7 mg/dL (9-16); Carbon Dioxide 25 mmol/L (22-29); Chloride 100 mmol/L (96-108); Creatinine Clr Calc Pharmacy 77.4; Estimated Glomerular Filt Rate > 60; Gamma Glutamyl Transpeptidase 1282 U/L (7-33); Glucose Random 91 mg/dL (60-115); Lipase 33 U/L (8-78); Potassium 3.7 mmol/L (3.3-5.1); Sodium 137 mmol/L (135-145); Total Protein 6.2 g/dL (6.5-8.0)
[2022-08-09 07:21] VITALS: BP 139/82; PULSE 74; RESP 18; TEMP 36.4; O2SAT 94
--- NOTE | 2022-08-09 08:08 | PM.PNGS ---
Subjective Subjective Date of Service: 08/09/22 Patient reports: feels better, tolerating liquids well and tolerating a regular diet Interval history: The patient is seen with the help of interpretive services, Julio Cesar [id number] The patient's daughter, Chinmay, is at the bedside and had some questions. Patient reports that she had a little nausea earlier today and some vague right upper quadrant discomfort, but her daughter brought new tools and broth from home. The patient was able to eat the nodules and her nausea resolved and she no longer has any right upper quadrant pain of significance. She reports some discomfort as before admission. Patient's daughter Chinmay, asked about being discharged. Apparently, the plan is for the patient to be discharged later today with Lovenox given the left leg DVT. 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 We discussed the possibility of transient choledocholithiasis causing pancreatitis verses the unlikely but possible issue of chemotherapy causing pancreatitis. The importance of follow-up with the oncologist tomorrow was reviewed and apparently understood. Physical Exam Vital Signs: Vital Signs: Last Vital Signs Temp 97.6 F 08/09/22 07:21 Pulse 74 08/09/22 07:21 Resp 18 08/09/22 07:21 BP 139/82 08/09/22 07:21 Pulse Ox 94 08/09/22 07:21 O2 Del Method Room Air 08/09/22 07:21 BMI result Body Mass Index 31.9 On exam, the patient is in surprisingly good spirits Her sclerae anicteric She is in no acute respiratory distress Her abdomen does not have any rebound, rigidity or guarding. On deep palpation in the right upper quadrant, there was a little discomfort but no peritoneal irritation the suggest ongoing acute calculous cholecystitis. The epigastric pain is completely resolved. Her left lower extremity is moderately edematous by comparison to the right Objective Data Active Medications Amlodipine Besylate (Amlodipine Besylate 5 Mg Tablet) 5 mg PO DAILY [facility]; Protocol Last Admin: 08/08/22 08:10 Dose: 5 mg Documented By: RANDY Docusate Sodium (Docusate Sodium 100 Mg Capsule) 100 mg PO DAILY PRN PRN Reason: Constipation Enoxaparin Sodium (Enoxaparin Sodium 80 Mg/0.8 Ml Syringe) 70 mg 1 mg/kg (70 mg) SUBCUT Q12H [facility] Last Admin: 08/09/22 01:06 Dose: 70 mg Documented By: MARILU Lactated Ringer's (Lr) 1,000 mls @ 125 mls/hr IVCONT .Q8H [facility] Last Admin: 08/09/22 06:52 Dose: Not Given Documented By: MARILU Non-Admin Reason: IV Running Letrozole (Letrozole 2.5 Mg Tablet) 2.5 mg PO DAILY [facility] Last Admin: 08/08/22 08:10 Dose: 2.5 mg Documented By: RANDY Morphine Sulfate (Morphine Sulfate 4 Mg/Ml Cartridge) 2 mg IVPUSH Q4H PRN; Protocol PRN Reason: Pain, Severe (Pain Scale 7-10) Pt Own (Tenofovir Alafenamide 25 Mg Tablet) 25 mg PO DAILY [facility] Last Admin: 08/08/22 08:10 Dose: 25 mg Documented By: RANDY Ondansetron HCl (Ondansetron Hcl 4 Mg/2 Ml Vial) 4 mg IVPUSH Q8H PRN PRN Reason: Nausea and Vomiting Last Admin: 08/07/22 20:22 Dose: 4 mg Documented By: JACKELYN Oxycodone HCl (Oxycodone Hcl Immed Release 5 Mg Tablet) 5 mg PO Q6H PRN PRN Reason: Pain, Moderate(Pain Scale 4-6) Senna/Docusate Sodium (Sennosides/Docusate Sodium Tablet) 1 tab PO BEDTIME PRN PRN Reason: Constipation Sodium Chloride (0.9 % Sodium Chloride Flush 3 Ml Syringe) 3 ml IVFLUSH QSHIFT [facility] Last Admin: 08/09/22 07:30 Dose: Not Given Documented By: RANDY Non-Admin Reason: IV Running Labs 08/09/22 05:01 08/09/22 05:01 Labs: Laboratory Results - last 24 hr 08/08/22 08/08/22 08/09/22 11:15 13:10 05:01 MCV 89.9 MCH 30.1 MCHC 33.4 RDW 15.9 Plt Count 221 MPV 8.6 L Absolute Nucleated RBC 0.000 Nucleated RBC % (auto) 0.0 PT 12.9 INR 1.1 aPTT Heparin Protocol 80.0 H D Anion Gap 16 Estim Creat Clear Calc 77.4 Estimated GFR > 60 Random Glucose 91 Calcium 9.0 Total Bilirubin 1.5 H GGT 1282 H AST 52 H ALT 130 H Alkaline Phosphatase 265 H Total Protein 6.2 L Albumin 3.6 Lipase 33 08/09/22 05:01 MCV 92.5 MCH 30.7 MCHC 33.2 RDW 15.5 Plt Count 245 MPV 9.1 L Absolute Nucleated RBC 0.000 Nucleated RBC % (auto) 0.0 PT INR aPTT Heparin Protocol Anion Gap Estim Creat Clear Calc Estimated GFR Random Glucose Calcium Total Bilirubin GGT AST ALT Alkaline Phosphatase Total Protein Albumin Lipase Procedures Date of Service Date of Service: 08/09/22 Progress Note: A&P Assessment and plan (1) Neuroendocrine neoplasm of colon: Status: Acute (2) Liver metastases: Status: Acute (3) Acute pancreatitis: Status: Acute (4) Breast cancer: Status: Acute (5) Left leg DVT: Status: Acute (6) Transaminitis: Status: Acute (7) Elevated LFTs: Status: Acute (8) HTN (hypertension): Status: Acute (9) Invasive ductal carcinoma of left breast: Status: Acute (10) Ductal carcinoma in situ of left breast: Status: Acute Plan Lipase is normalized; white blood cell count was normal which is encouraging Metastatic neuroendocrine tumor, poorly differentiated to the live;, active DVT in spite of anticoagulation; breast cancer with probable gallstone pancreatitis. Will discuss options with patient and family. Son-in-law, Jeffery, is in [place] according to patient's daughter. Cholecystectomy is considerably risky in the setting. Via noise tester, I did explain to the patient and her daughter that pancreatitis could occur again whether related to chemotherapy or choledocholithiasis and if it does, will have a discussion about the risks of cholecystectomy. Patient is tolerating her diet and discharge is reasonable from my perspective. Please call me with questions. Time Spent With Patient Time: Total time managing care of this patient today ____ minutes. Quality Stroke Does the patient have a stroke diagnosis?: No VTE Prior VTE?: Yes VTE Risk Level:: Medical - moderate - high VTE Device Contraindication: Treatment Not Indicated VTE Drug Contraindication: Treatment Not Indicated
[2022-08-09] MEDS: Letrozole 2.5 MG TABLET PO (08:52)
[2022-08-09] MEDS: amLODIPine Besylate 5 MG TABLET PO (08:52)
--- NOTE | 2022-08-09 09:45 | PM.DS ---
DS: Providers Provider Date of Service: 08/09/22 Date of admission: 08/07/22 13:19 Date of discharge: 08/09/22 Primary care physician: Unknown Physician Consults: 08/07/22 11:40 Consult to Hematology / Oncology Stat Consulting Provider: Nuvia Finch Reason for consultation: mets 08/07/22 14:02 Consult to Vascular Surgery Routine Consulting Provider: [facility] Reason for consultation: extensive LLE DVT to iliac veins and infrarenal IVC 08/07/22 14:10 Consult to Gastroenterology Routine Consulting Provider: Mona Thomas Reason for consultation: pancreatitis, ?gallstone MRCP ordered 08/08/22 15:37 Consult to General Surgery Routine Consulting Provider: [facility] Reason for consultation: gallstone pancreatitis, metastatic neuroendocrine CA DS: Diagnosis Discharge Diagnosis (1) Neuroendocrine neoplasm of colon: Status: Acute (2) Liver metastases: Status: Acute (3) Acute pancreatitis: Status: Acute (4) Left leg DVT: Status: Acute (5) Gallstone pancreatitis: Status: Acute DS: Summary Hospital Course Hospital Course: From admission H+P by hospitalist CHELSY Rogers, 08/07/22: 66 yo female with hx of htn, 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 Decribes pain as a cramping, tightness with some throbbing. There is associated nausea and vomiting.? Unable to tolerate PO. She was recently seeni n the ED 08/02 and started on eliquis for DVT LLE which she has been compliant with though morning dose missed as she was coming to the hospital. No cigarette smoking, etoh use, or illicit drug use. On arrival VSS. No leukocytosis. Stable normocytic anemia with H/H 11.1/33.2%.? Renal function normal, electrolyte levels normal.? Total bilirubin 3.3, direct bilirubin 2.0, AST 401, ALT 310, alkaline phosphatase 396.? LDH 652.? GGT 2104.? Lipase 1700.? CT abdomen/pelvis shows interval increase in size and number of liver lesions with interval increase in retroperitoneal lymph nodes.? There is also residual wall thickening adjacent to the surgical anastomosis with increased soft tissue in peritoneal nodules suggestive of residual or recurrent disease as well as question of peritoneal disease in the pelvis adjacent to the uterus.? Gallbladder is enlarged with question of mild inflammatory changes of the gallbladder wall and a small gallstone noted.? There is mild CBD dilatation around 1 cm but no CBD stone per CT scan.? Pancreas appears normal with a small amount of fluid in the bilateral anterior pararenal fascia and paracolic gutters characteristic location for pancreatitis.? Also noted is left leg DVT extending into the iliac veins and infrarenal IVC.? Follow-up abdominal ultrasound shows previously noted dilatation of the CBD as well as previously mentioned liver lesions and small gallstones and sludge without evidence of acute cholecystitis. US duplex arterial venous study showing patent portal and splenic veins with appropriate flow though left portal vein is difficult to visualize.? In the ED, treated with IVF, ondansetron, and 2 L IVF. Mandarin interpretor Sera, [id number] used Ms Flores is a 66yo F with high-grade neuroendocrine colon CA [diagnosed Jan 2022, s/p R hemicolectomy 02/22/22] metastatic to lymph nodes, chest, and liver, s/p 3 cycles of palliative carboplatin + etoposide, switched to FOLFIRI 07/13/22. She was admitted to the hospitalist service after presenting with abdominal pain, nausea, and vomiting and was found to have worsening residual and metastatic disease, pericholecystic inflammatory changes with a stone in the gallbladder, peripancreatic fluid, mild CBD dilation, and elevated LFTs concerning for gallstone pancreatitis. Also found to have worsening LLE DVT extending to infrarenal IVC + iliac veins despite starting apixaban 08/02/22. Hospital course by problem: # pancreatitis Treated with bowel rest and IV fluid hydration. MRCP showed gallstones and slightly thickened gallbladder wall and slightly dilated CBD with possible sludge or debris, but no definite CBD stone. LFTs improved and lipase normalized. Her diet was advanced. Surgery was consulted but she was not a surgical candidate for cholecystectomy due to the extensive metastatic disease. She was counseled to follow a low-fat diet. Repeat CMP in 1 week ordered. # malignancy-associated DVT Discussed with Vasc Surg + Heme/Onc. Not an interventional candidate due to extensive tumor burden. Switched to therapeutic enoxaparin given failure of apixaban. V/Q negative for PE. # metastatic neuroendocrine CA Will follow up with [facility] [Dr Allan] in 1 week for next chemotherapy session [rescheduled from 08/10/22]. Time Spent with Patient Time attestation: Total time managing care of this patient today ___35_ minutes. Discharge coordination time: Greater than 30 minutes Quality: Safe Use of Opioids Does Pt have an Active Cancer Diagnosis on the Problem List?: Yes Opioid Measure Date for [facility] Report: 07/10/22 Opioid Measure Time for [facility] Report: 10:24 Quality: Stroke Does the patient have a stroke diagnosis?: No Physical Exam Vital Signs: Vital Signs: Last Vital Signs Temp 97.6 F 08/09/22 07:21 Pulse 74 08/09/22 07:21 Resp 18 08/09/22 07:21 BP 139/82 08/09/22 07:21 Pulse Ox 94 08/09/22 07:21 O2 Del Method Room Air 08/09/22 07:21 BMI result Body Mass Index 31.9 Gen: in no acute distress HEENT: sclera anicteric, moist mucus membranes Neck: supple Lungs: clear to auscultation bilaterally Heart: regular rate and rhythm, no murmurs Abd: soft, tender epigastrically without rebound or guarding, normal bowel sounds Ext: LLE markedly swollen without erythema Skin: warm/well-perfused Neuro: alert and oriented x3, no focal findings Psych: appropriate affect DS: Data Data Completed and Pending Completed studies during hospitalization [Text1]: Laboratory Results WBC 8.5 X10*3/uL (4.8-10.8) 08/09/22 05:01 RBC 3.22 X10*6/uL (4.20-5.50) L 08/09/22 05:01 Hgb 9.9 g/dl (12.0-16.0) L 08/09/22 05:01 Hct 29.8 % (37.0-47.0) L 08/09/22 05:01 MCV 92.5 fL (80.0-98.0) 08/09/22 05:01 MCH 30.7 pg (27.0-33.0) 08/09/22 05:01 MCHC 33.2 g/dl (31.0-35.0) 08/09/22 05:01 RDW 15.5 % (11.0-16.0) 08/09/22 05:01 Plt Count 245 X10*3/uL (160-400) 08/09/22 05:01 MPV 9.1 fL (9.4-12.3) L 08/09/22 05:01 Immature Gran % (Auto) 0.2 % (0.0-0.4) 08/08/22 04:44 Neut % (Auto) 77.2 % (45-73) H 08/08/22 04:44 Lymph % (Auto) 16.2 % (20-40) L 08/08/22 04:44 [place] % (Auto) 6.1 % (2-11) 08/08/22 04:44 Eos % (Auto) 0.1 % (0-4) 08/08/22 04:44 Baso % (Auto) 0.2 % (0-2) 08/08/22 04:44 Lymph # (Auto) 1.4 X10*3/uL (1.2-4.9) 08/08/22 04:44 [place] # (Auto) 0.5 X10*3/uL (0.1-1.2) 08/08/22 04:44 Eos # (Auto) 0.0 X10*3/uL (0.0-0.4) 08/08/22 04:44 Baso # (Auto) 0.0 X10*3/uL (0.0-0.2) 08/08/22 04:44 Abs Immat Gran (auto) 0.02 X10*3/uL (0.00-0.03) 08/08/22 04:44 Absolute Neuts (auto) 6.6 x10*3/uL (2.0-8.3) 08/08/22 04:44 Absolute Nucleated RBC 0.000 X10*3/uL (0.0-0.012) 08/09/22 05:01 Nucleated RBC % (auto) 0.0 /100WBC (0.0-0.2) 08/09/22 05:01 PT 12.9 SEC (10.0-13.1) 08/08/22 11:15 INR 1.1 (0.9-1.1) 08/08/22 11:15 aPTT Heparin Protocol 80.0 SEC (53-77.9) H D 08/08/22 11:15 Sodium 137 mmol/L (135-145) 08/09/22 05:01 Potassium 3.7 mmol/L (3.3-5.1) 08/09/22 05:01 Chloride 100 mmol/L (96-108) 08/09/22 05:01 Carbon Dioxide 25 mmol/L (22-29) 08/09/22 05:01 Anion Gap 16 (12-20) 08/09/22 05:01 BUN 7 mg/dL (9-16) L 08/09/22 05:01 Creatinine 0.60 mg/dL (0.5-1.4) 08/09/22 05:01 Estim Creat Clear Calc 77.4 08/09/22 05:01 Estimated GFR > 60 08/09/22 05:01 POC Glucose 116 mg/dL (60-115) H 08/07/22 20:57 Random Glucose 91 mg/dL (60-115) 08/09/22 05:01 Calcium 9.0 mg/dL (8.4-10.2) 08/09/22 05:01 Total Bilirubin 1.5 mg/dL (0.0-1.0) H 08/09/22 05:01 Direct Bilirubin 0.6 mg/dL (0.0-0.5) H 08/08/22 04:44 GGT 1282 U/L (7-33) H 08/09/22 05:01 AST 52 U/L (5-31) H 08/09/22 05:01 ALT 130 U/L (0-31) H 08/09/22 05:01 Alkaline Phosphatase 265 U/L (39-117) H 08/09/22 05:01 Ammonia 41 umol/L (13-55) 08/07/22 11:43 Lactate Dehydrogenase 652 U/L (122-220) H 08/07/22 07:21 Troponin I High Sens 4.7 ng/L (<3.5-17.0) 08/07/22 14:11 Total Protein 6.2 g/dL (6.5-8.0) L 08/09/22 05:01 Albumin 3.6 g/dL (3.5-5.0) 08/09/22 05:01 Triglycerides 165 mg/dL 08/07/22 07:21 Lipase 33 U/L (8-78) 08/09/22 05:01 Carcinoembryonic Ag 5.20 ng/mL 08/07/22 07:21 Urine Color Dark Yellow 08/07/22 09:49 Urine Appearance Clear 08/07/22 09:49 Urine pH 7.0 (5.0-9.0) 08/07/22 09:49 Ur Specific [place] >= 1.030 (1.005-1.025) H 08/07/22 09:49 Urine Protein Trace mg/dL (Neg-Trace) 08/07/22 09:49 Urine Glucose (UA) Negative mg/dL (Negative) 08/07/22 09:49 Urine Ketones Negative mg/dL (Negative) 08/07/22 09:49 Urine Blood Negative (Negative) 08/07/22 09:49 Urine Nitrite Negative (Negative) 08/07/22 09:49 Ur Leukocyte Esterase Trace (Negative) H 08/07/22 09:49 Urine RBC 0-2 /HPF (0-2) 08/07/22 09:49 Urine WBC 0-5 /HPF (0-5) 08/07/22 09:49 Ur Squamous Epith Cells 0-2 /HPF (0-2) 08/07/22 09:49 Urine Bacteria None Seen (None Seen) 08/07/22 09:49 Hyaline Casts 0-2 /LPF (0-2) 08/07/22 09:49 Impressions Abdomen/Pelvis CT 08/07/22 09:33 IMPRESSION: Interval increase in size and number of liver lesions. Interval increase in retroperitoneal lymph nodes. Stable postsurgical changes following right colectomy. Residual wall thickening adjacent to surgical anastomosis, increased soft tissue and peritoneal nodules suggestive of residual or recurrent disease. Question peritoneal disease in the pelvis adjacent to the uterus. Slightly enlarged gallbladder and question mild inflammatory changes of the gallbladder wall. Small gallstone in the gallbladder. Mild common bile duct dilatation measuring 1 cm. No common bile duct stone seen by CT. Follow-up gallbladder ultrasound or HIDA scan should be considered if there is clinical concern of cholecystitis. Normal-appearing pancreas. Small amount of fluid in the bilateral anterior pararenal fascia and paracolic gutters. This is a characteristic location for pancreatitis. Correlation with amylase and lipase recommended. Left leg DVT extending into the iliac veins and infrarenal IVC. Fleischner guidelines were followed. Findings will be communicated by the [place] work flow technical sales advisor Abdomen Ultrasound 08/07/22 09:59 IMPRESSION: 1. Mild dilatation of the common bile duct correlating with the CT findings. No intraluminal abnormality seen in the visualized portions however the distal portions are not well-visualized on this study. 2. Known multiple liver lesions better evaluated on the CT scan. 3. Small gallstones and sludge without evidence for acute cholecystitis. Doppler Study Ultrasound 08/07/22 12:24 IMPRESSION: Patent portal and splenic veins with appropriate hepatopedal flow. Left portal vein difficult to visualize. Chest X-Ray 08/07/22 17:20 IMPRESSION: New trace left effusion. No edema or focal pneumonia. Pulmonary Perfusion Imaging 08/07/22 19:15 IMPRESSION: Based on perfusion only modified PIOPED 2 criteria, pulmonary thromboembolism is considered absent. Follow-up left lower extremity DVT study may be considered for comparison with prior positive DVT study of left lower extremity done on 08/02/2022, if clinically appropriate. Head CT 08/07/22 21:15 IMPRESSION: No acute intracranial pathology. Cholangiopancreatography MRI 08/08/22 12:20 IMPRESSION: Metastatic disease to the liver. Small gallstones, upper normal-size gallbladder and slightly thickened edematous gallbladder wall. Findings are questionable for cholecystitis. Slightly dilated common bile duct measuring 8 mm and question low signal linear filling defects questionable for sludge or debris. No definite common bile duct stone. Slight thickening of the tail the pancreas and fluid in the left pararenal fascia and paracolic gutter questionable for mild pancreatitis. Discharge Plan Discharge Anticipated Discharge Date/Time: 08/09/22 09:39 Patient Disposition: Home Health Service Discharge Diagnosis: gallstone pancreatitis malignancy-associated deep vein thrombosis of left leg metastatic neuroendocrine cancer Referrals: Nuvia Finch MD [Physician] - 1 Day Physician,Omar J [Primary Care Provider] - 1 Week Discharge Medications: New oxycodone 5 mg Tablet 5 mg PO Q6H PRN (Reason: Pain, Moderate(Pain Scale 4-6)) Qty: 12 0RF Rx Instructions: Partial Fill upon patient request. enoxaparin 120 mg/0.8 mL Syringe 105 mg subcut Q24H Qty: 30 11RF Continued amlodipine 5 mg Tablet 5 mg PO DAILY Qty: 60 3RF letrozole 2.5 mg Tablet 2.5 mg PO DAILY Qty: 30 3RF ondansetron 8 mg tablet,disintegrating 8 mg PO Q8H PRN (Reason: nausea) acetaminophen 500 mg Tablet 500 mg PO Q6H PRN (Reason: Pain) sennosides-docusate sodium [Senna with Docusate Sodium] 8.6-50 mg tablet 1 tab-cap PO BEDTIME PRN (Reason: Constipation) tenofovir alafenamide 25 mg tablet 25 mg PO DAILY Qty: 90 2RF Rx Instructions: must administer with a meal/food Discontinued Eliquis DVT-PE Treat 30D Start 5 mg (74 tabs) tablets,dose pack 5 mg PO BID Qty: 74 0RF Discharge Orders: Discharge Order (Routine); Ordered 08/09/22 Ordered By: Rashad Somers Diet: Low fat, low cholesterol Activity on Discharge: As tolerated Stand Alone Forms: Patient Portal Discharge page Other Ambulatory Orders: Comprehensive Met. Panel (Routine) Timeframe: 1 Week Facility: [facility] - Location: Laboratory Ordered By: Rashad Somers Care Plan Goals: prevention of gallstone disease treatment of leg clot cancer treatment Health Concerns: gallstone pancreatitis malignancy-associated deep vein thrombosis of left leg metastatic neuroendocrine cancer Plan of Treatment: not a surgical candidate; follow low-fat diet switch Eliquis to Lovenox 120 mg daily follow up with Dr Allan in 1 week; repeat CMP in 1 week Assessment: See Discharge Summary. Patient Instructions: Enoxaparin (By injection), Gallstones (DC)
--- NOTE | 2022-08-09 10:26 | P.F2F_ITS ---
Service Date Service Date: 08/09/22 Encounter Date of encounter: 08/09/22 Reasons for Services Signs and symptoms assessed: DVT Reason for long-term: administration of IV, SQ, or IM injection Overseeing Care: Mayuri Allan Homebound: Leaving the home is medically contraindicated at this time without the asist of a device and/or another person due th the listed conditions above and below. Reason homebound: immunosuppression / infection risk and weakness related to hos pital stay Certification: Based on the above findings, I certify that this patient is confined to the home and needs intermittent long-term care, physical therapy and/or speech therapy, or continues to need occupational therapy. The patient is under my care, and I have initiated the establishment of the plan of care. The patient will be followed by a physician who will periodically review the plan of care. Time Spent With Patient Time: Total time managing care of this patient today ____ minutes.
[2022-08-09] MEDS: Enoxaparin Sodium 120 MG/0.8 ML SYRINGE 105 MG SUBCUT (10:56)
--- NOTE | 2022-08-09 11:31 | PC.NURSE ---
Lovenox teaching done with pts daughter Chinmay using [employer] interrupter services in [facility] calciner operator # [id number]. Chinmay was able to demonstrate proper technique in administering SQ injection and reports she is comfortable doing so at home . Reviewed with pt and pts daughter need for medication ,medication schedule and how to dispose of syringe. all questions answered and pt and pt daughter comfortable with self administration
--- NOTE | 2022-08-09 13:48 | MHC.CM.PN ---
pts vonda wanted her to stay with her in [place] for a few days pt has no pcpc dr ibarra does not have a ct license as she was willing to sign orders for vna ..dgter feels she is able to give lovenox injections to pt dr brandon was made aware and ok pt for dc hvns cancelled dr ibarra notified as well
== END 2022-08-09 14:04 | disposition home or self-care (01) | DRG 282 ==
LOC: HO.ED 11:06 → HO.EDOVER 13:30 → HO.S3 13:49
PROVIDERS: Internal Medicine; Physician Assistant; Student in an Organized Health Care Education/Training Program; Admitting Provider Physician Assistant; Emergency Provider Student in an Organized Health Care Education/Training Program; Visit Provider Family Medicine
DX: K85.10 Biliary acute pancreatitis without necrosis or infection (principal); I82.422 Acute embolism and thrombosis of left iliac vein; C50.912 Malignant neoplasm of unspecified site of left female breast; C78.7 Secondary malignant neoplasm of liver and intrahepatic bile duct; B19.10 Unspecified viral hepatitis B without hepatic coma; C78.6 Secondary malignant neoplasm of retroperitoneum and peritoneum; C7A.8 Other malignant neuroendocrine tumors; Z79.01 Long term (current) use of anticoagulants; Z17.0 Estrogen receptor positive status [ER+]; Z79.811 Long term (current) use of aromatase inhibitors; Z79.899 Other long term (current) drug therapy
CPT/HCPCS: 36415; 70450; 71045; 74177; 74181; 76705; 78580; 80048; 80053; 80076; 81001; 81003; 82140; 82248; 82378; 82947; 82977; 83615; 83690; 84478; 84484; 85025; 85027; 85610; 85730; 92950; 93005; 93975; 99285; A9540; J1643; J1650; J2270; J2405; Q9967

== ENCOUNTER 2022-08-10 09:40 | Outpatient (REF) | payer MEDICAID, SELFPAY ==
[2022-08-10 12:14] LABS: Alanine Aminotransferase 88 U/L (0-31); Albumin Level 3.9 g/dL (3.5-5.0); Alkaline Phosphatase 215 U/L (39-117); Aspartate Amino Transferase 27 U/L (5-31); Bilirubin Direct 0.4 mg/dL (0.0-0.5); Bilirubin Total 0.8 mg/dL (0.0-1.0); Total Protein 7.3 g/dL (6.5-8.0)
[2022-08-10 12:18] LABS: HBS Num1 81.63 mIU/mL (0-7.99); HBc Num1 4.99 S/CO (0.00-0.79); HBsAGNum1 0.36 S/CO (0.00-0.99); Hepatitis B Surface Antigen Negative (Negative); ~Hepatitis B Surface Antibody REACTIVE (Nonreactive)
[2022-08-10 13:34] LABS: HBc Num2 5.09 S/CO; HBc Num3 5.24 S/CO
[2022-08-10 13:35] LABS: Hepatitis B Core Antibody Reactive (Nonreactive)
[2022-08-12 13:58] LABS: Hepatitis B Viral DNA Qn - cp <1.00 NOT DETECTED Log IU/mL (NOT DETECTED); Hepatitis B Viral DNA Qn-IU/mL <10 NOT DETECTED IU/mL (NOT DETECTED)
== END 2022-08-10 09:41 | disposition home or self-care (01) ==
LOC: HO.LAB 09:40
PROVIDERS: Visit Provider Internal Medicine
DX: R76.8 Other specified abnormal immunological findings in serum (principal)
CPT/HCPCS: 36415; 80076; 86704; 86706; 87340; 87517

== ENCOUNTER → 2022-08-15 12:59 | Outpatient (BNVA) | payer MEDICAID, SELFPAY | PROVIDERS: Visit Provider Internal Medicine | DX: D3A.8 Other benign neuroendocrine tumors (principal); C78.7 Secondary malignant neoplasm of liver and intrahepatic bile duct; R76.8 Other specified abnormal immunological findings in serum; R79.89 Other specified abnormal findings of blood chemistry; K85.10 Biliary acute pancreatitis without necrosis or infection | CPT/HCPCS: 99212 ==

== ENCOUNTER → 2022-08-31 14:05 | Outpatient (BNVA) | payer MEDICAID, SELFPAY | PROVIDERS: Visit Provider Surgery | DX: K85.10 Biliary acute pancreatitis without necrosis or infection (principal); K59.03 Drug induced constipation; T40.2X5A Adverse effect of other opioids, initial encounter; D3A.8 Other benign neuroendocrine tumors; C78.7 Secondary malignant neoplasm of liver and intrahepatic bile duct; I82.402 Acute embolism and thrombosis of unspecified deep veins of left lower extremity; C50.919 Malignant neoplasm of unspecified site of unspecified female breast; Z79.01 Long term (current) use of anticoagulants | CPT/HCPCS: 99212 ==

== ENCOUNTER 2022-09-21 09:37 | Outpatient (AMB) | payer MEDICAID, SELFPAY ==
--- NOTE | 2022-09-21 09:51 | A.OFFVIS_ITS ---
Intake Vital Signs 09/21/22 10:07 Height 5 ft Weight 152 lb 4 oz BMI 29.7 BP 120/82 Blood Pressure Location Lt brachial Position Sitting Intake Visit Reasons: follow-up gallbladder/liver mets Intake Note: Patient is seen in office for follow up visit, following gallbladder/liver mets. Patient c/o: continued pain around the area, unsure if related to gallbladder or constipation, recently when constipation gets better pain decreases, denies any changes in meds Machinery Dismantler Required: Yes Machinery Dismantler Language: Madelin oRdriguez Machinery Dismantler Name: Fatuma Information Interpreted: non-clinical & clinical Vessel Specialist: Vessel Specialist offered & declined Allergies No Known Allergies Allergy (Verified 09/21/22 09:52) Medication List - Last Reconciled 09/21/22 by Keyon Cruz MD acetaminophen 500 mg PO Q6H PRN amlodipine 5 mg PO DAILY docusate sodium 100 mg PO DAILY enoxaparin 105 mg (0.7 mL) subcut Q24H letrozole 2.5 mg PO DAILY megestrol 400 mg (10 mL) PO DAILY ondansetron 8 mg PO Q8H PRN oxycodone 5 mg PO Q6H PRN polyethylene glycol 3350 (Miralax) 17 grams PO DAILY sennosides-docusate sodium 8.6-50 mg (Senna with Docusate Sodium) 1 tab-cap PO BEDTIME PRN tenofovir alafenamide 25 mg PO DAILY HPI HPI Comments History of Present Illness Details The patient is here for follow-up because of an episode of possible gallstone pancreatitis verses chemo induced pancreatitis. Patient is seen with interpretive services Fatuma Yusuf, to serve as in office interpretive services. Patient is accompanied by her daughter and grandson today and she gave permission for me to speak with both of them. The patient just received chemotherapy for her neuroendocrine tumor Patient also has left lower extremity DVT & is on Lovenox due to progression of the DVT on oral agents. The patient states that she is following the prescribed bowel regime of docusate, 100 mg, 2 tablets in the morning and 2 tablets in the evening as well as taking MiraLax daily and using senna tablets daily. There are no issues with incontinence however the patient and daughter note that the patient is been able to back away from taking oxycodone at this point. Patient denies any significant pain that is not addressed with Tylenol. She reports no significant symptoms regarding the current bowel regime, so we discussed keeping it in place. If she develops incontinence or watery diarrhea, the patient will contact me. 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 Seen with online [employer] plastics supervisor. 05/10/22: She presents with her daughter. Patient was seen with the help of an online [employer] plastics supervisor. To recap, patient was found to have new diagnosis of neuroendocrine tumor of the colon in January when she presented with right-sided abdominal pain. Further workup showed metastases to local nodes and and then more recently she also developed diffuse metastases in liver as of March (PET scan --> Bx). Per radiology report, these were not present in January. She has just started palliative chemotherapy with carboplatin and etoposide. First day of her cycle was 04/27/2022. 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 The treatment for this is on hold, as she is getting treatment for metastatic neuroendocrine carcinoma. She recently had blood work done on day 1 and then again on day 7 post chemotherapy which showed gradual elevation in LFTs. She has known resolved hepatitis-B status based on serology in March 2022. Currently, main complaint is intermittent right lower quadrant discomfort. No discomfort at the site of liver biopsy. 08/15/22: Was admitted last week for gallstone pancreatitis (with plausible spontaneous passage of stone) as well as progression of DVT. Currently reports R shoulder pain, RUQ pain and epigastric pain which then goes to her back. States has not been able to eat as before tristian any fatty food. BMs are soft but does not report diarrhea. In terms of HBV, continues on Vemlidy 25 once daily. Most recent viral load undetectable. LFTs were likely up due to biliary panc and trending down. However, likely has some contribution from liver mets as well. [facility] Medical History HTN (hypertension) Invasive ductal carcinoma of left breast Left leg DVT Liver metastases Neuroendocrine neoplasm of colon Surgical History History of lumpectomy of left breast (03/28/22) History of right hemicolectomy S/P right hemicolectomy Family History Father Liver cancer Social History Household Members: Family Household Members Other:: Friend Housing: House Are you a primary pediatric care coordinator to a significant other at home: No Do you presently have visiting nurse or other home services: No Alcohol intake: never Patient Tobacco Use Status: Never used Tobacco Second Hand Smoke Exposure: No Advance Directives Date on File: 03/03/22 service: No Current occupational status: unemployed Current occupation: right handed Review of Systems Const All systems reviewed & are unremarkable except as noted in HPI and below Reports as per HPI Physical Exam On exam, the patient is surprisingly cheerful and in good spirits She is accompanied by daughter and grandson She is in no acute respiratory distress Her sclera remain anicteric Her abdomen is nondistended and nontender Results Reviewed Results Reviewed: PET CT dated 04/26/2022: ?Multiple moderately to markedly intense foci of abnormal FDG activity are present throughout the liver. Assessment & Plan Assessment & Plan (1) Neuroendocrine neoplasm of colon: Code(s): D3A.8 - Other benign neuroendocrine tumors (2) Liver metastases: Code(s): C78.7 - Secondary malignant neoplasm of liver and intrahepatic bile duct (3) Left leg DVT: Code(s): I82.402 - Acute embolism and thrombosis of unspecified deep veins of left lower extremity (4) Breast cancer: Code(s): C50.919 - Malignant neoplasm of unspecified site of unspecified female breast (5) Anticoagulated: Code(s): Z79.01 - FDC (current) use of anticoagulants (6) Constipation due to opioid therapy: Code(s): K59.03 - Drug induced constipation; T40.2X5A - Adverse effect of other opioids, initial encounter (7) Metastasis: Code(s): C79.9 - Secondary malignant neoplasm of unspecified site (8) DVT (deep venous thrombosis): Code(s): I82.409 - Acute embolism and thrombosis of unspecified deep veins of unspecified lower extremity Plan The patient is a current bowel regime is being tolerated. Even though she is not currently using oxycodone, she is having no ill effects and would prefer to keep on this current bowel regime to prevent constipation. In communication with Dr. Allan, we are in agreement that cessation of chemotherapy for cholecystectomy at this point would be unwise and given the risks in this difficult & complex case.? The patient does not have a PCP to address her constipation, so I will help facilitate her care.? If the patient has questions or worsening abdominal pain, I am happy to see her back sooner and she understands that if she has severe pain as when she had pancreatitis, she will need to present to the emergency department. The patient has a follow-up with in person plastics supervisor next week with Dr. Allan; if she has return of abdominal pain she will contact me, report to the emergency room or otherwise follow-up with me in 1 month. Medications: Discontinued sennosides-docusate sodium 8.6-50 mg 1 tab-cap PO BEDTIME 30 tabs 3RF C78.7 - Secondary malignant neoplasm of liver and intrahepatic bile duct enoxaparin 105 mg (0.7 mL) subcut Q24H 30 ea 11RF Coding Level of Care Code Est Pt Level 4 (59502) Diagnoses Neuroendocrine neoplasm of colon D3A.8 Liver metastases C78.7 Left leg DVT I82.402 Breast cancer C50.919 Anticoagulated Z79.01 Constipation due to opioid therapy K59.03; T40.2X5A Metastasis C79.9 DVT (deep venous thrombosis) I82.409
[2022-09-21 10:07] VITALS: BP 120/82; BMI 29.7
== END 2022-09-21 10:32 | disposition home or self-care (01) ==
PROVIDERS: Visit Provider Surgery
DX: D3A.8 Other benign neuroendocrine tumors (principal); C78.7 Secondary malignant neoplasm of liver and intrahepatic bile duct; I82.402 Acute embolism and thrombosis of unspecified deep veins of left lower extremity; C50.919 Malignant neoplasm of unspecified site of unspecified female breast; Z79.01 Long term (current) use of anticoagulants; K59.03 Drug induced constipation; T40.2X5A Adverse effect of other opioids, initial encounter; C79.9 Secondary malignant neoplasm of unspecified site; I82.409 Acute embolism and thrombosis of unspecified deep veins of unspecified lower extremity
CPT/HCPCS: 99214

== ENCOUNTER → 2022-09-21 09:37 | Outpatient (BNVA) | payer MEDICAID, SELFPAY | PROVIDERS: Visit Provider Surgery | DX: D3A.8 Other benign neuroendocrine tumors (principal); C78.7 Secondary malignant neoplasm of liver and intrahepatic bile duct; C50.919 Malignant neoplasm of unspecified site of unspecified female breast; C79.9 Secondary malignant neoplasm of unspecified site; I82.402 Acute embolism and thrombosis of unspecified deep veins of left lower extremity; K59.03 Drug induced constipation; T40.2X5D Adverse effect of other opioids, subsequent encounter; Z79.01 Long term (current) use of anticoagulants | CPT/HCPCS: 99212 ==

== ENCOUNTER 2022-10-04 09:02 | Outpatient (AMB) | payer MEDICAID, SELFPAY ==
[2022-10-04 09:04] VITALS: BMI 29.7
--- NOTE | 2022-10-04 09:04 | A.OFFVIS_ITS ---
Intake Vital Signs 10/04/22 09:04 Height 5 ft Weight 152 lb BMI 29.7 Intake Visit Reasons: OV-Left thumb mass Intake Note: Kellee, 66 year old right hand dominant Mandarin speaking woman, here with her daughter, to discuss further treatment for her left thumb mass. Hx of ductal carcinoma of the left breast, with liver metastasis, and is undergoing chemotherapy.? Retirement Village Manager Required: Yes Retirement Village Manager Name: Luigi May [phone] Allergies No Known Allergies Allergy (Verified 10/04/22 09:06) HPI OV-Left thumb mass HPI Details Kellee is a 66 year old right hand dominant Mandarin speaking woman, here with her daughter & grandson, for a follow-up of her left thumb mass. She says this mass has been present for ~10 years and has been growing in size. She was last seen by me on 07/12/22 and we discussed delaying treatment while she focused on her chemotherapy. She has ductal carcinoma of her left breast, with liver metastasis. She is very tired today due to a treatment she had yesterday. Her grandson explained that her chemotherapy is not going well and they have had to change treatments as the prior treatment was not effective. She has some mild pain in her hand with activity, but denies any pain in the mass. She denies any numbness or tingling. She has Hepatitus B. PFS Medical History HTN (hypertension) Invasive ductal carcinoma of left breast Left leg DVT Liver metastases Neuroendocrine neoplasm of colon Surgical History History of lumpectomy of left breast (03/28/22) History of right hemicolectomy S/P right hemicolectomy Family History Father Liver cancer Social History Household Members: Family Household Members Other:: Friend Housing: House Are you a primary nurse healthcare manager to a significant other at home: No Do you presently have visiting nurse or other home services: No Alcohol intake: never Patient Tobacco Use Status: Never used Tobacco Second Hand Smoke Exposure: No Advance Directives Date on File: 03/03/22 service: No Current occupational status: unemployed Current occupation: right handed Review of Systems Const All systems reviewed & are unremarkable except as noted in HPI and below Physical Exam Vital Signs: BMI result Body Mass Index 29.7 Const General: no acute distress and alert Orientation/consciousness: patient oriented x3 Neuro General: patient oriented x3 Extrem Other: Evaluation of Left Upper Extremity: The patient is alert, oriented, and in no acute distress Neuro: Median, Ulnar, Radial nerves motor and sensory intact and sensation is normal to the tips of all digits Vascular: Cap refill brisk ROM: She can make a fist and extend all of her digits. She can oppose her thumb to all digits Good active flexion & extension of the thumb Large, multi-lobular soft tissue mass over the entire volar aspect of the left thumb proximal phalanx and extending into the first webspace. Non-tender, not particularly mobile.? No overlying skin changes. No tenderness Radiographs: 3 views of the left hand, with attention to the thumb, from 07/10/22 were reviewed by me today in clinic. They show a radiolucent soft tissue mass, just radial and volar to the proximal phalanx, measuring 2.8cm x 1.4cm in size. This does not appear to involve the bone MRI: SOFT TISSUES: Along the medial aspect of the 1st proximal phalanx, there is an encapsulated fat signal focus measuring up to 2.9 x 2.1 x 2.6 cm (AP by ML by CC). This appears superficial to the flexor tendon and within the subcutaneous tissues. There is no soft tissue component or septation. No significant postcontrast enhancement. 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 MR/MR hand LT wo/w con IMPRESSION: 1. Encapsulated fat signal focus along the medial aspect of the first proximal phalanx measuring up to 2.9 cm. No soft tissue component, septation, or postcontrast enhancement. 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 ? 2. Trace fluid within the 2nd, 3rd and 4th flexor digitorum tendon sheaths, which may represent normal variation versus minimal tenosynovitis. Dictated By: Chris Clement MD 06/13/22 Psych Appearance: grossly normal Affect: normal affect Attitude: cooperative Assessment & Plan Assessment & Plan (1) Mass of soft tissue of left upper extremity: Code(s): M79.89 - Other specified soft tissue disorders Plan Assessment & Plan: 1. Left thumb mass Measuring 2.8cm x 1.4cm in size, just radial & volar to the proximal phalanx Radiolucent on radiographs, most consistent with a lipoma I educated her about this condition, apparently this has been present & growing in size for ~10 years She does not feel like it has increased much in size in the last 9 months. It is nontender, and she has good hand function. She was seen today with her daughter, she speaks Mandarin as does her daughter, and an buckle assembler is required She has ductal carcinoma of the left breast, with liver metastasis, and is undergoing chemotherapy.? I do think that we should remove her left thumb mass, however she will need to stop her chemotherapy for some time before & after surgery in order to allow for wound healing. Any surgery will need to be coordinated with her chemotherapy as best possible. I do have some concerns about the neurovascular bundles and where they may be in relation to this very large lipoma, but this does not seem to be causing her pain or limiting her function, and is not a priority for surgery at this time She will take time to focus on managing her cancer at this time She would like to follow up in February 2023 to see how she is doing and whether it might be a good time to pause her chemotherapy and removed the mass.. This should be a 30 minute appointment and a Mandarin exhaust equipment operator will be required She knows she may make an earlier appointment if the mass changes in size or begins to cause her more difficulty. Scribed for Jenny Madera MD by Puneet Bearden, medical operations supervisor, on 10/04/22 at 10:00 AM, EST. Medications: Discontinued sennosides-docusate sodium 8.6-50 mg 1 tab-cap PO BEDTIME 30 tabs 3RF C78.7 - Secondary malignant neoplasm of liver and intrahepatic bile duct enoxaparin 105 mg (0.7 mL) subcut Q24H 30 ea 11RF megestrol 400 mg (10 mL) PO DAILY 30 mL 2RF Coding Level of Care Code Est Pt Level 3 (78506) Diagnoses Mass of soft tissue of left upper extremity M79.89
== END 2022-10-04 10:08 | disposition home or self-care (01) ==
PROVIDERS: Visit Provider Orthopaedic Surgery
DX: R22.31 Localized swelling, mass and lump, right upper limb (principal); M79.89 Other specified soft tissue disorders
CPT/HCPCS: 99213

== ENCOUNTER → 2022-10-04 09:02 | Outpatient (BNVA) | payer MEDICAID, SELFPAY | PROVIDERS: Visit Provider Orthopaedic Surgery | DX: M79.89 Other specified soft tissue disorders (principal) | CPT/HCPCS: 99212 ==

== ENCOUNTER 2022-10-13 10:30 | Emergency (ER) | payer MEDICAID, SELFPAY ==
--- NOTE | ~2022-10-13 | CT_ITS ---
EXAMINATION: CT ABDOMEN AND PELVIS WITH CONTRAST CLINICAL INFORMATION: Right-sided abdominal pain, history of colon cancer, on chemotherapy. COMPARISON: CT scan of the abdomen and pelvis dated 08/07/2022. TECHNIQUE: Multidetector volumetric images were obtained from the superior aspect of the liver through the pubic symphysis following administration 85 mL of Omnipaque 350 intravenous contrast. Sagittal and coronal reformatted images were obtained on the technologist's workstation. Oral contrast: No This CT examination was performed using dose optimization techniques as appropriate, variously including the following: *Automated exposure control *Adjustment of mA and/or kV according to patient size (this includes techniques or standardized protocols for targeted exams where dose is matched to indication/reason for exam; i.e. extremities or head) *Use of iterative reconstruction technique DLP: 492 mGy-cm FINDINGS: LUNG BASES: Several small nodules are seen. A access services representative nodule laterally in the lingula measures 0.4 cm (image 3, series 3). A left basilar nodule measures 0.4 cm as well (image 15, series 3). No pleural or pericardial effusions. LIVER, GALLBLADDER, AND BILIARY TREE: Significant interval worsening in hepatic metastatic disease. A access services representative lesion inferiorly in segment 3 measures 3.7 cm in AP dimension (previously 1.6 cm). A second access services representative lesion medially in the right lobe measures 8.4 cm in AP dimension (previously 4.8 cm), image 22, series 3. PANCREAS: Unremarkable. SPLEEN: Unremarkable. ADRENAL GLANDS: Unremarkable. KIDNEYS AND URETERS: The kidneys are normal in size, shape, and attenuation. No hydronephrosis, hydroureter, or calculi seen. No perinephric stranding. BLADDER: Unremarkable. GASTROINTESTINAL TRACT: The stomach and small bowel are unremarkable. There has been interval increase in size of an irregular mass near the ileocolonic anastomosis in the right lower quadrant measuring approximately 4.3 x 3.2 x 3.7 cm (previously approximately 3.2 x 2.0 x 1.9 cm), (image 32, series 7; image 56, series 3). There is possible invasion of the superjacent right anterior abdominal wall into the posterior margin of the right rectus abdominis. The remainder of the colon and rectum are unremarkable. ABDOMINAL WALL: No significant hernia is appreciated. LYMPH NODES: Interval increase in lymphadenopathy. Director Operating Room lymph nodes are as follows in short axis: Right retrocrural: 1.2 cm (previously 0.7 cm), image 52, series 7 Linda hepatis: 2.2 cm (previously 1.4 cm), image 40, series 7 Left infrarenal, periaortic: 1.8 cm (previously 1.3 cm), image 42, series 7 Inferior periuterine, midline: 1.2 cm (previously 0.7 cm), image 46, series 7 A larger irregular nodule/implant is seen along the posterior margin measuring approximately 2.3 x 1.6 x 1.8 cm (previously 1.6 x 1.4 x 1.1 cm), image 56, series 7; image 69, series 3. VASCULAR: Asymmetric dilatation of the left gonadal vein. Filling defect near the iliac confluence of the inferior vena cava extending to the left common iliac vein. PELVIC VISCERA: Periuterine nodules detailed above. No overt primary uterine or ovarian abnormality. OSSEOUS STRUCTURES: Mild lumbar levoscoliosis, multilevel degenerative changes and compression deformities without significant change. CT/CT abdomen pelvis w IV con IMPRESSION: 1. Interval progression of disease as detailed above including pulmonary nodules, significant enlargement of multiple liver lesions, increased lymphadenopathy, increased right lower quadrant mass with possible invasion into the anterior abdominal wall and probable drop metastases in the pelvis. 2. Possible thrombus near the inferior vena cava confluence extending to the left common iliac vein.
[2022-10-13 11:56] VITALS: BP 126/77; PULSE 85; RESP 16; TEMP 36; O2SAT 96
--- NOTE | 2022-10-13 11:56 | ED_ITS ---
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 The pain is right-sided. It is acute starting 1 day ago. She rates the pain as a 5/10. The pain does not radiate. It appears to be worse with going to the bathroom. There are no clear relieving features. She also has had blood in the stool. Started off is dark black stool and has become red in nature. She is not hemorrhaging. She denies any fevers or chills. She denies any nausea vomiting. With some mild improvement in her pain. She did have chemotherapy yesterday. Patient describes her pain as sharp and achy in nature. Related Data Home Medications Medication Instructions Recorded Confirmed ondansetron 8 mg disintegrating 8 mg PO Q8H PRN nausea 07/27/22 09/21/22 tablet acetaminophen 500 mg tablet 500 mg PO Q6H PRN Pain 08/07/22 09/21/22 sennosides 8.6 mg-docusate sodium 1 tab-cap PO BEDTIME PRN 08/07/22 09/21/22 50 mg tablet (Senna with Docusate Constipation Sodium) docusate sodium 100 mg capsule 100 mg PO DAILY 09/14/22 09/21/22 polyethylene glycol 3350 17 17 g PO DAILY 09/14/22 09/21/22 gram/dose oral powder (Miralax) Previous Rx's Medication Instructions Recorded amlodipine 5 mg tablet 5 mg PO DAILY #60 tabs 04/28/22 tenofovir alafenamide 25 mg tablet 25 mg PO DAILY #90 tabs 05/10/22 enoxaparin 120 mg/0.8 mL 105 mg (0.7 mL) subcut Q24H #30 ea 08/31/22 subcutaneous syringe oxycodone 5 mg tablet 5 mg PO Q6H PRN Pain #30 tabs 08/31/22 cetirizine 10 mg tablet (Zyrtec) 10 mg PO DAILY #30 tabs 09/28/22 megestrol 400 mg/10 mL (10 mL) 400 mg (10 mL) PO DAILY #300 mL 10/10/22 oral suspension letrozole 2.5 mg tablet 2.5 mg PO DAILY #30 tabs 10/12/22 Allergies Allergy/AdvReac Type Severity Reaction Status Date / Time No Known Allergies Allergy Verified 10/04/22 09:06 Review of Systems Review of Systems: CONSTITUTIONAL: Denies weight loss, fever and chills. HEENT: Denies changes in vision and hearing. RESPIRATORY: Denies SOB and cough. CV: Denies palpitations no CP. GI: + abdominal pain,- nausea, vomiting and diarrhea. : Denies dysuria and urinary frequency. MSK: Denies myalgia and joint pain. SKIN: Denies rash and pruritus. NEUROLOGICAL: Denies headache and syncope. PSYCHIATRIC: Denies recent changes in mood. Denies anxiety and depression. All other ROS are negative unless in HPI PMFSH Past Medical History Medical History HTN (hypertension) Invasive ductal carcinoma of left breast Left leg DVT Liver metastases Neuroendocrine neoplasm of colon Surgical History History of lumpectomy of left breast (03/28/22) History of right hemicolectomy S/P right hemicolectomy Family History Family History Father Liver cancer Social History Social History Household Members: Family Household Members Other:: Friend Housing: House Are you a primary residential child care counselor to a significant other at home: No Do you presently have visiting nurse or other home services: No Alcohol intake: never Patient Tobacco Use Status: Never used Tobacco Smoked in Last 30 Days: No Second Hand Smoke Exposure: No Use of substances other than those prescribed or required for medical reasons: No Advance Directives: Yes Advance Directives on File: Yes Advance Directives Date on File: 03/03/22 service: No Current occupational status: unemployed Current occupation: right handed Physical Exam ED Vital Signs: Vital Signs - 24 hr 10/13/22 11:56 10/13/22 15:07 Temperature 96.8 F Pulse Rate 85 81 Respiratory Rate 16 20 Blood Pressure 126/77 127/80 Pulse Oximetry 96 94 Oxygen Delivery Method Room Air Room Air BMI result Body Mass Index 30.0 GEN: Well developed, no acute distress, alert, oriented HEENT: Normocephalic, atraumatic, normal external ears, nose appears normal, no oropharyngeal edema or exudates Eyes: Normal to appearance Neck: Supple, no lymphadenopathy Respiratory: Talks in complete sentences, no respiratory distress, clear to auscultation bilaterally Cardiovascular: Regular rate and rhythm, no murmurs rubs or gallops Abdomen: Soft, right-sided abdominal tenderness, nondistended, no guarding, no rebound Back: No CVA tenderness Extremities: No clubbing cyanosis or edema Neurologic: No focal neurologic deficits, cranial nerves 2-12 intact, strength is 5/5 bilaterally Skin: No rash Course Course Course Narrative: RME: 66 yo female with hx of htn, 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 Patient is on Lovenox. Follows w/Dr. Allan. Denies N/V, lightheadedness/dizziness EKG, Labs, UA, Occult stool ordered Full HPI, ROS and PE to be performed by primary ED provider. Reevaluation(s) Reevaluation #1: Or I spoke with the family regarding the results of the CT scan. Patient is on anticoagulation at this time. There will be no further change in her medications in terms of blood thinning medications specially given the GI bleed. Patient and family were informed that they should return for any worsening bleeding. Additionally they were notified regarding the progression of the metastatic cancer. Dr. Allan was informed of the results. She will follow-up tomorrow discussed treatment plan which would likely be hospice/comfort measures at this point. All questions were addressed and answered. Time: 15:57 Medications Administered Discontinued Medications Generic Name Dose Route Start Last Admin Trade Name Freq PRN Reason Stop Dose Admin Iohexol 100 ml 10/13/22 14:18 10/13/22 14:18 Iohexol 350 Mg/Ml 100 Ml Infus..Btl IV 10/13/22 14:19 85 ml ONCE ONE Administration Morphine Sulfate 2 mg 10/13/22 13:01 10/13/22 13:14 Morphine Sulfate 2 Mg/Ml Cartridge IVPUSH 10/13/22 13:02 Not Given ONCE ONE Protocol Medical Decision Making Medical Decision Making [facility] Narrative: 66-year-old female on chemotherapy for metastatic neuroendocrine tumor of the colon presents with abdominal pain and blood in stool diverticulitis, mesenteric ischemia,, action. Plan will be to obtain a CT scan to rule out will provide patient with analgesia. Will check a routine laboratory analysis Differential Diagnosis Differential Diagnoses: The differential diagnosis associated with the presentation includes (See above) Admission/Observation Consideration of admission/observation: Escalation of care including admission/observation considered Lab Data [facility] Lab Attestation statement: I reviewed the patient's lab results. 10/13/22 12:38 10/13/22 12:38 Labs: Lab Results 10/13/22 10/13/22 10/13/22 Range/Units 12:19 12:38 12:38 WBC 9.7 (4.8-10.8) X10*3/uL RBC 3.48 L (4.20-5.50) X10*6/uL Hgb 10.4 L (12.0-16.0) g/dl Hct 31.1 L (37.0-47.0) % MCV 89.4 (80.0-98.0) fL MCH 29.9 (27.0-33.0) pg MCHC 33.4 (31.0-35.0) g/dl RDW 16.5 H (11.0-16.0) % Plt Count 292 (160-400) X10*3/uL MPV 9.1 L (9.4-12.3) fL Immature Gran % (Auto) 0.3 (0.0-0.4) % Neut % (Auto) 78.1 H (45-73) % Lymph % (Auto) 11.9 L (20-40) % Robertson % (Auto) 9.6 (2-11) % Eos % (Auto) 0.0 (0-4) % Baso % (Auto) 0.1 (0-2) % Lymph # (Auto) 1.2 (1.2-4.9) X10*3/uL Robertson # (Auto) 0.9 (0.1-1.2) X10*3/uL Eos # (Auto) 0.0 (0.0-0.4) X10*3/uL Baso # (Auto) 0.0 (0.0-0.2) X10*3/uL Abs Immat Gran (auto) 0.03 (0.00-0.03) X10*3/uL Absolute Neuts (auto) 7.6 (2.0-8.3) x10*3/uL Absolute Nucleated RBC 0.000 (0.0-0.012) X10*3/uL Nucleated RBC % (auto) 0.0 (0.0-0.2) /100WBC PT (11.1-13.3) SEC INR (0.9-1.1) Sodium 135 (135-145) mmol/L Potassium 4.3 (3.3-5.1) mmol/L Chloride 102 (96-108) mmol/L Carbon Dioxide 22 (22-29) mmol/L Anion Gap 15 (12-20) BUN 17 H (9-16) mg/dL Creatinine 0.72 (0.5-1.4) mg/dL Estim Creat Clear Calc 65.1 Estimated GFR > 60 Random Glucose 103 (60-115) mg/dL Calcium 10.3 H (8.4-10.2) mg/dL Magnesium 2.5 (1.6-2.6) mg/dL Total Bilirubin 0.4 (0.0-1.0) mg/dL Direct Bilirubin 0.2 (0.0-0.5) mg/dL AST 33 H (5-31) U/L ALT 15 (0-31) U/L Alkaline Phosphatase 238 H (39-117) U/L Total Protein 8.0 (6.5-8.0) g/dL Albumin 4.2 (3.5-5.0) g/dL Urine Color Yellow Urine Appearance Clear Urine pH 6.0 (5.0-9.0) Ur Specific [place] 1.010 (1.005-1.025) Urine Protein Trace (Neg-Trace) mg/dL Urine Glucose (UA) Negative (Negative) mg/dL Urine Ketones Negative (Negative) mg/dL Urine Blood Negative (Negative) Urine Nitrite Negative (Negative) Ur Leukocyte Esterase Small (1+) H (Negative) Urine RBC 0-2 (0-2) /HPF Urine WBC 11-20 H (0-5) /HPF Ur Squamous Epith Cells 3-5 (0-2) /HPF Urine Bacteria None Seen (None Seen) Hyaline Casts 0-2 (0-2) /LPF 10/13/22 Range/Units 12:38 WBC (4.8-10.8) X10*3/uL RBC (4.20-5.50) X10*6/uL Hgb (12.0-16.0) g/dl Hct (37.0-47.0) % MCV (80.0-98.0) fL MCH (27.0-33.0) pg MCHC (31.0-35.0) g/dl RDW (11.0-16.0) % Plt Count (160-400) X10*3/uL MPV (9.4-12.3) fL Immature Gran % (Auto) (0.0-0.4) % Neut % (Auto) (45-73) % Lymph % (Auto) (20-40) % Robertson % (Auto) (2-11) % Eos % (Auto) (0-4) % Baso % (Auto) (0-2) % Lymph # (Auto) (1.2-4.9) X10*3/uL Robertson # (Auto) (0.1-1.2) X10*3/uL Eos # (Auto) (0.0-0.4) X10*3/uL Baso # (Auto) (0.0-0.2) X10*3/uL Abs Immat Gran (auto) (0.00-0.03) X10*3/uL Absolute Neuts (auto) (2.0-8.3) x10*3/uL Absolute Nucleated RBC (0.0-0.012) X10*3/uL Nucleated RBC % (auto) (0.0-0.2) /100WBC PT 12.6 (11.1-13.3) SEC INR 1.0 (0.9-1.1) Sodium (135-145) mmol/L Potassium (3.3-5.1) mmol/L Chloride (96-108) mmol/L Carbon Dioxide (22-29) mmol/L Anion Gap (12-20) BUN (9-16) mg/dL Creatinine (0.5-1.4) mg/dL Estim Creat Clear Calc Estimated GFR Random Glucose (60-115) mg/dL Calcium (8.4-10.2) mg/dL Magnesium (1.6-2.6) mg/dL Total Bilirubin (0.0-1.0) mg/dL Direct Bilirubin (0.0-0.5) mg/dL AST (5-31) U/L ALT (0-31) U/L Alkaline Phosphatase (39-117) U/L Total Protein (6.5-8.0) g/dL Albumin (3.5-5.0) g/dL Urine Color Urine Appearance Urine pH (5.0-9.0) Ur Specific [place] (1.005-1.025) Urine Protein (Neg-Trace) mg/dL Urine Glucose (UA) (Negative) mg/dL Urine Ketones (Negative) mg/dL Urine Blood (Negative) Urine Nitrite (Negative) Ur Leukocyte Esterase (Negative) Urine RBC (0-2) /HPF Urine WBC (0-5) /HPF Ur Squamous Epith Cells (0-2) /HPF Urine Bacteria (None Seen) Hyaline Casts (0-2) /LPF Independent Interpretation I performed an independent interpretation of an: CT Scan Radiology Impression Discussion of test interpretation with radiology: I have reviewed the radiologist's reading. Radiologist Impression: CT/CT abdomen pelvis w IV con IMPRESSION: 1. Interval progression of disease as detailed above including pulmonary nodules, significant enlargement of multiple liver lesions, increased lymphadenopathy, increased right lower quadrant mass with possible invasion into the anterior abdominal wall and probable drop metastases in the pelvis. 2. Possible thrombus near the inferior vena cava confluence extending to the left common iliac vein.? Independent Historian Clinical information obtained from an independent historian. History obtained from or confirmed by: Other (Family members) Prescription Management I considered prescription management with: Pain Medication and Antibiotic Chronic Conditions Patient?s care impacted by: Cancer Discharge Plan Discharge Clinical Impression: Abdominal pain, Metastasis Patient Disposition: Home, Self-Care Instructions: Abdominal Pain (ED), Gastrointestinal Bleeding (ED) Prescriptions: No Action amlodipine 5 mg Tablet 5 mg PO DAILY Qty: 60 3RF ondansetron 8 mg tablet,disintegrating 8 mg PO Q8H PRN (Reason: nausea) oxycodone 5 mg Tablet 5 mg PO Q6H PRN (Reason: Pain) Qty: 30 0RF Rx Instructions: Partial Fill upon patient request. enoxaparin 120 mg/0.8 mL Syringe 105 mg subcut Q24H Qty: 30 11RF docusate sodium 100 mg Capsule 100 mg PO DAILY polyethylene glycol 3350 [Miralax] 17 gram/dose Powder 17 g PO DAILY cetirizine [Zyrtec] 10 mg Tablet 10 mg PO DAILY Qty: 30 0RF megestrol 400 mg/10 mL (10 mL) Suspension 400 mg PO DAILY Qty: 300 1RF letrozole 2.5 mg Tablet 2.5 mg PO DAILY Qty: 30 3RF acetaminophen 500 mg Tablet 500 mg PO Q6H PRN (Reason: Pain) sennosides-docusate sodium [Senna with Docusate Sodium] 8.6-50 mg tablet 1 tab-cap PO BEDTIME PRN (Reason: Constipation) tenofovir alafenamide 25 mg tablet 25 mg PO DAILY Qty: 90 2RF Rx Instructions: must administer with a meal/food Referrals: Mayuri Allan MD [Physician] - 1 day
[2022-10-13 12:35] LABS: Appearance Urine Clear; Color Urine Yellow; Glucose Urine UA Negative (Negative); Leukocyte Esterase Urine Small (1+) (Negative); Nitrite Urine Negative (Negative); UMIC TRIGGER UACC YES; Urine Blood Negative (Negative); Urine Ketones Negative (Negative); Urine Protein Trace mg/dL (Neg-Trace)
[2022-10-13 12:38] LABS: Bacteria Urine None Seen (None Seen); Hyaline Casts Urine 0-2 /LPF (0-2); RBC Urine 0-2 /HPF (0-2); UACC Culture Trigger YES
[2022-10-13 12:43] LABS: MANUAL DIFF FLAG NO
[2022-10-13 12:48] LABS: Basophils Percent Auto 0.1 % (0-2); Hematocrit 31.1 % (37.0-47.0); Hemoglobin 10.4 g/dl (12.0-16.0); Imm Gran Abs Auto 0.03 X10*3/uL (0.00-0.03); Imm Gran Pct Auto 0.3 % (0.0-0.4); Lymphocytes Absolute Auto 1.2 X10*3/uL (1.2-4.9); Lymphocytes Percent Auto 11.9 % (20-40); Mean Corpuscular HGB Conc 33.4 g/dl (31.0-35.0); Mean Corpuscular Hemoglobin 29.9 pg (27.0-33.0); Mean Corpuscular Volume 89.4 fL (80.0-98.0); Mean Platelet Volume 9.1 fL (9.4-12.3); Monocytes Absolute Auto 0.9 X10*3/uL (0.1-1.2); Monocytes Percent Auto 9.6 % (2-11); Neutrophils Absolute Auto 7.6 x10*3/uL (2.0-8.3); Neutrophils Percent Auto 78.1 % (45-73); Platelet Count 292 X10*3/uL (160-400); Red Blood Count 3.48 X10*6/uL (4.20-5.50); Red Cell Distribution Width 16.5 % (11.0-16.0); White Blood Count 9.7 X10*3/uL (4.8-10.8)
[2022-10-13 12:49] LABS: Prothrombin Time 12.6 SEC (11.1-13.3)
[2022-10-13 12:58] LABS: Alanine Aminotransferase 15 U/L (0-31); Albumin Level 4.2 g/dL (3.5-5.0); Alkaline Phosphatase 238 U/L (39-117); Anion Gap 15 (12-20); Aspartate Amino Transferase 33 U/L (5-31); Bilirubin Direct 0.2 mg/dL (0.0-0.5); Bilirubin Total 0.4 mg/dL (0.0-1.0); Blood Urea Nitrogen 17 mg/dL (9-16); Calcium 10.3 mg/dL (8.4-10.2); Carbon Dioxide 22 mmol/L (22-29); Chloride 102 mmol/L (96-108); Creatinine Clr Calc Pharmacy 65.1; Estimated Glomerular Filt Rate > 60; Glucose Random 103 mg/dL (60-115); Magnesium 2.5 mg/dL (1.6-2.6); Potassium 4.3 mmol/L (3.3-5.1); Sodium 135 mmol/L (135-145)
[2022-10-13] MEDS: iohexoL 350 MG/ML 100 ML INFUS..BTL IV (14:18)
[2022-10-13 15:07] VITALS: BP 127/80; PULSE 81; RESP 20; O2SAT 94
== END 2022-10-13 16:21 | disposition home or self-care (01) ==
PROVIDERS: Physician Assistant; Emergency Provider Emergency Medicine
DX: R10.9 Unspecified abdominal pain (principal); C50.912 Malignant neoplasm of unspecified site of left female breast; C78.7 Secondary malignant neoplasm of liver and intrahepatic bile duct; C7A.1 Malignant poorly differentiated neuroendocrine tumors; Z92.21 Personal history of antineoplastic chemotherapy; Z79.899 Other long term (current) drug therapy
CPT/HCPCS: 36415; 74177; 80048; 80076; 81001; 83735; 85025; 85610; 87086; 96374; 99284; Q9967